=== PATIENT | female | born 1940 | race Caucasian/White ===

== ENCOUNTER 2019-09-23 13:17 | Emergency (ER) | payer OTHER ==
--- OUTSIDE RECORDS SUMMARY | 2019-09-23 13:19 | XMS REPORT | Continuity of Care Document ---
:1940 Author Organization [facility] t Address [address] [place] [address] Care Team Providers Name Role Phone Unavailable Unavailable Unavailable Problems This patient has no known problems. Allergies, Adverse Reactions, Alerts This patient has no known allergies or adverse reactions. Medications This patient has no known medications. Procedures This patient has no known procedures. Results This patient has no known results.
[2019-09-23 14:03] LABS: Absolute Lymphocytes (CBC) 2.1 K/uL (0.7-4.9); Basophils % 0.6 % (0-1.3); Hematocrit 42.3 % (36.0-45.0); Lymphocytes % 20.1 % (15.3-44.8); MPV 7.6 fL (7.6-11.3); RBC Red Blood Cell Count 4.85 M/uL (3.86-4.86)
[2019-09-23] MEDS ORDERED: NA CHLORIDE 0.9% 500 ML ONE (14:06)
[2019-09-23] MEDS ORDERED: NA CHLORIDE 0.9% 1,000 ML ONE (14:06)
[2019-09-23 14:20] LABS: ALT/SGPT 25 U/L (12-78); AST/SGOT 34 U/L (15-37); Albumin 2.5 g/dL (3.4-5.0); Alkaline Phosphatase 64 U/L (45-117); BUN Blood Urea Nitrogen 21 mg/dL (7-18); Bicarbonate 32 mmol/L (21-32); Bilirubin Direct 0.1 mg/dL (0-0.2); Bilirubin Total 0.2 mg/dL (0.2-1.0); Glucose Level 85 mg/dL (74-106); Lipase 69 U/L (73-393); Magnesium 2.3 mg/dL (1.8-2.4); NT PRO-BNP 163 pg/mL (<450); Potassium 4.2 mmol/L (3.5-5.1); Protein, Total 7.5 g/dL (6.4-8.2); Sodium Level 137 mmol/L (136-145); Troponin (Emerg Dept Use Only) < 0.02 ng/mL (0.0-0.045)
[2019-09-23 14:38] LABS: Blood Morphology Comment NOT SEEN (NOT SEEN); Platelet Estimate ADEQ
--- NOTE | 2019-09-23 15:29 | EDPHYS ---
Physician Documentation [facility] Name: Suzette Neville Age: 79 yrs Sex: Female : 1940 Arrival Date: 09/23/2019 Time: 13:21 Bed 20 Private MD: ED Physician Mason Aragon HPI: 09/22 13:53 This 79 yrs old Female presents to ER via EMS with complaints of Decreased bobo Appetite. 13:53 weak, decreased appetite, failure to thrive. Onset: The symptoms/episode began/occurred bobo 3 day(s) ago. Severity of symptoms: At their worst the symptoms were mild in the emergency department the symptoms are unchanged. It is unknown whether or not the patient has had similar symptoms in the past. Historical: - Allergies: 13:28 Atenolol; ah - PMHx: 13:28 Hypertension; Hypothyroidism; Anxiety; Bipolar disorder; GERD; Epilepsy; ah - PSHx: 13:28 Mastectomy, Left; - Immunization history:: Adult Immunizations up to date. - Social history:: Smoking status: Patient denies any tobacco usage or history of. ROS: 13:56 Constitutional: Negative for fever, chills, and weight loss, Eyes: Negative for injury, bobo pain, redness, and discharge, ENT: Negative for injury, pain, and discharge, Neck: Negative for injury, pain, and swelling, Cardiovascular: Negative for chest pain, palpitations, and edema, Respiratory: Negative for shortness of breath, cough, wheezing, and pleuritic chest pain, Back: Negative for injury and pain, : Negative for injury, bleeding, discharge, and swelling, MS/Extremity: Negative for injury and deformity, Skin: Negative for injury, rash, and discoloration, Psych: Negative for depression, anxiety, suicide ideation, homicidal ideation, and hallucinations, Allergy/Immunology: Negative for hives, rash, and allergies, Endocrine: Negative for neck swelling, polydipsia, polyuria, polyphagia, and marked weight changes. 13:56 Abdomen/GI: Positive for anorexia. 13:56 MS/extremity: Positive for decreased range of motion, of the right leg and left leg. Exam: 13:56 Constitutional: This is a well developed, well nourished patient who is awake, alert, bobo and in no acute distress. Head/Face: Normocephalic, atraumatic. Eyes: Pupils equal round and reactive to light, extra-ocular motions intact. Lids and lashes normal. Conjunctiva and sclera are non-icteric and not injected. Cornea within normal limits. Periorbital areas with no swelling, redness, or edema. ENT: Nares patent. No nasal discharge, no septal abnormalities noted. Tympanic membranes are normal and external auditory canals are clear. Oropharynx with no redness, swelling, or masses, exudates, or evidence of obstruction, uvula midline. Mucous membranes moist. Neck: Trachea midline, no thyromegaly or masses palpated, and no cervical lymphadenopathy. Supple, full range of motion without nuchal rigidity, or vertebral point tenderness. No Meningismus. Chest/axilla: Normal chest wall appearance and motion. Nontender with no deformity. No lesions are appreciated. Cardiovascular: Regular rate and rhythm with a normal S1 and S2. No gallops, murmurs, or rubs. Normal PMI, no JVD. No pulse deficits. Respiratory: Lungs have equal breath sounds bilaterally, clear to auscultation and percussion. No rales, rhonchi or wheezes noted. No increased work of breathing, no retractions or nasal flaring. Abdomen/GI: Soft, non-tender, with normal bowel sounds. No distension or tympany. No guarding or rebound. No evidence of tenderness throughout. Back: No spinal tenderness. No costovertebral tenderness. Full range of motion. Skin: Warm, dry with normal turgor. Normal color with no rashes, no lesions, and no evidence of cellulitis. MS/ Extremity: Pulses equal, no cyanosis. Neurovascular intact. Full, normal range of motion. Neuro: Awake and alert, GCS 15, oriented to person, place, time, and situation. Cranial nerves II-XII grossly intact. Motor strength 5/5 in all extremities. Sensory grossly intact. Cerebellar exam normal. Normal gait. Psych: Awake, alert, with orientation to person, place and time. Behavior, mood, and affect are within normal limits. 13:56 Musculoskeletal/extremity: DVT Exam: No signs of deep vein thrombosis. no pain, no swelling, no tenderness, negative Homans' sign noted on exam, no appreciated bluish discoloration, no erythema, no increased warmth. 15:30 ECG was reviewed by the Attending Physician. bobo Vital Signs: 13:32 BP 120 / 57; Pulse 89; Resp 15; Temp 98.1; Pulse Ox 95% ; Weight 76.88 kg; Pain 0/10; ah 14:30 BP 118 / 82; Pulse 79; Resp 18; Pulse Ox 100% ; ah 15:15 BP 135 / 65; Pulse 88; Resp 12; Pulse Ox 98% ; ah 17:45 BP 158 / 98; Pulse 84; Resp 16; Temp 97.9(O); Pulse Ox 99% on R/A; Pain 0/10; ls4 MDM: 13:39 Patient medically screened. [facility] 13:59 Differential Diagnosis altered mental status, sepsis. Data reviewed: vital signs, [facility] nurses notes, lab test result(s), EKG, radiologic studies. Data interpreted: panel monitor: rate is 89 beats/min, rhythm is regular, Pulse oximetry: on room air is 95 %. Test interpretation: by ED physician or midlevel provider: ECG, plain radiologic studies. Counseling: I had a detailed discussion with the patient and/or guardian regarding: the historical points, exam findings, and any diagnostic results supporting the discharge/admit diagnosis, the presence of at least one elevated blood pressure reading (>120/80) during this emergency department visit, lab results, radiology results. 15:23 ED course: alert and oriented, positive po intake, all labs discussed, will dc to ri to [facility] continue care. 09/22 13:50 Order name: Basic Metabolic Panel; Complete Time: 14:55 [facility] 09/22 13:50 Order name: CBC with Diff; Complete Time: 14:55 [facility] 09/22 13:50 Order name: LFT's; Complete Time: 14:55 [facility] 09/22 13:50 Order name: Magnesium; Complete Time: 14:55 [facility] 09/22 13:50 Order name: NT PRO-BNP; Complete Time: 14:55 [facility] 09/22 13:50 Order name: Troponin (emerg Dept Use Only); Complete Time: 14:55 [facility] 09/22 13:50 Order name: XRAY Chest (1 view) [facility] 09/22 13:50 Order name: Lipase; Complete Time: 14:55 [facility] 09/22 13:50 Order name: Depakote; Complete Time: 14:55 [facility] 09/22 13:50 Order name: Urine Culture [facility] 09/22 14:05 Order name: Manual Differential; Complete Time: 14:55 EDMS 09/22 15:10 Order name: Urine Dipstick--Ancillary (enter results) 09/22 13:50 Order name: EKG; Complete Time: 13:52 [facility] 09/22 13:50 Order name: Cardiac monitoring; Complete Time: 13:55 [facility] 09/22 13:50 Order name: EKG - Nurse/Tech; Complete Time: 15:21 [facility] 09/22 13:50 Order name: IV Saline Lock; Complete Time: 14:05 [facility] 09/22 13:50 Order name: Labs collected and sent; Complete Time: 14:05 [facility] 09/22 13:50 Order name: O2 Per Protocol; Complete Time: 14:05 [facility] 09/22 13:50 Order name: O2 Sat Monitoring; Complete Time: 14:05 [facility] 09/22 13:50 Order name: Urine Dipstick-Ancillary (obtain specimen); Complete Time: 15:09 [facility] 09/22 15:22 Order name: PO challenge; Complete Time: 15:33 [facility] EC:30 Rate is 87 beats/min. Rhythm is regular. QRS [place] is Normal. MA interval is normal. QRS bobo interval is normal. QT interval is normal. No Q waves. T waves are Normal. No ST changes noted. Clinical impression: NSR w/ Non-specific ST/T Changes and No evidence of ischemia. Interpreted by me. Administered Medications: 14:05 Drug: NS 0.9% 500 ml Route: IV; Rate: bolus; Site: right forearm; 15:54 Follow up: Response: No adverse reaction; IV Status: Completed infusion 14:30 Drug: NS 0.9% 1000 ml Route: IV; Rate: 125 ml/hr; Site: right forearm; 15:53 Follow up: Response: No adverse reaction; IV Status: Completed infusion 15:15 Drug: NS 0.9% 500 ml Route: IV; Rate: bolus; Site: right forearm; 15:53 Follow up: Response: No adverse reaction; IV Status: Completed infusion Disposition: 09/23/19 15:28 Discharged to Home. Impression: Weakness. - Condition is Stable. - Discharge Instructions: Weakness, Fatigue, Weakness, [id number]. - Medication Reconciliation Form, Thank You Letter, Antibiotic Education, Prescription Opioid Use form. - Follow up: Private Physician; When: 2 - 3 days; Reason: Recheck today's complaints, Continuance of care, Re-evaluation by your physician. - Problem is new. - Symptoms have improved. Signatures: Dispatcher [employer] EDMason Marie MD MD cha Attema, Lee, PERFORATOR OPERATOR-C PERFORATOR OPERATOR-Cla1 Chantal Mcmahon, RN RN ls4 June Talley RN RN Corrections: (The following items were deleted from the chart) 17:46 15:28 09/23/2019 15:28 Discharged to Home. Impression: Weakness. Condition is Stable. ls4 Forms are Medication Reconciliation Form, Thank You Letter, Antibiotic Education, Prescription Opioid Use. Follow up: Private Physician; When: 2 - 3 days; Reason: Recheck today's complaints, Continuance of care, Re-evaluation by your physician. Problem is new. Symptoms have improved. bobo
--- NOTE | 2019-09-23 15:29 | ER ---
Nurse's Notes [facility] Name: Suzette Neville Age: 79 yrs Sex: Female : 1940 Arrival Date: 09/23/2019 Time: 13:21 Bed 20 Private MD: Diagnosis: Weakness Presentation: 09/22 13:15 Chief complaint: EMS states: per residential Pt has been "failure to thrive" for the last few weeks. She has not been eating or drinking much. correction attempted IV and unsuccessful. 134/59, 88, 93%, 12, 97.9. Coronavirus screen: Patient denies a cough. Patient denies shortness of breath or difficulty breathing. Patient denies measured and/or subjective temperature greater than 100.4F prior to today's visit. Patient denies travel on a cruise ship or to a country the [facility] currently lists as an affected area. Patient denies contact with known and/or suspected case of COVID-19. Proceed with normal triage. Ebola Screen: No symptoms or risks identified at this time. Initial Sepsis Screen: Does the patient meet any 2 criteria?. Risk Assessment: Do you want to hurt yourself or someone else? Patient reports no desire to harm self or others. Onset of symptoms is unknown. 13:15 Method Of Arrival: EMS: [facility] 13:15 Acuity: [place] 3 15:21 Initial Sepsis Screen: Does the patient have a suspected source of infection? No. Patient's initial sepsis screen is negative. 16:34 Note LEXIS BELTRAN ls4 Historical: - Allergies: 13:28 Atenolol; - PMHx: 13:28 Hypertension; Hypothyroidism; Anxiety; Bipolar disorder; GERD; Epilepsy; - PSHx: 13:28 Mastectomy, Left; - Immunization history:: Adult Immunizations up to date. - Social history:: Smoking status: Patient denies any tobacco usage or history of. Screenin:30 Abuse screen: Denies threats or abuse. Nutritional screening:. Tuberculosis screening: No symptoms or risk factors identified. Fall Risk None identified. Assessment: 13:28 General: Appears in no apparent distress. unkempt, Behavior is calm, cooperative. Pain: Denies pain. Neuro: Level of Consciousness is awake, obeys commands, Oriented to person, place. Cardiovascular: Capillary refill < 3 seconds Patient's skin is warm and dry. Respiratory: Airway is patent is compromised. Derm: Skin is intact, is healthy with good turgor, Skin is dry. 15:29 Reassessment: Patient and/or family updated on plan of care and expected duration. Pain ah level reassessed. Patient is alert, oriented x 3, equal unlabored respirations, skin warm/dry/pink. Pt given a few drinks of diet sprite. Tolerated well. States that is all she wants at this time. 16:37 Reassessment: SPOKE TO LEXIS AT [facility]. LEXIS STATES THAT PT WAS SENT ls4 HERE TO ASSESS SO THAT SHE CAN HAVE A "FAMILY MEETING TO DISCUSS HOSPICE" REPORT GIVEN TO LEXIS, I THEN ASKED LEXIS TO ARRANGE TRANSPORT BACK TO [facility], LEXIS STATES THAT SHE HAS NEVER HAD TO DO THAT BEFORE AND WILL TRY. 16:57 Reassessment: LEXIS RN AT [facility] STATES THAT SHE HAS NEVER ARRANGED ls4 TRANSPORT FOR HER RESIDENTS BACK TO THE CENTER AND THAT SHE CALLED HER DON WHO SAID ALSO THAT SHE DOES NOT ARRANGE TRANSPORT FOR THE RESIDENTS RETURNING FROM ED. DON NAME DA [id number]. Vital Signs: 13:32 BP 120 / 57; Pulse 89; Resp 15; Temp 98.1; Pulse Ox 95% ; Weight 76.88 kg; Pain 0/10; ah 14:30 BP 118 / 82; Pulse 79; Resp 18; Pulse Ox 100% ; ah 15:15 BP 135 / 65; Pulse 88; Resp 12; Pulse Ox 98% ; ah 17:45 BP 158 / 98; Pulse 84; Resp 16; Temp 97.9(O); Pulse Ox 99% on R/A; Pain 0/10; ls4 ED Course: 13:21 Patient arrived in ED. ah 13:24 Triage completed. 13:39 Mason Aragon MD is Attending Physician. [facility] 13:47 June Talley, RN is Primary Nurse. ah 13:50 Initial lab(s) drawn, by ED staff, sent to lab. Inserted saline lock: 22 gauge in right ah forearm, using aseptic technique. 14:15 XRAY Chest (1 view) In Process Unspecified. EDMS 14:45 Straight cath inserted, using sterile technique, 15 Returned clear yellow urine. ah Patient tolerated well. 15:22 Patient has correct armband on for positive identification. Placed in gown. Bed in low ah position. Side rails up X2. religion instructor on. Pulse ox on. NIBP on. 15:33 Patient notified of wait time. 16:37 No provider procedures requiring assistance completed. ls4 17:46 IV discontinued. ls4 Administered Medications: 14:05 Drug: NS 0.9% 500 ml Route: IV; Rate: bolus; Site: right forearm; 15:54 Follow up: Response: No adverse reaction; IV Status: Completed infusion 14:30 Drug: NS 0.9% 1000 ml Route: IV; Rate: 125 ml/hr; Site: right forearm; 15:53 Follow up: Response: No adverse reaction; IV Status: Completed infusion 15:15 Drug: NS 0.9% 500 ml Route: IV; Rate: bolus; Site: right forearm; 15:53 Follow up: Response: No adverse reaction; IV Status: Completed infusion Outcome: 15:28 Discharge ordered by MD. broussard 17:46 Discharged to residential. Report called to [facility] Transfer ls4 form completed. 17:46 Condition: stable 17:46 Instructed on discharge instructions. 17:46 Patient left the ED. ls4 Signatures: Dispatcher [employer] EDMS Mason Aragon MD MD cha Stewart, Lisa, RN RN ls4 June Talley, RN RN
--- NOTE | 2019-09-23 15:51 | RAD REPORT ---
EXAM DESCRIPTION: RAD - Chest Single View - 09/23/2019 2:15 pm CLINICAL HISTORY: COUGH, shortness of breath COMPARISON: None TECHNIQUE: AP portable chest image was obtained 09/23/2019 2:15 pm . FINDINGS: Lung volumes are low. No focal mass or consolidation. Left hemithorax volume is reduced du e to rotation and splinting. No significant failure or volume overload. Interstitial pattern is mildl y prominent believed be baseline interstitial disease. Trachea is midline. Heart and vasculature are normal. No measurable pleural effusion and no pneumotho rax. No acute bony abnormality seen. No acute aortic findings suspected. IMPRESSION: No acute cardiopulmonary process.
[2019-09-23 17:56] VITALS: BP 158/98; TEMP 97.9; O2SAT 99
[2019-09-23 21:49] LABS: Urine Blood TRACE (NEG); Urine Glucose NEGATIVE (NEG); Urine Protein NEGATIVE (NEG); Urine Specific Gravity 1.025 (1.005-1.030); Urine pH 6.5 (5.0-7.0)
--- NOTE | 2019-09-24 07:26 | EKG ---
Test Date: 2019-09-23 Test Time: 15:09:20 [employer]masters Manager: JEANETTE MEASUREMENT RESULTS: Intervals: Rate: 87 NC: 134 QRSD: 82 QT: 364 QTc: 438 [place]: P: 40 NC: 134 QRS: -41 T: 34 INTERPRETIVE STATEMENTS: Normal sinus rhythm Left axis deviation Possible Anterior infarct, age undetermined Abnormal ECG No previous ECG available for comparison Electronically Signed On 09-24-19 07:24:56 CDT by Victor Manuel Rojo
== END 2019-09-23 17:46 | disposition home or self-care (01) ==
LOC: ER 13:17
DX: R53.1 Weakness (principal); I10 Essential (primary) hypertension; Z88.8 Allergy status to other drugs, medicaments and biological substances; Z90.12 Acquired absence of left breast and nipple
CPT/HCPCS: 96361; 93005; 87088; 85025; 87086; 80048; 36415; 83735; 80076; 80164; 81003; 84484; 83690; 83880; 71045; 51702; 96360; 99284; J7040; J7030; 87077; 87186

== ENCOUNTER 2020-11-26 16:05 | Emergency (ER) | payer OTHER ==
[2020-11-26 16:20] LABS: Absolute Lymphocytes (CBC) 1.9 K/uL (0.7-4.9); Basophils % 0.4 % (0-1.3); Hematocrit 36.6 % (36.0-45.0); Lymphocytes % 11.7 % (15.3-44.8); MPV 7.8 fL (7.6-11.3); RBC Red Blood Cell Count 4.21 M/uL (3.86-4.86)
[2020-11-26 16:29] LABS: Protime INR 1.19
[2020-11-26] MEDS ORDERED: MORPHINE 4 MG/ML SYR ONE (16:44)
[2020-11-26] MEDS ORDERED: NA CHLORIDE 0.9% 1,000 ML ONE (16:44)
[2020-11-26] MEDS ORDERED: ONDANSETRON 4 MG/2 ML VIAL ONE ×2 (16:44→20:30)
[2020-11-26 16:53] LABS: ALT/SGPT 17 U/L (12-78); AST/SGOT 14 U/L (15-37); Albumin 3.1 g/dL (3.4-5.0); Alkaline Phosphatase 58 U/L (45-117); BUN Blood Urea Nitrogen 12 mg/dL (7-18); Bicarbonate 26 mmol/L (21-32); Bilirubin Direct 0.1 mg/dL (0-0.2); Bilirubin Total 0.5 mg/dL (0.2-1.0); Glucose Level 151 mg/dL (74-106); NT PRO-BNP 1517 pg/mL (<450); Potassium 3.7 mmol/L (3.5-5.1); Protein, Total 7.3 g/dL (6.4-8.2); Sodium Level 139 mmol/L (136-145); Troponin (Emerg Dept Use Only) < 0.02 ng/mL (0.0-0.045)
--- NOTE | 2020-11-26 17:16 | EDPHYS ---
Physician Documentation [facility] Name: Suzette Neville Age: 80 yrs Sex: Female : 1940 Arrival Date: 11/26/2020 Time: 16:05 Bed 28 Private MD: ED Physician Mason Aragon HPI: 11/26 16:09 This 80 yrs old Female presents to ER via Unassigned with complaints of Knee bobo Injury. Historical: - Immunization history:: Adult Immunizations up to date. - Social history:: Smoking status: Patient denies any tobacco usage or history of. Patient/guardian denies using alcohol, street drugs, tobacco products. ROS: 16:56 Constitutional: Negative for fever, chills, and weight loss, Eyes: Negative for injury, bobo pain, redness, and discharge, ENT: Negative for injury, pain, and discharge, Neck: Negative for injury, pain, and swelling, Cardiovascular: Negative for chest pain, palpitations, and edema, Respiratory: Negative for shortness of breath, cough, wheezing, and pleuritic chest pain, Abdomen/GI: Negative for abdominal pain, nausea, vomiting, diarrhea, and constipation, Back: Negative for injury and pain, : Negative for injury, bleeding, discharge, and swelling, Skin: Negative for injury, rash, and discoloration, Neuro: Negative for headache, weakness, numbness, tingling, and seizure, Psych: Negative for depression, anxiety, suicide ideation, homicidal ideation, and hallucinations, Allergy/Immunology: Negative for hives, rash, and allergies, Endocrine: Negative for neck swelling, polydipsia, polyuria, polyphagia, and marked weight changes, Hematologic/Lymphatic: Negative for swollen nodes, abnormal bleeding, and unusual bruising. 16:56 MS/extremity: Positive for decreased range of motion, pain, swelling, tenderness, of the lateral aspect of right calf, medial aspect of right calf and right brink. Exam: 16:56 Constitutional: This is a well developed, well nourished patient who is awake, alert, bobo and in no acute distress. Head/Face: Normocephalic, atraumatic. Eyes: Pupils equal round and reactive to light, extra-ocular motions intact. Lids and lashes normal. Conjunctiva and sclera are non-icteric and not injected. Cornea within normal limits. Periorbital areas with no swelling, redness, or edema. ENT: Nares patent. No nasal discharge, no septal abnormalities noted. Tympanic membranes are normal and external auditory canals are clear. Oropharynx with no redness, swelling, or masses, exudates, or evidence of obstruction, uvula midline. Mucous membranes moist. Neck: Trachea midline, no thyromegaly or masses palpated, and no cervical lymphadenopathy. Supple, full range of motion without nuchal rigidity, or vertebral point tenderness. No Meningismus. Chest/axilla: Normal chest wall appearance and motion. Nontender with no deformity. No lesions are appreciated. Cardiovascular: Regular rate and rhythm with a normal S1 and S2. No gallops, murmurs, or rubs. Normal PMI, no JVD. No pulse deficits. Respiratory: Lungs have equal breath sounds bilaterally, clear to auscultation and percussion. No rales, rhonchi or wheezes noted. No increased work of breathing, no retractions or nasal flaring. Abdomen/GI: Soft, non-tender, with normal bowel sounds. No distension or tympany. No guarding or rebound. No evidence of tenderness throughout. Back: No spinal tenderness. No costovertebral tenderness. Full range of motion. Psych: Awake, alert, with orientation to person, place and time. Behavior, mood, and affect are within normal limits. 16:56 Skin: cellulitis, that is mild, induration, that is mild is noted, lesion(s), hemorrhagic bullous lesions, anterior. Vital Signs: 16:41 BP 167 / 87 (auto/); Pulse 106; Resp 20; Temp 98.5(O); Pulse Ox 95% on R/A; kh1 16:47 BP 167 / 84; Pulse 106; Resp 20; Temp 98.5; Pulse Ox 95% ; kh1 20:15 BP 154 / 81; Pulse 88; Resp 17; Temp 98(O); Pulse Ox 100% on R/A; Pain 4/10; bc5 MDM: 16:06 Patient medically screened. jr8 18:52 Differential diagnosis: dislocation, open fracture, closed fracture, contusion, bobo tendonitis. Data reviewed: vital signs, nurses notes, EMS record, lab test result(s), EKG, radiologic studies, plain films. Data interpreted: manager monitoring: rate is 106 beats/min, rhythm is regular, Pulse oximetry: on room air is 95 %. Test interpretation: by ED physician or midlevel provider: ECG, plain radiologic studies. Counseling: I had a detailed discussion with the patient and/or guardian regarding: the historical points, exam findings, and any diagnostic results supporting the discharge/admit diagnosis, lab results, radiology results, the need to transfer to another facility, for higher level of care, [facility] does not immediately have the required specialist. 11/26 16:08 Order name: Basic Metabolic Panel; Complete Time: 16:54 [facility] 11/26 16:08 Order name: CBC with Diff [facility] 11/26 16:08 Order name: LFT's; Complete Time: 16:54 [facility] 11/26 16:08 Order name: Magnesium; Complete Time: 16:54 [facility] 11/26 16:08 Order name: NT PRO-BNP; Complete Time: 16:54 [facility] 11/26 16:08 Order name: PT-INR; Complete Time: 16:54 [facility] 11/26 16:08 Order name: Troponin (emerg Dept Use Only); Complete Time: 16:54 [facility] 11/26 16:08 Order name: XRAY Chest (1 view) [facility] 11/26 16:08 Order name: Tib Fib Right XRAY [facility] 11/26 18:07 Order name: CBC Smear Scan [facility] 11/26 18:50 Order name: SARS-COV-[address] [facility] 11/26 16:08 Order name: EKG; Complete Time: 16:08 [facility] 11/26 16:08 Order name: Cardiac monitoring [facility] 11/26 16:08 Order name: EKG - Nurse/Tech [facility] 11/26 16:08 Order name: IV Saline Lock; Complete Time: 16:16 [facility] 11/26 16:08 Order name: Labs collected and sent; Complete Time: 16:16 [facility] 11/26 16:08 Order name: O2 Per Protocol; Complete Time: 16:16 [facility] 11/26 16:08 Order name: O2 Sat Monitoring; Complete Time: 16:16 [facility] 11/26 16:08 Order name: Ice pack; Complete Time: 16:37 [facility] 11/26 16:56 Order name: Splint - Posterior Leg; Complete Time: 20:14 [facility] Administered Medications: 16:37 Drug: Zofran (Ondansetron) 4 mg Route: IVP; Site: right hand; kh1 20:14 Follow up: Response: No adverse reaction bc5 16:38 Drug: NS 0.9% 1000 ml Route: IV; Rate: 75 ml/hr; Site: right hand; kh1 20:15 Follow up: IV Status: Infusion continued upon transfer bc5 16:38 Drug: morphine 2 mg Route: IVP; Site: right hand; kh1 20:14 Follow up: Response: No adverse reaction bc5 17:16 Drug: Zosyn (piperacillin-tazobactam) 3.375 grams Route: IVPB; Infused Over: 60 mins; kh1 Site: right antecubital; 20:14 Follow up: IV Status: Completed infusion bc5 20:13 Drug: morphine 2 mg Route: IVP; Site: right hand; bc5 20:14 Follow up: Response: Medication administered at discharge. bc5 20:13 Drug: Zofran (Ondansetron) 4 mg Route: IVP; Site: right hand; bc5 20:14 Follow up: Response: Medication administered at discharge. 5 Disposition Summary: 11/26/20 17:16 Transfer Ordered Transfer Location: [facility] bobo Reason: Higher level of care bobo Condition: Fair bobo Problem: new bobo Symptoms: have improved bobo Accepting Physician: magalie arboleda(11/26/20 20:29) 5 Diagnosis - Fall (on) (from) other stairs and steps - chair/fall bobo - Displaced fracture of lateral condyle of right tibia - right proximal displaced bobo fibula fracture - Cellulitis and acute lymphangitis of other sites - right proximal tibial area, bobo bullous lesiona - Coronavirus infection, unspecified bobo Forms: - Medication Reconciliation Form bobo - SBAR form bobo Signatures: Dispatcher [employer] EDMason Marie MD MD cha Roszak, Josh, PA PA jr8 Harris, Kecia [facility] Sommer Couch RN RN 5 Corrections: (The following items were deleted from the chart) 16:45 16:45 PMHx: Hypertension; [place] [id number] 16:45 16:45 PMHx: Hypothyroidism; [place] [address] 16:45 16:45 PMHx: Anxiety; [place] [address] 16:45 16:45 PMHx: Bipolar disorder; kh1 kh1 16:45 16:45 PMHx: GERD; kh1 kh1 16:45 16:45 PMHx: epilepsy; 1 kh1 17:37 17:01 CORONAVIRUS+BRZ ordered. EDMS EDMS 18:53 17:[address] [facility] 20:29 18:53 [facility]
--- NOTE | 2020-11-26 17:16 | ER ---
Nurse's Notes [facility] Name: Suzette Neville Age: 80 yrs Sex: Female : 1940 Arrival Date: 11/26/2020 Time: 16:05 Bed 28 Private MD: Diagnosis: Fall (on) (from) other stairs and steps-chair/fall;Displaced fracture of lateral condyle of right tibia-right proximal displaced fibula fracture;Cellulitis and acute lymphangitis of other sites-right proximal tibial area, bullous lesiona;Coronavirus infection, unspecified Presentation: 11/26 16:41 Chief complaint: EMS states: was sent from [facility] with c/o right knee [facility] pain. EMS states pt had fall unknown time. right leg is swollen with large purple bruise. large pustule pockets noted. facility staes they do not know when ot fell. Coronavirus screen: Vaccine status: Patient reports receiving the 2nd dose of the covid vaccine. Ebola Screen: No symptoms or risks identified at this time. Initial Sepsis Screen: Does the patient meet any 2 criteria? No. Patient's initial sepsis screen is negative. Does the patient have a suspected source of infection? No. Patient's initial sepsis screen is negative. Risk Assessment: Do you want to hurt yourself or someone else? Patient reports no desire to harm self or others. Onset of symptoms is unknown. 16:41 Method Of Arrival: EMS: [place] [id number] 16:41 Acuity: [place] 3 [facility] Triage Assessment: 16:46 General: Appears in no apparent distress. uncomfortable, Behavior is calm, cooperative. 1 Musculoskeletal: Swelling present in right leg Tenderness present in right leg Parent/caregiver report the patient having pain in right leg. Injury Description: Bruise sustained to right leg is purple. Historical: - Immunization history:: Adult Immunizations up to date. - Social history:: Smoking status: Patient denies any tobacco usage or history of. Patient/guardian denies using alcohol, street drugs, tobacco products. Screenin:49 Abuse screen: Denies threats or abuse. Nutritional screening: No deficits noted. 1 Tuberculosis screening: No symptoms or risk factors identified. Fall Risk Fall in past 12 months (25 points). Secondary diagnosis (15 points) dementia, impaired mobility, IV access (20 points). Mental Status- Overestimates/Forgets Limitations (15 pts.). Assessment: 16:48 General: Appears in no apparent distress. uncomfortable, Behavior is calm, cooperative. kh1 Pain: Complains of pain in right leg Pain does not radiate. Pain currently is 10 out of 10 on a pain scale. Aggravated by weight bearing, Noted to be confused, grimacing. Neuro: Level of Consciousness is awake, alert, obeys commands, Oriented to person, Operational Trainer are weak bilaterally Gait is Speech Facial symmetry appears normal. 17:30 Reassessment: Patient appears in no apparent distress at this time. No changes from [facility] previously documented assessment. Patient and/or family updated on plan of care and expected duration. Pain level reassessed. Patient is alert, oriented x 3, equal unlabored respirations, skin warm/dry/pink. 19:17 Reassessment: Patient appears in no apparent distress at this time. No changes from [facility] previously documented assessment. Patient and/or family updated on plan of care and expected duration. Pain level reassessed. Patient is alert, oriented x 3, equal unlabored respirations, skin warm/dry/pink. Patient is alert/active/playful, equal unlabored respirations, skin warm/dry/pink. report called spoke with Christine. no acute distress at this time awaiting ambulance. Vital Signs: 16:41 BP 167 / 87 (auto/); Pulse 106; Resp 20; Temp 98.5(O); Pulse Ox 95% on R/A; kh1 16:47 BP 167 / 84; Pulse 106; Resp 20; Temp 98.5; Pulse Ox 95% ; kh1 20:15 BP 154 / 81; Pulse 88; Resp 17; Temp 98(O); Pulse Ox 100% on R/A; Pain 4/10; bc5 ED Course: 16:05 Patient arrived in ED. ds1 16:06 Ty Fuchs PA is PHCP. jr8 16:06 Mason Aragon MD is Attending Physician. jr8 16:16 Merle Talley is Primary Nurse. kh1 16:16 Basic Metabolic Panel Sent. kh1 16:16 CBC with Diff Sent. kh1 16:16 LFT's Sent. kh1 16:16 Magnesium Sent. kh1 16:16 NT PRO-BNP Sent. kh1 16:16 PT-INR Sent. kh1 16:16 Troponin (emerg Dept Use Only) Sent. 1 16:45 Triage completed. 1 16:49 Arm band placed on left wrist. EKG completed in triage. Results shown to MD. 1 16:49 Patient has correct armband on for positive identification. Fall risk band placed. kh1 Placed in gown. Bed in low position. Call light in reach. Side rails up X2. school lunch monitor on. Pulse ox on. Sitter at bedside. 17:23 XRAY Chest (1 view) In Process Unspecified. EDMS 17:23 Tib Fib Right XRAY In Process Unspecified. EDMS 20:28 No provider procedures requiring assistance completed. Patient transferred, IV remains bc5 in place. Administered Medications: 16:37 Drug: Zofran (Ondansetron) 4 mg Route: IVP; Site: right hand; kh1 20:14 Follow up: Response: No adverse reaction bc5 16:38 Drug: NS 0.9% 1000 ml Route: IV; Rate: 75 ml/hr; Site: right hand; kh1 20:15 Follow up: IV Status: Infusion continued upon transfer bc5 16:38 Drug: morphine 2 mg Route: IVP; Site: right hand; kh1 20:14 Follow up: Response: No adverse reaction bc5 17:16 Drug: Zosyn (piperacillin-tazobactam) 3.375 grams Route: IVPB; Infused Over: 60 mins; 1 Site: right antecubital; 20:14 Follow up: IV Status: Completed infusion bc5 20:13 Drug: morphine 2 mg Route: IVP; Site: right hand; bc5 20:14 Follow up: Response: Medication administered at discharge. bc5 20:13 Drug: Zofran (Ondansetron) 4 mg Route: IVP; Site: right hand; bc5 20:14 Follow up: Response: Medication administered at discharge. bc5 Outcome: 17:16 ER care complete, transfer ordered by . bobo 20:16 Transferred by ground EMS to [facility], Transfer form completed. X-rays sent bb w/ patient. 20:28 Condition: improved bc5 20:29 Patient left the ED. bc5 Signatures: Dispatcher [employer] EDMason Marie MD MD cha Sanford, Demi ds1 Radha Zarate RN RN bb Ty Fuchs PA PA jr8 Merle Talley [facility] Sommer Couch RN RN bc5 Corrections: (The following items were deleted from the chart) 16:45 16:45 PMHx: Hypertension; [place] [id number] 16:45 16:45 PMHx: Hypothyroidism; [place] [id number] 16:45 16:45 PMHx: Anxiety; [place] [id number] 16:45 16:45 PMHx: Bipolar disorder; [place] [id number] 16:45 16:45 PMHx: GERD; [place] [id number] 16:45 16:45 PMHx: epilepsy; [place] [id number] 17:37 17:16 CORONAVIRUS+MR.LAB.BRZ drawn and sent. [facility] EDMS
--- NOTE | 2020-11-26 17:29 | RAD REPORT ---
EXAM DESCRIPTION: Kelly Single View11/26/2020 5:23 pm CLINICAL HISTORY: cough COMPARISON: 2019 FINDINGS: The lungs appear clear of acute infiltrate. The heart is normal size IMPRESSION: No acute abnormalities displayed
[2020-11-26] MEDS ORDERED: PIPERACIL/TAZO 3.375 GM VIAL IV ONE (17:30)
[2020-11-26] MEDS ORDERED: NA CHLORIDE 0.9% 100 ML ONE (17:31)
--- NOTE | 2020-11-26 17:31 | RAD REPORT ---
EXAM DESCRIPTION: RAD - Tib Fib Right - 11/26/2020 5:23 pm CLINICAL HISTORY: Right leg pain FINDINGS: Limited evaluation of the proximal knee. Comminuted markedly displaced fracture proximal tibia. Comminuted fracture fibular head/neck. Mildly displaced fracture anterior distal aspect tibia. Osteoporosis
[2020-11-26 18:07] LABS: Blood Morphology Comment NOT SEEN (NOT SEEN); Platelet Estimate ADEQ; White Blood Cell Scan OK (OK)
[2020-11-26] MEDS ORDERED: MORPHINE 2 MG/ML SYR ONE (20:30)
[2020-11-26 20:46] VITALS: BP 154/81; TEMP 98; O2SAT 100
--- NOTE | 2020-11-27 16:59 | EKG ---
Test Date: 2020-11-26 Test Time: 16:30:59 [employer] Manager: SUMEET MEASUREMENT RESULTS: Intervals: Rate: 102 PA: 146 QRSD: 76 QT: 352 QTc: 458 [place]: P: 44 PA: 146 QRS: -30 T: 20 INTERPRETIVE STATEMENTS: Sinus tachycardia Left axis deviation Moderate voltage criteria for LVH, may be normal variant Abnormal ECG Compared to ECG 09/23/2019 15:09:20 Left ventricular hypertrophy now present Sinus rhythm no longer present Myocardial infarct finding no longer present Electronically Signed On 11-27-20 16:57:59 CDT by Victor Manuel Rojo
== END 2020-11-26 20:29 | disposition short-term general hospital (02) ==
LOC: ER 16:05
PROC: 2W3QX1Z Immobilization of Right Lower Leg using Splint (ICD-10-PCS; principal; 2020-11-26)
DX: S82.121A Displaced fracture of lateral condyle of right tibia, initial encounter for closed fracture (principal); S82.831A Other fracture of upper and lower end of right fibula, initial encounter for closed fracture; L03.115 Cellulitis of right lower limb; L03.125 Acute lymphangitis of right lower limb; U07.1 COVID-19; W10.9XXA Fall (on) (from) unspecified stairs and steps, initial encounter
CPT/HCPCS: 96365; 96361; 93005; 85025; 80048; 36415; 83735; 85610; 80076; 84484; 83880; 71045; 73590; 96375; 99285; 96366; 29515; U0003; J2543; J2270; J7030; J2405 ×2

== ENCOUNTER 2022-09-24 21:05 | Inpatient (IN) | payer OTHER ==
--- OUTSIDE RECORDS SUMMARY | 2022-09-24 21:14 | XMS REPORT | Continuity of Care Document ---
:1940 Author Organization [facility] t Address [address] [place] [address] [address] [place] [address] Care Team Providers Name Role Phone CHRISTELLE SANTACRUZ Attending Clinician Unavailable PATRICK KO Attending Clinician Unavailable Kieran Neely Attending Clinician Unavailable UNKNOWN Attending Clinician Unavailable GC_BAHC_Adan_Gm Attending Clinician Unavailable KNOW, DOES_NOT Attending Clinician Unavailable Zaira Arellano Attending Clinician [phone] Sawyer Vazquez Attending Clinician [phone] GC_BAHC_Prakashglbj_Lake Attending Clinician Unavailable Raju_Judith Attending Clinician Unavailable Kieran Neely Admitting Clinician Unavailable Sawyer Vazquez Admitting Clinician Unavailable GC_BAHC_Todd_Gm Admitting Clinician Unavailable GC_BAHC_Prakashglbj_Lake Admitting Clinician Unavailable Raju_P Admitting Clinician Unavailable KNOW, DOES_NOT Admitting Clinician Unavailable Payers Payer Name Policy Type Policy Number Effective Date Expiration Date Raheem ventura MEDICARE PART A [id number] 2007 2024 AND B 00:00:00 00:00:00 [facility] [id number] 2021 [facility] 00:00:00 [place] (MEDICARE REPLACEMENT/ADVANT AGE - HMO) [facility] [id number] 2018 [facility] (MEDICAID 00:00:00 HMO) Problems Condition Condition Condition Status Onset Resolution Last Treating Co mments Source Name Details Category Date Date Treatment Clinician Date Need for Need for Problem Active [facility] personal Personal 2-28 Medica l care Care 00:00: assistance Assistance 00 Long-term Long-term Problem Active [facility] via current Current -28 Medical use of Use of 00:00: anticonvul Anticonvul 00 joshua joshua Valproate Valproate Problem Active [facility] via level low Level Low 2-24 Medi keith 00:00: 00 Lives in a Lives in a Problem Active 2021-03 [facility] nursing Nursing 1-09 Medical home Home 00:00: 00 Bed-ridden Bed-ridden Problem Active 2021-03 [facility] 1-09 Medical 00:00: 00 Unintentio Unintentio Problem Active 2021-03 [facility] nal weight nal Weight 0-10 Me dical gain Gain 00:00: 00 Senile Senile Problem Active [facility] purpura Purpura 6-19 Medical 00:00: 00 Candidal Candidal Problem Active [facility] intertrigo Intertrigo 5-11 Me dical 00:00: 00 Hyperlipid Hyperlipid Problem Active [facility] emia emia 5- Medical 00:00: 00 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 00 Hypercoagu Hypercoagu Problem Active [facility] lability lability 5-11 Medica l state State 00:00: 00 Osteoarthr Osteoarthr Problem Active [facility] itis of itis of 5- Medical multiple Multiple 00:00: joints Joints 00 Unable to Unable to Problem Active [facility] walk Walk 5- Medical 00:00: 00 Osteoporos Osteoporos Problem Active [facility] is is 5- Medical 00:00: 00 Opioid Opioid Problem Active [facility] dependence Dependence 5-11 Me dical with with 00:00: current Current 00 use Use Morbid Morbid Problem Active [facility] obesity Obesity -21 Medical 00:00: 00 Hypothyroi Hypothyroi Problem Active [facility] dism dism 4-11 Medical 00:00: 00 Bipolar Bipolar Problem Active [facility] disorder Disorder 4-11 Medica l 00:00: 00 Seizure Seizure Problem Active [facility] disorder Disorder 4-11 Medica l 00:00: 00 Coronary Coronary Problem Active [facility] arterioscl Arterioscl 06-09 Me dical erosis erosis 00:00: 00 History of 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 00 Dementia Dementia Problem Active [facility] 06-09 Medical 00:00: 00 AIR AIR Diagnosis Active 2015-04-10 [facility] AMBULANCE AMBULANCE 04-07 09:57:00 l Active 11:50: Rene 04/07/2015 00 [facility] [place] Diagnosis Active 2015-04-07 Mem [facility]ria Active 04-07 16:35:00 l 04/07/2015 00:00: Jerald tavarez [address] FACIAL FACIAL Diagnosis Active 2015-07-24 Me [facility]ia CTX,HYPONA CTX,HYPONA 04-07 13:25:00 l TREMIA,RHA TREMIA,RHA 00:00: He rmann BDOMYOLYSI BDOMYOLYSI 00 S,D S,D Active 04/07/2015 [facility] Generalize Generalize Problem Active [facility] d anxiety d Anxiety [facility] keith disorder Disorder Chronic Chronic Problem Active [facility] pain Pain Medical syndrome Syndrome Hypertensi Hypertensi Problem Active [facility] ve heart ve Heart Medica l disease Disease Peripheral Peripheral Problem Active [facility] vascular Vascular Medica l disease Disease Not for Not for Problem Active [facility] resuscitat Resuscitat Me dical ion ion Allergies, Adverse Reactions, Alerts Allergy Allergy Status Severity Reaction(s) Onset Inactive Treating Comm ents Source Name Type Date Date Clinician atenolol DA Active U UNKNOWN [facility] 4-22 [place] 00:00: d 00 Medical [place] No Known DA Active U [facility] Allergie 06-19 Clear s 00:00: Colon 00 [facility] Atenolol Allergy Active [facility] to Medical substanc e Social History Smoking Status Start Date Stop Date Source Never Smoker [facility] Medical Medications Ordered Filled Start Stop Current Ordering Indication Dosage Frequency Signature Comments Components Source Medication Medication Date Date Medication? Clinician (SIG) Name Name acetaminoph acetaminoph No acetaminop [facility] en 300 en 300 hen 300 Medical mg-codeine mg-codeine mg-codeine 30 mg 30 mg 30 mg tablet Take tablet Take tablet 1 tablet 1 tablet Take 1 every 8 every 8 tablet hours by hours by every 8 oral route oral route hours by for 30 for 30 oral route days. days. for 30 days. anastrozole anastrozole No anastrozol [facility] 1 mg tablet 1 mg tablet e 1 mg Medical Take 1 Take 1 tablet tablet tablet Take 1 every day every day tablet by oral by oral every day route for route for by oral 90 days. 90 days. route for 90 days. aspirin 81 aspirin 81 No 1 Q1D aspirin 81 [facility] mg mg mg Medical tablet,corey tablet,corey tablet,del yed release yed release ayed Take 1 Take 1 release tablet tablet Take 1 every day every day tablet by oral by oral every day route. route. by oral route. atorvastati atorvastati No atorvastat [facility] n 40 mg n 40 mg in 40 mg Medic al tablet Take tablet Take tablet 1 tablet 1 tablet Take 1 every day every day tablet by oral by oral every day route at route at by oral bedtime. bedtime. route at bedtime. buspirone buspirone No 1 TID buspirone [facility] 15 mg 15 mg 15 mg Medical tablet Take tablet Take tablet 1 tablet 3 1 tablet 3 Take 1 times a day times a day tablet 3 by oral by oral times a route for route for day by 30 days. 30 days. oral route for 30 days. diltiazem diltiazem No diltiazem [facility] ER (XR/XT) ER (XR/XT) ER (XR/XT) Medical 240 mg 240 mg 240 mg capsule,ext capsule,ext capsule,ex ended ended tended release 24 release 24 release 24 hr, hr, hr, controlled controlled controlled divalproex divalproex No divalproex [facility] 125 mg 125 mg 125 mg Medical capsule,del capsule,del capsule,de ayed ayed layed release release release sprinkle sprinkle sprinkle Take 2 Take 2 Take 2 capsules capsules capsules twice a day twice a day twice a by oral by oral day by route for route for oral route 30 days. 30 days. for 30 days. duloxetine duloxetine No duloxetine [facility] 60 mg 60 mg 60 mg Medical capsule,del capsule,del capsule,de ayed ayed layed release release release Take 1 Take 1 Take 1 capsule capsule capsule twice a day twice a day twice a by oral by oral day by route for route for oral route 30 days. 30 days. for 30 days. hydrochloro hydrochloro No 1 Q1D hydrochlor [facility] thiazide thiazide othiazide Me dical 12.5 mg 12.5 mg 12.5 mg tablet Take tablet Take tablet 1 tablet 1 tablet Take 1 every day every day tablet by oral by oral every day route for route for by oral 30 days. 30 days. route for 30 days. ipratropium ipratropium No ipratropiu [facility] 0.5 0.5 m 0.5 Medical mg-albutero mg-albutero mg-albuter l 3 mg (2.5 l 3 mg (2.5 ol 3 mg mg base)/3 mg base)/3 (2.5 mg mL mL base)/3 mL nebulizatio nebulizatio nebulizati n soln n soln on soln levetiracet levetiracet No levetirace [facility] am 1,000 mg am 1,000 mg oconnell 1,000 Medical tablet Take tablet Take mg tablet 1 tablet 1 tablet Take 1 twice a day twice a day tablet by oral by oral twice a route for route for day by 30 days. 30 days. oral route for 30 days. levetiracet levetiracet No 1 BID levetirace [facility] am 250 mg am 250 mg oconnell 250 mg Medical tablet Take tablet Take tablet 1 tablet 1 tablet Take 1 twice a day twice a day tablet by oral by oral twice a route for 1 route for 1 day by day. day. oral route for 1 day. levothyroxi levothyroxi No 1 Q1D levothyrox [facility] ne 25 mcg ne 25 mcg ine 25 mcg Medical tablet Take tablet Take tablet 1 tablet 1 tablet Take 1 every day every day tablet by oral by oral every day route. route. by oral route. Nystop Nystop No Nystop [facility] 100,000 100,000 100,000 Medica l unit/gram unit/gram unit/gram topical topical topical powder powder powder potassium potassium No potassium [facility] chloride ER chloride ER chloride Medical 20 mEq 20 mEq ER 20 mEq tablet,exte tablet,exte tablet,ext nded nded ended release(par release(par release(pa t/cryst) t/cryst) rt/cryst) Take 1 Take 1 Take 1 tablet tablet tablet every day every day every day by oral by oral by oral route for route for route for 30 days. 30 days. 30 days. Retaine Retaine No 2drop(s BID Retaine [facility] (PF) [facility] (PF) ) [facility] (PF) Medical 0.3 % eye 0.3 % eye 0.3 % eye drops Apply drops Apply drops 2 drops 2 drops Apply 2 twice a day twice a day drops by by twice a ophthalmic ophthalmic day by route. route. ophthalmic route. Senna with Senna with No 2 BID Senna with [facility] Docusate Docusate Docusate Med ical Sodium 8.6 Sodium 8.6 Sodium 8.6 mg-50 mg mg-50 mg mg-50 mg tablet Take tablet Take tablet 2 tablets 2 tablets Take 2 twice a day twice a day tablets by oral by oral twice a route. route. day by oral route. Vitamin D3 Vitamin D3 No Vitamin D3 [facility] 1,000 daily 1,000 daily 1,000 Medical daily anastrozole anastrozole No 1 Q1D anastrozol [facility] 1 mg tablet 1 mg tablet e 1 mg Medical Take 1 Take 1 tablet tablet tablet Take 1 every day every day tablet by oral by oral every day route. route. by oral route. aspirin 81 aspirin 81 No 1 Q1D aspirin 81 [facility] mg mg mg Medical tablet,corey tablet,corey tablet,del yed release yed release ayed Take 1 Take 1 release tablet tablet Take 1 every day every day tablet by oral by oral every day route. route. by oral route. buspirone buspirone No 2 TID buspirone [facility] 10 mg 10 mg 10 mg Medical tablet Take tablet Take tablet 2 tablets 3 2 tablets 3 Take 2 times a day times a day tablets 3 by oral by oral times a route for route for day by 30 days. 30 days. oral route for 30 days. diltiazem diltiazem No 1capsul Q1D diltiazem [facility] ER (XR/XT) ER (XR/XT) e(s) ER (XR/XT) Medical 240 mg 240 mg 240 mg capsule,ext capsule,ext capsule,ex ended ended tended release 24 release 24 release 24 hr, hr, hr, controlled controlled controlled Take 1 Take 1 Take 1 capsule capsule capsule every day every day every day by oral by oral by oral route for route for route for 30 days. 30 days. 30 days. divalproex divalproex No 2capsul BID divalproex [facility] 125 mg 125 mg e(s) 125 mg Medical capsule,del capsule,del capsule,de ayed ayed layed release release release sprinkle sprinkle sprinkle Take 2 Take 2 Take 2 capsules capsules capsules twice a day twice a day twice a by oral by oral day by route for route for oral route 30 days. 30 days. for 30 days. duloxetine duloxetine No 1capsul BID duloxetine [facility] 60 mg 60 mg e(s) 60 mg Medical capsule,del capsule,del capsule,de ayed ayed layed release release release Take 1 Take 1 Take 1 capsule capsule capsule twice a day twice a day twice a by oral by oral day by route for route for oral route 30 days. 30 days. for 30 days. hydrocodone hydrocodone No hydrocodon [facility] 5 5 e 5 Medical mg-acetamin mg-acetamin mg-acetami ophen 325 ophen 325 nophen 325 mg tablet mg tablet mg tablet Take 0.5 Take 0.5 Take 0.5 tablets tablets tablets every 8 every 8 every 8 hours by hours by hours by oral route. oral route. oral route. levetiracet levetiracet No 1 BID levetirace [facility] am 1,000 mg am 1,000 mg oconnell 1,000 Medical tablet Take tablet Take mg tablet 1 tablet 1 tablet Take 1 twice a day twice a day tablet by oral by oral twice a route for route for day by 30 days. 30 days. oral route for 30 days. levothyroxi levothyroxi No .5 Q1D levothyrox [facility] ne 25 mcg ne 25 mcg ine 25 mcg Medical tablet Take tablet Take tablet 0.5 tablets 0.5 tablets Take 0.5 every day every day tablets by oral by oral every day route for route for by oral 14 days. 14 days. route for 14 days. nystatin nystatin No nystatin [facility] via 100,000 100,000 100,000 Medica l unit/gram unit/gram unit/gram topical topical topical cream under cream under cream both breast both breast under both every 12 every 12 breast hours prn hours prn every 12 hours prn potassium potassium No 1 Q1D potassium [facility] chloride ER chloride ER chloride Medical 20 mEq 20 mEq ER 20 mEq tablet,exte tablet,exte tablet,ext nded nded ended release(par release(par release(pa t/cryst) t/cryst) rt/cryst) Take 1 Take 1 Take 1 tablet tablet tablet every day every day every day by oral by oral by oral route for route for route for 30 days. 30 days. 30 days. Retaine Retaine No 2drop(s BID Retaine [facility] (PF) [facility] (PF) ) [facility] (PF) Medical 0.3 % eye 0.3 % eye 0.3 % eye drops Apply drops Apply drops 2 drops 2 drops Apply 2 twice a day twice a day drops by by twice a ophthalmic ophthalmic day by route. route. ophthalmic route. Senna with Senna with No 2 BID Senna with [facility] Docusate Docusate Docusate Med ical Sodium 8.6 Sodium 8.6 Sodium 8.6 mg-50 mg mg-50 mg mg-50 mg tablet Take tablet Take tablet 2 tablets 2 tablets Take 2 twice a day twice a day tablets by oral by oral twice a route. route. day by oral route. Vitamin D3 Vitamin D3 No Vitamin D3 [facility] 1,000 daily 1,000 daily 1,000 Medical daily anastrozole anastrozole No 1 Q1D anastrozol [facility] 1 mg tablet 1 mg tablet e 1 mg Medical Take 1 Take 1 tablet tablet tablet Take 1 every day every day tablet by oral by oral every day route. route. by oral route. aspirin 81 aspirin 81 No 1 Q1D aspirin 81 [facility] mg mg mg Medical tablet,corey tablet,corey tablet,del yed release yed release ayed Take 1 Take 1 release tablet tablet Take 1 every day every day tablet by oral by oral every day route. route. by oral route. buspirone buspirone No buspirone [facility] 10 mg 10 mg 10 mg Medical tablet Take tablet Take tablet 2 tablets 3 2 tablets 3 Take 2 times a day times a day tablets 3 by oral by oral times a route for route for day by 30 days. 30 days. oral route for 30 days. diltiazem diltiazem No 1capsul Q1D diltiazem [facility] ER (XR/XT) ER (XR/XT) e(s) ER (XR/XT) Medical 240 mg 240 mg 240 mg capsule,ext capsule,ext capsule,ex ended ended tended release 24 release 24 release 24 hr, hr, hr, controlled controlled controlled Take 1 Take 1 Take 1 capsule capsule capsule every day every day every day by oral by oral by oral route for route for route for 30 days. 30 days. 30 days. divalproex divalproex No divalproex [facility] 125 mg 125 mg 125 mg Medical capsule,del capsule,del capsule,de ayed ayed layed release release release sprinkle sprinkle sprinkle Take 2 Take 2 Take 2 capsules capsules capsules twice a day twice a day twice a by oral by oral day by route for route for oral route 30 days. 30 days. for 30 days. duloxetine duloxetine No duloxetine [facility] 60 mg 60 mg 60 mg Medical capsule,del capsule,del capsule,de ayed ayed layed release release release Take 1 Take 1 Take 1 capsule capsule capsule twice a day twice a day twice a by oral by oral day by route for route for oral route 30 days. 30 days. for 30 days. hydrocodone hydrocodone No hydrocodon [facility] 5 5 e 5 Medical mg-acetamin mg-acetamin mg-acetami ophen 325 ophen 325 nophen 325 mg tablet mg tablet mg tablet Take 0.5 Take 0.5 Take 0.5 tablets tablets tablets every 8 every 8 every 8 hours by hours by hours by oral route. oral route. oral route. levetiracet levetiracet No levetirace [facility] am 1,000 mg am 1,000 mg oconnell 1,000 Medical tablet Take tablet Take mg tablet 1 tablet 1 tablet Take 1 twice a day twice a day tablet by oral by oral twice a route for route for day by 30 days. 30 days. oral route for 30 days. levothyroxi levothyroxi No levothyrox [facility] ne 25 mcg ne 25 mcg ine 25 mcg Medical tablet Take tablet Take tablet 0.5 tablets 0.5 tablets Take 0.5 every day every day tablets by oral by oral every day route for route for by oral 14 days. 14 days. route for 14 days. nystatin nystatin No nystatin [facility] via 100,000 100,000 100,000 Medica l unit/gram unit/gram unit/gram topical topical topical cream under cream under cream both breast both breast under both every 12 every 12 breast hours prn hours prn every 12 hours prn potassium potassium No 1 Q1D potassium [facility] chloride ER chloride ER chloride Medical 20 mEq 20 mEq ER 20 mEq tablet,exte tablet,exte tablet,ext nded nded ended release(par release(par release(pa t/cryst) t/cryst) rt/cryst) Take 1 Take 1 Take 1 tablet tablet tablet every day every day every day by oral by oral by oral route for route for route for 30 days. 30 days. 30 days. Retaine Retaine No 2drop(s BID Retaine [facility] (PF) [facility] (PF) ) [facility] (PF) Medical 0.3 % eye 0.3 % eye 0.3 % eye drops Apply drops Apply drops 2 drops 2 drops Apply 2 twice a day twice a day drops by by twice a ophthalmic ophthalmic day by route. route. ophthalmic route. Senna with Senna with No 2 BID Senna with [facility] Docusate Docusate Docusate Med ical Sodium 8.6 Sodium 8.6 Sodium 8.6 mg-50 mg mg-50 mg mg-50 mg tablet Take tablet Take tablet 2 tablets 2 tablets Take 2 twice a day twice a day tablets by oral by oral twice a route. route. day by oral route. Vitamin D3 Vitamin D3 No Vitamin D3 [facility] 1,000 daily 1,000 daily 1,000 Medical daily acetaminoph acetaminoph No 1 Q8H acetaminop [facility] en 300 en 300 hen 300 Medical mg-codeine mg-codeine mg-codeine 60 mg 60 mg 60 mg tablet Take tablet Take tablet 1 tablet 1 tablet Take 1 every 8 every 8 tablet hours by hours by every 8 oral route oral route hours by for 30 for 30 oral route days. days. for 30 days. anastrozole anastrozole No 1 Q1D anastrozol [facility] 1 mg tablet 1 mg tablet e 1 mg Medical Take 1 Take 1 tablet tablet tablet Take 1 every day every day tablet by oral by oral every day route for route for by oral 90 days. 90 days. route for 90 days. aspirin 81 aspirin 81 No 1 Q1D aspirin 81 [facility] mg mg mg Medical tablet,corey tablet,corey tablet,del yed release yed release ayed Take 1 Take 1 release tablet tablet Take 1 every day every day tablet by oral by oral every day route. route. by oral route. atorvastati atorvastati No 1 Q1D atorvastat [facility] n 20 mg n 20 mg in 20 mg Medic al tablet Take tablet Take tablet 1 tablet 1 tablet Take 1 every day every day tablet by oral by oral every day route. route. by oral route. buspirone buspirone No buspirone [facility] 10 mg 10 mg 10 mg Medical tablet Take tablet Take tablet 2 tablets 3 2 tablets 3 Take 2 times a day times a day tablets 3 by oral by oral times a route for route for day by 30 days. 30 days. oral route for 30 days. diltiazem diltiazem No 1capsul Q1D diltiazem [facility] ER (XR/XT) ER (XR/XT) e(s) ER (XR/XT) Medical 240 mg 240 mg 240 mg capsule,ext capsule,ext capsule,ex ended ended tended release 24 release 24 release 24 hr, hr, hr, controlled controlled controlled Take 1 Take 1 Take 1 capsule capsule capsule every day every day every day by oral by oral by oral route for route for route for 30 days. 30 days. 30 days. divalproex divalproex No divalproex [facility] 125 mg 125 mg 125 mg Medical capsule,del capsule,del capsule,de ayed ayed layed release release release sprinkle sprinkle sprinkle Take 2 Take 2 Take 2 capsules capsules capsules twice a day twice a day twice a by oral by oral day by route for route for oral route 30 days. 30 days. for 30 days. duloxetine duloxetine No duloxetine [facility] 60 mg 60 mg 60 mg Medical capsule,del capsule,del capsule,de ayed ayed layed release release release Take 1 Take 1 Take 1 capsule capsule capsule twice a day twice a day twice a by oral by oral day by route for route for oral route 30 days. 30 days. for 30 days. levetiracet levetiracet No levetirace [facility] am 1,000 mg am 1,000 mg oconnell 1,000 Medical tablet Take tablet Take mg tablet 1 tablet 1 tablet Take 1 twice a day twice a day tablet by oral by oral twice a route for route for day by 30 days. 30 days. oral route for 30 days. levothyroxi levothyroxi No levothyrox [facility] ne 25 mcg ne 25 mcg ine 25 mcg Medical tablet Take tablet Take tablet 0.5 tablets 0.5 tablets Take 0.5 every day every day tablets by oral by oral every day route for route for by oral 14 days. 14 days. route for 14 days. nystatin nystatin No nystatin [facility] via 100,000 100,000 100,000 Medica l unit/gram unit/gram unit/gram topical topical topical cream under cream under cream both breast both breast under both every 12 every 12 breast hours prn hours prn every 12 hours prn potassium potassium No 1 Q1D potassium [facility] chloride ER chloride ER chloride Medical 20 mEq 20 mEq ER 20 mEq tablet,exte tablet,exte tablet,ext nded nded ended release(par release(par release(pa t/cryst) t/cryst) rt/cryst) Take 1 Take 1 Take 1 tablet tablet tablet every day every day every day by oral by oral by oral route for route for route for 30 days. 30 days. 30 days. Retaine Retaine No 2drop(s BID Retaine [facility] (PF) [facility] (PF) ) [facility] (PF) Medical 0.3 % eye 0.3 % eye 0.3 % eye drops Apply drops Apply drops 2 drops 2 drops Apply 2 twice a day twice a day drops by by twice a ophthalmic ophthalmic day by route. route. ophthalmic route. Senna with Senna with No 2 BID Senna with [facility] Docusate Docusate Docusate Med ical Sodium 8.6 Sodium 8.6 Sodium 8.6 mg-50 mg mg-50 mg mg-50 mg tablet Take tablet Take tablet 2 tablets 2 tablets Take 2 twice a day twice a day tablets by oral by oral twice a route. route. day by oral route. Vitamin D3 Vitamin D3 No Vitamin D3 [facility] 1,000 daily 1,000 daily 1,000 Medical daily acetaminoph acetaminoph No acetaminop [facility] en 300 en 300 hen 300 Medical mg-codeine mg-codeine mg-codeine 60 mg 60 mg 60 mg tablet Take tablet Take tablet 1 tablet 1 tablet Take 1 every 8 every 8 tablet hours by hours by every 8 oral route oral route hours by for 30 for 30 oral route days. days. for 30 days. anastrozole anastrozole No anastrozol [facility] 1 mg tablet 1 mg tablet e 1 mg Medical Take 1 Take 1 tablet tablet tablet Take 1 every day every day tablet by oral by oral every day route for route for by oral 90 days. 90 days. route for 90 days. aspirin 81 aspirin 81 No 1 Q1D aspirin 81 [facility] mg mg mg Medical tablet,corey tablet,corey tablet,del yed release yed release ayed Take 1 Take 1 release tablet tablet Take 1 every day every day tablet by oral by oral every day route. route. by oral route. atorvastati atorvastati No 1 Q1D atorvastat [facility] n 40 mg n 40 mg in 40 mg Medic al tablet Take tablet Take tablet 1 tablet 1 tablet Take 1 every day every day tablet by oral by oral every day route at route at by oral bedtime. bedtime. route at bedtime. buspirone buspirone No buspirone [facility] 10 mg 10 mg 10 mg Medical tablet Take tablet Take tablet 2 tablets 3 2 tablets 3 Take 2 times a day times a day tablets 3 by oral by oral times a route for route for day by 30 days. 30 days. oral route for 30 days. divalproex divalproex No divalproex [facility] 125 mg 125 mg 125 mg Medical capsule,del capsule,del capsule,de ayed ayed layed release release release sprinkle sprinkle sprinkle Take 2 Take 2 Take 2 capsules capsules capsules twice a day twice a day twice a by oral by oral day by route for route for oral route 30 days. 30 days. for 30 days. duloxetine duloxetine No duloxetine [facility] 60 mg 60 mg 60 mg Medical capsule,del capsule,del capsule,de ayed ayed layed release release release Take 1 Take 1 Take 1 capsule capsule capsule twice a day twice a day twice a by oral by oral day by route for route for oral route 30 days. 30 days. for 30 days. levetiracet levetiracet No levetirace [facility] am 1,000 mg am 1,000 mg oconnell 1,000 Medical tablet Take tablet Take mg tablet 1 tablet 1 tablet Take 1 twice a day twice a day tablet by oral by oral twice a route for route for day by 30 days. 30 days. oral route for 30 days. levothyroxi levothyroxi No levothyrox [facility] ne 25 mcg ne 25 mcg ine 25 mcg [facility] tablet Take tablet Take tablet 0.5 tablets 0.5 tablets Take 0.5 every day every day tablets by oral by oral every day route for route for by oral 14 days. 14 days. route for 14 days. nystatin nystatin No nystatin [facility] 100,000 100,000 100,000 Medica l unit/gram unit/gram unit/gram topical topical topical cream under cream under cream both breast both breast under both every 12 every 12 breast hours prn hours prn every 12 hours prn potassium potassium No potassium [facility] chloride ER chloride ER chloride Medical 20 mEq 20 mEq ER 20 mEq tablet,exte tablet,exte tablet,ext nded nded ended release(par release(par release(pa t/cryst) t/cryst) rt/cryst) Take 1 Take 1 Take 1 tablet tablet tablet every day every day every day by oral by oral by oral route for route for route for 30 days. 30 days. 30 days. Retaine Retaine No 2drop(s BID Retaine [facility] ) [facility] Medical 0.3 % eye 0.3 % eye 0.3 % eye drops Apply drops Apply drops 2 drops 2 drops Apply 2 twice a day twice a day drops by by twice a ophthalmic ophthalmic day by route. route. ophthalmic route. Senna with Senna with No 2 BID Senna with [facility] Docusate Docusate Docusate Med ical Sodium 8.6 Sodium 8.6 Sodium 8.6 mg-50 mg mg-50 mg mg-50 mg tablet Take tablet Take tablet 2 tablets 2 tablets Take 2 twice a day twice a day tablets by oral by oral twice a route. route. day by oral route. Vitamin D3 Vitamin D3 No Vitamin D3 [facility] 1,000 daily 1,000 daily 1,000 [facility] daily acetaminoph acetaminoph No acetaminop [facility] en 300 en 300 hen 300 Medical mg-codeine mg-codeine mg-codeine 60 mg 60 mg 60 mg tablet Take tablet Take tablet 1 tablet 1 tablet Take 1 every 8 every 8 tablet hours by hours by every 8 oral route oral route hours by for 30 for 30 oral route days. days. for 30 days. anastrozole anastrozole No anastrozol [facility] 1 mg tablet 1 mg tablet e 1 mg [facility] Take 1 Take 1 tablet tablet tablet Take 1 every day every day tablet by oral by oral every day route for route for by oral 90 days. 90 days. route for 90 days. aspirin 81 aspirin 81 No 1 Q1D aspirin 81 [facility] mg mg mg [facility] tablet,corey tablet,corey tablet,del yed release yed release ayed Take 1 Take 1 release tablet tablet Take 1 every day every day tablet by oral by oral every day route. route. by oral route. atorvastati atorvastati No 1 Q1D atorvastat [facility] n 40 mg n 40 mg in 40 mg [facility] al tablet Take tablet Take tablet 1 tablet 1 tablet Take 1 every day every day tablet by oral by oral every day route at route at by oral bedtime. bedtime. route at bedtime. buspirone buspirone No buspirone [facility] 10 mg 10 mg 10 mg [facility] tablet Take tablet Take tablet 2 tablets 3 2 tablets 3 Take 2 times a day times a day tablets 3 by oral by oral times a route for route for day by 30 days. 30 days. oral route for 30 days. divalproex divalproex No divalproex [facility] 125 mg 125 mg 125 mg [facility] capsule,del capsule,del capsule,de ayed ayed layed release release release sprinkle sprinkle sprinkle Take 2 Take 2 Take 2 capsules capsules capsules twice a day twice a day twice a by oral by oral day by route for route for oral route 30 days. 30 days. for 30 days. duloxetine duloxetine No duloxetine [facility] 60 mg 60 mg 60 mg [facility] capsule,del capsule,del capsule,de ayed ayed layed release release release Take 1 Take 1 Take 1 capsule capsule capsule twice a day twice a day twice a by oral by oral day by route for route for oral route 30 days. 30 days. for 30 days. levetiracet levetiracet No levetirace [facility] am 1,000 mg am 1,000 mg [place] 1,000 Medical tablet Take tablet Take mg tablet 1 tablet 1 tablet Take 1 twice a day twice a day tablet by oral by oral twice a route for route for day by 30 days. 30 days. oral route for 30 days. levothyroxi levothyroxi No levothyrox [facility] ne 25 mcg ne 25 mcg ine 25 mcg [facility] tablet Take tablet Take tablet 0.5 tablets 0.5 tablets Take 0.5 every day every day tablets by oral by oral every day route for route for by oral 14 days. 14 days. route for 14 days. nystatin nystatin No nystatin [facility] via 100,000 100,000 100,000 Medica l unit/gram unit/gram unit/gram topical topical topical cream under cream under cream both breast both breast under both every 12 every 12 breast hours prn hours prn every 12 hours prn potassium potassium No potassium [facility] chloride ER chloride ER chloride Medical 20 mEq 20 mEq ER 20 mEq tablet,exte tablet,exte tablet,ext nded nded ended release(par release(par release(pa t/cryst) t/cryst) rt/cryst) Take 1 Take 1 Take 1 tablet tablet tablet every day every day every day by oral by oral by oral route for route for route for 30 days. 30 days. 30 days. Retaine Retaine No 2drop(s BID Retaine [facility] 0.3 % eye 0.3 % eye 0.3 % eye drops Apply drops Apply drops 2 drops 2 drops Apply 2 twice a day twice a day drops by by twice a ophthalmic ophthalmic day by route. route. ophthalmic route. Senna with Senna with No 2 BID Senna with [facility] Docusate Docusate Docusate Med ical Sodium 8.6 Sodium 8.6 Sodium 8.6 mg-50 mg mg-50 mg mg-50 mg tablet Take tablet Take tablet 2 tablets 2 tablets Take 2 twice a day twice a day tablets by oral by oral twice a route. route. day by oral route. Vitamin D3 Vitamin D3 No Vitamin D3 [facility] 1,000 daily 1,000 daily 1,000 [facility] daily acetaminoph acetaminoph No 1 Q8H acetaminop [facility] en 300 en 300 hen 300 Medical mg-codeine mg-codeine mg-codeine 60 mg 60 mg 60 mg tablet Take tablet Take tablet 1 tablet 1 tablet Take 1 every 8 every 8 tablet hours by hours by every 8 oral route oral route hours by for 30 for 30 oral route days. days. for 30 days. anastrozole anastrozole No anastrozol [facility] 1 mg tablet 1 mg tablet e 1 mg [facility] Take 1 Take 1 tablet tablet tablet Take 1 every day every day tablet by oral by oral every day route for route for by oral 90 days. 90 days. route for 90 days. aspirin 81 aspirin 81 No 1 Q1D aspirin 81 [facility] mg mg mg [facility] tablet,corey tablet,corey tablet,del yed release yed release ayed Take 1 Take 1 release tablet tablet Take 1 every day every day tablet by oral by oral every day route. route. by oral route. atorvastati atorvastati No 1 Q1D atorvastat [facility] n 40 mg n 40 mg in 40 mg [facility] al tablet Take tablet Take tablet 1 tablet 1 tablet Take 1 every day every day tablet by oral by oral every day route at route at by oral bedtime. bedtime. route at bedtime. buspirone buspirone No buspirone [facility] 10 mg 10 mg 10 mg [facility] tablet Take tablet Take tablet 2 tablets 3 2 tablets 3 Take 2 times a day times a day tablets 3 by oral by oral times a route for route for day by 30 days. 30 days. oral route for 30 days. clotrimazol clotrimazol No clotrimazo [facility] e-betametha e-betametha le-betamet Medical sone 1 sone 1 hasone 1 %-0.05 % %-0.05 % %-0.05 % topical topical topical cream APPLY cream APPLY cream TO THE TO THE APPLY TO AFFECTED AFFECTED THE AND AND AFFECTED SURROUNDING SURROUNDING AND AREAS OF AREAS OF SURROUNDIN SKIN BY SKIN BY G AREAS OF TOPICAL TOPICAL SKIN BY ROUTE 2 ROUTE 2 TOPICAL TIMES PER TIMES PER ROUTE 2 DAY IN THE DAY IN THE TIMES PER MORNING AND MORNING AND DAY IN THE EVENING FOR EVENING FOR MORNING 2 WEEKS 2 WEEKS AND EVENING FOR 2 WEEKS divalproex divalproex No divalproex [facility] 125 mg 125 mg 125 mg [facility] capsule,del capsule,del capsule,de ayed ayed layed release release release sprinkle sprinkle sprinkle Take 2 Take 2 Take 2 capsules capsules capsules twice a day twice a day twice a by oral by oral day by route for route for oral route 30 days. 30 days. for 30 days. duloxetine duloxetine No duloxetine [facility] 60 mg 60 mg 60 mg [facility] capsule,del capsule,del capsule,de ayed ayed layed release release release Take 1 Take 1 Take 1 capsule capsule capsule twice a day twice a day twice a by oral by oral day by route for route for oral route 30 days. 30 days. for 30 days. levetiracet levetiracet No levetirace [facility] am 1,000 mg am 1,000 mg [place] 1,000 Medical tablet Take tablet Take mg tablet 1 tablet 1 tablet Take 1 twice a day twice a day tablet by oral by oral twice a route for route for day by 30 days. 30 days. oral route for 30 days. levothyroxi levothyroxi No levothyrox [facility] ne 25 mcg ne 25 mcg ine 25 mcg [facility] tablet Take tablet Take tablet 0.5 tablets 0.5 tablets Take 0.5 every day every day tablets by oral by oral every day route for route for by oral 14 days. 14 days. route for 14 days. potassium potassium No potassium [facility] chloride ER chloride ER chloride [facility] 20 mEq 20 mEq ER 20 mEq tablet,exte tablet,exte tablet,ext nded nded ended release(par release(par release(pa t/cryst) t/cryst) rt/cryst) Take 1 Take 1 Take 1 tablet tablet tablet every day every day every day by oral by oral by oral route for route for route for 30 days. 30 days. 30 days. Retaine Retaine No 2drop(s BID Retaine [facility] ) [facility] 0.3 % eye 0.3 % eye 0.3 % eye drops Apply drops Apply drops 2 drops 2 drops Apply 2 twice a day twice a day drops by by twice a ophthalmic ophthalmic day by route. route. ophthalmic route. Senna with Senna with No 2 BID Senna with [facility] Docusate Docusate Docusate Med ical Sodium 8.6 Sodium 8.6 Sodium 8.6 mg-50 mg mg-50 mg mg-50 mg tablet Take tablet Take tablet 2 tablets 2 tablets Take 2 twice a day twice a day tablets by oral by oral twice a route. route. day by oral route. Vitamin D3 Vitamin D3 No Vitamin D3 [facility] 1,000 daily 1,000 daily 1,000 [facility] daily acetaminoph acetaminoph No 1 Q8H acetaminop [facility] en 300 en 300 hen 300 Medical mg-codeine mg-codeine mg-codeine 60 mg 60 mg 60 mg tablet Take tablet Take tablet 1 tablet 1 tablet Take 1 every 8 every 8 tablet hours by hours by every 8 oral route oral route hours by for 30 for 30 oral route days. days. for 30 days. anastrozole anastrozole No anastrozol [facility] 1 mg tablet 1 mg tablet e 1 mg [facility] Take 1 Take 1 tablet tablet tablet Take 1 every day every day tablet by oral by oral every day route for route for by oral 90 days. 90 days. route for 90 days. aspirin 81 aspirin 81 No 1 Q1D aspirin 81 [facility] mg mg mg [facility] tablet,corey tablet,corey tablet,del yed release yed release ayed Take 1 Take 1 release tablet tablet Take 1 every day every day tablet by oral by oral every day route. route. by oral route. atorvastati atorvastati No 1 Q1D atorvastat [facility] n 40 mg n 40 mg in 40 mg [facility] al tablet Take tablet Take tablet 1 tablet 1 tablet Take 1 every day every day tablet by oral by oral every day route at route at by oral bedtime. bedtime. route at bedtime. buspirone buspirone No buspirone [facility] 10 mg 10 mg 10 mg [facility] tablet Take tablet Take tablet 2 tablets 3 2 tablets 3 Take 2 times a day times a day tablets 3 by oral by oral times a route for route for day by 30 days. 30 days. oral route for 30 days. clotrimazol clotrimazol No clotrimazo [facility] e-betametha e-betametha le-betamet Medical sone 1 sone 1 hasone 1 %-0.05 % %-0.05 % %-0.05 % topical topical topical cream APPLY cream APPLY cream TO THE TO THE APPLY TO AFFECTED AFFECTED THE AND AND AFFECTED SURROUNDING SURROUNDING AND AREAS OF AREAS OF SURROUNDIN SKIN BY SKIN BY G AREAS OF TOPICAL TOPICAL SKIN BY ROUTE 2 ROUTE 2 TOPICAL TIMES PER TIMES PER ROUTE 2 DAY IN THE DAY IN THE TIMES PER MORNING AND MORNING AND DAY IN THE EVENING FOR EVENING FOR MORNING 2 WEEKS 2 WEEKS AND EVENING FOR 2 WEEKS divalproex divalproex No divalproex [facility] 125 mg 125 mg 125 mg [facility] capsule,del capsule,del capsule,de ayed ayed layed release release release sprinkle sprinkle sprinkle Take 2 Take 2 Take 2 capsules capsules capsules twice a day twice a day twice a by oral by oral day by route for route for oral route 30 days. 30 days. for 30 days. duloxetine duloxetine No duloxetine [facility] 60 mg 60 mg 60 mg [facility] capsule,del capsule,del capsule,de ayed ayed layed release release release Take 1 Take 1 Take 1 capsule capsule capsule twice a day twice a day twice a by oral by oral day by route for route for oral route 30 days. 30 days. for 30 days. levetiracet levetiracet No levetirace [facility] am 1,000 mg am 1,000 mg [place] 1,000 Medical tablet Take tablet Take mg tablet 1 tablet 1 tablet Take 1 twice a day twice a day tablet by oral by oral twice a route for route for day by 30 days. 30 days. oral route for 30 days. levothyroxi levothyroxi No levothyrox [facility] ne 25 mcg ne 25 mcg ine 25 mcg [facility] tablet Take tablet Take tablet 0.5 tablets 0.5 tablets Take 0.5 every day every day tablets by oral by oral every day route for route for by oral 14 days. 14 days. route for 14 days. potassium potassium No potassium [facility] chloride ER chloride ER chloride [facility] 20 mEq 20 mEq ER 20 mEq tablet,exte tablet,exte tablet,ext nded nded ended release(par release(par release(pa t/cryst) t/cryst) rt/cryst) Take 1 Take 1 Take 1 tablet tablet tablet every day every day every day by oral by oral by oral route for route for route for 30 days. 30 days. 30 days. Retaine Retaine No 2drop(s BID Retaine [facility] ) [facility] 0.3 % eye 0.3 % eye 0.3 % eye drops Apply drops Apply drops 2 drops 2 drops Apply 2 twice a day twice a day drops by by twice a ophthalmic ophthalmic day by route. route. ophthalmic route. Senna with Senna with No 2 BID Senna with [facility] Docusate Docusate Docusate Med ical Sodium 8.6 Sodium 8.6 Sodium 8.6 mg-50 mg mg-50 mg mg-50 mg tablet Take tablet Take tablet 2 tablets 2 tablets Take 2 twice a day twice a day tablets by oral by oral twice a route. route. day by oral route. Vitamin D3 Vitamin D3 No Vitamin D3 [facility] 1,000 daily 1,000 daily 1,000 Medical daily acetaminoph acetaminoph No 1 Q8H acetaminop [facility] en 300 en 300 hen 300 Medical mg-codeine mg-codeine mg-codeine 60 mg 60 mg 60 mg tablet Take tablet Take tablet 1 tablet 1 tablet Take 1 every 8 every 8 tablet hours by hours by every 8 oral route oral route hours by for 30 for 30 oral route days. days. for 30 days. anastrozole anastrozole No anastrozol [facility] 1 mg tablet 1 mg tablet e 1 mg [facility] Take 1 Take 1 tablet tablet tablet Take 1 every day every day tablet by oral by oral every day route for route for by oral 90 days. 90 days. route for 90 days. aspirin 81 aspirin 81 No 1 Q1D aspirin 81 [facility] mg mg mg [facility] tablet,corey tablet,corey tablet,del yed release yed release ayed Take 1 Take 1 release tablet tablet Take 1 every day every day tablet by oral by oral every day route. route. by oral route. atorvastati atorvastati No 1 Q1D atorvastat [facility] n 40 mg n 40 mg in 40 mg [facility] al tablet Take tablet Take tablet 1 tablet 1 tablet Take 1 every day every day tablet by oral by oral every day route at route at by oral bedtime. bedtime. route at bedtime. buspirone buspirone No buspirone [facility] 10 mg 10 mg 10 mg [facility] tablet Take tablet Take tablet 2 tablets 3 2 tablets 3 Take 2 times a day times a day tablets 3 by oral by oral times a route for route for day by 30 days. 30 days. oral route for 30 days. clotrimazol clotrimazol No clotrimazo [facility] e-betametha e-betametha le-betamet Medical sone 1 sone 1 hasone 1 %-0.05 % %-0.05 % %-0.05 % topical topical topical cream APPLY cream APPLY cream TO THE TO THE APPLY TO AFFECTED AFFECTED THE AND AND AFFECTED SURROUNDING SURROUNDING AND AREAS OF AREAS OF SURROUNDIN SKIN BY SKIN BY G AREAS OF TOPICAL TOPICAL SKIN BY ROUTE 2 ROUTE 2 TOPICAL TIMES PER TIMES PER ROUTE 2 DAY IN THE DAY IN THE TIMES PER MORNING AND MORNING AND DAY IN THE EVENING FOR EVENING FOR MORNING 2 WEEKS 2 WEEKS AND EVENING FOR 2 WEEKS divalproex divalproex No divalproex [facility] 125 mg 125 mg 125 mg Medical capsule,del capsule,del capsule,de ayed ayed layed release release release sprinkle sprinkle sprinkle Take 2 Take 2 Take 2 capsules capsules capsules twice a day twice a day twice a by oral by oral day by route for route for oral route 30 days. 30 days. for 30 days. duloxetine duloxetine No duloxetine [facility] 60 mg 60 mg 60 mg [facility] capsule,del capsule,del capsule,de ayed ayed layed release release release Take 1 Take 1 Take 1 capsule capsule capsule twice a day twice a day twice a by oral by oral day by route for route for oral route 30 days. 30 days. for 30 days. levetiracet levetiracet No levetirace [facility] am 1,000 mg am 1,000 mg [place] 1,000 Medical tablet Take tablet Take mg tablet 1 tablet 1 tablet Take 1 twice a day twice a day tablet by oral by oral twice a route for route for day by 30 days. 30 days. oral route for 30 days. levothyroxi levothyroxi No levothyrox [facility] ne 25 mcg ne 25 mcg ine 25 mcg [facility] tablet Take tablet Take tablet 0.5 tablets 0.5 tablets Take 0.5 every day every day tablets by oral by oral every day route for route for by oral 14 days. 14 days. route for 14 days. potassium potassium No potassium [facility] chloride ER chloride ER chloride [facility] 20 mEq 20 mEq ER 20 mEq tablet,exte tablet,exte tablet,ext nded nded ended release(par release(par release(pa t/cryst) t/cryst) rt/cryst) Take 1 Take 1 Take 1 tablet tablet tablet every day every day every day by oral by oral by oral route for route for route for 30 days. 30 days. 30 days. Retaine Retaine No 2drop(s BID Retaine [facility] ) [facility] 0.3 % eye 0.3 % eye 0.3 % eye drops Apply drops Apply drops 2 drops 2 drops Apply 2 twice a day twice a day drops by by twice a ophthalmic ophthalmic day by route. route. ophthalmic route. Senna with Senna with No 2 BID Senna with [facility] Docusate Docusate Docusate Med ical Sodium 8.6 Sodium 8.6 Sodium 8.6 mg-50 mg mg-50 mg mg-50 mg tablet Take tablet Take tablet 2 tablets 2 tablets Take 2 twice a day twice a day tablets by oral by oral twice a route. route. day by oral route. Vitamin D3 Vitamin D3 No Vitamin D3 [facility] 1,000 daily 1,000 daily 1,000 Medical daily acetaminoph acetaminoph No 1 Q8H acetaminop [facility] en 300 en 300 hen 300 Medical mg-codeine mg-codeine mg-codeine 60 mg 60 mg 60 mg tablet Take tablet Take tablet 1 tablet 1 tablet Take 1 every 8 every 8 tablet hours by hours by every 8 oral route oral route hours by for 30 for 30 oral route days. days. for 30 days. anastrozole anastrozole No anastrozol [facility] 1 mg tablet 1 mg tablet e 1 mg Medical Take 1 Take 1 tablet tablet tablet Take 1 every day every day tablet by oral by oral every day route for route for by oral 90 days. 90 days. route for 90 days. aspirin 81 aspirin 81 No 1 Q1D aspirin 81 [facility] mg mg mg [facility] tablet,corey tablet,corey tablet,del yed release yed release ayed Take 1 Take 1 release tablet tablet Take 1 every day every day tablet by oral by oral every day route. route. by oral route. atorvastati atorvastati No 1 Q1D atorvastat [facility] n 40 mg n 40 mg in 40 mg [facility] al tablet Take tablet Take tablet 1 tablet 1 tablet Take 1 every day every day tablet by oral by oral every day route at route at by oral bedtime. bedtime. route at bedtime. buspirone buspirone No buspirone [facility] 10 mg 10 mg 10 mg [facility] tablet Take tablet Take tablet 2 tablets 3 2 tablets 3 Take 2 times a day times a day tablets 3 by oral by oral times a route for route for day by 30 days. 30 days. oral route for 30 days. clotrimazol clotrimazol No clotrimazo [facility] e-betametha e-betametha le-betamet Medical sone 1 sone 1 hasone 1 %-0.05 % %-0.05 % %-0.05 % topical topical topical cream APPLY cream APPLY cream TO THE TO THE APPLY TO AFFECTED AFFECTED THE AND AND AFFECTED SURROUNDING SURROUNDING AND AREAS OF AREAS OF SURROUNDIN SKIN BY SKIN BY G AREAS OF TOPICAL TOPICAL SKIN BY ROUTE 2 ROUTE 2 TOPICAL TIMES PER TIMES PER ROUTE 2 DAY IN THE DAY IN THE TIMES PER MORNING AND MORNING AND DAY IN THE EVENING FOR EVENING FOR MORNING 2 WEEKS 2 WEEKS AND EVENING FOR 2 WEEKS divalproex divalproex No divalproex [facility] 125 mg 125 mg 125 mg Medical capsule,del capsule,del capsule,de ayed ayed layed release release release sprinkle sprinkle sprinkle Take 2 Take 2 Take 2 capsules capsules capsules twice a day twice a day twice a by oral by oral day by route for route for oral route 30 days. 30 days. for 30 days. duloxetine duloxetine No duloxetine [facility] 60 mg 60 mg 60 mg Medical capsule,del capsule,del capsule,de ayed ayed layed release release release Take 1 Take 1 Take 1 capsule capsule capsule twice a day twice a day twice a by oral by oral day by route for route for oral route 30 days. 30 days. for 30 days. levetiracet levetiracet No levetirace [facility] am 1,000 mg am 1,000 mg [place] 1,000 Medical tablet Take tablet Take mg tablet 1 tablet 1 tablet Take 1 twice a day twice a day tablet by oral by oral twice a route for route for day by 30 days. 30 days. oral route for 30 days. levothyroxi levothyroxi No levothyrox [facility] ne 25 mcg ne 25 mcg ine 25 mcg Medical tablet Take tablet Take tablet 0.5 tablets 0.5 tablets Take 0.5 every day every day tablets by oral by oral every day route for route for by oral 14 days. 14 days. route for 14 days. potassium potassium No potassium [facility] chloride ER chloride ER chloride [facility] 20 mEq 20 mEq ER 20 mEq tablet,exte tablet,exte tablet,ext nded nded ended release(par release(par release(pa t/cryst) t/cryst) rt/cryst) Take 1 Take 1 Take 1 tablet tablet tablet every day every day every day by oral by oral by oral route for route for route for 30 days. 30 days. 30 days. Retaine Retaine No 2drop(s BID Retaine [facility] ) [facility] ([facility]) [facility] 0.3 % eye 0.3 % eye 0.3 % eye drops Apply drops Apply drops 2 drops 2 drops Apply 2 twice a day twice a day drops by by twice a ophthalmic ophthalmic day by route. route. ophthalmic route. Senna with Senna with No 2 BID Sen[facility] with [facility] Docusate Docusate Docusate Med ical Sodium 8.6 Sodium 8.6 Sodium 8.6 mg-50 mg mg-50 mg mg-50 mg tablet Take tablet Take tablet 2 tablets 2 tablets Take 2 twice a day twice a day tablets by oral by oral twice a route. route. day by oral route. Vitamin D3 Vitamin D3 No Vitamin D3 [facility] 1,000 daily 1,000 daily 1,000 Medical daily acetaminoph acetaminoph No 1 Q8H acetaminop [facility] en 300 en 300 hen 300 Medical mg-codeine mg-codeine mg-codeine 60 mg 60 mg 60 mg tablet Take tablet Take tablet 1 tablet 1 tablet Take 1 every 8 every 8 tablet hours by hours by every 8 oral route oral route hours by for 30 for 30 oral route days. days. for 30 days. anastrozole anastrozole No anastrozol [facility] 1 mg tablet 1 mg tablet e 1 mg Medical Take 1 Take 1 tablet tablet tablet Take 1 every day every day tablet by oral by oral every day route for route for by oral 90 days. 90 days. route for 90 days. aspirin 81 aspirin 81 No 1 Q1D aspirin 81 [facility] mg mg mg Medical tablet,corey tablet,corey tablet,del yed release yed release ayed Take 1 Take 1 release tablet tablet Take 1 every day every day tablet by oral by oral every day route. route. by oral route. atorvastati atorvastati No 1 Q1D atorvastat [facility] n 40 mg n 40 mg in 40 mg [facility] al tablet Take tablet Take tablet 1 tablet 1 tablet Take 1 every day every day tablet by oral by oral every day route at route at by oral bedtime. bedtime. route at bedtime. buspirone buspirone No buspirone [facility] 10 mg 10 mg 10 mg [facility] tablet Take tablet Take tablet 2 tablets 3 2 tablets 3 Take 2 times a day times a day tablets 3 by oral by oral times a route for route for day by 30 days. 30 days. oral route for 30 days. clotrimazol clotrimazol No clotrimazo [facility] e-betametha e-betametha le-betamet Medical sone 1 sone 1 hasone 1 %-0.05 % %-0.05 % %-0.05 % topical topical topical cream APPLY cream APPLY cream TO THE TO THE APPLY TO AFFECTED AFFECTED THE AND AND AFFECTED SURROUNDING SURROUNDING AND AREAS OF AREAS OF SURROUNDIN SKIN BY SKIN BY G AREAS OF TOPICAL TOPICAL SKIN BY ROUTE 2 ROUTE 2 TOPICAL TIMES PER TIMES PER ROUTE 2 DAY IN THE DAY IN THE TIMES PER MORNING AND MORNING AND DAY IN THE EVENING FOR EVENING FOR MORNING 2 WEEKS 2 WEEKS AND EVENING FOR 2 WEEKS divalproex divalproex No divalproex [facility] 125 mg 125 mg 125 mg Medical capsule,del capsule,del capsule,de ayed ayed layed release release release sprinkle sprinkle sprinkle Take 2 Take 2 Take 2 capsules capsules capsules twice a day twice a day twice a by oral by oral day by route for route for oral route 30 days. 30 days. for 30 days. duloxetine duloxetine No duloxetine [facility] 60 mg 60 mg 60 mg [facility] capsule,del capsule,del capsule,de ayed ayed layed release release release Take 1 Take 1 Take 1 capsule capsule capsule twice a day twice a day twice a by oral by oral day by route for route for oral route 30 days. 30 days. for 30 days. levetiracet levetiracet No levetirace [facility] am 1,000 mg am 1,000 mg o[place]nell 1,000 Medical tablet Take tablet Take mg tablet 1 tablet 1 tablet Take 1 twice a day twice a day tablet by oral by oral twice a route for route for day by 30 days. 30 days. oral route for 30 days. levothyroxi levothyroxi No levothyrox [facility] ne 25 mcg ne 25 mcg ine 25 mcg [facility] tablet Take tablet Take tablet 0.5 tablets 0.5 tablets Take 0.5 every day every day tablets by oral by oral every day route for route for by oral 14 days. 14 days. route for 14 days. potassium potassium No potassium [facility] chloride ER chloride ER chloride Medical 20 mEq 20 mEq ER 20 mEq tablet,exte tablet,exte tablet,ext nded nded ended release(par release(par release(pa t/cryst) t/cryst) rt/cryst) Take 1 Take 1 Take 1 tablet tablet tablet every day every day every day by oral by oral by oral route for route for route for 30 days. 30 days. 30 days. Retaine Retaine No 2drop(s BID Retaine [facility] ) [facility] ([facility]) [facility] 0.3 % eye 0.3 % eye 0.3 % eye drops Apply drops Apply drops 2 drops 2 drops Apply 2 twice a day twice a day drops by by twice a ophthalmic ophthalmic day by route. route. ophthalmic route. Senna with Senna with No 2 BID Senna with [facility] Docusate Docusate Docusate Med ical Sodium 8.6 Sodium 8.6 Sodium 8.6 mg-50 mg mg-50 mg mg-50 mg tablet Take tablet Take tablet 2 tablets 2 tablets Take 2 twice a day twice a day tablets by oral by oral twice a route. route. day by oral route. Vitamin D3 Vitamin D3 No Vitamin D3 [facility] 1,000 daily 1,000 daily 1,000 [facility] daily acetaminoph acetaminoph No acetaminop [facility] en 300 en 300 hen 300 Medical mg-codeine mg-codeine mg-codeine 60 mg 60 mg 60 mg tablet Take tablet Take tablet 1 tablet 1 tablet Take 1 every 8 every 8 tablet hours by hours by every 8 oral route oral route hours by for 30 for 30 oral route days. days. for 30 days. anastrozole anastrozole No anastrozol [facility] 1 mg tablet 1 mg tablet e 1 mg [facility] Take 1 Take 1 tablet tablet tablet Take 1 every day every day tablet by oral by oral every day route for route for by oral 90 days. 90 days. route for 90 days. aspirin 81 aspirin 81 No 1 Q1D aspirin 81 [facility] mg mg mg [facility] tablet,corey tablet,corey tablet,del yed release yed release ayed Take 1 Take 1 release tablet tablet Take 1 every day every day tablet by oral by oral every day route. route. by oral route. atorvastati atorvastati No atorvastat [facility] n 40 mg n 40 mg in 40 mg [facility] al tablet Take tablet Take tablet 1 tablet 1 tablet Take 1 every day every day tablet by oral by oral every day route at route at by oral bedtime. bedtime. route at bedtime. buspirone buspirone No buspirone [facility] 10 mg 10 mg 10 mg [facility] tablet Take tablet Take tablet 2 tablets 3 2 tablets 3 Take 2 times a day times a day tablets 3 by oral by oral times a route for route for day by 30 days. 30 days. oral route for 30 days. clotrimazol clotrimazol No clotrimazo [facility] e-betametha e-betametha le-betamet Medical sone 1 sone 1 hasone 1 %-0.05 % %-0.05 % %-0.05 % topical topical topical cream APPLY cream APPLY cream TO THE TO THE APPLY TO AFFECTED AFFECTED THE AND AND AFFECTED SURROUNDING SURROUNDING AND AREAS OF AREAS OF SURROUNDIN SKIN BY SKIN BY G AREAS OF TOPICAL TOPICAL SKIN BY ROUTE 2 ROUTE 2 TOPICAL TIMES PER TIMES PER ROUTE 2 DAY IN THE DAY IN THE TIMES PER MORNING AND MORNING AND DAY IN THE EVENING FOR EVENING FOR MORNING 2 WEEKS 2 WEEKS AND EVENING FOR 2 WEEKS diltiazem diltiazem No diltiazem [facility] ER (XR/XT) ER (XR/XT) ER (XR/XT) Medical 240 mg 240 mg 240 mg capsule,ext capsule,ext capsule,ex ended ended tended release 24 release 24 release 24 hr, hr, hr, controlled controlled controlled divalproex divalproex No divalproex [facility] 125 mg 125 mg 125 mg Medical capsule,del capsule,del capsule,de ayed ayed layed release release release sprinkle sprinkle sprinkle Take 2 Take 2 Take 2 capsules capsules capsules twice a day twice a day twice a by oral by oral day by route for route for oral route 30 days. 30 days. for 30 days. duloxetine duloxetine No duloxetine [facility] 60 mg 60 mg 60 mg [facility] capsule,del capsule,del capsule,de ayed ayed layed release release release Take 1 Take 1 Take 1 capsule capsule capsule twice a day twice a day twice a by oral by oral day by route for route for oral route 30 days. 30 days. for 30 days. ipratropium ipratropium No ipratropiu [facility] 0.5 0.5 m 0.5 [facility] mg-albutero mg-albutero mg-albuter l 3 mg (2.5 l 3 mg (2.5 ol 3 mg mg base)/3 mg base)/3 (2.5 mg mL mL base)/3 mL nebulizatio nebulizatio nebulizati n soln n soln on soln levetiracet levetiracet No levetirace [facility] am 1,000 mg am 1,000 mg [place] 1,000 [facility] tablet Take tablet Take mg tablet 1 tablet 1 tablet Take 1 twice a day twice a day tablet by oral by oral twice a route for route for day by 30 days. 30 days. oral route for 30 days. levetiracet levetiracet No levetirace [facility] am 250 mg am 250 mg o[place] 250 mg Medical tablet tablet tablet levothyroxi levothyroxi No levothyrox [facility] ne 25 mcg ne 25 mcg ine 25 mcg [facility] tablet Take tablet Take tablet 0.5 tablets 0.5 tablets Take 0.5 every day every day tablets by oral by oral every day route for route for by oral 14 days. 14 days. route for 14 days. potassium potassium No potassium [facility] chloride ER chloride ER chloride Medical 20 mEq 20 mEq ER 20 mEq tablet,exte tablet,exte tablet,ext nded nded ended release(par release(par release(pa t/cryst) t/cryst) rt/cryst) Take 1 Take 1 Take 1 tablet tablet tablet every day every day every day by oral by oral by oral route for route for route for 30 days. 30 days. 30 days. Retaine Retaine No 2drop(s BID Retaine [facility] ) [facility] ([facility] 0.3 % eye 0.3 % eye 0.3 % eye drops Apply drops Apply drops 2 drops 2 drops Apply 2 twice a day twice a day drops by by twice a ophthalmic ophthalmic day by route. route. ophthalmic route. Senna with Senna with No 2 BID Senna with [facility] Docusate Docusate Docusate Med ical Sodium 8.6 Sodium 8.6 Sodium 8.6 mg-50 mg mg-50 mg mg-50 mg tablet Take tablet Take tablet 2 tablets 2 tablets Take 2 twice a day twice a day tablets by oral by oral twice a route. route. day by oral route. Vitamin D3 Vitamin D3 No Vitamin D3 [facility] 1,000 daily 1,000 daily 1,000 [facility] daily acetaminoph acetaminoph No acetaminop [facility] en 300 en 300 hen 300 [facility] mg-codeine mg-codeine mg-codeine 60 mg 60 mg 60 mg tablet Take tablet Take tablet 1 tablet 1 tablet Take 1 every 8 every 8 tablet hours by hours by every 8 oral route oral route hours by for 30 for 30 oral route days. days. for 30 days. anastrozole anastrozole No anastrozol [facility] 1 mg tablet 1 mg tablet e 1 mg Medical Take 1 Take 1 tablet tablet tablet Take 1 every day every day tablet by oral by oral every day route for route for by oral 90 days. 90 days. route for 90 days. aspirin 81 aspirin 81 No 1 Q1D aspirin 81 [facility] mg mg mg Medical tablet,corey tablet,corey tablet,del yed release yed release ayed Take 1 Take 1 release tablet tablet Take 1 every day every day tablet by oral by oral every day route. route. by oral route. atorvastati atorvastati No atorvastat [facility] n 40 mg n 40 mg in 40 mg [facility] al tablet Take tablet Take tablet 1 tablet 1 tablet Take 1 every day every day tablet by oral by oral every day route at route at by oral bedtime. bedtime. route at bedtime. buspirone buspirone No buspirone [facility] 10 mg 10 mg 10 mg [facility] tablet Take tablet Take tablet 2 tablets 3 2 tablets 3 Take 2 times a day times a day tablets 3 by oral by oral times a route for route for day by 30 days. 30 days. oral route for 30 days. diltiazem diltiazem No diltiazem [facility] ER (XR/XT) ER (XR/XT) ER (XR/XT) Medical 240 mg 240 mg 240 mg capsule,ext capsule,ext capsule,ex ended ended tended release 24 release 24 release 24 hr, hr, hr, controlled controlled controlled divalproex divalproex No divalproex [facility] 125 mg 125 mg 125 mg Medical capsule,del capsule,del capsule,de ayed ayed layed release release release sprinkle sprinkle sprinkle Take 2 Take 2 Take 2 capsules capsules capsules twice a day twice a day twice a by oral by oral day by route for route for oral route 30 days. 30 days. for 30 days. duloxetine duloxetine No duloxetine [facility] 60 mg 60 mg 60 mg [facility] capsule,del capsule,del capsule,de ayed ayed layed release release release Take 1 Take 1 Take 1 capsule capsule capsule twice a day twice a day twice a by oral by oral day by route for route for oral route 30 days. 30 days. for 30 days. ipratropium ipratropium No ipratropiu [facility] 0.5 0.5 m 0.5 [facility] mg-albutero mg-albutero mg-albuter l 3 mg (2.5 l 3 mg (2.5 ol 3 mg mg base)/3 mg base)/3 (2.5 mg mL mL base)/3 mL nebulizatio nebulizatio nebulizati n soln n soln on soln levetiracet levetiracet No levetirace [facility] am 1,000 mg am 1,000 mg [place] 1,000 Medical tablet Take tablet Take mg tablet 1 tablet 1 tablet Take 1 twice a day twice a day tablet by oral by oral twice a route for route for day by 30 days. 30 days. oral route for 30 days. levetiracet levetiracet No 1 BID levetirace [facility] am 250 mg am 250 mg o[place]nell 250 mg Medical tablet Take tablet Take tablet 1 tablet 1 tablet Take 1 twice a day twice a day tablet by oral by oral twice a route for 1 route for 1 day by day. day. oral route for 1 day. levothyroxi levothyroxi No levothyrox [facility] ne 25 mcg ne 25 mcg ine 25 mcg [facility] tablet Take tablet Take tablet 0.5 tablets 0.5 tablets Take 0.5 every day every day tablets by oral by oral every day route for route for by oral 14 days. 14 days. route for 14 days. Nystop Nystop No Nystop [facility] 100,000 100,000 100,000 Medica l unit/gram unit/gram unit/gram topical topical topical powder powder powder potassium potassium No potassium [facility] chloride ER chloride ER chloride Medical 20 mEq 20 mEq ER 20 mEq tablet,exte tablet,exte tablet,ext nded nded ended release(par release(par release(pa t/cryst) t/cryst) rt/cryst) Take 1 Take 1 Take 1 tablet tablet tablet every day every day every day by oral by oral by oral route for route for route for 30 days. 30 days. 30 days. Retaine Retaine No 2drop(s BID Retaine [facility] ([facility] ) [facility] ([facility]) [facility] 0.3 % eye 0.3 % eye 0.3 % eye drops Apply drops Apply drops 2 drops 2 drops Apply 2 twice a day twice a day drops by by twice a ophthalmic ophthalmic day by route. route. ophthalmic route. Senna with Senna with No 2 BID Senna with [facility] Docusate Docusate Docusate Med ical Sodium 8.6 Sodium 8.6 Sodium 8.6 mg-50 mg mg-50 mg mg-50 mg tablet Take tablet Take tablet 2 tablets 2 tablets Take 2 twice a day twice a day tablets by oral by oral twice a route. route. day by oral route. Vitamin D3 Vitamin D3 No Vitamin D3 [facility] 1,000 daily 1,000 daily 1,000 [facility] daily acetaminoph acetaminoph No acetaminop [facility] en 300 en 300 hen 300 Medical mg-codeine mg-codeine mg-codeine 30 mg 30 mg 30 mg tablet Take tablet Take tablet 1 tablet 1 tablet Take 1 every 8 every 8 tablet hours by hours by every 8 oral route oral route hours by for 30 for 30 oral route days. days. for 30 days. anastrozole anastrozole No anastrozol [facility] 1 mg tablet 1 mg tablet e 1 mg [facility] Take 1 Take 1 tablet tablet tablet Take 1 every day every day tablet by oral by oral every day route for route for by oral 90 days. 90 days. route for 90 days. aspirin 81 aspirin 81 No 1 Q1D aspirin 81 [facility] mg mg mg [facility] tablet,corey tablet,corey tablet,del yed release yed release ayed Take 1 Take 1 release tablet tablet Take 1 every day every day tablet by oral by oral every day route. route. by oral route. atorvastati atorvastati No atorvastat [facility] n 40 mg n 40 mg in 40 mg [facility] al tablet Take tablet Take tablet 1 tablet 1 tablet Take 1 every day every day tablet by oral by oral every day route at route at by oral bedtime. bedtime. route at bedtime. buspirone buspirone No buspirone [facility] 15 mg 15 mg 15 mg [facility] tablet Take tablet Take tablet 1 tablet 3 1 tablet 3 Take 1 times a day times a day tablet 3 by oral by oral times a route for route for day by 30 days. 30 days. oral route for 30 days. diltiazem diltiazem No diltiazem [facility] ER (XR/XT) ER (XR/XT) ER (XR/XT) [facility] 240 mg 240 mg 240 mg capsule,ext capsule,ext capsule,ex ended ended tended release 24 release 24 release 24 hr, hr, hr, controlled controlled controlled divalproex divalproex No divalproex [facility] 125 mg 125 mg 125 mg Medical capsule,del capsule,del capsule,de ayed ayed layed release release release sprinkle sprinkle sprinkle Take 2 Take 2 Take 2 capsules capsules capsules twice a day twice a day twice a by oral by oral day by route for route for oral route 30 days. 30 days. for 30 days. duloxetine duloxetine No duloxetine [facility] 60 mg 60 mg 60 mg [facility] capsule,del capsule,del capsule,de ayed ayed layed release release release Take 1 Take 1 Take 1 capsule capsule capsule twice a day twice a day twice a by oral by oral day by route for route for oral route 30 days. 30 days. for 30 days. hydrochloro hydrochloro No hydrochlor [facility] thiazide thiazide othiazide Me dical 12.5 mg 12.5 mg 12.5 mg capsule capsule capsule hydrochloro hydrochloro No 1 Q1D hydrochlor [facility] thiazide thiazide othiazide Me dical 12.5 mg 12.5 mg 12.5 mg tablet Take tablet Take tablet 1 tablet 1 tablet Take 1 every day every day tablet by oral by oral every day route for route for by oral 30 days. 30 days. route for 30 days. ipratropium ipratropium No ipratropiu [facility] 0.5 0.5 m 0.5 [facility] mg-albutero mg-albutero mg-albuter l 3 mg (2.5 l 3 mg (2.5 ol 3 mg mg base)/3 mg base)/3 (2.5 mg mL mL base)/3 mL nebulizatio nebulizatio nebulizati n soln n soln on soln levetiracet levetiracet No levetirace [facility] am 1,000 mg am 1,000 mg [place] 1,000 Medical tablet Take tablet Take mg tablet 1 tablet 1 tablet Take 1 twice a day twice a day tablet by oral by oral twice a route for route for day by 30 days. 30 days. oral route for 30 days. levetiracet levetiracet No 1 BID levetirace [facility] am 250 mg am 250 mg o[place] 250 mg [facility] tablet Take tablet Take tablet 1 tablet 1 tablet Take 1 twice a day twice a day tablet by oral by oral twice a route for 1 route for 1 day by day. day. oral route for 1 day. levothyroxi levothyroxi No levothyrox [facility] ne 25 mcg ne 25 mcg ine 25 mcg [facility] tablet Take tablet Take tablet 1 tablet 1 tablet Take 1 every day every day tablet by oral by oral every day route. route. by oral route. lisinopril lisinopril No lisinopril [facility] 10 10 10 Medical mg-hydrochl mg-hydrochl mg-hydroch orothiazide orothiazide lorothiazi 12.5 mg 12.5 mg de 12.5 mg tablet tablet tablet Nystop Nystop No Nystop [facility] 100,000 100,000 100,000 Medica l unit/gram unit/gram unit/gram topical topical topical powder powder powder potassium potassium No potassium [facility] chloride ER chloride ER chloride Medical 20 mEq 20 mEq ER 20 mEq tablet,exte tablet,exte tablet,ext nded nded ended release(par release(par release(pa t/cryst) t/cryst) rt/cryst) Take 1 Take 1 Take 1 tablet tablet tablet every day every day every day by oral by oral by oral route for route for route for 30 days. 30 days. 30 days. Retaine Retaine No 2drop(s BID Retaine [facility] ) [facility] ([facility]) [facility] 0.3 % eye 0.3 % eye 0.3 % eye drops Apply drops Apply drops 2 drops 2 drops Apply 2 twice a day twice a day drops by by twice a ophthalmic ophthalmic day by route. route. ophthalmic route. Senna with Senna with No 2 BID Senna with [facility] Docusate Docusate Docusate Med ical Sodium 8.6 Sodium 8.6 Sodium 8.6 mg-50 mg mg-50 mg mg-50 mg tablet Take tablet Take tablet 2 tablets 2 tablets Take 2 twice a day twice a day tablets by oral by oral twice a route. route. day by oral route. Vitamin D3 Vitamin D3 No Vitamin D3 [facility] 1,000 daily 1,000 daily 1,000 [facility] daily acetaminoph acetaminoph No 1 Q8H acetaminop [facility] en 300 en 300 hen 300 [facility] mg-codeine mg-codeine mg-codeine 30 mg 30 mg 30 mg tablet Take tablet Take tablet 1 tablet 1 tablet Take 1 every 8 every 8 tablet hours by hours by every 8 oral route oral route hours by for 30 for 30 oral route days. days. for 30 days. amoxicillin amoxicillin No amoxicilli [facility] 500 500 n 500 Medical mg-potassiu mg-potassiu mg-potassi m m um clavulanate clavulanate clavulanat 125 mg 125 mg e 125 mg tablet tablet tablet anastrozole anastrozole No anastrozol [facility] 1 mg tablet 1 mg tablet e 1 mg Medical Take 1 Take 1 tablet tablet tablet Take 1 every day every day tablet by oral by oral every day route for route for by oral 90 days. 90 days. route for 90 days. aspirin 81 aspirin 81 No 1 Q1D aspirin 81 [facility] mg mg mg [facility] tablet,corey tablet,corey tablet,del yed release yed release ayed Take 1 Take 1 release tablet tablet Take 1 every day every day tablet by oral by oral every day route. route. by oral route. atorvastati atorvastati No atorvastat [facility] n 40 mg n 40 mg in 40 mg [facility] al tablet Take tablet Take tablet 1 tablet 1 tablet Take 1 every day every day tablet by oral by oral every day route at route at by oral bedtime. bedtime. route at bedtime. buspirone buspirone No buspirone [facility] 15 mg 15 mg 15 mg [facility] tablet Take tablet Take tablet 1 tablet 3 1 tablet 3 Take 1 times a day times a day tablet 3 by oral by oral times a route for route for day by 30 days. 30 days. oral route for 30 days. diltiazem diltiazem No diltiazem [facility] ER (XR/XT) ER (XR/XT) ER (XR/XT) [facility] 240 mg 240 mg 240 mg capsule,ext capsule,ext capsule,ex ended ended tended release 24 release 24 release 24 hr, hr, hr, controlled controlled controlled divalproex divalproex No divalproex [facility] 125 mg 125 mg 125 mg Medical capsule,del capsule,del capsule,de ayed ayed layed release release release sprinkle sprinkle sprinkle Take 2 Take 2 Take 2 capsules capsules capsules twice a day twice a day twice a by oral by oral day by route for route for oral route 30 days. 30 days. for 30 days. duloxetine duloxetine No duloxetine [facility] 60 mg 60 mg 60 mg [facility] capsule,del capsule,del capsule,de ayed ayed layed release release release Take 1 Take 1 Take 1 capsule capsule capsule twice a day twice a day twice a by oral by oral day by route for route for oral route 30 days. 30 days. for 30 days. levetiracet levetiracet No levetirace [facility] am 1,000 mg am 1,000 mg [place] 1,000 Medical tablet Take tablet Take mg tablet 1 tablet 1 tablet Take 1 twice a day twice a day tablet by oral by oral twice a route for route for day by 30 days. 30 days. oral route for 30 days. levothyroxi levothyroxi No levothyrox [facility] ne 25 mcg ne 25 mcg ine 25 mcg Medical tablet Take tablet Take tablet 1 tablet 1 tablet Take 1 every day every day tablet by oral by oral every day route. route. by oral route. lisinopril lisinopril No 1 BID lisinopril [facility] 10 10 10 Medical mg-hydrochl mg-hydrochl mg-hydroch orothiazide orothiazide lorothiazi 12.5 mg 12.5 mg de 12.5 mg tablet Take tablet Take tablet 1 tablet 1 tablet Take 1 twice a day twice a day tablet by oral by oral twice a route for route for day by 30 days. 30 days. oral route for 30 days. nystatin nystatin No nystatin [facility] 100,000 100,000 100,000 Medica l unit/gram unit/gram unit/gram topical topical topical cream cream cream potassium potassium No potassium [facility] chloride ER chloride ER chloride Medical 20 mEq 20 mEq ER 20 mEq tablet,exte tablet,exte tablet,ext nded nded ended release(par release(par release(pa t/cryst) t/cryst) rt/cryst) Take 1 Take 1 Take 1 tablet tablet tablet every day every day every day by oral by oral by oral route for route for route for 30 days. 30 days. 30 days. Retaine Retaine No 2drop(s BID Retaine [facility] ) [facility] ([facility]) [facility] 0.3 % eye 0.3 % eye 0.3 % eye drops Apply drops Apply drops 2 drops 2 drops Apply 2 twice a day twice a day drops by by twice a ophthalmic ophthalmic day by route. route. ophthalmic route. Senna with Senna with No 2 BID Senna with [facility] Docusate Docusate Docusate Med ical Sodium 8.6 Sodium 8.6 Sodium 8.6 mg-50 mg mg-50 mg mg-50 mg tablet Take tablet Take tablet 2 tablets 2 tablets Take 2 twice a day twice a day tablets by oral by oral twice a route. route. day by oral route. Vitamin D3 Vitamin D3 No Vitamin D3 [facility] 1,000 daily 1,000 daily 1,000 Medical daily acetaminoph acetaminoph No acetaminop [facility] en 300 en 300 hen 300 Medical mg-codeine mg-codeine mg-codeine 30 mg 30 mg 30 mg tablet Take tablet Take tablet 1 tablet 1 tablet Take 1 every 8 every 8 tablet hours by hours by every 8 oral route oral route hours by for 30 for 30 oral route days. days. for 30 days. anastrozole anastrozole No anastrozol [facility] 1 mg tablet 1 mg tablet e 1 mg Medical Take 1 Take 1 tablet tablet tablet Take 1 every day every day tablet by oral by oral every day route for route for by oral 90 days. 90 days. route for 90 days. aspirin 81 aspirin 81 No 1 Q1D aspirin 81 [facility] mg mg mg Medical tablet,corey tablet,corey tablet,del yed release yed release ayed Take 1 Take 1 release tablet tablet Take 1 every day every day tablet by oral by oral every day route. route. by oral route. atorvastati atorvastati No atorvastat [facility] n 40 mg n 40 mg in 40 mg Medic al tablet Take tablet Take tablet 1 tablet 1 tablet Take 1 every day every day tablet by oral by oral every day route at route at by oral bedtime. bedtime. route at bedtime. buspirone buspirone No buspirone [facility] 15 mg 15 mg 15 mg [facility] tablet Take tablet Take tablet 1 tablet 3 1 tablet 3 Take 1 times a day times a day tablet 3 by oral by oral times a route for route for day by 30 days. 30 days. oral route for 30 days. DILT-XR 240 DILT-XR 240 No DILT-XR [facility] mg capsule, mg capsule, 240 mg Medical extended extended capsule, release release extended release divalproex divalproex No divalproex [facility] 125 mg 125 mg 125 mg Medical capsule,del capsule,del capsule,de ayed ayed layed release release release sprinkle sprinkle sprinkle Take 2 Take 2 Take 2 capsules capsules capsules twice a day twice a day twice a by oral by oral day by route for route for oral route 30 days. 30 days. for 30 days. duloxetine duloxetine No duloxetine [facility] 60 mg 60 mg 60 mg Medical capsule,del capsule,del capsule,de ayed ayed layed release release release Take 1 Take 1 Take 1 capsule capsule capsule twice a day twice a day twice a by oral by oral day by route for route for oral route 30 days. 30 days. for 30 days. levetiracet levetiracet No levetirace [facility] am 1,000 mg am 1,000 mg [place] 1,000 Medical tablet Take tablet Take mg tablet 1 tablet 1 tablet Take 1 twice a day twice a day tablet by oral by oral twice a route for route for day by 30 days. 30 days. oral route for 30 days. levothyroxi levothyroxi No levothyrox [facility] ne 25 mcg ne 25 mcg ine 25 mcg Medical tablet Take tablet Take tablet 1 tablet 1 tablet Take 1 every day every day tablet by oral by oral every day route. route. by oral route. lisinopril lisinopril No lisinopril [facility] 10 10 10 Medical mg-hydrochl mg-hydrochl mg-hydroch orothiazide orothiazide lorothiazi 12.5 mg 12.5 mg de 12.5 mg tablet Take tablet Take tablet 1 tablet 1 tablet Take 1 twice a day twice a day tablet by oral by oral twice a route for route for day by 30 days. 30 days. oral route for 30 days. meropenem meropenem No meropenem [facility] 500 mg/50 500 mg/50 500 mg/50 Medical mL in 0.9% mL in 0.9% mL in 0.9% sodium sodium sodium chloride chloride chloride intravenous intravenous intravenou piggyback piggyback s piggyback nystatin nystatin No nystatin [facility] 100,000 100,000 100,000 Medica l unit/gram unit/gram unit/gram topical topical topical cream cream cream potassium potassium No potassium [facility] chloride ER chloride ER chloride Medical 20 mEq 20 mEq ER 20 mEq tablet,exte tablet,exte tablet,ext nded nded ended release(par release(par release(pa t/cryst) t/cryst) rt/cryst) Take 1 Take 1 Take 1 tablet tablet tablet every day every day every day by oral by oral by oral route for route for route for 30 days. 30 days. 30 days. Retaine Retaine No 2drop(s BID Retaine [facility] ([facility]) [facility] ([facility]) ) [facility] ([facility]) [facility] 0.3 % eye 0.3 % eye 0.3 % eye drops Apply drops Apply drops 2 drops 2 drops Apply 2 twice a day twice a day drops by by twice a ophthalmic ophthalmic day by route. route. ophthalmic route. Senna with Senna with No 2 BID Senna with [facility] Docusate Docusate Docusate Med ical Sodium 8.6 Sodium 8.6 Sodium 8.6 mg-50 mg mg-50 mg mg-50 mg tablet Take tablet Take tablet 2 tablets 2 tablets Take 2 twice a day twice a day tablets by oral by oral twice a route. route. day by oral route. Vitamin D3 Vitamin D3 No Vitamin D3 [facility] 1,000 daily 1,000 daily 1,000 [facility] daily acetaminoph acetaminoph No acetaminop [facility] en 300 en 300 hen 300 Medical mg-codeine mg-codeine mg-codeine 30 mg 30 mg 30 mg tablet Take tablet Take tablet 1 tablet 1 tablet Take 1 every 8 every 8 tablet hours by hours by every 8 oral route oral route hours by for 30 for 30 oral route days. days. for 30 days. anastrozole anastrozole No anastrozol [facility] 1 mg tablet 1 mg tablet e 1 mg Medical Take 1 Take 1 tablet tablet tablet Take 1 every day every day tablet by oral by oral every day route for route for by oral 90 days. 90 days. route for 90 days. aspirin 81 aspirin 81 No 1 Q1D aspirin 81 [facility] mg mg mg Medical tablet,corey tablet,corey tablet,del yed release yed release ayed Take 1 Take 1 release tablet tablet Take 1 every day every day tablet by oral by oral every day route. route. by oral route. atorvastati atorvastati No atorvastat [facility] n 40 mg n 40 mg in 40 mg Medic al tablet Take tablet Take tablet 1 tablet 1 tablet Take 1 every day every day tablet by oral by oral every day route at route at by oral bedtime. bedtime. route at bedtime. buspirone buspirone No buspirone [facility] 15 mg 15 mg 15 mg [facility] tablet Take tablet Take tablet 1 tablet 3 1 tablet 3 Take 1 times a day times a day tablet 3 by oral by oral times a route for route for day by 30 days. 30 days. oral route for 30 days. DILT-XR 240 DILT-XR 240 No DILT-XR [facility] mg capsule, mg capsule, 240 mg Medical extended extended capsule, release release extended release divalproex divalproex No divalproex [facility] 125 mg 125 mg 125 mg [facility] capsule,del capsule,del capsule,de ayed ayed layed release release release sprinkle sprinkle sprinkle Take 2 Take 2 Take 2 capsules capsules capsules twice a day twice a day twice a by oral by oral day by route for route for oral route 30 days. 30 days. for 30 days. duloxetine duloxetine No duloxetine [facility] 60 mg 60 mg 60 mg [facility] capsule,del capsule,del capsule,de ayed ayed layed release release release Take 1 Take 1 Take 1 capsule capsule capsule twice a day twice a day twice a by oral by oral day by route for route for oral route 30 days. 30 days. for 30 days. levetiracet levetiracet No levetirace [facility] am 1,000 mg am 1,000 mg oconnell 1,000 Medical tablet Take tablet Take mg tablet 1 tablet 1 tablet Take 1 twice a day twice a day tablet by oral by oral twice a route for route for day by 30 days. 30 days. oral route for 30 days. levothyroxi levothyroxi No levothyrox [facility] ne 25 mcg ne 25 mcg ine 25 mcg Medical tablet Take tablet Take tablet 1 tablet 1 tablet Take 1 every day every day tablet by oral by oral every day route. route. by oral route. lisinopril lisinopril No lisinopril [facility] 10 10 10 Medical mg-hydrochl mg-hydrochl mg-hydroch orothiazide orothiazide lorothiazi 12.5 mg 12.5 mg de 12.5 mg tablet Take tablet Take tablet 1 tablet 1 tablet Take 1 twice a day twice a day tablet by oral by oral twice a route for route for day by 30 days. 30 days. oral route for 30 days. meropenem meropenem No meropenem [facility] 500 mg/50 500 mg/50 500 mg/50 Medical mL in 0.9% mL in 0.9% mL in 0.9% sodium sodium sodium chloride chloride chloride intravenous intravenous intravenou piggyback piggyback s piggyback nystatin nystatin No nystatin [facility] 100,000 100,000 100,000 Medica l unit/gram unit/gram unit/gram topical topical topical cream cream cream potassium potassium No potassium [facility] chloride ER chloride ER chloride Medical 20 mEq 20 mEq ER 20 mEq tablet,exte tablet,exte tablet,ext nded nded ended release(par release(par release(pa t/cryst) t/cryst) rt/cryst) Take 1 Take 1 Take 1 tablet tablet tablet every day every day every day by oral by oral by oral route for route for route for 30 days. 30 days. 30 days. Retaine Retaine No 2drop(s BID Retaine [facility] ([facility] ([facility]) ) [facility] ([facility]) [facility] 0.3 % eye 0.3 % eye 0.3 % eye drops Apply drops Apply drops 2 drops 2 drops Apply 2 twice a day twice a day drops by by twice a ophthalmic ophthalmic day by route. route. ophthalmic route. Senna with Senna with No 2 BID Senna with [facility] Docusate Docusate Docusate Med ical Sodium 8.6 Sodium 8.6 Sodium 8.6 mg-50 mg mg-50 mg mg-50 mg tablet Take tablet Take tablet 2 tablets 2 tablets Take 2 twice a day twice a day tablets by oral by oral twice a route. route. day by oral route. Vitamin D3 Vitamin D3 No Vitamin D3 [facility] 1,000 daily 1,000 daily 1,000 [facility] daily acetaminoph acetaminoph No 1 Q8H acetaminop [facility] en 300 en 300 hen 300 Medical mg-codeine mg-codeine mg-codeine 30 mg 30 mg 30 mg tablet Take tablet Take tablet 1 tablet 1 tablet Take 1 every 8 every 8 tablet hours by hours by every 8 oral route oral route hours by for 30 for 30 oral route days. days. for 30 days. anastrozole anastrozole No anastrozol [facility] 1 mg tablet 1 mg tablet e 1 mg Medical Take 1 Take 1 tablet tablet tablet Take 1 every day every day tablet by oral by oral every day route for route for by oral 90 days. 90 days. route for 90 days. aspirin 81 aspirin 81 No 1 Q1D aspirin 81 [facility] mg mg mg Medical tablet,corey tablet,corey tablet,del yed release yed release ayed Take 1 Take 1 release tablet tablet Take 1 every day every day tablet by oral by oral every day route. route. by oral route. atorvastati atorvastati No atorvastat [facility] n 40 mg n 40 mg in 40 mg Medic al tablet Take tablet Take tablet 1 tablet 1 tablet Take 1 every day every day tablet by oral by oral every day route at route at by oral bedtime. bedtime. route at bedtime. buspirone buspirone No buspirone [facility] 15 mg 15 mg 15 mg [facility] tablet Take tablet Take tablet 1 tablet 3 1 tablet 3 Take 1 times a day times a day tablet 3 by oral by oral times a route for route for day by 30 days. 30 days. oral route for 30 days. DILT-XR 240 DILT-XR 240 No DILT-XR [facility] mg capsule, mg capsule, 240 mg Medical extended extended capsule, release release extended release divalproex divalproex No divalproex [facility] 125 mg 125 mg 125 mg [facility] capsule,del capsule,del capsule,de ayed ayed layed release release release sprinkle sprinkle sprinkle Take 2 Take 2 Take 2 capsules capsules capsules twice a day twice a day twice a by oral by oral day by route for route for oral route 30 days. 30 days. for 30 days. duloxetine duloxetine No duloxetine [facility] 60 mg 60 mg 60 mg [facility] capsule,del capsule,del capsule,de ayed ayed layed release release release Take 1 Take 1 Take 1 capsule capsule capsule twice a day twice a day twice a by oral by oral day by route for route for oral route 30 days. 30 days. for 30 days. levetiracet levetiracet No levetirace [facility] am 1,000 mg am 1,000 mg [place]nell 1,000 Medical tablet Take tablet Take mg tablet 1 tablet 1 tablet Take 1 twice a day twice a day tablet by oral by oral twice a route for route for day by 30 days. 30 days. oral route for 30 days. levothyroxi levothyroxi No levothyrox [facility] ne 25 mcg ne 25 mcg ine 25 mcg Medical tablet Take tablet Take tablet 1 tablet 1 tablet Take 1 every day every day tablet by oral by oral every day route. route. by oral route. lisinopril lisinopril No lisinopril [facility] 10 10 10 Medical mg-hydrochl mg-hydrochl mg-hydroch orothiazide orothiazide lorothiazi 12.5 mg 12.5 mg de 12.5 mg tablet Take tablet Take tablet 1 tablet 1 tablet Take 1 twice a day twice a day tablet by oral by oral twice a route for route for day by 30 days. 30 days. oral route for 30 days. meropenem meropenem No meropenem [facility] 500 mg/50 500 mg/50 500 mg/50 Medical mL in 0.9% mL in 0.9% mL in 0.9% sodium sodium sodium chloride chloride chloride intravenous intravenous intravenou piggyback piggyback s piggyback nystatin nystatin No nystatin [facility] 100,000 100,000 100,000 Medica l unit/gram unit/gram unit/gram topical topical topical cream cream cream potassium potassium No potassium [facility] chloride ER chloride ER chloride Medical 20 mEq 20 mEq ER 20 mEq tablet,exte tablet,exte tablet,ext nded nded ended release(par release(par release(pa t/cryst) t/cryst) rt/cryst) Take 1 Take 1 Take 1 tablet tablet tablet every day every day every day by oral by oral by oral route for route for route for 30 days. 30 days. 30 days. Retaine Retaine No 2drop(s BID Retaine [facility] ([facility]) ) [facility] ([facility]) [facility] 0.3 % eye 0.3 % eye 0.3 % eye drops Apply drops Apply drops 2 drops 2 drops Apply 2 twice a day twice a day drops by by twice a ophthalmic ophthalmic day by route. route. ophthalmic route. Senna with Senna with No 2 BID Senna with [facility] Docusate Docusate Docusate Med ical Sodium 8.6 Sodium 8.6 Sodium 8.6 mg-50 mg mg-50 mg mg-50 mg tablet Take tablet Take tablet 2 tablets 2 tablets Take 2 twice a day twice a day tablets by oral by oral twice a route. route. day by oral route. Vitamin D3 Vitamin D3 No Vitamin D3 [facility] 1,000 daily 1,000 daily 1,000 Medical daily acetaminoph acetaminoph No 1 Q8H acetaminop [facility] en 300 en 300 hen 300 Medical mg-codeine mg-codeine mg-codeine 30 mg 30 mg 30 mg tablet Take tablet Take tablet 1 tablet 1 tablet Take 1 every 8 every 8 tablet hours by hours by every 8 oral route oral route hours by for 30 for 30 oral route days. days. for 30 days. anastrozole anastrozole No anastrozol [facility] 1 mg tablet 1 mg tablet e 1 mg Medical Take 1 Take 1 tablet tablet tablet Take 1 every day every day tablet by oral by oral every day route for route for by oral 90 days. 90 days. route for 90 days. aspirin 81 aspirin 81 No 1 Q1D aspirin 81 [facility] mg mg mg Medical tablet,corey tablet,corey tablet,del yed release yed release ayed Take 1 Take 1 release tablet tablet Take 1 every day every day tablet by oral by oral every day route. route. by oral route. atorvastati atorvastati No atorvastat [facility] n 40 mg n 40 mg in 40 mg Medic al tablet Take tablet Take tablet 1 tablet 1 tablet Take 1 every day every day tablet by oral by oral every day route at route at by oral bedtime. bedtime. route at bedtime. buspirone buspirone No buspirone [facility] 15 mg 15 mg 15 mg [facility] tablet Take tablet Take tablet 1 tablet 3 1 tablet 3 Take 1 times a day times a day tablet 3 by oral by oral times a route for route for day by 30 days. 30 days. oral route for 30 days. DILT-XR 240 DILT-XR 240 No DILT-XR [facility] mg capsule, mg capsule, 240 mg Medical extended extended capsule, release release extended release divalproex divalproex No divalproex [facility] 125 mg 125 mg 125 mg Medical capsule,del capsule,del capsule,de ayed ayed layed release release release sprinkle sprinkle sprinkle Take 2 Take 2 Take 2 capsules capsules capsules twice a day twice a day twice a by oral by oral day by route for route for oral route 30 days. 30 days. for 30 days. duloxetine duloxetine No duloxetine [facility] 60 mg 60 mg 60 mg [facility] capsule,del capsule,del capsule,de ayed ayed layed release release release Take 1 Take 1 Take 1 capsule capsule capsule twice a day twice a day twice a by oral by oral day by route for route for oral route 30 days. 30 days. for 30 days. levetiracet levetiracet No levetirace [facility] am 1,000 mg am 1,000 mg [place] 1,000 Medical tablet Take tablet Take mg tablet 1 tablet 1 tablet Take 1 twice a day twice a day tablet by oral by oral twice a route for route for day by 30 days. 30 days. oral route for 30 days. levothyroxi levothyroxi No levothyrox [facility] ne 25 mcg ne 25 mcg ine 25 mcg Medical tablet Take tablet Take tablet 1 tablet 1 tablet Take 1 every day every day tablet by oral by oral every day route. route. by oral route. lisinopril lisinopril No lisinopril [facility] 10 10 10 Medical mg-hydrochl mg-hydrochl mg-hydroch orothiazide orothiazide lorothiazi 12.5 mg 12.5 mg de 12.5 mg tablet Take tablet Take tablet 1 tablet 1 tablet Take 1 twice a day twice a day tablet by oral by oral twice a route for route for day by 30 days. 30 days. oral route for 30 days. meropenem meropenem No meropenem [facility] 500 mg/50 500 mg/50 500 mg/50 Medical mL in 0.9% mL in 0.9% mL in 0.9% sodium sodium sodium chloride chloride chloride intravenous intravenous intravenou piggyback piggyback s piggyback nystatin nystatin No nystatin [facility] 100,000 100,000 100,000 Medica l unit/gram unit/gram unit/gram topical topical topical cream cream cream potassium potassium No potassium [facility] chloride ER chloride ER chloride Medical 20 mEq 20 mEq ER 20 mEq tablet,exte tablet,exte tablet,ext nded nded ended release(par release(par release(pa t/cryst) t/cryst) rt/cryst) Take 1 Take 1 Take 1 tablet tablet tablet every day every day every day by oral by oral by oral route for route for route for 30 days. 30 days. 30 days. Retaine Retaine No 2drop(s BID Retaine [facility] ) [facility] ([facility]) [facility] 0.3 % eye 0.3 % eye 0.3 % eye drops Apply drops Apply drops 2 drops 2 drops Apply 2 twice a day twice a day drops by by twice a ophthalmic ophthalmic day by route. route. ophthalmic route. Senna with Senna with No 2 BID Senna with [facility] Docusate Docusate Docusate Med ical Sodium 8.6 Sodium 8.6 Sodium 8.6 mg-50 mg mg-50 mg mg-50 mg tablet Take tablet Take tablet 2 tablets 2 tablets Take 2 twice a day twice a day tablets by oral by oral twice a route. route. day by oral route. Vitamin D3 Vitamin D3 No Vitamin D3 [facility] 1,000 daily 1,000 daily 1,000 Medical daily Immunizations Ordered Immunization Filled Immunization Date Status Commen ts Source Name Name COVID-19 (SARS-COV-2) COVID-19 (SARS-COV-2) 2021-02-18 Completed [facility] vaccine, unspecified vaccine, unspecified 00:00:00 Medical COVID-19 (SARS-COV-2) COVID-19 (SARS-COV-2) 2021-02-18 Completed [facility] vaccine, unspecified vaccine, unspecified 00:00:00 Medical COVID-19 (SARS-COV-2) COVID-19 (SARS-COV-2) 2021-02-18 Completed [facility] vaccine, unspecified vaccine, unspecified 00:00:00 Medical COVID-19 (SARS-COV-2) COVID-19 (SARS-COV-2) 2021-02-18 Completed [facility] vaccine, unspecified vaccine, unspecified 00:00:00 Medical COVID-19 (SARS-COV-2) COVID-19 (SARS-COV-2) 2021-02-18 Completed [facility] vaccine, unspecified vaccine, unspecified 00:00:00 Medical COVID-19 (SARS-COV-2) COVID-19 (SARS-COV-2) 2021-02-18 Completed [facility] vaccine, unspecified vaccine, unspecified 00:00:00 Medical COVID-19 (SARS-COV-2) COVID-19 (SARS-COV-2) 2021-02-18 Completed [facility] vaccine, unspecified vaccine, unspecified 00:00:00 Medical COVID-19 (SARS-COV-2) COVID-19 (SARS-COV-2) 2021-02-18 Completed [facility] vaccine, unspecified vaccine, unspecified 00:00:00 Medical COVID-19 (SARS-COV-2) COVID-19 (SARS-COV-2) 2021-02-18 Completed [facility] vaccine, unspecified vaccine, unspecified 00:00:00 Medical COVID-19 (SARS-COV-2) COVID-19 (SARS-COV-2) 2021-02-18 Completed [facility] vaccine, unspecified vaccine, unspecified 00:00:00 Medical COVID-19 (SARS-COV-2) COVID-19 (SARS-COV-2) 2021-02-18 Completed [facility] vaccine, unspecified vaccine, unspecified 00:00:00 Medical COVID-19 (SARS-COV-2) COVID-19 (SARS-COV-2) 2021-02-18 Completed [facility] vaccine, unspecified vaccine, unspecified 00:00:00 Medical COVID-19 (SARS-COV-2) COVID-19 (SARS-COV-2) 2021-02-18 Completed [facility] vaccine, unspecified vaccine, unspecified 00:00:00 Medical COVID-19 (SARS-COV-2) COVID-19 (SARS-COV-2) 2021-02-18 Completed [facility] vaccine, unspecified vaccine, unspecified 00:00:00 Medical COVID-19 (SARS-COV-2) COVID-19 (SARS-COV-2) 2021-02-18 Completed [facility] vaccine, unspecified vaccine, unspecified 00:00:00 Medical COVID-19 (SARS-COV-2) COVID-19 (SARS-COV-2) 2021-02-18 Completed [facility] vaccine, unspecified vaccine, unspecified 00:00:00 Medical COVID-19 (SARS-COV-2) COVID-19 (SARS-COV-2) 2021-02-18 Completed [facility] vaccine, unspecified vaccine, unspecified 00:00:00 Medical influenza, influenza, 2020-12-24 Completed [facility] injectable, injectable, 00:00:00 Medical quadrivalent quadrivalent influenza, influenza, 2020-12-24 Completed [facility] injectable, injectable, 00:00:00 Medical quadrivalent quadrivalent influenza, influenza, 2020-12-24 Completed [facility] injectable, injectable, 00:00:00 Medical quadrivalent quadrivalent influenza, influenza, 2020-12-24 Completed [facility] injectable, injectable, 00:00:00 Medical quadrivalent quadrivalent influenza, influenza, 2020-12-24 Completed [facility] injectable, injectable, 00:00:00 Medical quadrivalent quadrivalent influenza, influenza, 2020-12-24 Completed [facility] injectable, injectable, 00:00:00 Medical quadrivalent quadrivalent influenza, influenza, 2020-12-24 Completed [facility] injectable, injectable, 00:00:00 Medical quadrivalent quadrivalent influenza, influenza, 2020-12-24 Completed [facility] injectable, injectable, 00:00:00 Medical quadrivalent quadrivalent influenza, influenza, 2020-12-24 Completed [facility] injectable, injectable, 00:00:00 Medical quadrivalent quadrivalent influenza, influenza, 2020-12-24 Completed [facility] injectable, injectable, 00:00:00 Medical quadrivalent quadrivalent influenza, influenza, 2020-12-24 Completed [facility] injectable, injectable, 00:00:00 Medical quadrivalent quadrivalent influenza, influenza, 2020-12-24 Completed [facility] injectable, injectable, 00:00:00 Medical quadrivalent quadrivalent influenza, influenza, 2020-12-24 Completed [facility] injectable, injectable, 00:00:00 Medical quadrivalent quadrivalent influenza, influenza, 2020-12-24 Completed [facility] injectable, injectable, 00:00:00 Medical quadrivalent quadrivalent influenza, influenza, 2020-12-24 Completed [facility] injectable, injectable, 00:00:00 Medical quadrivalent quadrivalent influenza, influenza, 2020-12-24 Completed [facility] injectable, injectable, 00:00:00 Medical quadrivalent quadrivalent influenza, influenza, 2020-12-24 Completed [facility] injectable, injectable, 00:00:00 Medical quadrivalent quadrivalent COVID-19 (SARS-COV-2) COVID-19 (SARS-COV-2) 2020-04-24 Completed [facility] vaccine, unspecified vaccine, unspecified 00:00:00 Medical COVID-19 (SARS-COV-2) COVID-19 (SARS-COV-2) 2020-04-24 Completed [facility] vaccine, unspecified vaccine, unspecified 00:00:00 Medical COVID-19 (SARS-COV-2) COVID-19 (SARS-COV-2) 2020-04-24 Completed [facility] vaccine, unspecified vaccine, unspecified 00:00:00 Medical COVID-19 (SARS-COV-2) COVID-19 (SARS-COV-2) 2020-04-24 Completed [facility] vaccine, unspecified vaccine, unspecified 00:00:00 Medical COVID-19 (SARS-COV-2) COVID-19 (SARS-COV-2) 2020-04-24 Completed [facility] vaccine, unspecified vaccine, unspecified 00:00:00 Medical COVID-19 (SARS-COV-2) COVID-19 (SARS-COV-2) 2020-04-24 Completed [facility] vaccine, unspecified vaccine, unspecified 00:00:00 Medical COVID-19 (SARS-COV-2) COVID-19 (SARS-COV-2) 2020-04-24 Completed [facility] vaccine, unspecified vaccine, unspecified 00:00:00 Medical COVID-19 (SARS-COV-2) COVID-19 (SARS-COV-2) 2020-04-24 Completed [facility] vaccine, unspecified vaccine, unspecified 00:00:00 Medical COVID-19 (SARS-COV-2) COVID-19 (SARS-COV-2) 2020-04-24 Completed [facility] vaccine, unspecified vaccine, unspecified 00:00:00 Medical COVID-19 (SARS-COV-2) COVID-19 (SARS-COV-2) 2020-04-24 Completed [facility] vaccine, unspecified vaccine, unspecified 00:00:00 Medical COVID-19 (SARS-COV-2) COVID-19 (SARS-COV-2) 2020-04-24 Completed [facility] vaccine, unspecified vaccine, unspecified 00:00:00 Medical COVID-19 (SARS-COV-2) COVID-19 (SARS-COV-2) 2020-04-24 Completed [facility] vaccine, unspecified vaccine, unspecified 00:00:00 Medical COVID-19 (SARS-COV-2) COVID-19 (SARS-COV-2) 2020-04-24 Completed [facility] vaccine, unspecified vaccine, unspecified 00:00:00 Medical COVID-19 (SARS-COV-2) COVID-19 (SARS-COV-2) 2020-04-24 Completed [facility] vaccine, unspecified vaccine, unspecified 00:00:00 Medical COVID-19 (SARS-COV-2) COVID-19 (SARS-COV-2) 2020-04-24 Completed [facility] vaccine, unspecified vaccine, unspecified 00:00:00 Medical COVID-19 (SARS-COV-2) COVID-19 (SARS-COV-2) 2020-04-24 Completed [facility] vaccine, unspecified vaccine, unspecified 00:00:00 Medical COVID-19 (SARS-COV-2) COVID-19 (SARS-COV-2) 2020-04-24 Completed [facility] vaccine, unspecified vaccine, unspecified 00:00:00 Medical COVID-19 (SARS-COV-2) COVID-19 (SARS-COV-2) 2020-04-03 Completed [facility] vaccine, unspecified vaccine, unspecified 00:00:00 Medical COVID-19 (SARS-COV-2) COVID-19 (SARS-COV-2) 2020-04-03 Completed [facility] vaccine, unspecified vaccine, unspecified 00:00:00 Medical COVID-19 (SARS-COV-2) COVID-19 (SARS-COV-2) 2020-04-03 Completed [facility] vaccine, unspecified vaccine, unspecified 00:00:00 Medical COVID-19 (SARS-COV-2) COVID-19 (SARS-COV-2) 2020-04-03 Completed [facility] vaccine, unspecified vaccine, unspecified 00:00:00 Medical COVID-19 (SARS-COV-2) COVID-19 (SARS-COV-2) 2020-04-03 Completed [facility] vaccine, unspecified vaccine, unspecified 00:00:00 Medical COVID-19 (SARS-COV-2) COVID-19 (SARS-COV-2) 2020-04-03 Completed [facility] vaccine, unspecified vaccine, unspecified 00:00:00 Medical COVID-19 (SARS-COV-2) COVID-19 (SARS-COV-2) 2020-04-03 Completed [facility] vaccine, unspecified vaccine, unspecified 00:00:00 Medical COVID-19 (SARS-COV-2) COVID-19 (SARS-COV-2) 2020-04-03 Completed [facility] vaccine, unspecified vaccine, unspecified 00:00:00 Medical COVID-19 (SARS-COV-2) COVID-19 (SARS-COV-2) 2020-04-03 Completed [facility] vaccine, unspecified vaccine, unspecified 00:00:00 Medical COVID-19 (SARS-COV-2) COVID-19 (SARS-COV-2) 2020-04-03 Completed [facility] vaccine, unspecified vaccine, unspecified 00:00:00 Medical COVID-19 (SARS-COV-2) COVID-19 (SARS-COV-2) 2020-04-03 Completed [facility] vaccine, unspecified vaccine, unspecified 00:00:00 Medical COVID-19 (SARS-COV-2) COVID-19 (SARS-COV-2) 2020-04-03 Completed [facility] vaccine, unspecified vaccine, unspecified 00:00:00 Medical COVID-19 (SARS-COV-2) COVID-19 (SARS-COV-2) 2020-04-03 Completed [facility] vaccine, unspecified vaccine, unspecified 00:00:00 Medical COVID-19 (SARS-COV-2) COVID-19 (SARS-COV-2) 2020-04-03 Completed [facility] vaccine, unspecified vaccine, unspecified 00:00:00 Medical COVID-19 (SARS-COV-2) COVID-19 (SARS-COV-2) 2020-04-03 Completed [facility] vaccine, unspecified vaccine, unspecified 00:00:00 Medical COVID-19 (SARS-COV-2) COVID-19 (SARS-COV-2) 2020-04-03 Completed [facility] vaccine, unspecified vaccine, unspecified 00:00:00 Medical COVID-19 (SARS-COV-2) COVID-19 (SARS-COV-2) 2020-04-03 Completed [facility] vaccine, unspecified vaccine, unspecified 00:00:00 Medical pneumococcal pneumococcal 2015-12-16 Completed [facility] polysaccharide PPV23 polysaccharide PPV23 00:00:00 Medical pneumococcal pneumococcal 2015-12-16 Completed [facility] polysaccharide PPV23 polysaccharide PPV23 00:00:00 Medical pneumococcal pneumococcal 2015-12-16 Completed [facility] polysaccharide PPV23 polysaccharide PPV23 00:00:00 Medical pneumococcal pneumococcal 2015-12-16 Completed [facility] polysaccharide PPV23 polysaccharide PPV23 00:00:00 Medical pneumococcal pneumococcal 2015-12-16 Completed [facility] polysaccharide PPV23 polysaccharide PPV23 00:00:00 Medical pneumococcal pneumococcal 2015-12-16 Completed [facility] polysaccharide PPV23 polysaccharide PPV23 00:00:00 Medical pneumococcal pneumococcal 2015-12-16 Completed [facility] polysaccharide PPV23 polysaccharide PPV23 00:00:00 Medical pneumococcal pneumococcal 2015-12-16 Completed [facility] polysaccharide PPV23 polysaccharide PPV23 00:00:00 Medical pneumococcal pneumococcal 2015-12-16 Completed [facility] polysaccharide PPV23 polysaccharide PPV23 00:00:00 Medical pneumococcal pneumococcal 2015-12-16 Completed [facility] polysaccharide PPV23 polysaccharide PPV23 00:00:00 Medical pneumococcal pneumococcal 2015-12-16 Completed [facility] polysaccharide PPV23 polysaccharide PPV23 00:00:00 Medical pneumococcal pneumococcal 2015-12-16 Completed [facility] polysaccharide PPV23 polysaccharide PPV23 00:00:00 Medical pneumococcal pneumococcal 2015-12-16 Completed [facility] polysaccharide PPV23 polysaccharide PPV23 00:00:00 Medical pneumococcal pneumococcal 2015-12-16 Completed [facility] PPV23 polysaccharide PPV23 00:00:00 Medical pneumococcal pneumococcal 2015-12-16 Completed [facility] polysaccharide PPV23 polysaccharide PPV23 00:00:00 Medical pneumococcal pneumococcal 2015-12-16 Completed [facility] polysaccharide PPV23 polysaccharide PPV23 00:00:00 Medical pneumococcal pneumococcal 2015-12-16 Completed [facility] polysaccharide PPV23 polysaccharide PPV23 00:00:00 Medical Vital Signs Vital Name Observation Time Observation Value Comments Source BP Diastolic 2022-05-12 00:00:00 63 mm[Hg] [facility] Height 2022-05-12 00:00:00 60 [in_i] [facility] BMI (Body Mass Index) 2022-05-12 00:00:00 38.1 kg/m2 [facility] BP Systolic 2022-05-12 00:00:00 117 mm[Hg] [facility] Body Weight 2022-05-12 00:00:00 3124 [oz_av] [facility] BP Diastolic 2022-04-28 00:00:00 96 mm[Hg] [facility] Height 2022-04-28 00:00:00 60 [in_i] [facility] BMI (Body Mass Index) 2022-04-28 00:00:00 36.5 kg/m2 [facility] BP Systolic 2022-04-28 00:00:00 165 mm[Hg] [facility] Body Weight 2022-04-28 00:00:00 2994 [oz_av] [facility] BP Diastolic 2022-04-24 00:00:00 70 mm[Hg] [facility] Height 2022-04-24 00:00:00 60 [in_i] [facility] BMI (Body Mass Index) 2022-04-24 00:00:00 36.5 kg/m2 [facility] BP Systolic 2022-04-24 00:00:00 121 mm[Hg] [facility] Body Weight 2022-04-24 00:00:00 2992 [oz_av] [facility] BP Diastolic 2022-03-31 00:00:00 70 mm[Hg] [facility] Height 2022-03-31 00:00:00 60 [in_i] [facility] BMI (Body Mass Index) 2022-03-31 00:00:00 36.5 kg/m2 [facility] BP Systolic 2022-03-31 00:00:00 121 mm[Hg] [facility] Body Weight 2022-03-31 00:00:00 2994 [oz_av] [facility] BP Diastolic 2022-03-17 00:00:00 76 mm[Hg] [facility] Height 2022-03-17 00:00:00 60 [in_i] [facility] BMI (Body Mass Index) 2022-03-17 00:00:00 36.5 kg/m2 [facility] BP Systolic 2022-03-17 00:00:00 129 mm[Hg] [facility] Body Weight 2022-03-17 00:00:00 2994 [oz_av] [facility] BP Diastolic 2021-12-30 00:00:00 66 mm[Hg] [facility] Height 2021-12-30 00:00:00 60 [in_i] [facility] BMI (Body Mass Index) 2021-12-30 00:00:00 37.1 kg/m2 [facility] BP Systolic 2021-12-30 00:00:00 117 mm[Hg] [facility] Body Weight 2021-12-30 00:00:00 3040 [oz_av] [facility] BP Diastolic 2021-11-28 00:00:00 82 mm[Hg] [facility] Height 2021-11-28 00:00:00 60 [in_i] [facility] BMI (Body Mass Index) 2021-11-28 00:00:00 37.1 kg/m2 [facility] BP Systolic 2021-11-28 00:00:00 140 mm[Hg] [facility] Body Weight 2021-11-28 00:00:00 3040 [oz_av] [facility] BP Diastolic 2021-10-14 00:00:00 69 mm[Hg] [facility] Height 2021-10-14 00:00:00 60 [in_i] [facility] BMI (Body Mass Index) 2021-10-14 00:00:00 35.6 kg/m2 [facility] BP Systolic 2021-10-14 00:00:00 127 mm[Hg] [facility] Body Weight 2021-10-14 00:00:00 2913 [oz_av] [facility] BP Diastolic 2021-10-09 00:00:00 66 mm[Hg] [facility] Height 2021-10-09 00:00:00 60 [in_i] [facility] BMI (Body Mass Index) 2021-10-09 00:00:00 35.6 kg/m2 [facility] BP Systolic 2021-10-09 00:00:00 124 mm[Hg] [facility] Body Weight 2021-10-09 00:00:00 2917 [oz_av] [facility] BP Diastolic 2021-09-19 00:00:00 66 mm[Hg] [facility] Height 2021-09-19 00:00:00 60 [in_i] [facility] BMI (Body Mass Index) 2021-09-19 00:00:00 35.6 kg/m2 [facility] BP Systolic 2021-09-19 00:00:00 129 mm[Hg] [facility] Body Weight 2021-09-19 00:00:00 2917 [oz_av] [facility] BP Diastolic 2021-09-16 00:00:00 69 mm[Hg] [facility] Height 2021-09-16 00:00:00 60 [in_i] [facility] BMI (Body Mass Index) 2021-09-16 00:00:00 35.6 kg/m2 [facility] BP Systolic 2021-09-16 00:00:00 132 mm[Hg] [facility] Body Weight 2021-09-16 00:00:00 2917 [oz_av] [facility] BP Diastolic 2021-09-02 00:00:00 70 mm[Hg] [facility] Height 2021-09-02 00:00:00 60 [in_i] [facility] BMI (Body Mass Index) 2021-09-02 00:00:00 35.7 kg/m2 [facility] BP Systolic 2021-09-02 00:00:00 125 mm[Hg] [facility] Body Weight 2021-09-02 00:00:00 2928 [oz_av] [facility] BP Diastolic 2021-08-14 00:00:00 89 mm[Hg] [facility] Height 2021-08-14 00:00:00 60 [in_i] [facility] BMI (Body Mass Index) 2021-08-14 00:00:00 35.7 kg/m2 [facility] BP Systolic 2021-08-14 00:00:00 159 mm[Hg] [facility] Body Weight 2021-08-14 00:00:00 2928 [oz_av] [facility] BP Diastolic 2021-08-08 00:00:00 66 mm[Hg] [facility] Height 2021-08-08 00:00:00 60 [in_i] [facility] BMI (Body Mass Index) 2021-08-08 00:00:00 35.7 kg/m2 [facility] BP Systolic 2021-08-08 00:00:00 138 mm[Hg] [facility] Body Weight 2021-08-08 00:00:00 2928 [oz_av] [facility] BP Diastolic 2021-07-01 00:00:00 84 mm[Hg] [facility] Height 2021-07-01 00:00:00 60 [in_i] [facility] BMI (Body Mass Index) 2021-07-01 00:00:00 36.3 kg/m2 [facility] BP Systolic 2021-07-01 00:00:00 129 mm[Hg] [facility] Body Weight 2021-07-01 00:00:00 2978 [oz_av] [facility] BP Diastolic 2021-06-19 00:00:00 85 mm[Hg] [facility] Height 2021-06-19 00:00:00 60 [in_i] [facility] BMI (Body Mass Index) 2021-06-19 00:00:00 36.3 kg/m2 [facility] BP Systolic 2021-06-19 00:00:00 144 mm[Hg] [facility] Body Weight 2021-06-19 00:00:00 2978 [oz_av] [facility] BP Diastolic 2021-06-12 00:00:00 85 mm[Hg] [facility] Height 2021-06-12 00:00:00 60 [in_i] [facility] BMI (Body Mass Index) 2021-06-12 00:00:00 36.3 kg/m2 [facility] BP Systolic 2021-06-12 00:00:00 144 mm[Hg] [facility] Body Weight 2021-06-12 00:00:00 2978 [oz_av] [facility] Procedures This patient has no known procedures. Plan of Care Planned Activity Planned Date Details Comments Source Future Appointment 2024-05-30 00:00:00 Zaira Arellano, [address] [place] [address] , [place] [address] Instructions [facility] Medical Encounters Start End Encounter Admission Attending Care Care Encounter Source Date/Time Date/Time Type Type Clinicians Facility Department ID 2022-09-24 Outpatient [id number] [facility] 21:08:00 [id number] C2-4850-BFC 6X2-4405- B l -BFCD-23D D-47B2F49B0 FCD-23D7D7 Rene [id number] 4F2 1E84F2 2022-09-24 Outpatient [id number] 5B31-C [facility] 11:14:29 [id number] 87-477D-8B6 W49-385R- 8 l -2T52-XO6 0-AM4112JH2 S23-BN9769 Rene [id number] 2022-09-24 Outpatient [id number] [facility] 11:14:23 [id number] 44-4921-102 043-1767- 9 l -9815-A48 5-A155907OW 815-Q70727 Rene 7117MR2X4 3F8 6FD3F8 2022-09-24 Outpatient [id number] 54CD-B [facility] 11:14:13 L122-0314 06-4664-9CE 306-4664- 9 l -0GW3-I9Y 2-G6LP8J878 CE2-A4FF3F Rene [id number] 014 [id number] 1443-07-27 Outpatient [id number] DEB7 5F85-8 [facility] 11:14:02 9W81-2P64 97-3K66-572 O18-9P31- 9 l -911A-4BD A-3US39L5K7 11A-4BD09A Rene 07Y9J2QYE ADD 0A3ADD 2022-09-24 Outpatient [id number] D00C-5 [facility] 11:14:02 99T0-599R F3-425B-A48 4I0-725T- A l -J743-4P4 3-5G389YA91 483-3X140F Rene 21BA0001F 70D T2249B 2022-09-24 Outpatient [id number] [id number] [id number] [facility] 11:14:01 7E31-86UE 27-47FF-BB5 W27-89JA- B l -TY1I-8Y5 F-4C64F421A Q1B-3J15W8 Rene 6I373OTS6 EA0 15DEA0 2022-09-24 Outpatient [id number] EDEA-5 [facility] 11:14:00 50AE-44CC AE-44CC-998 0AE-44CC- 9 l -9982-8C0 2-0F8P2J0ZB 982-8C0F5B Tony W5F5XAQ52 D92 8AFD92 2022-09-24 Outpatient [id number] [id number] [facility] 11:14:00 194C-48CE 4C-48CE-ADF 94C-48CE- A l -ADF7-2A9 7-9P4M8994N DF7-2A9B97 Rene [id number] 378 37T832 2022-09-23 Outpatient [id number] 56FE-D [facility] 16:19:27 G7U2-886Q A7-464C-B01 1X3-000Y- B l -J57U-U05 B-P746K55S6 01B-A924A9 Rene [id number] 902 1I4945 2022-07-20 Outpatient [id number] D2T1Z6IM-9P A2E1 E7FE-7 [facility] 13:09:40 7O23-9933 11-4513-9BD H60-7010- 9 l -9BDF-1D5 F-6V75SDM0H BDF-1D58DE Rene 9OPZ7HNI5 AC7 A0AAC7 2022-06-26 Outpatient [id number] 71EB-A [facility] 20:29:25 Z8F6-2BO4 C5-8HY0-B14 8X8-2ZB5- A l -H18G-PDD C-MOTE77564 00C-CEDA73 Rene [id number] 1D9 3911D9 2022-06-22 Outpatient [id number]- [id number] FDCF 86AB-4 [facility] 14:43:55 48DB-4D69 DB-5M17-GZ1 8DB-4D69- A l -FO1L-205 E-940T513TE D4U-805Z15 Rene D972HTYY6 AC0 9EAAC0 2022-06-19 Outpatient [id number] E73F-E [facility] 19:07:53 WU85-1T23 90-3J53-QU8 R72-7Q40- B l -BG35-9I5 2-4S898SZHZ J75-7J709M Rene 04ZTOY5VQ 4CC BAF4CC 2021-04-24 Outpatient [facility] [id number] [facility] 12:58:55 CHRISTELLE Van 2021-04-18 Outpatient [facility] [id number] [place] 12:08:34 [facility] 2021-04-04 Outpatient [facility] [id number] [place] 12:14:36 [facility] 2021-04-04 Outpatient KO, [facility] [id number] [place] 09:37:07 [facility] 2021-03-28 Outpatient [facility] [id number] [place] 13:05:45 [facility] 2021-02-20 Outpatient KO, [facility] [id number] [place] 10:36:34 [facility] 2021-02-20 Outpatient [facility] [id number] [place] 09:55:12 [facility] 2021-02-20 Outpatient KO, [facility] [id number] [place] 09:54:51 [facility] 2021-02-10 Outpatient [facility] [id number] [place] 14:01:09 [facility] 2021-01-30 Outpatient KO, [facility] [id number] [place] 14:18:15 [facility] 2020-12-20 Outpatient [facility] [id number] [place] 08:40:08 [facility] 2020-12-05 Outpatient KO, [facility] [id number] [place] 15:36:30 [facility] 2022-06-19 2022-06-23 Inpatient ISABELL ChristiePM INTE.02 [id number] [facility] 19:15:00 21:00:00 Kieran 62 [facility] 2022-06-19 2022-06-19 Outpatient MARIELOS Neely ISABELLCL LABO [id number] [facility] 22:55:00 22:55:00 Kieran 66 [facility] 2022-06-11 2022-06-11 Outpatient [facility] PRIV PRIV [id number] [facility] 00:00:00 00:00:00 [facility] [id number] [facility] 2022-[facility]-11 2022-06-11 Outpatient [facility] PRIV PRIV [id number] [facility] 00:00:00 00:00:00 d_J [id number] [facility] 2022-06-11 2022-06-11 Outpatient [facility] PRIV PRIV [id number] [facility] 00:00:00 00:00:00 d_J [id number] [facility] l 2022-06-11 2022-06-11 Outpatient [facility] PRIV PRIV 239 [id number] [facility] 00:00:00 00:00:00 d_J [id number] Medica l 2022-06-11 2022-06-11 Outpatient [facility] PRIV PRIV [id number] [facility] 00:00:00 00:00:00 d_J [id number] Medica l 2022-06-11 2022-06-11 Outpatient [facility] PRIV PRIV [id number] [facility] 00:00:00 00:00:00 d_J [id number] Medica l 2022-06-11 2022-06-11 Outpatient [facility] PRIV PRIV [id number] [facility] 00:00:00 00:00:00 d_J [id number] Medica l 2022-06-11 2022-06-11 Outpatient [facility] PRIV PRIV [id number] [facility] 00:00:00 00:00:00 d_J [id number] Medica l 2022-06-11 2022-06-11 Outpatient [facility] PRIV PRIV [id number] [facility] 00:00:00 00:00:00 d_J [id number] Medica l 2022-06-11 2022-06-11 Outpatient [facility] PRIV PRIV [id number] [facility] 00:00:00 00:00:00 d_J [id number] Medica l 2022-05-14 2022-05-14 Outpatient [facility] PRIV PRIV 239 [id number] [facility] 00:00:00 00:00:00 d_J [id number] Medica l 2022-05-12 2022-05-12 [facility] [id number] [facility] 00:00:00 00:00:00 WILLIAM Arellano: Health - Med ical [address] [address] , Ph. 2022-04-28 2022-04-28 Sawyer Cardona [facility] 202 [id number] [facility] 00:00:00 00:00:00 George [facility] - Med ica : [address] [address] , Ph. 2022-04-24 2022-04-24 Zaira [facility] 224 [facility] 00:00:00 00:00:00 WILLIAM Arellano: Health - Med ical [address] [address] , Ph. 2022-04-13 2022-04-13 Outpatient [facility] PRIV PRIV [id number] [facility] 00:00:00 00:00:00 d_J [id number] Medica l 2022-04-13 2022-04-13 Outpatient [facility] PRIV PRIV [id number] [facility] 00:00:00 00:00:00 d_J [id number] Medica l 2022-04-13 2022-04-13 Outpatient [facility] PRIV PRIV [id number] [facility] 00:00:00 00:00:00 d_J [id number] Medica l 2022-04-13 2022-04-13 Outpatient [facility] PRIV PRIV [id number] [facility] 00:00:00 00:00:00 d_J [id number] Medica l 2022-04-13 2022-04-13 Outpatient [facility] PRIV PRIV 239 [id number] [facility] 00:00:00 00:00:00 d_J [id number] Medica l 2022-04-13 2022-04-13 Outpatient [facility] PRIV PRIV [id number] [facility] 00:00:00 00:00:00 d_J [id number] Medica l 2022-03-31 2022-03-31 Zaira [facility] 131 [facility] 00:00:00 00:00:00 WILLIAM Arellano: Health - Med ical [address] [address] , Ph. 2022-03-17 2022-03-17 Zaira [facility] [id number] [facility] 00:00:00 00:00:00 WILLIAM Arellano: Health - Med ical [address] [address] , Ph. 2021-12-30 2021-12-30 Sawyer Cardona [facility] - [facility] 202 [facility] 00:00:00 00:00:00 [facility] - Med lewl MD: [address] [address] , Ph. 2021-11-28 2021-11-28 Zaira [facility] - [facility] [id number] [facility] 00:00:00 00:00:00 WILLIAM Arellano: Health - Med ical [address] [address] , Ph. 2021-10-23 2021-10-23 Sawyer Cardona [facility] - [facility] 202 [facility] 00:00:00 00:00:00 [facility] - Med lewl MD: [address] [address] , Ph. 2021-10-17 2021-10-17 Outpatient [facility]Tod PRIV PRIV [id number] [facility] 00:00:00 00:00:00 d_J [id number] Medica l 2021-10-17 2021-10-17 Outpatient [facility] PRIV PRIV [id number] [facility] 00:00:00 00:00:00 d_J [id number] Medica l 2021-10-17 2021-10-17 Outpatient [facility] PRIV PRIV [id number] [facility] 00:00:00 00:00:00 d_J [id number] Medica l 2021-10-17 2021-10-17 Outpatient [facility] PRIV PRIV 239 [id number] [facility] 00:00:00 00:00:00 d_J [id number] Medica l 2021-10-17 2021-10-17 Outpatient [facility] PRIV PRIV [id number] [facility] 00:00:00 00:00:00 d_J [id number] Medica l 2021-10-14 2021-10-14 Zaira [facility] [id number] [facility] 00:00:00 00:00:00 WILLIAM Arellano: Health - Med ical [address] [address] , Ph. 2021-10-14 2021-10-14 Outpatient Adan, PRIV PRIV [id number] c-2 00:00:00 00:00:00 Zaira [id number]-[id number] 2021-10-09 2021-10-09 Outpatient [facility] PRIV PRIV [id number] [facility] 00:00:00 00:00:00 d_J [id number] Medica l 2021-10-09 2021-10-09 Sawyer Cardona [facility] 202 [id number] [facility] 00:00:00 00:00:00 George [facility] Med ical MD: [address] [address] , Ph. 2021-10-09 2021-10-09 Outpatient George PRIV PRIV [id number] 00:00:00 00:00:00 Sawyer Cardona [id number]-[id number] 2021-09-29 2021-09-29 Outpatient [facility] PRIV PRIV [id number] [facility] 00:00:00 00:00:00 d_J [id number] Medica l 2021-09-28 2021-09-28 Outpatient [facility]Tod PRIV PRIV [id number] [facility] 00:00:00 00:00:00 d_J [id number] Medica l 2021-09-19 2021-09-19 Outpatient [facility]Tod PRIV PRIV [id number] [facility] 12:40:00 12:40:00 d_J [id number] Medica l 2021-09-19 2021-09-19 Zaira [facility] [id number] [facility] 00:00:00 00:00:00 WILLIAM Arellano: Health - Med ical [address] [address] , Ph. 2021-09-19 2021-09-19 Outpatient Adan, PRIV PRIV [id number] 00:00:00 00:00:00 Zaira [id number]-11ed-8 [id number] 2021-09-16 2021-09-16 Outpatient [facility]Tod PRIV PRIV [id number] [facility] 10:05:00 10:05:00 elisa_Gm [id number] Medica l 2021-09-16 2021-09-16 Zaira [facility] [id number] [facility] 00:00:00 00:00:00 WILLIAM Arellano: Health - Med ical [address] [address] , Ph. 2021-09-16 2021-09-16 Outpatient Adan PRIV PRIV [id number] 00:00:00 00:00:00 Zaira [id number] 2021-09-05 2021-09-05 Outpatient [facility] PRIV PRIV [id number] [facility] 10:43:00 10:43:00 d_Gm [id number] Medica l 2021-09-03 2021-09-03 Outpatient [facility]Tod PRIV PRIV [id number] [facility] 01:46:00 01:46:00 d_Gm [id number] Medica l 2021-09-02 2021-09-02 Outpatient [facility]Tod PRIV PRIV [id number] [facility] 05:06:00 05:06:00 d_J [id number] Medica l 2021-09-02 2021-09-02 Zaira [facility] [id number] [facility] 00:00:00 00:00:00 WILLIAM Arellano: Health - Med ical [address] [address] , Ph. 2021-09-02 2021-09-02 Outpatient Adan, PRIV PRIV [id number] c-f 00:00:00 00:00:00 Zaira [id number] 2021-08-22 2021-08-22 Outpatient [facility]Tod PRIV PRIV [id number] [facility] 04:41:00 04:41:00 d_J [id number] Medica l 2021-08-18 2021-08-18 Outpatient [facility]Tod PRIV PRIV [id number] [facility] 11:11:00 11:11:00 d_J [id number] Medica l 2021-08-14 2021-08-14 Outpatient [facility]Tod PRIV PRIV [id number] [facility] 10:25:00 10:25:00 d_J [id number] Medica l 2021-08-14 2021-08-14 Sawyersamm Cardona [facility] 202 [id number] [facility] 00:00:00 00:00:00 George [facility] - Med icaporter MD: [address] [address] , Ph. 2021-08-14 2021-08-14 Outpatient George, PRIV PRIV [id number] 00:00:00 00:00:00 Sawyer Cardona [id number]-[id number] 2021-08-08 2021-08-08 Outpatient [facility]Tod PRIV PRIV [id number] [facility] 08:06:00 08:06:00 d_J [id number] Medica l 2021-08-08 2021-08-08 Zaira [facility] [id number] [facility] 00:00:00 00:00:00 WILLIAM Arellano: Health - Med ical [address] [address] , Ph. 2021-08-08 2021-08-08 Outpatient Adan, PRIV PRIV [id number] 00:00:00 00:00:00 Zaira [id number] 2021-07-09 2021-07-09 Outpatient [facility]Tod PRIV PRIV [id number] [facility] 10:53:00 10:53:00 d_J [id number] Medica l 2021-07-01 2021-07-01 Outpatient [facility]Tod PRIV PRIV [id number] [facility] 03:37:00 03:37:00 d_J [id number] Medica l 2021-07-01 2021-07-01 Outpatient Adan PRIV PRIV [id number] c-d 00:00:00 00:00:00 Zaira [id number] 2021-07-01 2021-07-01 Zaira [facility] [id number] [facility] 00:00:00 00:00:00 WILLIAM Arellano: Health - Med ical [address] [address] , Ph. 2021-06-27 2021-06-27 Outpatient [facility]Tod PRIV PRIV 239 [id number] [facility] 08:21:00 08:21:00 d_J [id number] Medica l 2021-06-27 2021-06-27 Zaira [facility] [id number] [facility] 00:00:00 00:00:00 WILLIAM Arellano: Health - Med ical [address] [address] , Ph. 2021-06-20 2021-06-20 Outpatient [facility]Tod PRIV PRIV [id number] [facility] 08:31:00 08:31:00 d_J [id number] Medica l 2021-06-19 2021-06-19 Outpatient [facility]Tod PRIV PRIV [id number] [facility] 08:44:00 08:44:00 d_J [id number] Medica l 2021-06-19 2021-06-19 Sawyer Cardona [facility] 202 [id number] [facility] 00:00:00 00:00:00 George [facility] - Med ical MD: [address] [place] [address] , Ph. 2021-06-19 2021-06-19 Outpatient George, PRIV PRIV [id number] 00:00:00 00:00:00 Sawyersamm Mahoneyne [id number] 2021-06-19 2021-06-19 Outpatient George, PRIV PRIV [id number] 00:00:00 00:00:00 Sawyersamm Mahoneyne [id number] 2021-06-12 2021-06-12 Outpatient [facility]_Tod PRIV PRIV [id number] [facility] 12:54:00 12:54:00 d_J [id number] Medica l 2021-06-12 2021-06-12 Outpatient Adan PRIV PRIV [id number] 00:00:00 00:00:00 Zaira [id number] 2021-06-12 2021-06-[facility] [id number] [facility] 00:00:00 00:00:00 WILLIAM Arellano: Health - Med ical 6602 GC_[facility] , [place] [address] , Ph. 2021-06-12 2021-06-12 Outpatient Adan, PRIV PRIV [id number] 00:00:00 00:00:00 Zaira [id number] 2021-06-09 2021-06-09 Outpatient GC_[facility]_Tod PRIV PRIV [id number] [facility] 03:45:00 03:45:00 Sarah Beth [id number] Medica l 2021-06-06 2021-06-06 Outpatient GC_[facility]_Spa PRIV PRIV [id number] [facility] 04:10:00 04:10:00 Girish [id number] Medica l 2019-10-27 2019-10-27 Outpatient Raju_P MMG [id number] [place] 10:51:00 10:51:00 [id number] [facility] 2019-09-01 2019-09-01 Outpatient KNOW, HCABM OPLA [id number] 20:51:00 20:51:00 DOES_NOT 72 [facility] Results Test Description Test Time Test Comments Results Result Comments Source - XR CHEST 1 V 2022-06-23 13:34:00 [facility] 1940 Sex: F Name: TERE CABRAL [facility] : 1940 Age/S: 82 / F [id number] Unit #: [id number] Loc: [place] [address] Phys: Kieran Neely MD Acct: [id number] Dis Date: Status: ADM IN PHONE #: [phone] Exam Date: 06/23/2022 1114 FAX #: Reason: follow up EXAMS: CPT: [id number] XR CHEST 1 V 02229 Fluoro Time: DAP (Gy m2): Air Kerma (mGy): Location Code: S17 EXAMINATION: - XR CHEST 1 V CLINICAL INDICATION: Female, 82 years year old with follow up COMPARISON: CT chest June 20, 2022. FINDINGS: Single view(s) of the chest submitted. Support Devices: None. Heart: Cardiac silhouette is enlarged. Mediastinum: Mediastinal contours are normal. Lungs: Pulmonary vessels are normal in size. Mild patchy left lung base opacities. Pleura: No pleural effusion is identified. No pneumothorax is present. Bones: Visualized skeleton is intact. IMPRESSION: Mild patchy left lung base opacities could represent atelectasis, scarring, or pneumonia. at 1334 Reported and signed by: Danyel Ortiz M.D. CC: Kieran Neely MD; Sawyer Vazquez MD PAGE 1 Signed Report [facility] 1940 Age/S: 82 / F [id number] Unit #: [id number] Loc: [place] [address] Phys: Kieran Neely MD Acct: [id number] Dis Date: Status: ADM IN PHONE #: [phone] Exam Date: 06/23/2022 1114 FAX #: Reason: follow up EXAMS: CPT: [id number] XR CHEST 1 V 87675 Fluoro Time: DAP (Gy m2): Air Kerma (mGy): (Continued) Technologist: Kyle Faith, RT(R) Trnscb Date/Time: 06/23/2022 (1727) [email or web address] Orig Print D/T: S: 06/23/2022 (3872) PAGE 2 Signed Report BASIC METABOLIC PANEL 2022-06-22 12:02:00 Test Item Value Reference Range Interpretation Comme nts SODIUM (test code = NA) 136 mmol/L 134-147 N POTASSIUM (test code = 3.5 mmol/L 3.4-5.0 N K) CHLORIDE (test code = 102 mmol/L 100-108 N CL) CARBON DIOXIDE (test 32 mmol/L 21-32 N code = CO2) ANION GAP (test code = 2.0 GAP calc 4.0-15.0 L GAP) GLUCOSE (test code = 158 MG/DL 70-110 H GLU) BLOOD UREA NITROGEN 12 MG/DL 7-18 N (test code = BUN) GLOMERULAR FILTRATION >=60 max estimate >60 T he Glomerular Filtration RATE (test code = GFR) estGFR Rate is a calculated parameterbased on serum Creatinine, pat ient age and sex. GFR values less than 60 mL/min/1.73 squ are meters are indicative ofChronic Kidney Disease. Values less than 15 mL/min/ 1.73square meters indicate Kidney failure. The ca lculation forGFR is based on the CKD-EPI (2020) calculation. This formulais race indifferent and is the recommended for john for GFRby the [facility] for Adults.The GFR will not ca lculate if the sex is unkn own or if thepatient's ag e is <18 years. CREATININE (test code = 0.6 MG/DL 0.6-1.0 N CREAT) CALCIUM (test code = CA) 9.0 MG/DL 8.5-10.1 N CBC W/AUTO [id number] 11:59:00 Test Item Value Reference Range Interpretation Comments WHITE BLOOD CELL (test code = 10.1 K/mm3 3.5-11.0 N WBC) RED BLOOD CELL (test code = 4.57 M/mm3 4.70-6.10 L RBC) HEMOGLOBIN (test code = HGB) 12.2 G/DL 10.4-14.9 N HEMATOCRIT (test code = HCT) 38.5 % 31.5-44.1 N MEAN CELL VOLUME (test code = 84.2 Fl 84.5-98.6 L MCV) MEAN CELL HGB (test code = MCH) 26.7 pg 27.0-34.2 L MEAN CELL HGB CONCETRATION 31.7 G/DL 31.5-34.0 N (test code = MCHC) RED CELL DISTRIBUTION WIDTH 15.3 SD 11.5-14.5 H (test code = RDW) PLATELET COUNT (test code = 303 K/mm3 150-450 N PLT) MEAN PLATELET VOLUME (test code 10.00 fL 7.0-10.5 N = MPV) NEUTROPHIL % (test code = NT%) 75.1 % 40-76 N IMMATURE GRANULOCYTE % (test 0.8 % 0.0-5.0 N code = IG%) LYMPHOCYTE % (test code = LY%) 11.3 % 20.5-51.1 L MONOCYTE % (test code = MO%) 11.7 % 1.7-9.3 H EOSINOPHIL % (test code = EO%) 0.8 % 0.0-6.0 N BASOPHIL % (test code = BA%) 0.3 % 0.0-2.0 N NUCLEATED RBC % (test code = 0.0 /100WBC% 0.0-1.0 N NRBC%) NEUTROPHIL # (test code = NT#) 7.6 K/mm3 1.8-7.6 N IMMATURE GRANULOCYTE # (test 0.08 x10 3/uL 0.00-0.03 H code = IG#) LYMPHOCYTE # (test code = LY#) 1.1 K/mm3 0.6-3.2 N MONOCYTE # (test code = MO#) 1.2 K/mm3 0.3-1.1 H EOSINOPHIL # (test code = EO#) 0.1 K/mm3 0.0-0.4 N BASOPHIL # (test code = BA#) 0.0 K/mm3 0.0-0.1 N NUCLEATED RBC # (test code = 0.0 K/mm3 0.0-0.1 N NRBC#) MANUAL DIFF REQUIRED (test code NO DIFF/SCN CRITERIA = MDIFF) CBC W/AUTO [id number] 03:52:00 Test Item Value Reference Range Interpretation Comments WHITE BLOOD CELL 15.3 K/mm3 3.5-11.0 H (test code = WBC) RED BLOOD CELL (test 4.61 M/mm3 4.70-6.10 L code = RBC) HEMOGLOBIN (test code 12.3 G/DL 10.4-14.9 N = HGB) HEMATOCRIT (test code 38.4 % 31.5-44.1 N = HCT) MEAN CELL VOLUME 83.3 Fl 84.5-98.6 L (test code = MCV) MEAN CELL HGB (test 26.7 pg 27.0-34.2 L code = MCH) MEAN CELL HGB 32.0 G/DL 31.5-34.0 N CONCETRATION (test code = MCHC) RED CELL DISTRIBUTION 15.4 SD 11.5-14.5 H WIDTH (test code = RDW) PLATELET COUNT (test 274 K/mm3 150-450 N code = PLT) MEAN PLATELET VOLUME 10.00 fL 7.0-10.5 N (test code = MPV) NEUTROPHIL % (test 74.6 % 40-76 code = NT%) IMMATURE GRANULOCYTE 1.0 % 0.0-5.0 N % (test code = IG%) LYMPHOCYTE % (test 9.6 % 20.5-51.1 L code = LY%) MONOCYTE % (test code 14.4 % 1.7-9.3 H = MO%) EOSINOPHIL % (test 0.1 % 0.0-6.0 N code = EO%) BASOPHIL % (test code 0.3 % 0.0-2.0 N = BA%) NUCLEATED RBC % (test 0.0 /100WBC% 0.0-1.0 N code = NRBC%) NEUTROPHIL # (test 11.4 K/mm3 1.8-7.6 H code = NT#) IMMATURE GRANULOCYTE 0.15 x10 3/uL 0.00-0.03 H # (test code = IG#) LYMPHOCYTE # (test 1.5 K/mm3 0.6-3.2 N code = LY#) MONOCYTE # (test code 2.2 K/mm3 0.3-1.1 H = MO#) EOSINOPHIL # (test 0.0 K/mm3 0.0-0.4 N code = EO#) BASOPHIL # (test code 0.1 K/mm3 0.0-0.1 N = BA#) NUCLEATED RBC # (test 0.0 K/mm3 0.0-0.1 N code = NRBC#) MANUAL DIFF REQUIRED NO DIFF/SCN CRITERIA SLIDE R KYLAH (test code = MDIFF) CONSISTA NT WITH AUTO DIFFERENTI AL. BASIC METABOLIC [id number] 02:27:00 Test Item Value Reference Range Interpretation Comments SODIUM (test code 136 mmol/L 134-147 N = NA) POTASSIUM (test 3.7 mmol/L 3.4-5.0 N code = K) CHLORIDE (test 102 mmol/L 100-108 N code = CL) CARBON DIOXIDE 28 mmol/L 21-32 N (test code = CO2) ANION GAP (test 6.0 GAP calc 4.0-15.0 N code = GAP) GLUCOSE (test code 143 MG/DL 70-110 H = GLU) BLOOD UREA 12 MG/DL 7-18 N NITROGEN (test code = BUN) GLOMERULAR >=60 max >60 The Glomerular FILTRATION RATE estimate estGFR Filtratio n Rate is a (test code = GFR) calculated parameterbased on serum Creatinin e, patient age and sex. GFR valuesless than 60 mL/min/1.73 square meters are murtaza cative ofChronic Kidne y Disease. Values less than 15 mL/min/1.73squa re meters indicate Kidney failure. The calculation for GFR is based on the CK D-EPI (2020) calculat ion. This formulais race indifferent and is the recommended formula for GFR by the National Kidney Foundation for Adults.The GFR will not calculate i f the sex is unknown or if thepatient's ag e is <18 years. CREATININE (test 0.6 MG/DL 0.6-1.0 N code = CREAT) CALCIUM (test code 8.6 MG/DL 8.5-10.1 N = CA) UA RFLX MICR CULT IF [id number] 18:56:00 Test Item Value Reference Range Interpretation Comments UA COLOR (test code = COLU) YELLOW discript YEL/STRAW UA APPEARANCE (test code = CLEAR discript CLEAR APPU) UA GLUCOSE DIPSTICK (test NEGATIVE mg/dL NEG code = DGLUU) UA BILIRUBIN DIPSTICK (test NEGATIVE mg/dL NEG code = BILU) UA KETONE DIPSTICK (test NEGATIVE mg/dL NEG code = KETU) UA SPECIFIC GRAVITY (test 1.015 SG 1.005-1.030 code = SGU) UA BLOOD DIPSTICK (test 1+ mg/DL NEG A code = CAL) UA PH DIPSTICK (test code = 5.5 pH UNITS 5.0-7.0 MARCEL) UA PROTEIN DIPSTICK (test NEGATIVE mg/dL NEG code = PROU) UA UROBILINIOGEN DIPSTICK 0.2 mg/dL <2.0 (test code = URO) UA NITRITE DIPSTICK (test NEGATIVE SCREEN NEG code = NENA) UA LEUKOCYTE ESTERASE NEGATIVE Leuk/mcL NEGATIVE DIPSTICK (test code = LEUU) Indication for culture: RiskForSepsis-no oth srcSOURCE OF URINE: STRAIGHT CATHETERTROP-I HIGH [id number] 17:40:00 Test Item Value Reference Range Interpretation Comments TROP-I HIGH 8.6 ng/L 0-54 N CAUTION: Units of the SENSITIVITY (test current te st methodology code = TROPIHS) (ng/L) diffe rfrom the prior test meth odology (ng/mL) by a fa ctor of 1000. 99t h Percentile Uppe r Reference Limit (URL):Fem ales: 54 ng/LMales: 79 n g/L In order to distin [facility] acute elevations of h igh sensitivitytrop onin from other clinical conditions, the FourthUnive rsal Definition of M yocardial Infarction stressesclinica l assessment and the demonstration o f a rise and/orfall in s erial troponin result s above the URL. Results fr om different metho dologies should not be c omparedto one another as quantitative re sults and URLs may varyby method. Completed by Nursing: MIGUELITO JHA IL [id number] 11:43:00 Test Item Value Reference Range Interpretation Comments CREATINE KINASE 27 Unit/L 26-192 N (CK) (test code = CK) TROP-I HIGH 9.7 ng/L 0-54 N CAUTION: Units of the SENSITIVITY (test current te st methodology code = TROPIHS) (ng/L) diffe rfrom the prior test meth odology (ng/mL) by a fa ctor of 1000. 99t h Percentile Uppe r Reference Limit (URL):Fem ales: 54 ng/LMales: 79 n g/L In order to distin [facility] acute elevations of h igh sensitivitytrop onin from other clinical conditions, the FourthUnive rsal Definition of M yocardial Infarction stressesclinica l assessment and the demonstration o f a rise and/orfall in s erial troponin result s above the URL. Results fr om different metho dologies should not be c omparedto one another as quantitative re sults and URLs may varyby method. - CTA CHEST FOR [id number] 11:32:00 [facility] 1940 Sex: F Name: TERE CABRAL [facility] : 1940 Age/S: 82 / F [address] Unit #: [id number] Loc: [place] [address] Phys: Laurel Liriano NP Acct: [id number] Dis Date: Status: ADM IN PHONE #: [phone] Exam Date: 06/20/2022 1050 FAX #: Reason: CHEST PAIN R/O PE EXAMS: CPT: [id number] [address] LOCATION: B2 CTA CHEST WITH CONTRAST HISTORY: CHEST PAIN R/O PE TECHNIQUE: Axial CT images were obtained through the chest after intravenous contrast utilizing pulmonary embolus protocol. Maximum intensity projection images were also created from the data set. One or more of the following dose reduction techniques were used: Automated exposure control, adjustment of themA and/or kV according to patient size, and/or iterative reconstruction. Unless otherwise specified,incidental findings do not require dedicated imaging follow-up. COMPARISON: Chest one view 06/19/2022FINDINGS: The pulmonary arteries are well opacified with no evidence of pulmonary embolus. There is no evidence of thoracic aortic aneurysm or dissection. Bibasilar dependent atelectasis. Focal airspace consolidation in the left lower lobe. The lungs are otherwise clear. No pleural effusion or pneumothorax. Prominent right paratracheal lymph nodes measuring up to 1.5 cm in diameter. No acute osseous abnormalities. Maximum intensity projection images confirm these findings. IMPRESSION: Left lower lobe atelectasis and/or pneumonia. No evidence of pulmonary embolus. at 1132 Reported and signed by: Wenceslao Alonzo M.D. PAGE 1 Signed Report ( CONTINUED) Name: TERE CABRAL [facility] : 1940 Age/S: 82 / F [address] Unit #: [id number] Loc: [place] [address] Phys: Laurel Liriano NP Acct: [id number] Dis Date: Status: ADM IN PHONE #: [phone] Exam Date: 06/20/2022 1050 FAX #: Reason: CHEST PAIN R/O PE EXAMS: CPT: [id number] [place] [id number] (Continued) CC: Laurel Liriano NP; Kieran Neely MD; Sawyer Vazquez MD Technologist:Alicia Covarrubias, RT(R) CTDI: DLP: Trnscb Date/Time: 06/20/2022 (1132) [email or web address] Orig Print D/T: S: 06/20/2022 (1135) PAGE 2 Signed ReportBASIC METABOLIC [id number] 05:35:00 Test Item Value Reference Range Interpretation Comments SODIUM (test code 135 mmol/L 134-147 N = NA) POTASSIUM (test 3.7 mmol/L 3.4-5.0 N code = K) CHLORIDE (test 105 mmol/L 100-108 N code = CL) CARBON DIOXIDE 26 mmol/L 21-32 N (test code = CO2) ANION GAP (test 4.0 GAP calc 4.0-15.0 N code = GAP) GLUCOSE (test code 144 MG/DL 70-110 H = GLU) BLOOD UREA 18 MG/DL 7-18 N NITROGEN (test code = BUN) GLOMERULAR >=60 max >60 The Glomerular FILTRATION RATE estimate estGFR Filtratio n Rate is a (test code = GFR) calculated parameterbased on serum Creatinin e, patient age and sex. GFR valuesless than 60 mL/min/1.73 square meters are murtaza cative ofChronic Kidne y Disease. Values less than 15 mL/min/1.73squa re meters indicate Kidney failure. The calculation for GFR is based on the CK D-EPI (2020) calculat ion. This formulais race indifferent and is the recommended formula for GFR by the National Kidney Foundation for Adults.The GFR will not calculate i f the sex is unknown or if thepatient's ag e is <18 years. CREATININE (test 0.8 MG/DL 0.6-1.0 N code = CREAT) CALCIUM (test code 8.3 MG/DL 8.5-10.1 L = CA) LIPID PROFILE (CORONARY RISK)2022-06-20 05:35:00 Test Item Value Reference Range Interpretation Comments TRIGLYCERIDES (test 136 MG/DL 0-150 N code = TRIG) CHOLESTEROL (test 116 MG/DL 133-200 L code = CHOL) CHOLESTEROL/HDL 2.47 RATIO See_Comment RISK ASSOCIA DEREK WITH RATIO (test code = CHOL/HDL RATIOS: RISK CHOLHDL) MALE FEMALE1/2 AVERAGE 3.43 3.27AVERAG E 4.97 4.442X AVERAGE 9.55 7.053X AVERAGE 23.39 11.04 NOTE THAT THE REFERENCE VALUE IS RELATED TO RISK LEVELS ASRECOMMENDED B Y THE [facility] . [Automated mess age] The system which Wimba nerated this result tra nsmitted reference range : 0-. The reference range was not used to interpr et this result as normal/abnormal . HDL CHOLESTEROL 47 MG/DL 40-59 N (test code = HDL) NON-HDL CHOLESTEROL 69 mg/dL <130 (test code = NHDL) LIPOPROTEIN LDL 52 MG/DL 0-129 N <100 OPTIMA L100 - 129 (test code = LDL) NEAR OPTIM AL/ABOVE [id number] - 15 9 [id number] - 189 HIGH>OR= 190 VE RY HIGHNOTE THAT G UIDELINES ARE PROVIDED BY NATIONAL CHOLESTEROLEDUC ATION PROGRAM ADULT T REATMENT PANEL III LDL/HDL (test code 1.10 Ratio See_Comment L [Automat ed message] The = LDL/HDL) system which Wimba nerated this result tra nsmitted reference range : 1.48-3.22 Avg. The reference range was not used to interpr et this result as normal/abnormal . CBC W/AUTO [id number] 05:34:00 Test Item Value Reference Range Interpretation Comments WHITE BLOOD CELL 17.9 K/mm3 3.5-11.0 H (test code = WBC) RED BLOOD CELL (test 4.76 M/mm3 4.70-6.10 N code = RBC) HEMOGLOBIN (test code 12.9 G/DL 10.4-14.9 N = HGB) HEMATOCRIT (test code 41.0 % 31.5-44.1 N = HCT) MEAN CELL VOLUME 86.1 Fl 84.5-98.6 N (test code = MCV) MEAN CELL HGB (test 27.1 pg 27.0-34.2 N code = MCH) MEAN CELL HGB 31.5 G/DL 31.5-34.0 N CONCETRATION (test code = MCHC) RED CELL DISTRIBUTION 15.5 SD 11.5-14.5 H WIDTH (test code = RDW) PLATELET COUNT (test 281 K/mm3 150-450 N code = PLT) MEAN PLATELET VOLUME 9.90 fL 7.0-10.5 N (test code = MPV) NEUTROPHIL % (test 56.6 % 40-76 code = NT%) IMMATURE GRANULOCYTE 0.8 % 0.0-5.0 N % (test code = IG%) LYMPHOCYTE % (test 10.6 % 20.5-51.1 L code = LY%) MONOCYTE % (test code 17.8 % 1.7-9.3 H = MO%) EOSINOPHIL % (test 13.9 % 0.0-6.0 H code = EO%) BASOPHIL % (test code 0.3 % 0.0-2.0 N = BA%) NUCLEATED RBC % (test 0.0 /100WBC% 0.0-1.0 N code = NRBC%) NEUTROPHIL # (test 10.1 K/mm3 1.8-7.6 H code = NT#) IMMATURE GRANULOCYTE 0.14 x10 3/uL 0.00-0.03 H # (test code = IG#) LYMPHOCYTE # (test 1.9 K/mm3 0.6-3.2 N code = LY#) MONOCYTE # (test code 3.2 K/mm3 0.3-1.1 H = MO#) EOSINOPHIL # (test 2.5 K/mm3 0.0-0.4 H code = EO#) BASOPHIL # (test code 0.1 K/mm3 0.0-0.1 N = BA#) NUCLEATED RBC # (test 0.0 K/mm3 0.0-0.1 N code = NRBC#) MANUAL DIFF REQUIRED NO DIFF/SCN CRITERIA SLIDE R KYLAH (test code = MDIFF) CONSISTA NT WITH AUTO DIFFERENTI AL. LACTIC [id number] 01:30:00 Test Item Value Reference Range Interpretation Comments LACTIC ACID (test code = LACT) 1.9 mmol/L 0.4-2.0 N LACTIC [id number] 23:11:00 Test Item Value Reference Range Interpretation Comments LACTIC ACID (test code = LACT) 2.2 mmol/L 0.4-2.0 H LACTIC [id number] 20:53:00 Test Item Value Reference Range Interpretation Comments LACTIC ACID (test code = LACT) 2.8 mmol/L 0.4-2.0 H CBC W/AUTO [id number] 19:27:00 Test Item Value Reference Range Interpretation Comments WHITE BLOOD CELL 22.3 K/mm3 3.5-11.0 H (test code = WBC) RED BLOOD CELL (test 5.40 M/mm3 4.70-6.10 N code = RBC) HEMOGLOBIN (test code 14.3 G/DL 10.4-14.9 N = HGB) HEMATOCRIT (test code 45.1 % 31.5-44.1 H = HCT) MEAN CELL VOLUME 83.5 Fl 84.5-98.6 L (test code = MCV) MEAN CELL HGB (test 26.5 pg 27.0-34.2 L code = MCH) MEAN CELL HGB 31.7 G/DL 31.5-34.0 N CONCETRATION (test code = MCHC) RED CELL DISTRIBUTION 15.6 SD 11.5-14.5 H WIDTH (test code = RDW) PLATELET COUNT (test 333 K/mm3 150-450 N code = PLT) MEAN PLATELET VOLUME 10.00 fL 7.0-10.5 N (test code = MPV) NEUTROPHIL % (test 69.2 % 40-76 N code = NT%) IMMATURE GRANULOCYTE 1.0 % 0.0-5.0 N % (test code = IG%) LYMPHOCYTE % (test 7.3 % 20.5-51.1 L code = LY%) MONOCYTE % (test code 14.5 % 1.7-9.3 H = MO%) EOSINOPHIL % (test 7.6 % 0.0-6.0 H code = EO%) BASOPHIL % (test code 0.4 % 0.0-2.0 N = BA%) NUCLEATED RBC % (test 0.0 /100WBC% 0.0-1.0 N code = NRBC%) NEUTROPHIL # (test 15.5 K/mm3 1.8-7.6 H code = NT#) IMMATURE GRANULOCYTE 0.22 x10 3/uL 0.00-0.03 H # (test code = IG#) LYMPHOCYTE # (test 1.6 K/mm3 0.6-3.2 N code = LY#) MONOCYTE # (test code 3.3 K/mm3 0.3-1.1 H = MO#) EOSINOPHIL # (test 1.7 K/mm3 0.0-0.4 H code = EO#) BASOPHIL # (test code 0.1 K/mm3 0.0-0.1 N = BA#) NUCLEATED RBC # (test 0.0 K/mm3 0.0-0.1 N code = NRBC#) MANUAL DIFF REQUIRED NO DIFF/SCN CRITERIA SLIDE Viki MONTERO (test code = MDIFF) CONSISTA NT WITH AUTO DIFFERENTI AL. LACTIC [id number] 19:00:00 Test Item Value Reference Range Interpretation Comments LACTIC ACID (test code = LACT) 3.4 mmol/L 0.4-2.0 H BASIC METABOLIC [id number] 19:00:00 Test Item Value Reference Range Interpretation Comments SODIUM (test code 136 mmol/L 134-147 N = NA) POTASSIUM (test 3.8 mmol/L 3.4-5.0 N code = K) CHLORIDE (test 103 mmol/L 100-108 N code = CL) CARBON DIOXIDE 26 mmol/L 21-32 N (test code = CO2) ANION GAP (test 7.0 GAP calc 4.0-15.0 N code = GAP) GLUCOSE (test code 185 MG/DL 70-110 H = GLU) BLOOD UREA 12 MG/DL 7-18 N NITROGEN (test code = BUN) GLOMERULAR >=60 max >60 The Glomerular FILTRATION RATE estimate estGFR Filtratio n Rate is a (test code = GFR) calculated parameterbased on serum Creatinin e, patient age and sex. GFR valuesless than 60 mL/min/1.73 square meters are murtaza cative ofChronic Kidne y Disease. Values less than 15 mL/min/1.73squa re meters indicate Kidney failure. The calculation for GFR is based on the CK D-EPI (2020) calculat ion. This formulais race indifferent and is the recommended formula for GFR by the National Kidney Foundation for Adults.The GFR will not calculate i f the sex is unknown or if thepatient's ag e is <18 years. CREATININE (test 0.8 MG/DL 0.6-1.0 N code = CREAT) CALCIUM (test code 8.8 MG/DL 8.5-10.1 N = CA) Completed by Nursing: NOHEPATIC FUNCTION [id number] 19:00:00 Test Item Value Reference Range Interpretation Comments TOTAL PROTEIN (test code = PROT) 7.7 G/DL 6.4-8.2 N ALBUMIN (test code = ALB) 3.1 G/DL 3.4-5.0 L BILIRUBIN TOTAL (test code = BILT) 0.40 MG/DL 0.2-1.2 N BILIRUBIN DIRECT (test code = 0.10 MG/DL 0.00-0.30 N BILD) BILIRUBIN INDIRECT (test code = 0.30 MG/DL 0.2-1.2 N BILIND) SGOT/AST (test code = AST) 34 Unit/L 15-37 N SGPT/ALT (test code = ALT) 37 Unit/L 12-78 N ALKALINE PHOSPHATASE TOTAL (test 85 Unit/L 45-117 N code = ALKP) Completed by Nursing: [id number] 19:00:00 Test Item Value Reference Range Interpretation Comments LIPASE (test code = LIP) 61 Unit/L 114-286 L Completed by Nursing: NOTROP-I HIGH [id number] 19:00:00 Test Item Value Reference Range Interpretation Comments TROP-I HIGH 17.0 ng/L 0-54 N CAUTION: Units of the SENSITIVITY (test current te st methodology code = TROPIHS) (ng/L) diffe rfrom the prior test meth odology (ng/mL) by a fa ctor of 1000. 99t h Percentile Uppe r Reference Limit (URL):Fem ales: 54 ng/LMales: 79 n g/L In order to distin guish acute elevations of h igh sensitivitytrop onin from other clinical conditions, the FourthUnive rsal Definition of M yocardial Infarction stressesclinica l assessment and the demonstration o f a rise and/orfall in s erial troponin result s above the URL. Results fr om different metho dologies should not be c omparedto one another as quantitative re sults and URLs may varyby method. Completed by Nursing: NO- XR CHEST 1 [id number] 18:49:00 [facility]as : 1940 Sex: F Name: TERE CABRAL Jose Elias [facility] : 1940 Age/S: 82 / F [address] Unit #: [id number] Loc: [place] [address] Phys: Pablo Vasques DO Acct: [id number] Dis Date: Status: PRE ER PHONE#: [phone] Exam Date: 06/19/2022 1834 FAX #: Reason: Code Sepsis EXAMS: CPT: [id number] XR CHEST 1 V 13419 Fluoro Time: DAP (Gy m2): Air Kerma (mGy): EXAMINATION: - XR CHEST 1 V CLINICAL INDICATION: Female, 82 years year old with Code Sepsis COMPARISON: None. FINDINGS: Single view(s) of the chest submitted. Support Devices: None. Heart: Cardiac silhouette is enlarged. Mediastinum: Calcifications are present in the thoracic aorta. Lungs: Pulmonary vessels are normal in size. Coarsened interstit ial change, mild basilar atelectasis. Pleura: No pleural effusion is identified. No pneumothorax is present. Bones: Visualized skeleton is normal. IMPRESSION: Coarsened interstitial change with mild basilar atelectasis. at 1849 Reported and signed by: Eric Alfaro M.D. CC: Pablo Vasques DO PAGE 1 Signed Report Name: TERE CABRAL : 1940 Age/S: 82 / F [address] [address] Unit #: [id number] Loc: [place] [address] Phys: Pablo Vasques DO Acct: [id number] Dis Date: Status: PRE ER PHONE #: [phone] ExamDate: 06/19/2022 1834 FAX #: Reason: Code Sepsis EXAMS: CPT: [id number] XR CHEST 1 V 21271 Fluoro Time: DAP (Gy m2): Air Kerma (mGy): (Continued) Technologist: Odilia Miranda RT(R) Trnarb Date/Time: 06/19/2022 (184) [id number] Orig Print D/T: S: 06/19/2022 (185) PAGE 2 Signed ReportCOMPREHENSIVE METABOLIC [id number] 15:08:00 Test Item Value Reference Range Interpretation Comments SODIUM (test code 137 mmol/L 135-145 N = NA) POTASSIUM (test 3.7 mmol/L 3.6-5.0 N code = K) CHLORIDE (test 98 mmol/L 101-111 L code = CL) CARBON DIOXIDE 22 mmol/L 21-31 N (test code = CO2) GLUCOSE (test code 158 mg/dl 70-100 H = GLU) BLOOD UREA 8 mg/dl 6-20 N NITROGEN (test code = BUN) GLOMERULAR >=60 max >60 The Glomerular FILTRATION RATE estimate Filtration R ate is a (test code = GFR) calculated parameterbased on serum Creatinin e, patient age and sex. GFR valuesless than 60 mL/min/1.73 square meters are murtaza cative ofChronic Kidne y Disease. Values less than 15 mL/min/1.73squa re meters indicate Kidney failure. The calculation for GFR is based on the CK D-EPI (2020) calculat ion. This formulais race indifferent and is the recommended formula for GFR by the National Kidney Foundation for Adults.The GFR will not calculate i f the sex is unknown or if thepatient's ag e is <18 years. CREATININE (test 0.61 mg/dL 0.44-1.03 N code = CREAT) TOTAL PROTEIN 7.1 g/dL 6.7-8.2 N (test code = PROT) ALBUMIN (test code 3.6 g/dL 3.2-5.5 N = ALB) CALCIUM (test code 9.2 mg/dL 8.5-10.5 N = CA) BILIRUBIN TOTAL 0.30 mg/dL 0.2-1.3 N (test code = BILT) SGOT/AST (test 42 U/L 10-42 N code = AST) SGPT/ALT (test 31 U/L 10-60 N code = ALT) ALKALINE 81 U/L 42-121 N PHOSPHATASE (test code = ALKP) INDEX HEMOLYSIS 0 Index/DL See_Comment [Automated message] (test code = The system [employer] HEMINDEX) generated this result transmitted ref erence range: 1 NORMAL . The reference range was not used to int erpret this result as normal/abnormal . INDEX ICTERIC 1 Index/DL See_Comment [Automated me ssage] (test code = The system [employer] ICTINDEX) generated this result transmitted ref erence range: 1 NORMAL . The reference range was not used to int erpret this result as normal/abnormal . INDEX LIPEMIA 0 Index/DL See_Comment [Automated me ssage] (test code = The system [employer] LIPINDEX) generated this result transmitted ref erence range: 1 NORMAL . The reference range was not used to int erpret this result as normal/abnormal . CBC W/AUTO [id number] 14:42:00 Test Item Value Reference Range Interpretation Comments WHITE BLOOD CELL (test code = 20.0 x10 3/uL 3.2-11.5 H WBC) RED BLOOD CELL (test code = 5.57 x10(6)/m 3.70-5.10 H RBC) HEMOGLOBIN (test code = HGB) 14.8 g/dL 12.0-15.0 N HEMATOCRIT (test code = HCT) 48.2 % 35.7-44.8 H MEAN CELL VOLUME (test code = 87 fL 80-100 N MCV) MEAN CELL HGB (test code = MCH) 26.6 pg 26.2-33.8 N MEAN CELL HGB CONCENTRATION 30.7 g/dL 30.0-34.0 N (test code = MCHC) RED CELL DISTRIBUTION WIDTH 15.5 % 11.3-14.5 H (test code = RDW) PLATELET COUNT (test code = 321 x10 3/uL 130-408 N PLT) MEAN PLATELET VOLUME (test code 10.6 fL 8.6-12.6 N = MPV) NEUTROPHIL % (test code = NT%) 80.6 % 40.0-70.0 H IMMATURE GRANULOCYTE % (test 0.9 % 0.0-2.0 N code = IG%) LYMPHOCYTE % (test code = LY%) 6.5 % 20-40 L MONOCYTE % (test code = MO%) 11.5 % 1-10 H EOSINOPHIL % (test code = EO%) 0.2 % 0.0-5.0 N BASOPHIL % (test code = BA%) 0.3 % 0.0-1.0 N NUCLEATED RBC % (test code = 0.0 % 0.0-0.9 N NRBC%) NEUTROPHIL # (test code = NT#) 16.1 x10 3/uL 1.6-7.2 H LYMPHOCYTE # (test code = LY#) 1.31 x10 3/uL 1.1-2.7 N MONOCYTE # (test code = MO#) 2.3 x10 3/uL 0.3-0.8 H EOSINOPHIL # (test code = EO#) 0.1 x10 3/uL 0.0-0.5 N BASOPHIL # (test code = BA#) 0.1 x10 3/uL 0.0-0.1 N URINALYSIS [id number] 05:59:00 Test Item Value Reference Range Interpretation Comments UA COLOR (test code = YELLOW YELLOW COLU) UA APPEARANCE (test Cloudy CLEAR code = APPU) UA GLUCOSE DIPSTICK NEGATIVE NEGATIVE (test code = DGLUU) UA BILIRUBIN DIPSTICK NEGATIVE NEGATIVE (test code = BILU) UA KETONE DIPSTICK NEGATIVE NEGATIVE (test code = KETU) UA SPECIFIC GRAVITY 1.015 1.001-1.030 (test code = SGU) UA BLOOD DIPSTICK 1+ NEGATIVE (test code = CAL) UA PH DIPSTICK (test 6.0 5.0-9.0 code = MARCEL) UA PROTEIN DIPSTICK NEGATIVE NEGATIVE (test code = PROU) UA UROBILINOGEN NEGATIVE See_Comment [Automated message] DIPSTICK (test code = The sy stem which URO) generated this result transmit derek reference range : <=1.0. The refe rence range was not u sed to interpret th is result as normal/abnormal . UA NITRITE DIPSTICK POSITIVE NEGATIVE A (test code = NENA) UA ASCORBIC ACID NEGATIVE DIPSTICK (test code = AAU) UA LEUKOCYTE ESTERASE 2+ NEGATIVE A DIPSTICK (test code = LEUU) UA WBC (test code = 51-100 /HPF 0-5 WBCU) UA RBC (test code = 11-20 /HPF 0-5 RBCU) UA EPITHELIAL CELLS MANY /LPF NONE-FEW (test code = EPIU) UA BACTERIA (test code 1+ /HPF NONE SEEN A = BACU) UA MUCUS (test code = 1+ /LPF NONE SEEN MUCU) BASIC METABOLIC [id number] 21:39:00 Test Item Value Reference Range Interpretation Comments SODIUM (test code = 142 mmol/L 136-145 N NA) POTASSIUM (test code 4.1 mmol/L 3.5-5.1 N = K) CHLORIDE (test code = 105.0 mmol/L 98-107 N CL) CARBON DIOXIDE (test 30.0 mmol/L 21-32 N code = CO2) ANION GAP (test code 11.1 10-20 N = GAP) GLUCOSE (test code = 83 mg/dL 74-106 N GLU) BLOOD UREA NITROGEN 23 mg/dL 7-18 H (test code = BUN) GLOMERULAR FILTRATION > 60 mL/min >=60 Estima derek GFR by RATE (test code = using Rodolfo fied MDRD GFR) formula.Chronic kidney disease is defined as eith er kidney damageor GFR <60 mL/min/1.73 m2 for >3 months. CREATININE (test code 0.80 mg/dL 0.55-1.02 N Note change in = CREAT) reference range due to change in reagent. BUN/CREATININE RATIO 28.4 10-20 H (test code = BUN/CREA) CALCIUM (test code = 8.7 mg/dL 8.5-10.1 N CA) BASIC METABOLIC [id number] 21:26:00 Test Item Value Reference Range Interpretation Comments SODIUM (test code = NA) 142 mmol/L 136-145 N POTASSIUM (test code = K) 4.1 mmol/L 3.5-5.1 N CHLORIDE (test code = CL) 105.0 mmol/L 98-107 N CARBON DIOXIDE (test code = CO2) mmol/L 21-32 ANION GAP (test code = GAP) 10-20 GLUCOSE (test code = GLU) mg/dL 74-106 BLOOD UREA NITROGEN (test code = mg/dL 7-18 BUN) GLOMERULAR FILTRATION RATE (test mL/min >=60 code = GFR) CREATININE (test code = CREAT) mg/dL 0.55-1.02 BUN/CREATININE RATIO (test code 10-20 = BUN/CREA) CALCIUM (test code = CA) mg/dL 8.5-10.1 CBC W/AUTO [id number] 20:57:00 Test Item Value Reference Range Interpretation Comments WHITE BLOOD CELL (test code = 6.9 K/mm3 4.5-12.5 N WBC) RED BLOOD CELL (test code = 4.64 mill/mm3 3.7-5.2 N RBC) HEMOGLOBIN (test code = HGB) 13.5 gram/dL 11.5-15.5 N HEMATOCRIT (test code = HCT) 42.8 % 36.0-46.0 N MEAN CELL VOLUME (test code = 92.2 fL 80-98 N MCV) MEAN CELL HGB (test code = MCH) 29.1 picogram 27.0-33.0 N MEAN CELL HGB CONCETRATION 31.5 gram/dL 33.0-36.0 L (test code = MCHC) RED CELL DISTRIBUTION WIDTH 15.3 % 11.6-16.2 N (test code = RDW) RED CELL DISTRIBUTION WIDTH SD 52.1 fL 37.0-51.0 H (test code = RDW-SD) PLATELET COUNT (test code = 177 K/mm3 150-450 N PLT) MEAN PLATELET VOLUME (test code 10.0 fL 6.7-11.0 N = MPV) NEUTROPHIL % (test code = NT%) 49.7 % 39.0-69.0 N IMMATURE GRANULOCYTE % (test 1.9 % 0.0-5.0 N code = IG%) LYMPHOCYTE % (test code = LY%) 31.2 % 25.0-55.0 N MONOCYTE % (test code = MO%) 13.7 % 0.0-10.0 H EOSINOPHIL % (test code = EO%) 2.8 % 0.0-5.0 N BASOPHIL % (test code = BA%) 0.7 % 0.0-1.0 N NUCLEATED RBC % (test code = 0.0 % 0-0 N NRBC%) NEUTROPHIL # (test code = NT#) 3.40 K/mm3 1.8-7.7 N IMMATURE GRANULOCYTE # (test 0.13 x10 3/uL 0-0.03 H code = IG#) LYMPHOCYTE # (test code = LY#) 2.14 K/mm3 1.0-5.0 N MONOCYTE # (test code = MO#) 0.94 K/mm3 0-0.8 H EOSINOPHIL # (test code = EO#) 0.19 K/mm3 0.0-0.5 N BASOPHIL # (test code = BA#) 0.05 K/mm3 0.0-0.2 N NUCLEATED RBC # (test code = 0.00 K/mm3 0.0-0.1 N NRBC#) Notes Date/Time Note Provider Source 2022-06-23 [facility] 17:07:00-00:00 [facility] ([facility]) Hospitalist Discharge Summary REPORT#:[id number] REPORT STATUS: Signed DATE:06/23/22 TIME:1706 PATIENT: TERE CABRAL UNIT #: [id number] ROOM/BED: [place] [address] : 42 AGE: 82 SEX: F ATTEND: Norma Neely MD ADM AUTHOR: Kieran Neely MD * ALL edits or amendments must be made on the [employer]/computer document * General Information Date of admission: Observation Start Date: Date of admission: 06/19/22 Discharge date: 06/23/22 Admission diagnosis: Atypical chest pain Severe sepsis present on admission secondary to community-acquired pneumonia Severe aortic stenosis Probable sleep apnea Hypothyroidism Seizure Depression Discharge diagnosis: Atypical chest pain Severe sepsis present on admission secondary to community-acquired pneumonia Severe aortic stenosis Probable sleep apnea Hypothyroidism Seizure Depression Hospital course: Ms. Cabral is a 82-year-old female with a his tory of hypertension, hypothyroidism, seizure diso rder who presented to the hospital with chest pain. Initially code STEMI was keith led however this was canceled after reviewing of the EKG and details. Patient was admitted an d treated for severe sepsis present on admission secondary to community-acquired pneumo rashida, atypical chest pain. Patient did have evidence of severe aortic stenosis and will benefit from TAVR. Nursing Officer was consulted and recommended for o utpatient follow-up since no family was available for further discussion abou t transfer.. Patient has improved and remained stable for dis charge. Pt. condition on discharge: stable Med Rec Med Rec Discharge meds: Start taking the following new medications: ASPIRIN (ASPIRIN) 81 MG TAB.CHEW 81 MILLIGRAM ORAL DAILY. Qty = 30 No Refills DIVALPROEX SPRINKLE (DEPAKOTE SPRINKLE) 125 MG C AP.SPRINK 125 MILLIGRAM ORAL EVERY 12 HOURS. Qty = 30 No Refills LEVOTHYROXINE (SYNTHROID) 25 MCG TAB 25 MICROGRAM ORAL DAILY. Qty = 30 No Refills CEFDINIR (OMNICEF) 300 MG CAP 300 MILLIGRAM ORAL EVERY 12 HOURS. Qty = 14 No Refills Objective VS/I O Last Documented: Result Date Time Temp 98.2 06/23 1648 Pulse Ox 96 06/23 1600 B/P 157/70 06/23 1600 B/P Mean 101 06/23 1600 Pulse 78 06/23 1600 Resp 21 06/23 1600 O2 Delivery Nasal cannula 06/23 1200 O2 Flow Rate 2 06/23 1200 FiO2 28 06/23 0740 24 hour I O ending at 0700: 06/23 0700 06/22 1900 Intake Total 340 Output Total 401 350 Balance -61 -350 Intake, Oral 340 Number 1 Bowel Movements Number 1 Incontinent Voids Output, Urine 400 350 Output, 1 Urine/Stool Mix General appearance: alert Head/Eyes: atraumatic, clear cornea, EOMI, sanjuana l conjunctiva/sclera, normal eyelids/periorb., normocephalic, PERRL ENT: normal dentition, normal ear left, normal e ar right, normal nose, normal pharynx, normal sinus Neck: full range of motion, non-tender, normal thyroid, supple/no meningismus, no bruit/NL carotids, no JVD, no masses or swell ing Cardiovascular: murmur, normal capillary refill Murmur: systolic 5/6 Respiratory: crackles, aerating well, no distres s Abdomen: non-tender, normal bowel sounds , soft, no distention, no guarding, no hernia, no mass/organomegaly, no rebound Extremities: moves all, normal capillary refill, normal range of motion, no edema Musculoskeletal: normal inspection Neuro/LOAD TEST MECHANIC: alert, normal speech Skin: dry, intact Psychiatry: normal affect Results Radiology data: Recent Impressions: RADIOLOGY - XR CHEST 1 V 06/23 1114 Report Impression - Status: SIGNED Entered: 06/23/2022 1337 IMPRESSION: Mild patchy left lung base opacities could repre sent atelectasis, scarring, or pneumonia. Impression By: [email or web address] - Danyel Ortiz M.D. Discharge Instructions PCP Discharge to: [facility] ([facility]) Additional Discharge Routines: PCP Follow-Up, Co nsultant Follow-Up Diet: Cardiac Activity: As Tolerated Follow-up Appointments PCP follow-up: PCP: Sawyer Vazquez MD PCP follow up timeframe: In 1-2 weeks Consulting provider 1: Provider 1: Judith Howard MD Specialty: CardiologyInterventional Consult follow up timeframe: In 1-2 weeks Quality: Discharge Advanced Care Plan 65 or Older Discussed with: patient Current Medications Current medication review: I attest that the foregoing medication list in t medical record is true, accurate, and complete to the best of my knowled ge. Electronically Signed by Kieran Neely MD on at 2208 RPT #: [id number] END OF REPORT 2022-06-22 [facility] 23:26:00-00:00 [facility] ([facility]) Wound Care Progress Note REPORT#:[id number] REPORT STATUS: Signed DATE:06/22/22 TIME:2325 PATIENT: TERE CABRAL UNIT #: [id number] ROOM/BED: [place] [address] : 42 AGE: 82 SEX: F ATTEND: Norma Neely MD ADM AUTHOR: Patrick Cummins MD * ALL edits or amendments must be made on the [employer] document * Subjective Chief complaint: Wound Care HPI: Said that nurse is turning her every 2 hours Unable to obtain: medical condition Objective General VS: Last Documented: Result Date Time Pulse Ox 96 06/22 2200 B/P 133/62 06/22 2200 B/P Mean 89 06/22 2200 Pulse 91 06/22 2200 Resp 25 06/22 2200 Temp 98.2 06/22 2000 O2 Delivery Nasal cannula 06/22 1600 O2 Flow Rate 2 06/22 1600 FiO2 21 06/22 0915 PATIENT WEIGHT: Weight (lb): Weight (oz): Weight (kg): 90.700 Medications: Active Meds + DC'd Last 24 Hrs Cephalexin (KEFLEX) 500 MG Q6HR PO Duloxetine HCl (CYMBALTA) 60 MG DAILY PO Hydrochlorothiazide (HYDRODIURIL) 12.5 MG DAILY PO Lisinopril (ZESTRIL) 10 MG DAILY PO Levothyroxine Sodium (SYNTHROID) 25 MCG DAILY@06 00 PO Atorvastatin Calcium (LIPITOR) 40 MG BEDTIME PO Divalproex Sodium (DEPAKOTE SPRINKLE 125MG CAP) 125 MG Q12HR PO Levetiracetam (KEPPRA) 1,000 MG Q12H PO Iopamidol (ISOVUE-370) 100 ML ONCE PRN IV Albumin Human (OPTISON) 3 ML ONCE PRN IV Metoprolol Tartrate (LOPRESSOR) 25 MG Q12HR PO Aspirin (ECOTRIN) 81 MG DAILY PO Famotidine (PEPCID) 20 MG BID AC PO Acetaminophen (TYLENOL) 650 MG Q4H PRN PRN PO Ceftriaxone Sodium (ROCEPHIN) 1,000 MG Q24H IV ( DC) Sterile Water (WATER FOR INJECTION) 10 ML Enoxaparin Sodium (lovENOX) 40 MG Q24H SUBQ Hydralazine HCl (APRESOLINE) 10 MG Q6H PRN PRN I V Ondansetron HCl (ZOFRAN) 4 MG Q4H PRN PRN IV Dietitian Nutrition assessment The data set between the solid lines has been im ported from the dietitian's assessment. BMI Calculated: 31.3 Nutrition related diagnosis: Nutrition diagnosis details: Nutrition problem: Nutrition etiology: Nutrition signs and symptoms: Nutrition prescription: Dietitian name: Assessment completed: Physical Exam General appearance: chronically ill appearing Respiratory: no distress Extremities: no edema Skin: rash (diffuse on the buttocks,sacrum), pet echia of the right lower back Psychiatry: anxious Wound Assessment Wound Assessment 1: Type/cause: pressure Wound location: heel (right) Tissue layers: limited to skin breakdown Site condition: no drainage, no ecchymosis, no erythema Stage of pressure ulcer: stage I Diagnosis, Assessment Plan Problem List/A P: 1. Pressure injury of right heel, stage 1 stable; cont to keep in heel pad or float heels 2. Dermatitis associated with moisture cleanse with soap and water and pad down dry apply antifungal cream (remedy red bottle) once per RN shift. 3. Obesity 4. Severe sepsis 5. Petechiae stable on the right lower back, monitor Electronically Signed by Patrick Cummins MD on at 2328 RPT #: [id number] END OF REPORT 2022-06-22 [id number] [facility] 21:27:00-00:00 [facility] [address] [place] [address] PATIENT NAME: TERE CABRAL ADMIT DATE: ACCOUNT NO: [id number] ROOM NO: L302 AGE: 82 REPORT TYPE: PROGRESS NOTE SEX: F ADMITTING PHYSICIAN: Kieran Neely MD ATTENDING PHYSICIAN: Kieran Neely MD DATE: The patient is seen. The patient is lying down. The patient is morbidly obese at present. The patient is a known patient with hypertension, hyperlipidemia, seizure disorder, hypothyroidism and severe depr ession. At this time, blood pressure is normal. The patient has possible sep sis and being treated accordingly. Cardiac ortega, the patient is quite stable. There are no acute cardiac issues present and t he patient's laboratory evaluation shows hemoglobin 12.2 grams percent and GFR is more than 60 mL pe r minute and the patient does not need for any further car diac workup at this time. At this time, the patient did not have any myocardial infarction. The alexsander ent's echocardiogram, left ventricular ejection fractio n is about 60-64%. The patient has got aortic valve stenosis, but we will treat medically at this time. I could not find any family members. Probably, we will talk to the family me mbers also for heart murmur. The patient is aware of the heart murmur too at this time. The patient does not have any dizziness or any chest pain. DIAGNOSES: Morbid obesity, aortic valve stenosis and depression. No evidence of myocardial infarction at this time and the patient is not in acute congestive heart failure. No shortness of breath. No ischem ia. Dictated By: Judith Howard MD Date Dictated: 06/22/2022 21:27:11 Date Transcribed: 06/22/2022 22:13:08 NAA/AMBER Receipt ID: [id number] Authenticated by Todd Howard MD On 06/29 08:18:17 PM at 0818 PATIENT NAME: TERE CABRAL ACCOUNT #: [id number] 2022-06-22 [facility] 10:49:00-00:00 [facility] ([facility]) Hospitalist Progress Note REPORT#:[id number] REPORT STATUS: Signed DATE:06/22/22 TIME:1049 PATIENT: TERE CABRAL UNIT #: [id number] ROOM/BED: [place] [address] : 42 AGE: 82 SEX: F ATTEND: Norma Neely MD ADM AUTHOR: Kieran Neely MD * ALL edits or amendments must be made on the [employer] document * Subjective Chief complaint: More awake today. SOB is improving. Was on RA and stable Met patient sleeping with notable sats in 89%, q uickly recovered to 90's upon fully awake. Objective General VS/I O: Vital Signs: Date Time Temp Pulse Resp B/P B/P Pulse O2 O2 F low FiO2 Mean Ox Delivery Rate 06/22 1008 98.8 06/22 0915 96 Room air 21 06/22 0601 93 20 121/60 86 97 06/22 0500 85 22 137/61 88 97 06/22 0401 88 21 117/53 77 100 06/22 0352 97.9 06/22 0301 87 20 136/59 85 100 06/22 0201 89 19 156/65 94 100 06/22 0100 91 21 116/59 80 100 06/22 0001 89 23 117/54 78 100 06/21 2356 Nasal 2 cannula 06/21 2328 97.9 06/21 2300 88 22 122/58 83 99 06/21 2200 91 21 104/53 76 100 06/21 2101 91 27 106/53 76 97 06/21 2035 99 Nasal 2 28 cannula 06/21 2000 84 21 138/63 91 100 06/21 1919 98.8 06/21 1901 84 23 124/60 86 100 06/21 1858 85 06/21 1800 79 21 137/63 90 97 06/21 1700 88 21 129/57 82 99 06/21 1614 96.3 18 06/21 1600 79 18 124/59 85 100 06/21 1501 80 21 119/58 83 100 06/21 1401 80 21 137/63 91 100 06/21 1300 78 21 103/56 77 100 06/21 1200 79 20 107/52 75 100 06/21 1110 97.2 18 06/21 1100 74 24 117/75 92 100 24 hour I O ending at 0700: 06/22 0700 06/21 1900 Intake Total 100 450 Output Total 450 250 Balance -350 200 Intake, Oral 100 450 Number 0 Bowel Movements Number 2 1 Incontinent Voids Output, Urine 450 250 PATIENT WEIGHT: Weight (lb): Weight (oz): Weight (kg): 90.700 Medications: Active Meds + DC'd Last 24 Hrs Duloxetine HCl (CYMBALTA) 60 MG DAILY PO Hydrochlorothiazide (HYDRODIURIL) 12.5 MG DAILY PO Lisinopril (ZESTRIL) 10 MG DAILY PO Levothyroxine Sodium (SYNTHROID) 25 MCG DAILY@06 00 PO Atorvastatin Calcium (LIPITOR) 40 MG BEDTIME PO Divalproex Sodium (DEPAKOTE SPRINKLE 125MG CAP) 125 MG Q12HR PO Levetiracetam (KEPPRA) 1,000 MG Q12H PO Iopamidol (ISOVUE-370) 100 ML ONCE PRN IV Albumin Human (OPTISON) 3 ML ONCE PRN IV Metoprolol Tartrate (LOPRESSOR) 25 MG Q12HR PO Aspirin (ECOTRIN) 81 MG DAILY PO Famotidine (PEPCID) 20 MG BID AC PO Acetaminophen (TYLENOL) 650 MG Q4H PRN PRN PO Ceftriaxone Sodium (ROCEPHIN) 1,000 MG Q24H IV Sterile Water (WATER FOR INJECTION) 10 ML Enoxaparin Sodium (lovENOX) 40 MG Q24H SUBQ Hydralazine HCl (APRESOLINE) 10 MG Q6H PRN PRN I V Ondansetron HCl (ZOFRAN) 4 MG Q4H PRN PRN IV Physical Exam General appearance: alert, awake Head/Eyes: atraumatic, clear cornea, EOMI, sanjuana l conjunctiva/sclera, normal eyelids/periorb., normocephalic, PERRL ENT: normal dentition, normal ear left, normal e ar right, normal nose, normal pharynx, normal sinus Neck: full range of motion, non-tender, normal thyroid, supple/no meningismus, no bruit/NL carotids, no JVD, no masses or swell ing Cardiovascular: murmur, normal capillary refill Murmur: systolic 5/6 Respiratory: crackles, aerating well, no distres s Abdomen: non-tender, normal bowel sounds , soft, no distention, no guarding, no hernia, no mass/organomegaly, no rebound Extremities: moves all, normal capillary refill, normal range of motion, no edema Musculoskeletal: normal inspection Neuro/LOAD TEST MECHANIC: altered mental status, alert, normal speech Skin: dry, intact Psychiatry: normal affect Diagnosis, Assessment Plan Orders: Procedure Date/time Status CBC W/AUTO DIFF 06/22 812 Active BASIC METABOLIC PANEL 06/22 812 Active OXYGEN PER HOUR 06/22 2035 Active Free Text DxA P Notes Free text DxA P notes: Patient is an 82-year-old female presented to [facility] with complaints of chest pain Atypical chest pain Continue to trend troponins x3 Cardiology evaluation Echocardiogram with no regional wall motion abno rmality. Aspirin, statin and beta-alfredo Severe sepsis POA 2/2 CAP CAP -cultures are pending -continue IV abx Severe -plant operator helper on consult. Defer further work up to the team -probably benefit from TAVR -patient is euvolemic. Probable sleep apnea- supplemental oxygen. -outpt sleep study -BiPAP at bedtime Hypothyroidism Resume home medication Synthroid Seizure Continue Keppra Depression Anxiety disorder Continue Cymbalta and Depakote PT/OT DVT PPx//Lovenox Dispo: pending clinical improvement Quality: [facility] Crit Care VTE Prophylaxis VTE prophylaxis initiated: yes (Lovenox) Current Medications Current medication review: I attest that the foregoing medication list in t he medical record is true, accurate, and complete to the best of my knowled ge. Advanced Care Plan 65 or Older Discussed with: patient Discussion included: power of pourer off, nelly garcia (full code) Electronically Signed by Kieran Neely MD on at 1053 RPT #: [id number] END OF REPORT 2022-06-21 [id number] [facility] 18:48:00-00:00 [facility] [id number] [place] [address] PATIENT NAME: TERE CABRAL ADMIT DATE: ACCOUNT NO: [id number] ROOM NO: 302 AGE: 82 REPORT TYPE: PROGRESS NOTE SEX: F ADMITTING PHYSICIAN: Kieran Neely MD ATTENDING PHYSICIAN: Kieran Neely MD DATE: 06/21/2022 CARDIOLOGY PROGRESS NOTE The patient is seen in the room. The patient is morbidly obese woman. The patient does not complain of chest pain. The pat ient has got sepsis and the patient has a history of hypertension, hyperlipi demia, seizure disorder, hypothyroidism, depression. At this time, the p lucrecia is not in clinical congestive heart failure. Blood pressure 110/80. The patient has no evidence of any myoca rdial infarction at this time. We will continue to follow the patie nt. The patient probably in sepsis, it is improving at this time. The patient's CT of the chest is a lso found to be normal. Probably, she may be having left lower lobe infi ltration or atelectasis. Laboratory evaluation shows hemoglobin 12.3 gram percent, WBC count decreased to 15.3000 per cubic millimeter. Glucose 143 mg per cent. GFR is found to be within normal limits. Troponin is negative. IMPRESSION: 1. Obesity. 2. Possible sepsis. The patient being treated wi th the following medications by hospitalist and also the patient has got hype rtension, hyperlipidemia. The patient also getting metoprolol, Lovenox. At this time, there is no acute cardiac issues noted, but from my point of view, the patient is quite stable. Once echocardiogram is done, I will reevaluate t he patient one more time. Dictated By: Judith Howard MD Date Dictated: 06/21/2022 18:48:18 Date Transcribed: 06/21/2022 22:52:49 NAA/DANIEL Receipt ID: [id number] Authenticated by Todd Howard MD On 06/29 08:18:16 PM PATIENT NAME: TERE CABRAL ACCOUNT #: [id number] at 0818 PATIENT NAME: TERE CABRAL ACCOUNT #: [id number] 2022-06-21 [facility] 09:57:00-00:00 [facility] ([facility]) Wound Care Progress Note REPORT#:[id number] REPORT STATUS: Signed DATE:06/21/22 TIME:09 PATIENT: TERE CABRAL UNIT #: [id number] ROOM/BED: [place] [address] : 42 AGE: 82 SEX: F ATTEND: Norma Neely MD ADM AUTHOR: Patrick Cummins MD * ALL edits or amendments must be made on the [employer] document * Subjective Chief complaint: Wound Care HPI: no acute events Patient reports: Yes: able to communicate, feeling better, pain c ontrolled. No: drainage from wound. Objective General VS: Last Documented: Result Date Time Pulse Ox 100 06/21 0801 B/P 181/79 06/21 0801 B/P Mean 113 06/21 0801 Pulse 91 06/21 0801 Resp 19 06/21 0801 Temp 98.2 06/21 0745 O2 Delivery Nasal cannula 06/21 0704 O2 Flow Rate 2 06/21 0704 FiO2 28 06/20 1923 PATIENT WEIGHT: Weight (lb): Weight (oz): Weight (kg): 90.700 Medications: Active Meds + DC'd Last 24 Hrs Duloxetine HCl (CYMBALTA) 60 MG DAILY PO Hydrochlorothiazide (HYDRODIURIL) 12.5 MG DAILY PO Lisinopril (ZESTRIL) 10 MG DAILY PO Levothyroxine Sodium (SYNTHROID) 25 MCG DAILY@06 00 PO Atorvastatin Calcium (LIPITOR) 40 MG BEDTIME PO Divalproex Sodium (DEPAKOTE SPRINKLE 125MG CAP) 125 MG Q12HR PO Levetiracetam (KEPPRA) 1,000 MG Q12H PO Enoxaparin Sodium (lovENOX) 40 MG Q24H SUBQ (CAN ) Iopamidol (ISOVUE-370) 100 ML ONCE PRN IV Sodium Chloride (SODIUM CHLORIDE 0.9%) 100 ML ON CE PRN IV (DC) Albumin Human (OPTISON) 3 ML ONCE PRN IV Levetiracetam (KEPPRA) 1,000 MG Q12HR PO (DC) Metoprolol Tartrate (LOPRESSOR) 25 MG Q12HR PO Aspirin (ECOTRIN) 81 MG DAILY PO Famotidine (PEPCID) 20 MG BID AC PO Acetaminophen (TYLENOL) 650 MG Q4H PRN PRN PO Ceftriaxone Sodium (ROCEPHIN) 1,000 MG Q24H IV Sterile Water (WATER FOR INJECTION) 10 ML Enoxaparin Sodium (lovENOX) 40 MG Q24H SUBQ Hydralazine HCl (APRESOLINE) 10 MG Q6H PRN PRN I V Ondansetron HCl (ZOFRAN) 4 MG Q4H PRN PRN IV Dietitian Nutrition assessment The data set between the solid lines has been im ported from the dietitian's assessment. BMI Calculated: 31.3 Nutrition related diagnosis: Nutrition diagnosis details: Nutrition problem: Nutrition etiology: Nutrition signs and symptoms: Nutrition prescription: Dietitian name: Assessment completed: Physical Exam General appearance: obese Respiratory: no distress Extremities: no edema Skin: rash (diffuse on the buttocks,sacrum), pet echia of the right lower back Psychiatry: anxious Wound Assessment Wound Assessment 1: Type/cause: pressure Wound location: heel (right) Tissue layers: limited to skin breakdown Site condition: no drainage, no ecchymosis, no erythema Stage of pressure ulcer: stage I Diagnosis, Assessment Plan Problem List/A P: 1. Pressure injury of right heel, stage 1 place in heel pad 2. Dermatitis associated with moisture cleanse with soap and water and pad down dry apply antifungal cream (remedy red bottle) once per RN shift. 3. Obesity 4. Severe sepsis 5. Petechiae stable on the right lower back, monitor Electronically Signed by Patrick Cummins MD on at 1000 RPT #: [id number] END OF REPORT 2022-06-21 [facility] 08:39:00-00:00 [facility] ([facility]) Hospitalist Progress Note REPORT#:[id number] REPORT STATUS: Signed DATE:06/21/22 TIME:08 PATIENT: TERE CABRAL UNIT #: [id number] ROOM/BED: [place] [address] : 42 AGE: 82 SEX: F ATTEND: Norma Neely MD ADM AUTHOR: Kieran Neely MD * ALL edits or amendments must be made on the [employer] document * Subjective Chief complaint: Unreliable ROS. patient answered no to few quest ions. Feeling better. Objective General VS/I O: Vital Signs: Date Time Temp Pulse Resp B/P B/P Pulse O2 O2 F low FiO2 Mean Ox Delivery Rate 06/21 0801 91 19 181/79 113 100 06/21 0745 98.2 20 06/21 0704 99 Nasal 2 cannula 06/21 0701 86 24 150/63 91 100 06/21 0601 88 25 146/64 92 100 06/21 0500 92 25 145/63 90 100 06/21 0401 92 25 133/63 90 100 06/21 0300 94 27 132/59 85 100 06/21 0200 92 25 129/63 90 100 06/21 0101 88 28 134/62 89 100 06/21 0052 90 27 100 06/21 0000 97.0 06/21 0000 95 32 150/72 104 06/20 2320 89 28 133/62 88 98 06/20 2301 91 27 156/104 123 80 06/20 2245 91 30 97 06/20 2200 109 30 148/68 98 89 06/20 2145 112 21 134/72 95 95 06/20 2100 109 25 144/76 104 06/20 2029 98.4 Nasal 3 cannula 06/20 2029 Nasal 2 cannula 06/20 1922 97 Nasal 2 28 cannula 06/20 190 101 25 150/70 101 98 06/20 1700 98 27 143/93 114 92 06/20 1600 95 32 138/77 102 95 06/20 1443 91 25 119/57 82 98 06/20 1300 83 27 118/81 95 06/20 1200 80 22 122/70 91 99 06/20 1100 94 25 115/68 87 97 06/20 1000 102 26 130/63 89 97 06/20 0900 104 27 133/71 96 97 24 hour I O ending at 0700: 06/21 0700 06/20 1900 Intake Total 620 Output Total 100 Balance -100 620 Intake, Oral 620 Number 3 Incontinent Voids Output, Urine 100 PATIENT WEIGHT: Weight (lb): Weight (oz): Weight (kg): 90.700 Medications: Active Meds + DC'd Last 24 Hrs Duloxetine HCl (CYMBALTA) 60 MG DAILY PO Hydrochlorothiazide (HYDRODIURIL) 12.5 MG DAILY PO Lisinopril (ZESTRIL) 10 MG DAILY PO Levothyroxine Sodium (SYNTHROID) 25 MCG DAILY@06 00 PO Atorvastatin Calcium (LIPITOR) 40 MG BEDTIME PO Divalproex Sodium (DEPAKOTE SPRINKLE 125MG CAP) 125 MG Q12HR PO Levetiracetam (KEPPRA) 1,000 MG Q12H PO Enoxaparin Sodium (lovENOX) 40 MG Q24H SUBQ (CAN ) Iopamidol (ISOVUE-370) 100 ML ONCE PRN IV Sodium Chloride (SODIUM CHLORIDE 0.9%) 100 ML ON CE PRN IV (DC) Albumin Human (OPTISON) 3 ML ONCE PRN IV Levetiracetam (KEPPRA) 1,000 MG Q12HR PO (DC) Metoprolol Tartrate (LOPRESSOR) 25 MG Q12HR PO Aspirin (ECOTRIN) 81 MG DAILY PO Famotidine (PEPCID) 20 MG BID AC PO Acetaminophen (TYLENOL) 650 MG Q4H PRN PRN PO Ceftriaxone Sodium (ROCEPHIN) 1,000 MG Q24H IV Sterile Water (WATER FOR INJECTION) 10 ML Enoxaparin Sodium (lovENOX) 40 MG Q24H SUBQ Hydralazine HCl (APRESOLINE) 10 MG Q6H PRN PRN I V Ondansetron HCl (ZOFRAN) 4 MG Q4H PRN PRN IV Physical Exam General appearance: chronically ill appearing, c onfused, alert Head/Eyes: atraumatic, clear cornea, EOMI, sanjuana l conjunctiva/sclera, normal eyelids/periorb., normocephalic, PERRL ENT: normal dentition, normal ear left, normal e ar right, normal nose, normal pharynx, normal sinus Neck: full range of motion, non-tender, normal thyroid, supple/no meningismus, no bruit/NL carotids, no JVD, no masses or swell ing Cardiovascular: murmur, normal capillary refill Murmur: systolic 5/6 Respiratory: crackles, hypoxia, on oxygen, no di stress Abdomen: non-tender, normal bowel sounds , soft, no distention, no guarding, no hernia, no mass/organomegaly, no rebound Extremities: moves all, normal capillary refill, normal range of motion, no edema Musculoskeletal: normal inspection Neuro/LOAD TEST MECHANIC: altered mental status Skin: dry, intact Psychiatry: normal affect Results Findings/Data: Laboratory Tests 06/21 1616 1100 Chemistry Sodium (134 - 147 mmol/L) 136 Potassium (3.4 - 5.0 mmol/L) 3.7 Chloride (100 - 108 mmol/L) 102 Carbon Dioxide (21 - 32 mmol/L) 28 Anion Gap (4.0 - 15.0 GAP calc) 6.0 BUN (7 - 18 MG/DL) 12 Creatinine (0.6 - 1.0 MG/DL) 0.6 Glomerular Filtr Rate (>60 estGFR) >=60 max est imate Glucose (70 - 110 MG/DL) 143 H Calcium (8.5 - 10.1 MG/DL) 8.6 Total Creatine Kinase (26 - 192 Unit/L) 27 Troponin I High Sens (0 - 54 ng/L) 8.6 9.7 Laboratory Tests 06/21 208 Hematology WBC (3.5 - 11.0 K/mm3) 15.3 H RBC (4.70 - 6.10 M/mm3) 4.61 L Hgb (10.4 - 14.9 G/DL) 12.3 Hct (31.5 - 44.1 %) 38.4 MCV (84.5 - 98.6 Fl) 83.3 L MCH (27.0 - 34.2 pg) 26.7 L MCHC (31.5 - 34.0 G/DL) 32.0 RDW (11.5 - 14.5 SD) 15.4 H Plt Count (150 - 450 K/mm3) 274 MPV (7.0 - 10.5 fL) 10.00 Neut % (Auto) (40 - 76 %) 74.6 Lymph % (Auto) (20.5 - 51.1 %) 9.6 L Highlands % (Auto) (1.7 - 9.3 %) 14.4 H Eos % (Auto) (0.0 - 6.0 %) 0.1 Baso % (Auto) (0.0 - 2.0 %) 0.3 Neut # (Auto) (1.8 - 7.6 K/mm3) 11.4 H Lymph # (Auto) (0.6 - 3.2 K/mm3) 1.5 Highlands # (Auto) (0.3 - 1.1 K/mm3) 2.2 H Eos # (Auto) (0.0 - 0.4 K/mm3) 0.0 Baso # (Auto) (0.0 - 0.1 K/mm3) 0.1 Abs Immat Gran (auto) (0.00 - 0.03 x10 3/uL) 0. 15 H Add Manual Diff (CRITERIA DIFF/SCN) NO Immature Gran % (0.0 - 5.0 %) 1.0 Nucleated RBC % (0.0 - 1.0 /100WBC%) 0.0 Radiology data: Recent Impressions: CAT SCAN - CTA CHEST FOR PE 06/20 1040 Report Impression - Status: SIGNED Entered: 06/20/2022 1135 IMPRESSION: Left lower lobe atelectasis and/or pneumonia. No evidence of pulmonary embolus. Impression By: Shahnaz Alonzo M.D. Diagnosis, Assessment Plan Orders: Procedure Date/time Status PHYSICAL THERAPIST CONSULT 06/21 838 Active OCCUPATIONAL THERAPIST CONSULT 06/21 838 Activ e OXYGEN PER HOUR 06/21 0815 Active Free Text DxA P Notes Free text DxA P notes: Patient is an 82-year-old female presented to [facility] with complaints of chest pain Atypical chest pain Continue to trend troponins x3 Cardiology evaluation Echocardiogram with no regional wall motion abno rmality. Aspirin, statin and beta-alfredo Severe sepsis POA 2/2 CAP CAP -cultures are pending -continue IV abx Hypothyroidism Resume home medication Synthroid Seizure Continue Keppra Depression Anxiety disorder Continue Cymbalta and Depakote PT/OT DVT PPx//Lovenox Dispo: pending clinical improvement Quality: [facility] [place] VTE Prophylaxis VTE prophylaxis initiated: yes (Lovenox) Current Medications Current medication review: I attest that the foregoing medication list in t he medical record is true, accurate, and complete to the best of my knowled ge. Advanced Care Plan 65 or Older Discussed with: patient Discussion included: power of pourer off, nelly garcia (full code) Electronically Signed by Kieran Neely MD on at 1307 RPT #: [id number] END OF REPORT 2022-06-20 [id number] [facility] 16:11:00-00:00 [facility] [address] [place] [address] PATIENT NAME: TERE CABRAL ADMIT DATE: ACCOUNT NO: [id number] ROOM NO: [facility] AGE: 82 REPORT TYPE: eECHOCARDIOGRAM REPORT SEX: F ADMITTING PHYSICIAN: Kieran Neely MD ATTENDING PHYSICIAN: Kieran Neely MD *[facility]* [id number] [place] [address] Transthoracic Echocardiogram Patient: Tere Cabral Study Date: 06/20/2022 BP: Location: [facility] URN: [id number] [id number] : 1940 Age: 82 Height: / Gender: F Weight: / BMI/BSA: / *Ordering Physician: * Laurel Liriano *Interpreting Physician: * Todd HowardFloriculture Professor: * Roshni Marshall Indications: Chest Pain, unspecified. Study data: Transthoracic echocardiogram. Proced ure: Transthoracic echocardiography was performed. Image quality wa s suboptimal. The study was technically limited due to body habitus. Com plete 2D, complete spectral Doppler, and color Doppler. Findings Left ventricle: The cavity size is normal. Wall thickness is mildly increased. Systolic function is normal. The debbie mated ejection fraction is 60-64%. Right ventricle: Not well visualized. Left atrium: The atrium is normal in size. Right atrium: Not well visualized. Aorta: Aortic root: The aortic root is normal in size. Aortic valve: The findings are consistent with s evere stenosis. There is physiologic regurgitation. PATIENT NAME: TERE CABRAL ACCOUNT #: [id number] Mitral valve: The annulus is calcified. There is trivial regurgitation. Tricuspid valve: The valve is structurally sanjuana l. There is mild regurgitation. Pulmonic valve: The valve is structurally normal . There is no regurgitation. Pericardium: TRIVIAL PERICARDIAL EFFUSION NOTED. Pulmonary arteries: Not visualized. Systemic veins: Inferior vena cava: Not visualized. Measurements Left ventricle Value Ref BLAIRE, LAX 3.9 cm 3.8 - 5.2 ESD, LAX 2.6 cm 2.2 - 3.5 FS, LAX 33 % 27 - 45 PW, ED 1.2 cm 0.6 - 0.9 IVS/PW, ED 1.04 --------- EF 63 % 54 - 74 IVRT 106 ms --------- LVOT Value Ref Diam, S 2.13 cm --------- Area 3.6 cm 2 --------- Peak sheba, S 0.94 m/sec --------- Mean sheba, S 0.7 m/sec --------- VTI, S 19.4 cm --------- Peak grad, S 4 mm Hg --------- Mean grad, S 2 mm Hg --------- SV 69 ml --------- Ventricular septum Value Ref IVS, ED 1.2 cm 0.6 - 0.9 Right ventricle Value Ref Pressure, S 39 mm Hg --------- Left atrium Value Ref AP dim, ES MM 3.4 cm 2.7 - 3.8 LA/Ao root ratio, MM 1.21 --------- Aortic valve Value Ref Leaflet sep, MM 1.20 cm --------- Peak v, S 4.19 m/sec --------- Mean v, S 3.03 m/sec --------- VTI, S 77.0 cm --------- Mean grad, S 40.0 mm Hg --------- Peak grad, S 70.2 mm Hg --------- LVOT/AV, VTI ratio 0.25 --------- RASHMI, VTI 0.90 cm 2 --------- LVOT/AV, Vpeak ratio 0.22 --------- RASHMI, Vmax 0.80 cm 2 --------- PATIENT NAME: AZEEM CABRALCAL [place] ACCOUNT #: [id number] Mitral valve Value Ref Peak E 0.87 m/sec --------- Peak A 1.21 m/sec --------- Decel time 219 ms --------- PHT 48 ms --------- Peak grad, D 3.0 mm Hg --------- Peak E/A ratio 0.71 --------- MVA, PHT 4.6 cm 2 --------- Tricuspid valve Value Ref TR peak v 2.92 m/sec <=2.8 Peak RV-RA grad, S 34 mm Hg --------- Aortic root Value Ref Root diam, ED MM 2.81 cm --------- Pulmonary artery Value Ref Pressure, S 35.6 mm Hg --------- Systemic veins Value Ref Estimated CVP 5 mm Hg --------- Pulmonary veins Value Ref A rev duration 128 ms --------- Conclusions Summary: 1. Left ventricle: The cavity size is normal. Wa ll thickness is mildly increased. Systolic function is normal. The est imated ejection fraction is 60-64%. 2. Right ventricle: The RV pressure during systo le by Doppler is 39 mm Hg. 3. Aortic valve: The findings are consistent wit h severe stenosis. The mean systolic gradient is 40.0 mm Hg. The valve area by the velocity-time integral method is 0.90 cm 2. 4. Mitral valve: The annulus is calcified. Prepared and electronically signed by Todd Howard MD 06/20/2022 16:11 at 1611 PATIENT NAME: MARIANNATERE URIAS ACCOUNT #: [id number] 2022-06-20 [id number] [facility] 14:54:00-00:[address] [address] PATIENT NAME: MARIANNATERE ADMIT DATE: ACCOUNT NO: [id number] ROOM NO: [facility] AGE: 82 REPORT TYPE: CONSULTATION SEX: F ADMITTING PHYSICIAN: Kieran Neely MD ATTENDING PHYSICIAN: Kieran Neely MD CONSULTATION DATE: CARDIOLOGY CONSULTATION The patient is seen in room 302. The patient is an 82-year-old patient. At this time, the patient does not h ave any significant atypical ischemic cardiac pain, initially came with chest pain; however, at this time, EKG found to be normal, even code STEMI was activated. However, after fi nding that the patient may be having sepsis, caused sinus tachycardia, EKG was found to be normal. At this time, the patient admitted in the regula r telemetry bed. The patient has history of hypertension, hyperli pidemia, seizure disorder, depression, and hypothyroidi sm. At this time, from a cardiac point of view, the patient is doing well. The patient is stable cardia c ortega and the patient possibly may be having sepsis and at this time, treatment for sepsis was activ ated with IV antibiotics by primary care and clinically, no evidence of any congestive heart failure. Vital signs show blood pressure 120/70, heart rate ini tially was 102 and this afternoon has come down to 90 per minute. Laboratory evaluation shows at this time, this m orning, WBC count 17.9. The patient's hemoglobin is 12.9 grams p ercent, platelets are adequate. GFR is found to be more than 60 mL per minute. Glucose 144 mg percent. Troponin is found to be within normal limits. Lactic acid at this time in lab is not available and cholesterol was 116 mg percent. Radiologic examination, chest x-ray show s interstitial changes are noted, mild bibasilar atelectasis noted. CTA of the chest pe rformed and there is no evidence of any aneurysm in thoracic aorta. Ther e is no evidence of pulmonary emboli. There is no evidence of any pleural effusion. There is possibly left lower lobe pneumonia or atelectasis. IMPRESSION: 1. Cardiac ortega stable. 2. No evidence of myocardial infarction. 3. Possible sepsis, being treated as such. 4. The patient is 82 years old and the patient h as a history of depression, PATIENT NAME: TERE CABRAL ACCOUNT #: [id number] seizure disorder. I agree with the present medications ordered by the primary care and I will continue to follow the patient cardiac ortega. Ech ocardiogram is not done yet. Once this is done, I will review them. Dictated By: Judith Howard MD Date Dictated: 06/20/2022 14:54:58 Date Transcribed: 06/20/2022 20:00:42 NAA/JAJA/AMBER Receipt ID: [id number] Authenticated by Todd Howard MD On 06/29 08:18:12 PM at 0818 PATIENT NAME: TERE CABRAL ACCOUNT #: [id number] 2022-06-20 [facility] 14:47:00-00:00 [facility] ([facility]) Wound Care Consultation Note REPORT#:[id number] REPORT STATUS: Signed DATE:06/20/22 TIME:1447 PATIENT: TERE CARBAL UNIT #: [id number] ROOM/BED: [place] [address] : 42 AGE: 82 SEX: F ATTEND: Norma Neely MD ADM AUTHOR: Patrick Cummins MD * ALL edits or amendments must be made on the [employer]/computer document * History of Present Illness Requesting Clinician: Kieran Neely MD Reason for consult: Wound Care HPI: Ms. Tere Cabral is an 82 year old lady wit h hx of hypertension, hypothyroidism, hyperlipidemia depressio n seizure disorder presented to the ER with complaints of chest pain. History Past History Past medical history: depression Past social history: disabled Medications: Current Hospital Medications: Anti-Infective Agents Sig/Daniel Start time Last Medication Dose Route Stop Time Status Admin Ceftriaxone Sodium 1,000 MG Q24H 06/19 2199 AC 06/19 (ROCEPHIN) IV 06/24 Sterile Water 10 ML (WATER FOR INJECTION) Piperacillin Sod/ 4.5 GM X1ED STA 06/19 1812 DC 06/19 Tazobactam Sod IV 06/19 190 1843 (ZOSYN) Sodium Chloride 100 ML (SODIUM CHLORIDE 0.9%) Vancomycin HCl 1,000 MG X1ED STA 06/19 1813 DC 06/19 (VANCOMYCIN HCL) IV 06/19 194 1844 Sodium Chloride 250 ML (0.9% Sodium Chloride) Blood Formation,Coagulation Sig/Daniel Start time Last Medication Dose Route Stop Time Status Admin Enoxaparin Sodium 40 MG Q24H 06/20 1015 CAN (lovENOX) SUBQ 07/04 1014 Enoxaparin Sodium 40 MG Q24H 06/19 2200 AC 05/31 1 (lovENOX) SUBQ 07/03 215 2228 Cardiovascular Drugs Sig/Daniel Start time Last Medication Dose Route Stop Time Status Admin Lisinopril 10 MG DAILY 06/21 0900 AC (ZESTRIL) PO 07/21 0859 Atorvastatin Calcium 40 MG BEDTIME 06/20 2100 A C (LIPITOR) PO 07/20 2058 Metoprolol Tartrate 25 MG Q12HR 06/20 1000 AC 0 06/20 (LOPRESSOR) PO 07/20 0959 1029 Hydralazine HCl 10 MG Q6H PRN PRN 06/19 220 AC (APRESOLINE) IV 07/19 215 Central Nervous System Agents Sig/Daniel Start time Last Medication Dose Route Stop Time Status Admin Duloxetine HCl 60 MG DAILY 06/21 0900 AC (CYMBALTA) PO 07/21 0859 Divalproex Sodium 125 MG Q12HR 06/20 2100 AC (DEPAKOTE SPRINKLE PO 07/20 2058 125MG CAP) Levetiracetam 1,000 MG Q12H 06/20 1030 AC 06/20 (KEPPRA) PO 07/20 1029 1209 Levetiracetam 1,000 MG Q12HR 06/20 1000 DC (KEPPRA) PO 07/20 0959 Aspirin 81 MG DAILY 06/20 0900 AC 06/20 (ECOTRIN) PO 07/20 0859 1029 Acetaminophen 650 MG Q4H PRN PRN 06/19 2200 AC (TYLENOL) PO 07/19 215 Diagnostic Agents Sig/Daniel Start time Last Medication Dose Route Stop Time Status Admin Iopamidol 100 ML ONCE PRN 06/20 1015 AC 06/20 (ISOVUE-370) IV 1107 Albumin Human 3 ML ONCE PRN 06/20 1000 AC (OPTISON) IV 06/23 2359 Electrolytic, Caloric, And Jazzmine Sig/Daniel Start time Last Medication Dose Route Stop Time Status Admin Hydrochlorothiazide 12.5 MG DAILY 06/21 0900 AC (HYDRODIURIL) PO 07/21 0859 Sodium Chloride 100 ML ONCE PRN 06/20 1015 DC 0 06/20 (SODIUM CHLORIDE IV 1108 0.9%) Sodium Chloride 500 ML X1ED STA 06/19 1811 DC 0 06/19 (0.9% Sodium IV 06/19 1910 1844 Chloride) Gastrointestinal Drugs Sig/Daniel Start time Last Medication Dose Route Stop Time Status Admin Famotidine 20 MG BID AC 06/20 0730 AC 06/20 (PEPCID) PO 07/20 0729 1029 Ondansetron HCl 4 MG Q4H PRN PRN 06/19 2200 AC (ZOFRAN) IV 07/19 2159 Hormones And Synthetic Substit Sig/Daniel Start time Last Medication Dose Route Stop Time Status Admin Levothyroxine Sodium 25 MCG DAILY@0600 06/21 06 00 AC (SYNTHROID) PO 07/21 0559 Allergies: Coded Allergies: No Known Allergies (06/19/22) Review of Systems Constitutional: Reports: generalized weakness. Cardiovascular: Reports: chest pain. Objective VS/I O: Last Documented: Result Date Time Pulse Ox 99 06/20 1200 B/P 122/70 06/20 1200 B/P Mean 91 06/20 1200 Pulse 80 06/20 1200 Resp 22 06/20 1200 Temp 97.9 06/20 0729 FiO2 36 06/20 0700 O2 Delivery Nasal cannula 06/20 0700 O2 Flow Rate 4 06/20 0700 24 hour I O ending at 0700: 06/20 0700 06/19 1900 Intake Total 300 Output Total Balance 300 Intake, Oral 300 Number 2 Incontinent Voids Patient 90.7 kg Weight Weight Bed scale Measurement Method General appearance: obese Head/Eyes: atraumatic Neck: no JVD Cardiovascular: no rub Respiratory: no distress Abdomen: protuberant Musculoskeletal: fair muscle tone Neuro/LOAD TEST MECHANIC: alert Skin: rash (petechia of right lower back) Psychiatry: anxious Wound Assessment Wound Assessment 1: Type/cause: pressure Wound location: heel (right) Tissue layers: limited to skin breakdown Site condition: no drainage, no ecchymosis, no erythema Stage of pressure ulcer: stage I Diagnosis, Assessment Plan Problem List/A P: 1. Pressure injury of right heel, stage [address] in heel pad 2. Dermatitis associated with moisture A P cleanse with soap and water and pad down dry apply antifungal cream (remedy red bottle) once per RN shift. 3. Obesity 4. Severe sepsis Electronically Signed by Patrick Cummins MD on at 1514 RPT #: [id number] END OF REPORT 2022-06-20 [facility] 09:58:00-00:00 [facility] ([facility]) Hospitalist History Physical REPORT#:[id number] REPORT STATUS: Signed DATE:06/20/22 TIME:957 PATIENT: TERE CABRAL UNIT #: [id number] ROOM/BED: [place] [address] : 42 AGE: 82 SEX: F ATTEND: Norma Neely MD ADM AUTHOR: Laurel Liriano CONCRETE HOPPER OPERATOR * ALL edits or amendments must be made on the [employer]/computer document * Laurel Liriano 06/20/22 0958: History of Present Illness HPI Chief complaint: CHEST PAIN PCP: PCP: Sawyer Vazquez MD HPI: Patient is an 82-year-old female past medical hi story of hypertension, hypothyroidism, hyperlipidemia depressio n seizure disorder presented to the ER with complaints of chest pain. Patient reports s he was at home started having chest pain which radiated to the left shoulder a nd called EMS for evaluation. Upon arrival to the hospital initially code STEM I was called but then later canceled after EKG reviewed. Currently patient i s stable was found to have leukocytosis and lactic acid greater than 3 cons istent with severe sepsis patient admitted for further evaluation of chest pain and also severe sepsis infection unknown. Currently patient is stable d enies any acute complaints concerns does report mild substernal chest pain. Patient admitted for evaluation of chest pain and severe sepsis History Past medical history: Reports: Hypertension, Dyslipidemia. Additional medical history: Hyperlipidemia, depression, seizure disorder Family history: Reports: Heart disease, Hypertension. Alcohol use: Denies EtOH use Drug use: Denies recreational drugs Smoking status for patients 13 years old or olde r: Never Smoker Medication/Allergy-Vaccine Hx Medications: Current Hospital Medications: Anti-Infective Agents Sig/Daniel Start time Last Medication Dose Route Stop Time Status Admin Ceftriaxone Sodium 1,000 MG Q24H 06/19 2200 AC 06/19 (ROCEPHIN) IV 06/24 Sterile Water 10 ML (WATER FOR INJECTION) Piperacillin Sod/ 4.5 GM X1ED STA 06/19 1812 DC 06/19 Tazobactam Sod IV 06/19 1899 1843 (ZOSYN) Sodium Chloride 100 ML (SODIUM CHLORIDE 0.9%) Vancomycin HCl 1,000 MG X1ED STA 06/19 1812 DC 06/19 (VANCOMYCIN HCL) IV 06/19 1941 184 Sodium Chloride 250 ML (0.9% Sodium Chloride) Blood Formation,Coagulation Sig/Daniel Start time Last Medication Dose Route Stop Time Status Admin Enoxaparin Sodium 40 MG Q24H 06/19 2199 AC 05/31 1 (lovENOX) SUBQ 07/03 2158 222 Cardiovascular Drugs Sig/Daniel Start time Last Medication Dose Route Stop Time Status Admin Lisinopril 10 MG DAILY 06/21 0900 UNV (ZESTRIL) PO 07/21 0859 Atorvastatin Calcium 40 MG BEDTIME 06/20 2100 U NV (LIPITOR) PO 07/20 2058 Metoprolol Tartrate 25 MG Q12HR 06/20 1000 UNVr (LOPRESSOR) PO 07/20 0959 Hydralazine HCl 10 MG Q6H PRN PRN 06/19 2199 AC (APRESOLINE) IV 07/19 215 Central Nervous System Agents Sig/Daniel Start time Last Medication Dose Route Stop Time Status Admin Duloxetine HCl 60 MG DAILY 06/21 0900 UNV (CYMBALTA) PO 07/21 0859 Divalproex Sodium 125 MG Q12HR 06/20 2100 UNV (DEPAKOTE SPRINKLE PO 07/20 2058 125MG CAP) Levetiracetam 1,000 MG Q12HR 06/20 1000 UNVr (KEPPRA) PO 07/20 0959 Aspirin 81 MG DAILY 06/20 0900 AC (ECOTRIN) PO 07/20 0859 Acetaminophen 650 MG Q4H PRN PRN 06/19 2199 AC (TYLENOL) PO 07/19 2158 Diagnostic Agents Sig/Daniel Start time Last Medication Dose Route Stop Time Status Admin Albumin Human 3 ML ONCE PRN 06/20 1000 UNV (OPTISON) IV 06/23 2358 Electrolytic, Caloric, And Jazzmine Sig/Daniel Start time Last Medication Dose Route Stop Time Status Admin Hydrochlorothiazide 12.5 MG DAILY 06/21 0900 UN V (HYDRODIURIL) PO 07/21 0859 Sodium Chloride 500 ML X1ED STA 06/19 181 DC 0 06/19 (0.9% Sodium IV 06/19 1909 1844 Chloride) Gastrointestinal Drugs Sig/Daniel Start time Last Medication Dose Route Stop Time Status Admin Famotidine 20 MG BID AC 06/20 0730 AC (PEPCID) PO 07/20 0729 Ondansetron HCl 4 MG Q4H PRN PRN 06/19 2199 AC (ZOFRAN) IV 07/19 215 Hormones And Synthetic Substit Sig/Daniel Start time Last Medication Dose Route Stop Time Status Admin Levothyroxine Sodium 25 MCG DAILY@0600 06/21 06 00 UNV (SYNTHROID) PO 07/21 0559 Allergies: Coded Allergies: No Known Allergies (06/19/22) Review of Systems Constitutional: Denies: chills, fatigue, fev er, generalized weakness, lethargy, malaise, recent wt loss, other. Skin: Denies: abrasion, bruising, contusion, diaphores is, ecchymosis, itching, laceration, rash, swelling, other. Allergy/Immun: Denies: allergic reaction, anaphylaxis, hives, i tching, rhinorrhea, sneezing, other. Eyes: Denies: redness, discharge, visual loss/blurred, itching, diplopia, eye pain, photophobia, swelling, other. ENT: Denies: ear drainage, ear ringing, earache, hear ing loss, mouth pain, nasal congestion, nose bleeding, sinus problem, sore t hroat, throat pain, throat swelling, tongue pain, tongue swelling, toothach e, voice change, other. Respiratory: Denies: ALVAREZ (dyspnea on exertion), hemoptysis, n on productive cough, parox nocturnal dyspnea, pleurisy, pleuritic pain, pneumonia, productive cough (sputum ), SOB, wheezing, other. Cardiovascular: chest pain. GI: Denies: abdominal pain, anorexia, constipation, diarrhea, dysphagia, GERD, hematemesis, hematochezia, h iatal hernia, melena, nausea, rectal pain, vomiting, other. : Denies: dysuria, flank pain, frequency, hematuri a, nocturia, pelvic pain, , previous pregnancies, urgency, urinary retention, vaginal bleeding, vaginal discharge, other. Musculoskeletal: Denies: arthritis, extremity pain, extremity swe lling, joint pain, joint swelling, lumbar pain, myalgias, neck pain, thor acic pain, other. Heme: Denies: adenopathy, bleeding, bruising, petechia e, other. Endocrine: Denies: cold intolerance, heat intolerance, poly dipsia, polyphagia, polyuria, weight gain, weight loss, other. Neuro: Denies: bladder dysfunction, bowel dysfunction, change in LOC, confusion, dizziness, focal weakness, gait problem, headach e, lightheaded, numbness, seizure, slurred speech, spinning sensation, syn cope, unable to speak, vision change, weakness, other. Psych: Denies: agitation, anxiety, auditory hallucinati on, change in mental status, confusion, delusional, depre ssion, homicidal ideation, hostile, insomnia, stress , suicidal ideation, visual hallucination, other . Objective General VS/I O: Vital Signs: Date Time Temp Pulse Resp B/P B/P Pulse O2 O2 F low FiO2 Mean Ox Delivery Rate 06/20 0801 104 28 123/72 93 97 06/20 0729 97.9 32 06/20 0701 108 28 134/94 107 97 06/20 0700 97 Nasal 4 36 cannula 06/20 0600 101 25 133/72 95 94 06/20 0500 104 24 137/95 111 93 06/20 0434 98 Nasal 3 32 cannula 06/20 0401 104 25 128/65 90 93 06/20 0400 98.8 06/20 0301 100 22 145/63 91 93 06/20 0101 99 26 124/54 77 93 06/20 0000 98.6 06/20 0000 97 26 122/62 87 92 06/19 2301 99 30 126/62 88 90 06/19 2200 101 22 108/63 79 91 06/19 2143 Nasal 2 cannula 06/190 98.2 06/195 98 21 111/63 82 91 06/19 2000 93 22 114/63 80 94 Nasal 3 cannula 06/19 1900 93/58 69 06/19 1830 127/67 87 04/21 1811 99.9 117 20 90/48 62 93 Room air 24 hour I O ending at 0700: 06/20 0700 06/19 1900 Intake Total 300 Output Total Balance 300 Intake, Oral 300 Number 2 Incontinent Voids Patient 90.7 kg Weight Weight Bed scale Measurement Method PATIENT WEIGHT: Weight (lb): Weight (oz): Weight (kg): 90.700 Medications: Active Meds + DC'd Last 24 Hrs Duloxetine HCl (CYMBALTA) 60 MG DAILY PO (UNV) Hydrochlorothiazide (HYDRODIURIL) 12.5 MG DAILY PO (UNV) Lisinopril (ZESTRIL) 10 MG DAILY PO (UNV) Levothyroxine Sodium (SYNTHROID) 25 MCG DAILY@06 00 PO (UNV) Atorvastatin Calcium (LIPITOR) 40 MG BEDTIME PO (UNV) Divalproex Sodium (DEPAKOTE SPRINKLE 125MG CAP) 125 MG Q12HR PO (UNV) Albumin Human (OPTISON) 3 ML ONCE PRN IV (UNV) Levetiracetam (KEPPRA) 1,000 MG Q12HR PO (UNVr) Metoprolol Tartrate (LOPRESSOR) 25 MG Q12HR PO ( UNVr) Aspirin (ECOTRIN) 81 MG DAILY PO Famotidine (PEPCID) 20 MG BID AC PO Acetaminophen (TYLENOL) 650 MG Q4H PRN PRN PO Ceftriaxone Sodium (ROCEPHIN) 1,000 MG Q24H IV Sterile Water (WATER FOR INJECTION) 10 ML Enoxaparin Sodium (lovENOX) 40 MG Q24H SUBQ Hydralazine HCl (APRESOLINE) 10 MG Q6H PRN PRN I V Ondansetron HCl (ZOFRAN) 4 MG Q4H PRN PRN IV Piperacillin Sod/Tazobactam Sod (ZOSYN) 4.5 GM X 1ED STA IV (DC) Sodium Chloride (SODIUM CHLORIDE 0.9%) 100 ML Vancomycin HCl (VANCOMYCIN HCL) 1,[address] A IV (DC) Sodium Chloride (0.9% Sodium Chloride) 250 ML Sodium Chloride (0.9% Sodium Chloride) 500 ML X1 ED STA IV (DC) Physical Exam General appearance: alert, awake Head/Eyes: atraumatic, clear cornea, EOMI, sanjuana l conjunctiva/sclera, normal eyelids/periorb., normocephalic, PERRL ENT: normal dentition, normal ear left, normal e ar right, normal nose, normal pharynx, normal sinus Neck: full range of motion, non-tender, normal thyroid, supple/no meningismus, no bruit/NL carotids, no JVD, no masses or swell ing Cardiovascular: tachycardic Respiratory: clear to auscultation, no distress Abdomen: non-tender, normal bowel sounds , soft, no distention, no guarding, no hernia, no mass/organomegaly, no rebound Extremities: moves all, normal capillary refill, normal range of motion, no edema Musculoskeletal: normal inspection Neuro/LOAD TEST MECHANIC: alert, oriented X 3 Results Findings/Data: Laboratory Tests 06/20 06/20 06/19 0500 0100 2240 Chemistry Sodium (134 - 147 mmol/L) 135 Potassium (3.4 - 5.0 mmol/L) 3.7 Chloride (100 - 108 mmol/L) 105 Carbon Dioxide (21 - 32 mmol/L) 26 Anion Gap (4.0 - 15.0 GAP calc) 4.0 BUN (7 - 18 MG/DL) 18 Creatinine (0.6 - 1.0 MG/DL) 0.8 Glomerular Filtr Rate (>60 estGFR) >=60 max est imate Glucose (70 - 110 MG/DL) 144 H Lactic Acid (0.4 - 2.0 mmol/L) 1.9 2.2 H Calcium (8.5 - 10.1 MG/DL) 8.3 L Triglycerides (0 - 150 MG/DL) 136 Cholesterol (133 - 200 MG/DL) 116 L LDL Cholesterol Measurd (0 - 129 MG/DL) 52 Non-HDL Cholesterol (<130 mg/dL) 69 HDL Cholesterol (40 - 59 MG/DL) 47 LDL/HDL Ratio (1.48 - 3.22 Avg Ratio) 1.10 L Cholesterol/HDL Ratio (0 RATIO) 2.47 06/19 1826 1826 Chemistry Sodium (134 - 147 mmol/L) 136 Potassium (3.4 - 5.0 mmol/L) 3.8 Chloride (100 - 108 mmol/L) 103 Carbon Dioxide (21 - 32 mmol/L) 26 Anion Gap (4.0 - 15.0 GAP calc) 7.0 BUN (7 - 18 MG/DL) 12 Creatinine (0.6 - 1.0 MG/DL) 0.8 Glomerular Filtr Rate (>60 estGFR) >=60 max est imate Glucose (70 - 110 MG/DL) 185 H Lactic Acid (0.4 - 2.0 mmol/L) 2.8 H 3.4 H Calcium (8.5 - 10.1 MG/DL) 8.8 Total Bilirubin (0.2 - 1.2 MG/DL) 0.40 Direct Bilirubin (0.00 - 0.30 MG/DL) 0.10 Indirect Bilirubin (0.2 - 1.2 MG/DL) 0.30 AST (15 - 37 Unit/L) 34 ALT (12 - 78 Unit/L) 37 Total Alk Phosphatase (45 - 117 Unit/L) 85 Troponin I High Sens (0 - 54 ng/L) 17.0 Total Protein (6.4 - 8.2 G/DL) 7.7 Albumin (3.4 - 5.0 G/DL) 3.1 L Lipase (114 - 286 Unit/L) 61 L Laboratory Tests 06/20 06/19 0500 1826 Hematology WBC (3.5 - 11.0 K/mm3) 17.9 H 22.3 H RBC (4.70 - 6.10 M/mm3) 4.76 5.40 Hgb (10.4 - 14.9 G/DL) 12.9 14.3 Hct (31.5 - 44.1 %) 41.0 45.1 H MCV (84.5 - 98.6 Fl) 86.1 83.5 L MCH (27.0 - 34.2 pg) 27.1 26.5 L MCHC (31.5 - 34.0 G/DL) 31.5 31.7 RDW (11.5 - 14.5 SD) 15.5 H 15.6 H Plt Count (150 - 450 K/mm3) 281 333 MPV (7.0 - 10.5 fL) 9.90 10.00 Neut % (Auto) (40 - 76 %) 56.6 69.2 Lymph % (Auto) (20.5 - 51.1 %) 10.6 L 7.3 L [place] % (Auto) (1.7 - 9.3 %) 17.8 H 14.5 H Eos % (Auto) (0.0 - 6.0 %) 13.9 H 7.6 H Baso % (Auto) (0.0 - 2.0 %) 0.3 0.4 Neut # (Auto) (1.8 - 7.6 K/mm3) 10.1 H 15.5 H Lymph # (Auto) (0.6 - 3.2 K/mm3) 1.9 1.6 [place] # (Auto) (0.3 - 1.1 K/mm3) 3.2 H 3.3 H Eos # (Auto) (0.0 - 0.4 K/mm3) 2.5 H 1.7 H Baso # (Auto) (0.0 - 0.1 K/mm3) 0.1 0.1 Abs Immat Gran (auto) (0.00 - 0.03 x10 3/uL) 0. 14 H 0.22 H Add Manual Diff (CRITERIA DIFF/SCN) NO NO Immature Gran % (0.0 - 5.0 %) 0.8 1.0 Nucleated RBC % (0.0 - 1.0 /100WBC%) 0.0 0.0 Radiology data: Recent Impressions: RADIOLOGY - XR CHEST 1 V 06/19 183 Report Impression - Status: SIGNED Entered: 06/19/2022 185 IMPRESSION: Coarsened interstitial change with mild basilar atelectasis. Impression By: [email or web address] - Eric Alfaro M.D. Diagnosis, Assessment Plan Free Text DxA P Notes Free Text DxA P Notes: Patient is an 82-year-old female presented to [facility] with complaints of chest pain Atypical chest pain Continue to trend troponins x3 Cardiology evaluation Echocardiogram ordered We will get CT chest to rule out PE Aspirin, statin and beta-blo cker ordered patient is tachycardic likely reason of chest pain secondary to palpitations Severe sepsis Lactic acid greater than 3 sepsis protocol initi ated in the ED Source of infection unknown at this time blood c ultures ordered x2 pending UA still pending receipt discussed with RN to bonita hays UA sample Continue with IV Rocephin at this time suspect p atient likely has a UTI Hypothyroidism Resume home medication Synthroid Seizure Continue Keppra Depression Anxiety disorder Continue Cymbalta and Depakote DVT PPx//Lovenox Dispo: Pending clinical course cardiology evalua tion continue with IV antibiotics repeat labs in a.m. echocardiogram o rdered Quality: Gen Med Crit Care VTE Prophylaxis VTE prophylaxis initiated: yes (Lovenox) Current Medications Current medication review: I attest that the foregoing medication list in t he medical record is true, accurate, and complete to the best of my knowled ge. Advanced Care Plan 65 or Older Discussed with: patient Discussion included: power of pourer off, nelly lang turaheem (full code) Kieran Neely 06/20/22 1734: Attestations Physician Attestation Agree w/findings plan: Agree with the findings and plan as documented raymond quijano Ms. Heri Electronically Signed by Laurel Liriano NP 06/20/22 at 1004 Electronically Signed by Kieran Neely MD on at 1734 RPT #: [id number] END OF REPORT 2022-06-19 [facility] 18:18:00-00:00 [facility] ([facility]) EMERGENCY PROVIDER REPORT REPORT#:[id number] REPORT STATUS: Signed DATE:06/19/22 TIME:1817 PATIENT: TERE CABRAL UNIT #: [id number] ROOM/BED: [place] [address] : 42 AGE: 82 SEX: F PCP PHYS: Sawyer Vazquez MD SERVICE AUTHOR: Pablo Vasques DO * ALL edits or amendments must be made on the [employer]/computer document * HPI-Chest Pain 40 and Over General Confirmed Patient Yes Initial Greet Date/Time 06/19/221810 Presentation Chief Complaint Chest pain Hx Obtained From Patient, EMS Sudden in Onset? No Onset Occurred Hours ago Symptom Duration Since onset Progression since Onset Unchanged Context of Onset At rest Location Substernal, Chest R, Chest L Quality Painful Radiation Does not radiate. )( Migration/Movement None Severity: Onset Moderate Severity: Current Mild Associated with Reports: Shortness of Breath . Denies: Cough, non-productive, Cough, productive, Cough, with hemoptysis, Diaphoresis, Dizziness, Fatigue, Fever, Lightheaded, Nausea, Near-syncope, Numbness/Tingling, Palpita tions, Recent viral symptoms, Syncope, Vomiting, Weakness, Wheezing. Exacerbated by Nothing Relieved by Nothing Free Text HPI Notes Free Text HPI Notes Patient given 324 mg of aspirin, 2 oral nitrogly cerin and Nitropaste prior to arrival via EMS. Nitropaste was removed and alexsander millan was given 4 mg Zofran due to hypotension and nausea after these interventi ons. EMS called a code STEMI prior to arrival. Code STEMI was initiated at the time of this call. Dr. Marshall and [employer] team present at bedside upon tamera galloway's arrival. Repeat EKG performed at time. No STEMI. Code STEMI canceled . Patient tachycardic. Code sepsis initiated. Risk-Chest Pain 40 and Over Risk Stratification )( Coronary Artery Disease Risk factors reviewed )( Thoracic Aortic Dissection Risk factors revie wed )( Pulmonary Embolism Risk factors reviewed )( AMI-Aspirin Aspirin Last 24 Hrs 324 mg, By EMS )( HEART for MACE )( HEART for MACE Response Value History Mod index of suspicion 1 ECG Interpretation Normal ECG 0 Age Age 65 or over 2 Risk Factors for CAD 3+ CAD risk factors 2 Troponin < or = to NL troponin 0 Total 5 HEART Score for MACE 4-7 (mod risk 12%-16.6%) Review of Systems ROS Statements Complete sys rev neg except as marked. Focused Review of Systems Constitutional Denies: Chills, Fever, Lethargy. Respiratory Denies: Cough, non-productive, Cough, productive , Shortness of breath. Cardiovascular Reports: Chest pain. GI Denies: Abdominal pain, Diarrhea, Nausea, Vomiti ng. Musculoskeletal Denies: Back pain, Extremity pain. Skin Denies: Diaphoresis, Rash. Neurologic Denies: Change LOC, Dizziness, Focal weakness, H eadache, Numbness, Slurred speech. Psychiatric Denies: Anxiety, Depression. Past Medical History - Adult Stated Complaint CHEST PAIN Allergies Coded Allergies: No Known Allergies (06/19/22) Past Medical History: Reports: Hypertension, Dyslipidemia. Physical Exam Vital Signs Vital Signs First Documented: Result Date Time Pulse Ox 93 06/19 1810 B/P 90/48 06/19 1810 B/P Mean 62 06/19 1810 O2 Delivery Room air 06/19 1810 Temp 99.9 06/19 1810 Pulse 117 06/19 1810 Resp 20 06/19 1810 Last Documented: Result Date Time B/P 93/58 06/19 1899 B/P Mean 69 06/19 1899 Pulse Ox 93 06/19 1810 O2 Delivery Room air 06/19 1810 Temp 99.9 06/19 1810 Pulse 117 06/19 1810 Resp 20 06/19 1810 Review of Vital Signs Reviewed Focused PE General/Const General/Const Awake, Alert Eyes Eyes PERRL MS Neck Neck Supple, Full range of motion, No s welling, Non-tender, No masses, No JVD Resp/Chest Respiratory/Chest Breath sounds NL, Breath soun ds = bilat, No respiratory distress, No rales, No rhonchi, No wheezing, No chest tenderness Cardiovascular Cardiovascular Regular rhythm, Heart sounds NL, No murmurs, Peripheral circulation NL, Pulses = bilaterally, No gross B P differential Heart Rate/Rhythm Tachycardia. Abdomen/GI Abdomen/GI Soft, Non-tender, No guarding, No re bound MS Back Back Inspection NL, Non-tender, No CVA tenderne ss MS Lower Extrem Lower Ext/Pelvis/MS No swelling, Non-tender, No erythema, Neurologic intact, Vascular intact, No edema Text/Dict Notes Right lower extremity contracture. Both lower ex tremities in compression devices. Skin Skin Color NL, Warm, Dry, Turgor NL Neurologic Neurologic Oriented X3, Speech NL Text/Dict Notes Nonambulatory. Lower extremity weakness chronic. No acute focal neurodeficits. Additional PE MS Head Head Atraumatic, Normocephalic MS Upper Extrem Upper Extremity/MS Atraumatic, Inspection NL Interpretation Diagnostics Lab Results Interpretation Results Laboratory Tests 06/19/221825: [Embedded Image Not Available] Laboratory Tests: 06/19 Chemistry Sodium (134 - 147 mmol/L) 136 Potassium (3.4 - 5.0 mmol/L) 3.8 Chloride (100 - 108 mmol/L) 103 Carbon Dioxide (21 - 32 mmol/L) 26 Anion Gap (4.0 - 15.0 GAP calc) 7.0 BUN (7 - 18 MG/DL) 12 Creatinine (0.6 - 1.0 MG/DL) 0.8 Glomerular Filtr Rate (>60 estGFR) >=60 max est imate Glucose (70 - 110 MG/DL) 185 H Lactic Acid (0.4 - 2.0 mmol/L) 3.4 H Calcium (8.5 - 10.1 MG/DL) 8.8 Total Bilirubin (0.2 - 1.2 MG/DL) 0.40 Direct Bilirubin (0.00 - 0.30 MG/DL) 0.10 Indirect Bilirubin (0.2 - 1.2 MG/DL) 0.30 AST (15 - 37 Unit/L) 34 ALT (12 - 78 Unit/L) 37 Total Alk Phosphatase (45 - 117 Unit/L) 85 Troponin I High Sens (0 - 54 ng/L) 17.0 Total Protein (6.4 - 8.2 G/DL) 7.7 Albumin (3.4 - 5.0 G/DL) 3.1 L Lipase (114 - 286 Unit/L) 61 L Hematology WBC (3.5 - 11.0 K/mm3) 22.3 H RBC (4.70 - 6.10 M/mm3) 5.40 Hgb (10.4 - 14.9 G/DL) 14.3 Hct (31.5 - 44.1 %) 45.1 H MCV (84.5 - 98.6 Fl) 83.5 L MCH (27.0 - 34.2 pg) 26.5 L MCHC (31.5 - 34.0 G/DL) 31.7 RDW (11.5 - 14.5 SD) 15.6 H Plt Count (150 - 450 K/mm3) 333 MPV (7.0 - 10.5 fL) 10.00 Neut % (Auto) (40 - 76 %) 69.2 Lymph % (Auto) (20.5 - 51.1 %) 7.3 L [place] % (Auto) (1.7 - 9.3 %) 14.5 H Eos % (Auto) (0.0 - 6.0 %) 7.6 H Baso % (Auto) (0.0 - 2.0 %) 0.4 Neut # (Auto) (1.8 - 7.6 K/mm3) 15.5 H Lymph # (Auto) (0.6 - 3.2 K/mm3) 1.6 [place] # (Auto) (0.3 - 1.1 K/mm3) 3.3 H Eos # (Auto) (0.0 - 0.4 K/mm3) 1.7 H Baso # (Auto) (0.0 - 0.1 K/mm3) 0.1 Abs Immat Gran (auto) (0.00 - 0.03 x10 3/uL) 0. 22 H Add Manual Diff (CRITERIA DIFF/SCN) NO Immature Gran % (0.0 - 5.0 %) 1.0 Nucleated RBC % (0.0 - 1.0 /100WBC%) 0.0 Microbiology: Date/Time Procedure - Status Source Growth 06/19 1825 Blood Culture - RECD BLOOD 06/20 1815 Blood Culture - RECD BLOOD 06/19 0845 MRSA Screen - RECD NASAL Recent Impressions: RADIOLOGY - XR CHEST 1 V 06/19 1829 Report Impression - Status: SIGNED Entered: 06/19/20221851 IMPRESSION: Coarsened interstitial change with mild basilar atelectasis. Impression By: [email or web address] - Eric Alfaro M.D. ECG #1 Interpretation Text/Dict Note Sinus tachycardia Rate 118 Left axis No acute ST segment or T wave changes No heart blocks Date 06/19/22 Time 1809 Interpreted by and reviewed by me, Independently interpreted, ED physician (Dr. Vasques) Re-Evaluation MDM Free Text MDM Notes Additional Text Patient meets criteria for severe sepsis defined as: Known or suspected infection, 2 or more signs of SIRS, and organ dysfunction. Organ dysfunction criteria -Lactic acid 2.1-3.9 -Creatinine > 2.0 -Total bilirubin > 2.0 -Urine output < 0.5 mL/kg/hr -Platelets <100,000, PTT > 60 seconds or INR > 1 .5 -Initial hypotension; SBP < 90 MAP < 65 -Altered mental status -Need for oxygen, ventilation, CPAP, or BiPAP (a cute need) Assessment: Severe sepsis secondary to bacteremi a Organ dysfunction: Lactic acidosis Time of diagnosis: 1812 Plan: -Code sepsis has been initiated. -Lab and cultures have been ordered with repeat lactic acid q2 hrs until < 2 -Patient being treated with Zosyn and vancomycin First dose was given within first hour - IVF 500 mL normal saline If lactic acid comes back >4 and/or patient progresses to septic shock, will get 30 mL/kg IV fluid required Re-Evaluation/Progress #1 Text/Dict Note Blood pressure stable. No additional complaints. Time of Re-Eval 1829 ED Course Medication(s) Ordered Medication(s) Ordered: Anti-Infective Agents Sig/Daniel Start time Last Medication Dose Route Stop Time Status Admin Piperacillin Sod/ 4.5 GM X1ED STA 06/19 1813 DC 06/19 Tazobactam Sod IV 06/19 1899 184 Sodium Chloride 100 ML Vancomycin HCl 1,000 MG X1ED STA 06/19 1813 DC 06/19 Sodium Chloride 250 ML IV 06/19 1941 1844 Electrolytic, Caloric, And Jazzmine Sig/Daniel Start time Last Medication Dose Route Stop Time Status Admin Sodium Chloride 500 ML X1ED STA 06/19 1811 DC 0 06/19 IV 06/19 1909 1844 MDM-Complexity Differential Diagnosis Pneumonia, UTI, bacteremia, dehydration, dysrhyt hmia, electrolyte abnormality Ruled Out Diagnoses STEMI, NSTEMI, renal failure, electrolyte abnorm ality Severity/Chronicity Evaluation Acute Serious Patient Discharge Departure Vital Signs/Condition Vital Signs First Documented: Result Date Time Pulse Ox 93 06/19 1810 B/P 90/48 06/19 1810 B/P Mean 62 06/19 1810 O2 Delivery Room air 06/19 1810 Temp 99.9 06/19 1810 Pulse 117 06/19 181 Resp 20 06/19 1810 Last Documented: Result Date Time B/P 93/58 06/19 1899 B/P Mean 69 06/19 190 Pulse Ox 93 06/19 1810 O2 Delivery Room air 06/19 1810 Temp 99.9 06/19 1810 Pulse 117 06/19 1810 Resp 06/19 All vital signs available at the time of this en try have been reviewed. Clinical Impression Clinical Impression Primary Impression: Severe sepsis Disposition Decision Admit Admit Physician Name Kieran Neely MD Admit Physician Hospitalist Request Time 1913 Request Date 06/19/22 )( Admission Accepts Yes )( Accepted Time 1913 )( Accepted Date 06/19/22 Call Information will see patient, agrees with eval, agrees with plan Discharge/Care Plan Counseled Regarding Diagnosi s, Lab results, Imaging studies, Need for admission Critical Care Time Spent (minutes): 35 Services Performed Patient management by William almaguer spent at bedside, Reviewing test results, Reviewing imaging, Discussing alexsander ent care, Documentation in record, Time with fam/surrogate Separately billable procedures excluded from william younger. Electronically Signed by Pablo Vasques DO on at 1120 RPT #: [id number] END OF REPORT 2015-04-08 EXAM: CT BRAIN WITHOUT CONTRAST [facility] 11:57:10-00:00 DATE: 04/08/2015 at 1151 hours C enter INDICATION: Acute cognitive change COMPARISON: CT of the brain dated 04/07/2015 TECHNIQUE: Routine axial CT images of the brain were obtained IV contrast: None. DLP: 1073 mGy-cm FINDINGS: Non-contrast images of the h ead demonstrate no edema, hemorrhage, mass lesion or other acute intracranial abnormality. The brain has normal attenua tion and mcneill-white matter distinction. Sulci and gyri are prominent. There is mild ex vacuo dilatation of the lateral ventricles. Periventricular white matter demonstrates d ecreased attenuation indicating microvascular is chemic change. Unchanged right frontal soft tissue hematoma. The paranasal sinuses, orbits and mastoids are u nremarkable. IMPRESSION: 1. No acute interval change. 2. Age-appropriate cortical atrophy and chronic microvascular white matter ischemic changes. 3. Stable right frontal soft tissue hematoma. 2015-04-08 EXAM: CT BRAIN WITHOUT CONTRAST [facility] 11:57:10-00:00 DATE: 04/08/2015 at 1151 hours C enter INDICATION: Acute cognitive change COMPARISON: CT of the brain dated 04/07/2015 TECHNIQUE: Routine axial CT images of the brain were obtained IV contrast: None. DLP: 1073 mGy-cm FINDINGS: Non-contrast images of the h ead demonstrate no edema, hemorrhage, mass lesion or other acute intracranial abnormality. The brain has normal attenua tion and mcneill-white matter distinction. Sulci and gyri are prominent. There is mild ex vacuo dilatation of the lateral ventricles. Periventricular white matter demonstrates d ecreased attenuation indicating microvascular is chemic change. Unchanged right frontal soft tissue hematoma. The paranasal sinuses, orbits and mastoids are u nremarkable. IMPRESSION: 1. No acute interval change. 2. Age-appropriate cortical atrophy and chronic microvascular white matter ischemic changes. 3. Stable right frontal soft tissue hematoma. 2015-04-08 EXAM: CT BRAIN WITHOUT CONTRAST [facility] 11:57:10-00:00 DATE: 04/08/2015 at 1151 hours C enter INDICATION: Acute cognitive change COMPARISON: CT of the brain dated 04/07/2015 TECHNIQUE: Routine axial CT images of the brain were obtained IV contrast: None. DLP: 1073 mGy-cm FINDINGS: Non-contrast images of the h ead demonstrate no edema, hemorrhage, mass lesion or other acute intracranial abnormality. The brain has normal attenua tion and mcneill-white matter distinction. Sulci and gyri are prominent. There is mild ex vacuo dilatation of the lateral ventricles. Periventricular white matter demonstrates d ecreased attenuation indicating microvascular is chemic change. Unchanged right frontal soft tissue hematoma. The paranasal sinuses, orbits and mastoids are u nremarkable. IMPRESSION: 1. No acute interval change. 2. Age-appropriate cortical atrophy and chronic microvascular white matter ischemic changes. 3. Stable right frontal soft tissue hematoma. 2015-04-08 EXAM: CT BRAIN WITHOUT CONTRAST [facility] 11:57:10-00:00 DATE: 04/08/2015 at 1151 hours C enter INDICATION: Acute cognitive change COMPARISON: CT of the brain dated 04/07/2015 TECHNIQUE: Routine axial CT images of the brain were obtained IV contrast: None. DLP: 1073 mGy-cm FINDINGS: Non-contrast images of the h ead demonstrate no edema, hemorrhage, mass lesion or other acute intracranial abnormality. The brain has normal attenua tion and mcneill-white matter distinction. Sulci and gyri are prominent. There is mild ex vacuo dilatation of the lateral ventricles. Periventricular white matter demonstrates d ecreased attenuation indicating microvascular is chemic change. Unchanged right frontal soft tissue hematoma. The paranasal sinuses, orbits and mastoids are u nremarkable. IMPRESSION: 1. No acute interval change. 2. Age-appropriate cortical atrophy and chronic microvascular white matter ischemic changes. 3. Stable right frontal soft tissue hematoma. 2015-04-08 EXAM: CT BRAIN WITHOUT CONTRAST [facility] 11:57:10-00:00 DATE: 04/08/2015 at 1151 hours C enter INDICATION: Acute cognitive change COMPARISON: CT of the brain dated 04/07/2015 TECHNIQUE: Routine axial CT images of the brain were obtained IV contrast: None. DLP: 1073 mGy-cm FINDINGS: Non-contrast images of the h ead demonstrate no edema, hemorrhage, mass lesion or other acute intracranial abnormality. The brain has normal attenua tion and mcneill-white matter distinction. Sulci and gyri are prominent. There is mild ex vacuo dilatation of the lateral ventricles. Periventricular white matter demonstrates d ecreased attenuation indicating microvascular is chemic change. Unchanged right frontal soft tissue hematoma. The paranasal sinuses, orbits and mastoids are u nremarkable. IMPRESSION: 1. No acute interval change. 2. Age-appropriate cortical atrophy and chronic microvascular white matter ischemic changes. 3. Stable right frontal soft tissue hematoma. 2015-04-08 EXAM: CT BRAIN WITHOUT CONTRAST [facility] 11:57:10-00:00 DATE: 04/08/2015 at 1151 hours C enter INDICATION: Acute cognitive change COMPARISON: CT of the brain dated 04/07/2015 TECHNIQUE: Routine axial CT images of the brain were obtained IV contrast: None. DLP: 1073 mGy-cm FINDINGS: Non-contrast images of the h ead demonstrate no edema, hemorrhage, mass lesion or other acute intracranial abnormality. The brain has normal attenua tion and mcneill-white matter distinction. Sulci and gyri are prominent. There is mild ex vacuo dilatation of the lateral ventricles. Periventricular white matter demonstrates d ecreased attenuation indicating microvascular is chemic change. Unchanged right frontal soft tissue hematoma. The paranasal sinuses, orbits and mastoids are u nremarkable. IMPRESSION: 1. No acute interval change. 2. Age-appropriate cortical atrophy and chronic microvascular white matter ischemic changes. 3. Stable right frontal soft tissue hematoma. 2015-04-08 EXAM: CT BRAIN WITHOUT CONTRAST [facility] 11:57:10-00:00 DATE: 04/08/2015 at 1151 hours C enter INDICATION: Acute cognitive change COMPARISON: CT of the brain dated 04/07/2015 TECHNIQUE: Routine axial CT images of the brain were obtained IV contrast: None. DLP: 1073 mGy-cm FINDINGS: Non-contrast images of the h ead demonstrate no edema, hemorrhage, mass lesion or other acute intracranial abnormality. The brain has normal attenua tion and mcneill-white matter distinction. Sulci and gyri are prominent. There is mild ex vacuo dilatation of the lateral ventricles. Periventricular white matter demonstrates d ecreased attenuation indicating microvascular is chemic change. Unchanged right frontal soft tissue hematoma. The paranasal sinuses, orbits and mastoids are u nremarkable. IMPRESSION: 1. No acute interval change. 2. Age-appropriate cortical atrophy and chronic microvascular white matter ischemic changes. 3. Stable right frontal soft tissue hematoma. 2015-04-08 EXAM: CT BRAIN WITHOUT CONTRAST [facility] 11:57:10-00:00 DATE: 04/08/2015 at 1151 hours C enter INDICATION: Acute cognitive change COMPARISON: CT of the brain dated 04/07/2015 TECHNIQUE: Routine axial CT images of the brain were obtained IV contrast: None. DLP: 1073 mGy-cm FINDINGS: Non-contrast images of the h ead demonstrate no edema, hemorrhage, mass lesion or other acute intracranial abnormality. The brain has normal attenua tion and mcneill-white matter distinction. Sulci and gyri are prominent. There is mild ex vacuo dilatation of the lateral ventricles. Periventricular white matter demonstrates d ecreased attenuation indicating microvascular is chemic change. Unchanged right frontal soft tissue hematoma. The paranasal sinuses, orbits and mastoids are u nremarkable. IMPRESSION: 1. No acute interval change. 2. Age-appropriate cortical atrophy and chronic microvascular white matter ischemic changes. 3. Stable right frontal soft tissue hematoma. 2015-04-08 EXAM: CT BRAIN WITHOUT CONTRAST [facility] 11:57:10-00:00 DATE: 04/08/2015 at 1151 hours C enter INDICATION: Acute cognitive change COMPARISON: CT of the brain dated 04/07/2015 TECHNIQUE: Routine axial CT images of the brain were obtained IV contrast: None. DLP: 1073 mGy-cm FINDINGS: Non-contrast images of the h ead demonstrate no edema, hemorrhage, mass lesion or other acute intracranial abnormality. The brain has normal attenua tion and mcneill-white matter distinction. Sulci and gyri are prominent. There is mild ex vacuo dilatation of the lateral ventricles. Periventricular white matter demonstrates d ecreased attenuation indicating microvascular is chemic change. Unchanged right frontal soft tissue hematoma. The paranasal sinuses, orbits and mastoids are u nremarkable. IMPRESSION: 1. No acute interval change. 2. Age-appropriate cortical atrophy and chronic microvascular white matter ischemic changes. 3. Stable right frontal soft tissue hematoma. 2015-04-08 EXAM: CT BRAIN WITHOUT CONTRAST [facility] 11:57:10-00:00 DATE: 04/08/2015 at 1151 hours C enter INDICATION: Acute cognitive change COMPARISON: CT of the brain dated 04/07/2015 TECHNIQUE: Routine axial CT images of the brain were obtained IV contrast: None. DLP: 1073 mGy-cm FINDINGS: Non-contrast images of the h ead demonstrate no edema, hemorrhage, mass lesion or other acute intracranial abnormality. The brain has normal attenua tion and mcneill-white matter distinction. Sulci and gyri are prominent. There is mild ex vacuo dilatation of the lateral ventricles. Periventricular white matter demonstrates d ecreased attenuation indicating microvascular is chemic change. Unchanged right frontal soft tissue hematoma. The paranasal sinuses, orbits and mastoids are u nremarkable. IMPRESSION: 1. No acute interval change. 2. Age-appropriate cortical atrophy and chronic microvascular white matter ischemic changes. 3. Stable right frontal soft tissue hematoma. 2015-04-07 EXAM: CT BRAIN WITHOUT CONTRAST [facility] 12:28:00-:00 DATE: 04/07/2015 12:36 PM [facility] INDICATION: Acute cognitive change after trauma COMPARISON: None TECHNIQUE: Routine axial nati ges of the brain were obtained using a conventional ct scanner. No reformats. IV contrast: None. FINDINGS: Non-contrast images of the h ead demonstrate no edema, hemorrhage, mass lesion or other acute intracranial abnormality. There is no radiographic evidence of increased intracranial pressure. A degree of cerebral volume loss is present. Confluent diminished attenuation is present in the periventricular white matter indicative of microvascular ischemic change. A remote ischemic lesion is also present in the anterior aspect of the external capsule on the left. There is scalp soft tissue s welling in the right frontal and anterior frontal region where a subgaleal hematoma is present region, without underlying fracture. There is no fracture of the remainder of the skull, skull base, or visible facial bones. IMPRESSION: Superficial inju ismael. No intracranial hemorrhage. Cerebral atrophy. Chronic microvascular ischemic changes of the white matter.. Resident PRELIMINARY REPORT: Date: Apr 07, 2015 13:30:16 S ubject: Large frontal hematoma 3.7 x 1.0 cm without underlying calvarial fx No Intracranial hemorrhage Extensive age-related cortical atrophy volume loss and microangiopathic ischemic change 2015-04-07 EXAM: CT FACIAL BONES WITHOUT CONTRAST [facility] 12:28:00-00:00 DATE: 04/07/2015 12:13 PM [facility] INDICATION: Pain, Trauma COMPARISON: None TECHNIQUE: Volumetric CT acq uisition of the facial bones without contrast. Axial, coronal and sagittal reconstructions. DISCUSSION: Bones: No fracture or other acute bony abnormality is identified. The mandible is intact, and the temporomandibular joints are well-aligned. The paranasal sinuses and ma stoid air cells are clear. Incidental note is made of communication between the right maxillary and ethmoidal air cells. Soft tissues: No abnormality of the globes is seen. There is no intraconal hematoma. No soft tissue abnormality or radiopaque foreign body is identified. IMPRESSION: 1. No acute abnormality of the facial bones iden tified. 2. Incidental note of commun ication between the right maxillary and ethmoidal air cells, likely related to old surgical change; please correlate with history. 2015-04-07 EXAM: CT CERVICAL SPINE WITHOUT CONTRAST [facility] 12:28:-: DATE: 04/07/2015 12:14 PM [facility] INDICATION: Pain, Trauma COMPARISON: None TECHNIQUE: Volumetric CT acq uisition of the cervical spine without contrast. Axial, sagittal and coronal reconstructions. DISCUSSION: The spine is nati ged from the skull base to the level of T2. There is exaggerated cervical lordosis. No acute fracture or malalig nment is identified. Diffuse osteopenia is present. In addition, there are multilevel degenerative changes, as evidenced by anterior osteophyte formation at C5-C6 and disc sp yolanda narrowing C4-C7. No soft tissue abnormality is identified. IMPRESSION: 1. No acute abnormality of the cervical spine. 2. Diffuse osteopenia. Multi level degenerative changes as above, worse at the level of C5-C7. 2015-04-07 EXAM: CT BRAIN WITHOUT CONTRAST [facility] 12::-: DATE: 04/07/2015 12:36 PM [facility] INDICATION: Acute cognitive change after trauma COMPARISON: None TECHNIQUE: Routine axial nati ges of the brain were obtained using a conventional ct scanner. No reformats. IV contrast: None. FINDINGS: Non-contrast images of the h ead demonstrate no edema, hemorrhage, mass lesion or other acute intracranial abnormality. There is no radiographic evidence of increased intracranial pressure. A degree of cerebral volume loss is present. Confluent diminished attenuation is present in the periventricular white matter indicative of microvascular ischemic change. A remote ischemic lesion is also present in the anterior aspect of the external capsule on the left. There is scalp soft tissue s welling in the right frontal and anterior frontal region where a subgaleal hematoma is present region, without underlying fracture. There is no fracture of the remainder of the skull, skull base, or visible facial bones. IMPRESSION: Superficial inju ismael. No intracranial hemorrhage. Cerebral atrophy. Chronic microvascular ischemic changes of the white matter.. Resident PRELIMINARY REPORT: Date: Apr 07, 2015 13:30:16 S ubject: Large frontal hematoma 3.7 x 1.0 cm without underlying calvarial fx No Intracranial hemorrhage Extensive age-related cortical atrophy volume loss and microangiopathic ischemic change 2015-04-07 EXAM: CT FACIAL BONES WITHOUT CONTRAST [facility] 12:28:00-: DATE: 04/07/2015 12:13 PM [facility] INDICATION: Pain, Trauma COMPARISON: None TECHNIQUE: Volumetric CT acq uisition of the facial bones without contrast. Axial, coronal and sagittal reconstructions. DISCUSSION: Bones: No fracture or other acute bony abnormality is identified. The mandible is intact, and the temporomandibular joints are well-aligned. The paranasal sinuses and ma stoid air cells are clear. Incidental note is made of communication between the right maxillary and ethmoidal air cells. Soft tissues: No abnormality of the globes is seen. There is no intraconal hematoma. No soft tissue abnormality or radiopaque foreign body is identified. IMPRESSION: 1. No acute abnormality of the facial bones iden tified. 2. Incidental note of commun ication between the right maxillary and ethmoidal air cells, likely related to old surgical change; please correlate with history. 2015-04-07 EXAM: CT CERVICAL SPINE WITHOUT CONTRAST [facility] 12:28:-:00 DATE: 04/07/2015 12:14 PM [facility] INDICATION: Pain, Trauma COMPARISON: None TECHNIQUE: Volumetric CT acq uisition of the cervical spine without contrast. Axial, sagittal and coronal reconstructions. DISCUSSION: The spine is nati ged from the skull base to the level of T2. There is exaggerated cervical lordosis. No acute fracture or malalig nment is identified. Diffuse osteopenia is present. In addition, there are multilevel degenerative changes, as evidenced by anterior osteophyte formation at C5-C6 and disc sp yolanda narrowing C4-C7. No soft tissue abnormality is identified. IMPRESSION: 1. No acute abnormality of the cervical spine. 2. Diffuse osteopenia. Multi level degenerative changes as above, worse at the level of C5-C7. 2015-04-07 EXAM: CT BRAIN WITHOUT CONTRAST [facility] 12:28:00-00:00 DATE: 04/07/2015 12:36 PM [facility] INDICATION: Acute cognitive change after trauma COMPARISON: None TECHNIQUE: Routine axial nati ges of the brain were obtained using a conventional ct scanner. No reformats. IV contrast: None. FINDINGS: Non-contrast images of the h ead demonstrate no edema, hemorrhage, mass lesion or other acute intracranial abnormality. There is no radiographic evidence of increased intracranial pressure. A degree of cerebral volume loss is present. Confluent diminished attenuation is present in the periventricular white matter indicative of microvascular ischemic change. A remote ischemic lesion is also present in the anterior aspect of the external capsule on the left. There is scalp soft tissue s welling in the right frontal and anterior frontal region where a subgaleal hematoma is present region, without underlying fracture. There is no fracture of the remainder of the skull, skull base, or visible facial bones. IMPRESSION: Superficial inju ismael. No intracranial hemorrhage. Cerebral atrophy. Chronic microvascular ischemic changes of the white matter.. Resident PRELIMINARY REPORT: Date: Apr 07, 2015 13:30:16 S ubject: Large frontal hematoma 3.7 x 1.0 cm without underlying calvarial fx No Intracranial hemorrhage Extensive age-related cortical atrophy volume loss and microangiopathic ischemic change 2015-04-07 EXAM: CT FACIAL BONES WITHOUT CONTRAST [facility] 12:28:00-00:00 DATE: 04/07/2015 12:13 PM [facility] INDICATION: Pain, Trauma COMPARISON: None TECHNIQUE: Volumetric CT acq uisition of the facial bones without contrast. Axial, coronal and sagittal reconstructions. DISCUSSION: Bones: No fracture or other acute bony abnormality is identified. The mandible is intact, and the temporomandibular joints are well-aligned. The paranasal sinuses and ma stoid air cells are clear. Incidental note is made of communication between the right maxillary and ethmoidal air cells. Soft tissues: No abnormality of the globes is seen. There is no intraconal hematoma. No soft tissue abnormality or radiopaque foreign body is identified. IMPRESSION: 1. No acute abnormality of the facial bones iden tified. 2. Incidental note of commun ication between the right maxillary and ethmoidal air cells, likely related to old surgical change; please correlate with history. 2015-04-07 EXAM: CT CERVICAL SPINE WITHOUT CONTRAST [facility] 12:28:00-:00 DATE: 04/07/2015 12:14 PM [facility] INDICATION: Pain, Trauma COMPARISON: None TECHNIQUE: Volumetric CT acq uisition of the cervical spine without contrast. Axial, sagittal and coronal reconstructions. DISCUSSION: The spine is nati ged from the skull base to the level of T2. There is exaggerated cervical lordosis. No acute fracture or malalig nment is identified. Diffuse osteopenia is present. In addition, there are multilevel degenerative changes, as evidenced by anterior osteophyte formation at C5-C6 and disc sp yolanda narrowing C4-C7. No soft tissue abnormality is identified. IMPRESSION: 1. No acute abnormality of the cervical spine. 2. Diffuse osteopenia. Multi level degenerative changes as above, worse at the level of C5-C7. 2015-04-07 EXAM: CT BRAIN WITHOUT CONTRAST [facility] 12::00-:00 DATE: 04/07/2015 12:36 PM [facility] INDICATION: Acute cognitive change after trauma COMPARISON: None TECHNIQUE: Routine axial nati ges of the brain were obtained using a conventional ct scanner. No reformats. IV contrast: None. FINDINGS: Non-contrast images of the h ead demonstrate no edema, hemorrhage, mass lesion or other acute intracranial abnormality. There is no radiographic evidence of increased intracranial pressure. A degree of cerebral volume loss is present. Confluent diminished attenuation is present in the periventricular white matter indicative of microvascular ischemic change. A remote ischemic lesion is also present in the anterior aspect of the external capsule on the left. There is scalp soft tissue s welling in the right frontal and anterior frontal region where a subgaleal hematoma is present region, without underlying fracture. There is no fracture of the remainder of the skull, skull base, or visible facial bones. IMPRESSION: Superficial inju ismael. No intracranial hemorrhage. Cerebral atrophy. Chronic microvascular ischemic changes of the white matter.. Resident PRELIMINARY REPORT: Date: Apr 07, 2015 13:30:16 S ubject: Large frontal hematoma 3.7 x 1.0 cm without underlying calvarial fx No Intracranial hemorrhage Extensive age-related cortical atrophy volume loss and microangiopathic ischemic change 2015-04-07 EXAM: CT FACIAL BONES WITHOUT CONTRAST [facility] 12::00-00:00 DATE: 04/07/2015 12:13 PM [facility] INDICATION: Pain, Trauma COMPARISON: None TECHNIQUE: Volumetric CT acq uisition of the facial bones without contrast. Axial, coronal and sagittal reconstructions. DISCUSSION: Bones: No fracture or other acute bony abnormality is identified. The mandible is intact, and the temporomandibular joints are well-aligned. The paranasal sinuses and ma stoid air cells are clear. Incidental note is made of communication between the right maxillary and ethmoidal air cells. Soft tissues: No abnormality of the globes is seen. There is no intraconal hematoma. No soft tissue abnormality or radiopaque foreign body is identified. IMPRESSION: 1. No acute abnormality of the facial bones iden tified. 2. Incidental note of commun ication between the right maxillary and ethmoidal air cells, likely related to old surgical change; please correlate with history. 2015-04-07 EXAM: CT CERVICAL SPINE WITHOUT CONTRAST [facility] 12::-: DATE: 04/07/2015 12:14 PM [facility] INDICATION: Pain, Trauma COMPARISON: None TECHNIQUE: Volumetric CT acq uisition of the cervical spine without contrast. Axial, sagittal and coronal reconstructions. DISCUSSION: The spine is nati ged from the skull base to the level of T2. There is exaggerated cervical lordosis. No acute fracture or malalig nment is identified. Diffuse osteopenia is present. In addition, there are multilevel degenerative changes, as evidenced by anterior osteophyte formation at C5-C6 and disc sp yolanda narrowing C4-C7. No soft tissue abnormality is identified. IMPRESSION: 1. No acute abnormality of the cervical spine. 2. Diffuse osteopenia. Multi level degenerative changes as above, worse at the level of C5-C7. 2015-04-07 EXAM: CT BRAIN WITHOUT CONTRAST [facility] 12::-:00 DATE: 04/07/2015 12:36 PM [facility] INDICATION: Acute cognitive change after trauma COMPARISON: None TECHNIQUE: Routine axial nati ges of the brain were obtained using a conventional ct scanner. No reformats. IV contrast: None. FINDINGS: Non-contrast images of the h ead demonstrate no edema, hemorrhage, mass lesion or other acute intracranial abnormality. There is no radiographic evidence of increased intracranial pressure. A degree of cerebral volume loss is present. Confluent diminished attenuation is present in the periventricular white matter indicative of microvascular ischemic change. A remote ischemic lesion is also present in the anterior aspect of the external capsule on the left. There is scalp soft tissue s welling in the right frontal and anterior frontal region where a subgaleal hematoma is present region, without underlying fracture. There is no fracture of the remainder of the skull, skull base, or visible facial bones. IMPRESSION: Superficial inju ismael. No intracranial hemorrhage. Cerebral atrophy. Chronic microvascular ischemic changes of the white matter.. Resident PRELIMINARY REPORT: Date: Apr 07, 2015 13:30:16 S ubject: Large frontal hematoma 3.7 x 1.0 cm without underlying calvarial fx No Intracranial hemorrhage Extensive age-related cortical atrophy volume loss and microangiopathic ischemic change 2015-04-07 EXAM: CT FACIAL BONES WITHOUT CONTRAST [facility] 12::-: DATE: 04/07/2015 12:13 PM [facility] INDICATION: Pain, Trauma COMPARISON: None TECHNIQUE: Volumetric CT acq uisition of the facial bones without contrast. Axial, coronal and sagittal reconstructions. DISCUSSION: Bones: No fracture or other acute bony abnormality is identified. The mandible is intact, and the temporomandibular joints are well-aligned. The paranasal sinuses and ma stoid air cells are clear. Incidental note is made of communication between the right maxillary and ethmoidal air cells. Soft tissues: No abnormality of the globes is seen. There is no intraconal hematoma. No soft tissue abnormality or radiopaque foreign body is identified. IMPRESSION: 1. No acute abnormality of the facial bones iden tified. 2. Incidental note of commun ication between the right maxillary and ethmoidal air cells, likely related to old surgical change; please correlate with history. 2015-04-07 EXAM: CT CERVICAL SPINE WITHOUT CONTRAST [facility] 12::-: DATE: 04/07/2015 12:14 PM [facility] INDICATION: Pain, Trauma COMPARISON: None TECHNIQUE: Volumetric CT acq uisition of the cervical spine without contrast. Axial, sagittal and coronal reconstructions. DISCUSSION: The spine is nati ged from the skull base to the level of T2. There is exaggerated cervical lordosis. No acute fracture or malalig nment is identified. Diffuse osteopenia is present. In addition, there are multilevel degenerative changes, as evidenced by anterior osteophyte formation at C5-C6 and disc sp yolanda narrowing C4-C7. No soft tissue abnormality is identified. IMPRESSION: 1. No acute abnormality of the cervical spine. 2. Diffuse osteopenia. Multi level degenerative changes as above, worse at the level of C5-C7. 2015-04-07 EXAM: CT BRAIN WITHOUT CONTRAST [facility] 12:28:00-00:00 DATE: 04/07/2015 12:36 PM [facility] Cent er INDICATION: Acute cognitive change after trauma COMPARISON: None TECHNIQUE: Routine axial nati ges of the brain were obtained using a conventional ct scanner. No reformats. IV contrast: None. FINDINGS: Non-contrast images of the h ead demonstrate no edema, hemorrhage, mass lesion or other acute intracranial abnormality. There is no radiographic evidence of increased intracranial pressure. A degree of cerebral volume loss is present. Confluent diminished attenuation is present in the periventricular white matter indicative of microvascular ischemic change. A remote ischemic lesion is also present in the anterior aspect of the external capsule on the left. There is scalp soft tissue s welling in the right frontal and anterior frontal region where a subgaleal hematoma is present region, without underlying fracture. There is no fracture of the remainder of the skull, skull base, or visible facial bones. IMPRESSION: Superficial inju ismael. No intracranial hemorrhage. Cerebral atrophy. Chronic microvascular ischemic changes of the white matter.. Resident PRELIMINARY REPORT: Date: Apr 07, 2015 13:30:16 S ubject: Large frontal hematoma 3.7 x 1.0 cm without underlying calvarial fx No Intracranial hemorrhage Extensive age-related cortical atrophy volume loss and microangiopathic ischemic change 2015-04-07 EXAM: CT FACIAL BONES WITHOUT CONTRAST [facility] 12:28:00-00:00 DATE: 04/07/2015 12:13 PM [facility] Cent er INDICATION: Pain, Trauma COMPARISON: None TECHNIQUE: Volumetric CT acq uisition of the facial bones without contrast. Axial, coronal and sagittal reconstructions. DISCUSSION: Bones: No fracture or other acute bony abnormality is identified. The mandible is intact, and the temporomandibular joints are well-aligned. The paranasal sinuses and ma stoid air cells are clear. Incidental note is made of communication between the right maxillary and ethmoidal air cells. Soft tissues: No abnormality of the globes is seen. There is no intraconal hematoma. No soft tissue abnormality or radiopaque foreign body is identified. IMPRESSION: 1. No acute abnormality of the facial bones iden tified. 2. Incidental note of commun ication between the right maxillary and ethmoidal air cells, likely related to old surgical change; please correlate with history. 2015-04-07 EXAM: CT CERVICAL SPINE WITHOUT CONTRAST [facility] 12:: DATE: 04/07/2015 12:14 PM [facility] er INDICATION: Pain, Trauma COMPARISON: None TECHNIQUE: Volumetric CT acq uisition of the cervical spine without contrast. Axial, sagittal and coronal reconstructions. DISCUSSION: The spine is nati ged from the skull base to the level of T2. There is exaggerated cervical lordosis. No acute fracture or malalig nment is identified. Diffuse osteopenia is present. In addition, there are multilevel degenerative changes, as evidenced by anterior osteophyte formation at C5-C6 and disc sp yolanda narrowing C4-C7. No soft tissue abnormality is identified. IMPRESSION: 1. No acute abnormality of the cervical spine. 2. Diffuse osteopenia. Multi level degenerative changes as above, worse at the level of C5-C7. 2015-04-07 EXAM: CT BRAIN WITHOUT CONTRAST [facility] 12: DATE: 04/07/2015 12:36 PM [facility] er INDICATION: Acute cognitive change after trauma COMPARISON: None TECHNIQUE: Routine axial nati ges of the brain were obtained using a conventional ct scanner. No reformats. IV contrast: None. FINDINGS: Non-contrast images of the h ead demonstrate no edema, hemorrhage, mass lesion or other acute intracranial abnormality. There is no radiographic evidence of increased intracranial pressure. A degree of cerebral volume loss is present. Confluent diminished attenuation is present in the periventricular white matter indicative of microvascular ischemic change. A remote ischemic lesion is also present in the anterior aspect of the external capsule on the left. There is scalp soft tissue s welling in the right frontal and anterior frontal region where a subgaleal hematoma is present region, without underlying fracture. There is no fracture of the remainder of the skull, skull base, or visible facial bones. IMPRESSION: Superficial inju ismael. No intracranial hemorrhage. Cerebral atrophy. Chronic microvascular ischemic changes of the white matter.. Resident PRELIMINARY REPORT: Date: Apr 07, 2015 13:30:16 S ubject: Large frontal hematoma 3.7 x 1.0 cm without underlying calvarial fx No Intracranial hemorrhage Extensive age-related cortical atrophy volume loss and microangiopathic ischemic change 2015-04-07 EXAM: CT FACIAL BONES WITHOUT CONTRAST [facility] 12:: DATE: 04/07/2015 12:13 PM [facility] Cent er INDICATION: Pain, Trauma COMPARISON: None TECHNIQUE: Volumetric CT acq uisition of the facial bones without contrast. Axial, coronal and sagittal reconstructions. DISCUSSION: Bones: No fracture or other acute bony abnormality is identified. The mandible is intact, and the temporomandibular joints are well-aligned. The paranasal sinuses and ma stoid air cells are clear. Incidental note is made of communication between the right maxillary and ethmoidal air cells. Soft tissues: No abnormality of the globes is seen. There is no intraconal hematoma. No soft tissue abnormality or radiopaque foreign body is identified. IMPRESSION: 1. No acute abnormality of the facial bones iden tified. 2. Incidental note of commun ication between the right maxillary and ethmoidal air cells, likely related to old surgical change; please correlate with history. 2015-04-07 EXAM: CT CERVICAL SPINE WITHOUT CONTRAST [facility] 12::: DATE: 04/07/2015 12:14 PM [facility]ATOLOGY SUPERVISOR Cent er INDICATION: Pain, Trauma COMPARISON: None TECHNIQUE: Volumetric CT acq uisition of the cervical spine without contrast. Axial, sagittal and coronal reconstructions. DISCUSSION: The spine is nati ged from the skull base to the level of T2. There is exaggerated cervical lordosis. No acute fracture or malalig nment is identified. Diffuse osteopenia is present. In addition, there are multilevel degenerative changes, as evidenced by anterior osteophyte formation at C5-C6 and disc sp yolanda narrowing C4-C7. No soft tissue abnormality is identified. IMPRESSION: 1. No acute abnormality of the cervical spine. 2. Diffuse osteopenia. Multi level degenerative changes as above, worse at the level of C5-C7. 2015-04-07 EXAM: CT BRAIN WITHOUT CONTRAST [facility] 12::-: DATE: 04/07/2015 12:36 PM HEMATOLOGY SUPERVISOR Cent er INDICATION: Acute cognitive change after trauma COMPARISON: None TECHNIQUE: Routine axial nati ges of the brain were obtained using a conventional ct scanner. No reformats. IV contrast: None. FINDINGS: Non-contrast images of the h ead demonstrate no edema, hemorrhage, mass lesion or other acute intracranial abnormality. There is no radiographic evidence of increased intracranial pressure. A degree of cerebral volume loss is present. Confluent diminished attenuation is present in the periventricular white matter indicative of microvascular ischemic change. A remote ischemic lesion is also present in the anterior aspect of the external capsule on the left. There is scalp soft tissue s welling in the right frontal and anterior frontal region where a subgaleal hematoma is present region, without underlying fracture. There is no fracture of the remainder of the skull, skull base, or visible facial bones. IMPRESSION: Superficial inju ismael. No intracranial hemorrhage. Cerebral atrophy. Chronic microvascular ischemic changes of the white matter.. Resident PRELIMINARY REPORT: Date: Apr 07, 2015 13:30:16 S ubject: Large frontal hematoma 3.7 x 1.0 cm without underlying calvarial fx No Intracranial hemorrhage Extensive age-related cortical atrophy volume loss and microangiopathic ischemic change 2015-04-07 EXAM: CT FACIAL BONES WITHOUT CONTRAST [facility] 12:28:00-:00 DATE: 04/07/2015 12:13 PM HEMATOLOGY SUPERVISOR Cent er INDICATION: Pain, Trauma COMPARISON: None TECHNIQUE: Volumetric CT acq uisition of the facial bones without contrast. Axial, coronal and sagittal reconstructions. DISCUSSION: Bones: No fracture or other acute bony abnormality is identified. The mandible is intact, and the temporomandibular joints are well-aligned. The paranasal sinuses and ma stoid air cells are clear. Incidental note is made of communication between the right maxillary and ethmoidal air cells. Soft tissues: No abnormality of the globes is seen. There is no intraconal hematoma. No soft tissue abnormality or radiopaque foreign body is identified. IMPRESSION: 1. No acute abnormality of the facial bones iden tified. 2. Incidental note of commun ication between the right maxillary and ethmoidal air cells, likely related to old surgical change; please correlate with history. 2015-04-07 EXAM: CT CERVICAL SPINE WITHOUT CONTRAST [facility] 12:28:00-00:00 DATE: 04/07/2015 12:14 PM HEMATOLOGY SUPERVISOR Cent er INDICATION: Pain, Trauma COMPARISON: None TECHNIQUE: Volumetric CT acq uisition of the cervical spine without contrast. Axial, sagittal and coronal reconstructions. DISCUSSION: The spine is nati ged from the skull base to the level of T2. There is exaggerated cervical lordosis. No acute fracture or malalig nment is identified. Diffuse osteopenia is present. In addition, there are multilevel degenerative changes, as evidenced by anterior osteophyte formation at C5-C6 and disc sp yolanda narrowing C4-C7. No soft tissue abnormality is identified. IMPRESSION: 1. No acute abnormality of the cervical spine. 2. Diffuse osteopenia. Multi level degenerative changes as above, worse at the level of C5-C7. 2015-04-07 EXAM: CT BRAIN WITHOUT CONTRAST [facility] 12:28:00-00:00 DATE: 04/07/2015 12:36 PM HEMATOLOGY SUPERVISOR Cent er INDICATION: Acute cognitive change after trauma COMPARISON: None TECHNIQUE: Routine axial nati ges of the brain were obtained using a conventional ct scanner. No reformats. IV contrast: None. FINDINGS: Non-contrast images of the h ead demonstrate no edema, hemorrhage, mass lesion or other acute intracranial abnormality. There is no radiographic evidence of increased intracranial pressure. A degree of cerebral volume loss is present. Confluent diminished attenuation is present in the periventricular white matter indicative of microvascular ischemic change. A remote ischemic lesion is also present in the anterior aspect of the external capsule on the left. There is scalp soft tissue s welling in the right frontal and anterior frontal region where a subgaleal hematoma is present region, without underlying fracture. There is no fracture of the remainder of the skull, skull base, or visible facial bones. IMPRESSION: Superficial inju ismael. No intracranial hemorrhage. Cerebral atrophy. Chronic microvascular ischemic changes of the white matter.. Resident PRELIMINARY REPORT: Date: Apr 07, 2015 13:30:16 S ubject: Large frontal hematoma 3.7 x 1.0 cm without underlying calvarial fx No Intracranial hemorrhage Extensive age-related cortical atrophy volume loss and microangiopathic ischemic change 2015-04-07 EXAM: CT FACIAL BONES WITHOUT CONTRAST [facility] 12:28:00-:00 DATE: 04/07/2015 12:13 PM HEMATOLOGY SUPERVISOR Cent er INDICATION: Pain, Trauma COMPARISON: None TECHNIQUE: Volumetric CT acq uisition of the facial bones without contrast. Axial, coronal and sagittal reconstructions. DISCUSSION: Bones: No fracture or other acute bony abnormality is identified. The mandible is intact, and the temporomandibular joints are well-aligned. The paranasal sinuses and ma stoid air cells are clear. Incidental note is made of communication between the right maxillary and ethmoidal air cells. Soft tissues: No abnormality of the globes is seen. There is no intraconal hematoma. No soft tissue abnormality or radiopaque foreign body is identified. IMPRESSION: 1. No acute abnormality of the facial bones iden tified. 2. Incidental note of commun ication between the right maxillary and ethmoidal air cells, likely related to old surgical change; please correlate with history. 2015-04-07 EXAM: CT CERVICAL SPINE WITHOUT CONTRAST [facility] 12:28:00-00:00 DATE: 04/07/2015 12:14 PM HEMATOLOGY SUPERVISOR Cent er INDICATION: Pain, Trauma COMPARISON: None TECHNIQUE: Volumetric CT acq uisition of the cervical spine without contrast. Axial, sagittal and coronal reconstructions. DISCUSSION: The spine is nati ged from the skull base to the level of T2. There is exaggerated cervical lordosis. No acute fracture or malalig nment is identified. Diffuse osteopenia is present. In addition, there are multilevel degenerative changes, as evidenced by anterior osteophyte formation at C5-C6 and disc sp yolanda narrowing C4-C7. No soft tissue abnormality is identified. IMPRESSION: 1. No acute abnormality of the cervical spine. 2. Diffuse osteopenia. Multi level degenerative changes as above, worse at the level of C5-C7. 2015-04-07 EXAM: CT BRAIN WITHOUT CONTRAST [facility] 12:28:00-:00 DATE: 04/07/2015 12:36 PM HEMATOLOGY SUPERVISOR Cent er INDICATION: Acute cognitive change after trauma COMPARISON: None TECHNIQUE: Routine axial nati ges of the brain were obtained using a conventional ct scanner. No reformats. IV contrast: None. FINDINGS: Non-contrast images of the h ead demonstrate no edema, hemorrhage, mass lesion or other acute intracranial abnormality. There is no radiographic evidence of increased intracranial pressure. A degree of cerebral volume loss is present. Confluent diminished attenuation is present in the periventricular white matter indicative of microvascular ischemic change. A remote ischemic lesion is also present in the anterior aspect of the external capsule on the left. There is scalp soft tissue s welling in the right frontal and anterior frontal region where a subgaleal hematoma is present region, without underlying fracture. There is no fracture of the remainder of the skull, skull base, or visible facial bones. IMPRESSION: Superficial inju ismael. No intracranial hemorrhage. Cerebral atrophy. Chronic microvascular ischemic changes of the white matter.. Resident PRELIMINARY REPORT: Date: Apr 07, 2015 13:30:16 S ubject: Large frontal hematoma 3.7 x 1.0 cm without underlying calvarial fx No Intracranial hemorrhage Extensive age-related cortical atrophy volume loss and microangiopathic ischemic change 2015-04-07 EXAM: CT FACIAL BONES WITHOUT CONTRAST [facility] 12::-:00 DATE: 04/07/2015 12:13 PM HEMATOLOGY SUPERVISOR Cent er INDICATION: Pain, Trauma COMPARISON: None TECHNIQUE: Volumetric CT acq uisition of the facial bones without contrast. Axial, coronal and sagittal reconstructions. DISCUSSION: Bones: No fracture or other acute bony abnormality is identified. The mandible is intact, and the temporomandibular joints are well-aligned. The paranasal sinuses and ma stoid air cells are clear. Incidental note is made of communication between the right maxillary and ethmoidal air cells. Soft tissues: No abnormality of the globes is seen. There is no intraconal hematoma. No soft tissue abnormality or radiopaque foreign body is identified. IMPRESSION: 1. No acute abnormality of the facial bones iden tified. 2. Incidental note of commun ication between the right maxillary and ethmoidal air cells, likely related to old surgical change; please correlate with history. 2015-04-07 EXAM: CT CERVICAL SPINE WITHOUT CONTRAST [facility] 12::-: DATE: 04/07/2015 12:14 PM HEMATOLOGY SUPERVISOR Cent er INDICATION: Pain, Trauma COMPARISON: None TECHNIQUE: Volumetric CT acq uisition of the cervical spine without contrast. Axial, sagittal and coronal reconstructions. DISCUSSION: The spine is nati ged from the skull base to the level of T2. There is exaggerated cervical lordosis. No acute fracture or malalig nment is identified. Diffuse osteopenia is present. In addition, there are multilevel degenerative changes, as evidenced by anterior osteophyte formation at C5-C6 and disc sp yolanda narrowing C4-C7. No soft tissue abnormality is identified. IMPRESSION: 1. No acute abnormality of the cervical spine. 2. Diffuse osteopenia. Multi level degenerative changes as above, worse at the level of C5-C7. 2015-04-07 EXAM: XR CHEST 1 VIEW [facility] 12::-: DATE: 04/07/2015 12:13 PM HEMATOLOGY SUPERVISOR Cent er INDICATION: Altered level of consciousness COMPARISON: None available. TECHNIQUE: AP chest FINDINGS: Low lung volumes a re present, with bibasilar subsegmental atelectasis, Lopez widening of the cardiac mediastinal silhouette, and crowding of the central pulmonary vasculature. Otherwise, no p ulmonary or pleural-based ab normality is identified. The heart size is normal for technique. The thoracic aorta is mildly tortuous. No acute bony abnormality is identified. IMPRESSION: 1. Low lung volumes with minor bibasilar atelect asis. 2. No acute cardiopulmonary abnormality identifi ed. 2015-04-07 EXAM: XR CHEST 1 VIEW [facility] 12:07:00-00:00 DATE: 04/07/2015 12:13 PM HEMATOLOGY SUPERVISOR Cent er INDICATION: Altered level of consciousness COMPARISON: None available. TECHNIQUE: AP chest FINDINGS: Low lung volumes a re present, with bibasilar subsegmental atelectasis, Lopez widening of the cardiac mediastinal silhouette, and crowding of the central pulmonary vasculature. Otherwise, no p ulmonary or pleural-based ab normality is identified. The heart size is normal for technique. The thoracic aorta is mildly tortuous. No acute bony abnormality is identified. IMPRESSION: 1. Low lung volumes with minor bibasilar atelect asis. 2. No acute cardiopulmonary abnormality identifi ed. 2015-04-07 EXAM: XR CHEST 1 VIEW [facility] 12:07:00-00:00 DATE: 04/07/2015 12:13 PM HEMATOLOGY SUPERVISOR Cent er INDICATION: Altered level of consciousness COMPARISON: None available. TECHNIQUE: AP chest FINDINGS: Low lung volumes a re present, with bibasilar subsegmental atelectasis, Lopez widening of the cardiac mediastinal silhouette, and crowding of the central pulmonary vasculature. Otherwise, no p ulmonary or pleural-based ab normality is identified. The heart size is normal for technique. The thoracic aorta is mildly tortuous. No acute bony abnormality is identified. IMPRESSION: 1. Low lung volumes with minor bibasilar atelect asis. 2. No acute cardiopulmonary abnormality identifi ed. 2015-04-07 EXAM: XR CHEST 1 VIEW [facility] 12:07:00-00:00 DATE: 04/07/2015 12:13 PM HEMATOLOGY SUPERVISOR Cent er INDICATION: Altered level of consciousness COMPARISON: None available. TECHNIQUE: AP chest FINDINGS: Low lung volumes a re present, with bibasilar subsegmental atelectasis, Lopez widening of the cardiac mediastinal silhouette, and crowding of the central pulmonary vasculature. Otherwise, no p ulmonary or pleural-based ab normality is identified. The heart size is normal for technique. The thoracic aorta is mildly tortuous. No acute bony abnormality is identified. IMPRESSION: 1. Low lung volumes with minor bibasilar atelect asis. 2. No acute cardiopulmonary abnormality identifi ed. 2015-04-07 EXAM: XR CHEST 1 VIEW [facility] 12:07:00-00:00 DATE: 04/07/2015 12:13 PM HEMATOLOGY SUPERVISOR Cent er INDICATION: Altered level of consciousness COMPARISON: None available. TECHNIQUE: AP chest FINDINGS: Low lung volumes a re present, with bibasilar subsegmental atelectasis, Lopez widening of the cardiac mediastinal silhouette, and crowding of the central pulmonary vasculature. Otherwise, no p ulmonary or pleural-based ab normality is identified. The heart size is normal for technique. The thoracic aorta is mildly tortuous. No acute bony abnormality is identified. IMPRESSION: 1. Low lung volumes with minor bibasilar atelect asis. 2. No acute cardiopulmonary abnormality identifi ed. 2015-04-07 EXAM: XR CHEST 1 VIEW [facility] 12:07:00-00:00 DATE: 04/07/2015 12:13 PM HEMATOLOGY SUPERVISOR Cent er INDICATION: Altered level of consciousness COMPARISON: None available. TECHNIQUE: AP chest FINDINGS: Low lung volumes a re present, with bibasilar subsegmental atelectasis, Lopez widening of the cardiac mediastinal silhouette, and crowding of the central pulmonary vasculature. Otherwise, no p ulmonary or pleural-based ab normality is identified. The heart size is normal for technique. The thoracic aorta is mildly tortuous. No acute bony abnormality is identified. IMPRESSION: 1. Low lung volumes with minor bibasilar atelect asis. 2. No acute cardiopulmonary abnormality identifi ed. 2015-04-07 EXAM: XR CHEST 1 VIEW [facility] 12:07:00-00:00 DATE: 04/07/2015 12:13 PM HEMATOLOGY SUPERVISOR Cent er INDICATION: Altered level of consciousness COMPARISON: None available. TECHNIQUE: AP chest FINDINGS: Low lung volumes a re present, with bibasilar subsegmental atelectasis, Lopez widening of the cardiac mediastinal silhouette, and crowding of the central pulmonary vasculature. Otherwise, no p ulmonary or pleural-based ab normality is identified. The heart size is normal for technique. The thoracic aorta is mildly tortuous. No acute bony abnormality is identified. IMPRESSION: 1. Low lung volumes with minor bibasilar atelect asis. 2. No acute cardiopulmonary abnormality identifi ed. 2015-04-07 EXAM: XR CHEST 1 VIEW [facility] 12:07:00-00:00 DATE: 04/07/2015 12:13 PM HEMATOLOGY SUPERVISOR Cent er INDICATION: Altered level of consciousness COMPARISON: None available. TECHNIQUE: AP chest FINDINGS: Low lung volumes a re present, with bibasilar subsegmental atelectasis, Lopez widening of the cardiac mediastinal silhouette, and crowding of the central pulmonary vasculature. Otherwise, no p ulmonary or pleural-based ab normality is identified. The heart size is normal for technique. The thoracic aorta is mildly tortuous. No acute bony abnormality is identified. IMPRESSION: 1. Low lung volumes with minor bibasilar atelect asis. 2. No acute cardiopulmonary abnormality identifi ed. 2015-04-07 EXAM: XR CHEST 1 VIEW [facility] 12:07:00-00:00 DATE: 04/07/2015 12:13 PM HEMATOLOGY SUPERVISOR Cent er INDICATION: Altered level of consciousness COMPARISON: None available. TECHNIQUE: AP chest FINDINGS: Low lung volumes a re present, with bibasilar subsegmental atelectasis, Lopez widening of the cardiac mediastinal silhouette, and crowding of the central pulmonary vasculature. Otherwise, no p ulmonary or pleural-based ab normality is identified. The heart size is normal for technique. The thoracic aorta is mildly tortuous. No acute bony abnormality is identified. IMPRESSION: 1. Low lung volumes with minor bibasilar atelect asis. 2. No acute cardiopulmonary abnormality identifi ed. 2015-04-07 EXAM: XR CHEST 1 VIEW [facility] 12:07:00-00:00 DATE: 04/07/2015 12:13 PM HEMATOLOGY SUPERVISOR Cent er INDICATION: Altered level of consciousness COMPARISON: None available. TECHNIQUE: AP chest FINDINGS: Low lung volumes a re present, with bibasilar subsegmental atelectasis, Lopez widening of the cardiac mediastinal silhouette, and crowding of the central pulmonary vasculature. Otherwise, no p ulmonary or pleural-based ab normality is identified. The heart size is normal for technique. The thoracic aorta is mildly tortuous. No acute bony abnormality is identified.
[2022-09-24 21:46] LABS: Hematocrit 36.3 % (36.0-45.0); Lymphocytes % 7.5 % (15.3-44.8); MCV 79.6 fL (80-100); MPV 7.2 fL (7.6-11.3); Platelets 418 thou/uL (152-406); RBC Red Blood Cell Count 4.55 M/uL (3.86-4.86)
[2022-09-24 21:59] LABS: Protime INR 1.14
[2022-09-24 22:04] LABS: Albumin 2.1 g/dL (3.4-5.0); Bilirubin Total 0.3 mg/dL (0.2-1.0); Potassium 3.1 mEq/L (3.5-5.1); Protein, Total 7.8 g/dL (6.4-8.2); Troponin High Sensitivity 11.4 pg/mL (<58.9)
[2022-09-24 22:09] LABS: Blood Morphology Comment NOT SEEN (NOT SEEN); Platelet Estimate INCR; White Blood Cell Scan OK (OK)
--- NOTE | 2022-09-24 22:10 | RAD REPORT ---
EXAM DESCRIPTION: RAD - Chest Single View - 09/24/2022 9:58 pm CLINICAL HISTORY: COUGH COMPARISON: Chest Single View dated 11/26/2020; Chest Single View dated 09/23/2019 FINDINGS: Lines: None. Lungs: Increased ill-defined opacities in the right lung noted. Low lung volumes. Pleural: No significant pleural effusions or pneumothorax. Cardiac: Cardiomegaly. Mediastinum: Within normal limits. Bones: No acute fractures. Other: None IMPRESSION: Ill-defined airspace disease in the right lung could reflect pneumonia or, less likely, asymmetric edema.
--- NOTE | 2022-09-24 22:19 | ER ---
Nurse's Notes [facility] Name: Suzette Neville Age: 82 yrs Sex: Female : 1940 Arrival Date: 09/24/2022 Time: 21:05 Bed 13 Private MD: Diagnosis: Pneumonia, unspecified organism;Sepsis, unspecified organism;Hypoxemia Presentation: 09/24 21:26 Chief complaint: EMS states: She's been short of breath since Wednesday with a diagnosis vc1 of aspiration pneumonia. Coronavirus screen: cough unrelated to allergies, difficulty breathing, shortness of breath, Client presents with at least one sign or symptom that may indicate coronavirus-19. Standard/surgical mask placed on the client. Provider contacted for isolation considerations. Ebola Screen: Patient negative for fever greater than or equal to 101.5 degrees Fahrenheit, and additional compatible Ebola Virus Disease symptoms Patient denies exposure to infectious person. Patient denies travel to an Ebola-affected area in the 21 days before illness onset. No symptoms or risks identified at this time. 21:26 Method Of Arrival: EMS: [facility] vc1 21:28 Initial Sepsis Screen: Does the patient meet any 2 criteria? RR > 20 per min. HR > 90 vc1 bpm. Yes Does the patient have a suspected source of infection? Yes: Productive cough/pneumonia. Risk Assessment: Do you want to hurt yourself or someone else? Patient reports desire/thoughts of hurting themselves or someone else. Provider notified. Onset of symptoms was September 21, 2022. 21:28 Acuity: ALTON 2 vc1 21:32 Transition of care: patient was received from another setting of care (long-term care vc1 facility), [facility]. Triage Assessment: 23:20 General: Appears distressed, uncomfortable, obese, unkempt, Behavior is cooperative. vc1 Pain: Denies pain. EENT: No deficits noted. No signs and/or symptoms were reported regarding the EENT system. Neuro: Level of Consciousness is awake, obeys commands, confused, Oriented to person. Cardiovascular: No deficits noted. Respiratory: Airway is patent Respiratory effort is even, labored, Respiratory pattern is tachypnea. Historical: - Allergies: 21:29 Atenolol; vc1 - PMHx: 21:29 Heart murmur; Hypertensive disorder; Pneumonitis; Depressive disorder; Hypothyroidism; vc1 Gastroesophageal reflux disease; - PSHx: 21:29 None; vc1 - Immunization history:: unknown. - Social history:: Smoking status: Patient denies any tobacco usage or history of. - Family history:: not pertinent. Screenin:00 [facility] ED Fall Risk Assessment (Adult) History of falling in the last 3 months, vc1 including since admission No falls in past 3 months (0 pts) Confusion or Disorientation Yes (5 pts) Intoxicated or Sedated No (0 pts) Impaired Gait Yes (1 pt) Mobility Assist Device Used No (0 pt) Altered Elimination Yes (1 pt) Score/Fall Risk Level 3 or more points = High Risk Oriented to surroundings, Maintained a safe environment, Educated pt \T\ family on fall prevention, incl call for assistance when getting out of bed. 22:00 Abuse screen: Denies threats or abuse. Nutritional screening: No deficits noted. vc1 Tuberculosis screening: No symptoms or risk factors identified. Assessment: 21:10 Reassessment: See triage assessment. vc1 22:00 Reassessment: No changes from previously documented assessment. Patient and/or family vc1 updated on plan of care and expected duration. Pain level reassessed. Patient states symptoms have not improved. 23:00 Reassessment: No changes from previously documented assessment. Patient and/or family vc1 updated on plan of care and expected duration. Pain level reassessed. Vital Signs: 21:26 BP 144 / 79; Pulse 94; Resp 24; Temp 99.1; Pulse Ox 76% on R/A; vc1 21:28 Pulse Ox 94% on 5 lpm NC; vc1 22:00 BP 148 / 62; Pulse 93; Resp 28; Pulse Ox 97% on 5 lpm NC; vc1 23:00 BP 167 / 69; Pulse 94; Resp 26; Pulse Ox 92% on 3 lpm NC; vc1 09/25 01:11 BP 153 / 68; Pulse 66; Resp 18; Pulse Ox 94% on 3 lpm NC; ED Course: 09/24 21:07 Patient arrived in ED. rv1 21:08 Antonio Espinoza MD is Attending Physician. rt 21:26 Mohini Mitchell RN is Primary Nurse. vc1 21:29 Triage completed. vc1 21:32 Arm band placed on right wrist. vc1 21:32 Patient has correct armband on for positive identification. Bed in low position. Call vc1 light in reach. Side rails up X2. Client placed on continuous cardiac and pulse oximetry monitoring. NIBP monitoring applied. 21:33 Initial lab(s) drawn, by me, sent to lab. First set of blood cultures drawn by me. cm10 21:36 Inserted saline lock: 20 gauge in right wrist, using aseptic technique. Blood collected.cm10 21:49 Ptt, Activated Sent. bc6 21:49 Protime (+inr) Sent. bc6 21:49 Lactate w/ 2H reflex if indic. Sent. bc6 21:49 CMP Sent. bc6 21:49 CBC with Diff Sent. bc6 21:49 Blood Culture Adult (2) Sent. bc6 22:00 Chest Single View XRAY In Process Unspecified. EDMS 22:18 Hi Blackwood MD is Hospitalizing Provider. rt 22:27 Notified ED physician of a critical lab result(s). Lactic acid 2.5. 09/25 01:12 No provider procedures requiring assistance completed. Patient did not have IV access kl during this emergency room visit. Administered Medications: 09/24 22:39 Drug: Cefepime IVPB 2 grams Route: IVPB; Rate: 200 ml/hr; Infused Over: 30 mins; Site: vc1 right wrist; 23:23 Follow up: IV Status: Completed infusion; IV Intake: 200ml vc1 22:39 Drug: NS 0.9% IV 500 ml Route: IV; Rate: bolus; Site: right wrist; vc1 23:23 Follow up: IV Status: Completed infusion; IV Intake: 500ml vc1 23:16 Drug: vancoMYCIN IVPB 1 grams Route: IVPB; Infused Over: 2 hrs; Site: right wrist; vc1 Medication: 23:21 VIS not applicable for this client. vc1 Intake: 23:23 IV: 500ml; Total: 500ml. vc1 23:23 IV: 200ml; Total: 700ml. vc1 Outcome: 22:19 Decision to Hospitalize by Provider. rt 09/25 01:11 Admitted to Med/surg accompanied by tech, via stretcher. kl Condition: improved 01:32 Patient left the ED. kl Signatures: Dispatcher [employer] Karli Kearney RN RN Mohini Moeller RN RN vc1 Antonio Espinoza MD MD rt Yesenia Woods rv1 Ora Harper bc6 Lela Aguilar, AMALIA RN cm10
--- NOTE | 2022-09-24 22:19 | EDPHYS ---
Physician Documentation [facility] Name: Suzette Neville Age: 82 yrs Sex: Female : 1940 Arrival Date: 09/24/2022 Time: 21:05 Bed 13 Private MD: ED Physician Antonio Espinoza HPI: 09/24 23:13 This 82 yrs old Female presents to ER via EMS with complaints of Shortness of breath. rt 23:13 Patient presents to the ED with shortness of breath since Wednesday. Has been rt progressively worsening. She has been on antibiotics, does not recall what they are. Symptoms have worsened today. Denies chest pain. Denies other acute complaints, symptoms are moderate severity, no other aggravating alleviating factors. Historical: - Allergies: 21:29 Atenolol; vc1 - PMHx: :29 Heart murmur; Hypertensive disorder; Pneumonitis; Depressive disorder; Hypothyroidism; vc1 Gastroesophageal reflux disease; - PSHx: :29 None; vc1 - Immunization history:: unknown. - Social history:: Smoking status: Patient denies any tobacco usage or history of. - Family history:: not pertinent. ROS: 23:13 Constitutional: Negative for fever, chills, and weight loss, Cardiovascular: Negative rt for chest pain, palpitations, and edema, Abdomen/GI: Negative for abdominal pain, nausea, vomiting, diarrhea, and constipation, MS/Extremity: Negative for injury and deformity, Skin: Negative for injury, rash, and discoloration, Neuro: Negative for headache, weakness, numbness, tingling, and seizure, Psych: Negative for depression, anxiety, suicide ideation, homicidal ideation, and hallucinations. 23:13 Respiratory: Positive for cough, shortness of breath. Exam: 23:13 Constitutional: This is a well developed, well nourished patient who is awake, alert, rt and in no acute distress. Head/Face: Normocephalic, atraumatic. Chest/axilla: Normal chest wall appearance and motion. Nontender with no deformity. No lesions are appreciated. Cardiovascular: Regular rate and rhythm with a normal S1 and S2. No gallops, murmurs, or rubs. Normal PMI, no JVD. No pulse deficits. Respiratory: Lungs have equal breath sounds bilaterally, clear to auscultation and percussion. No rales, rhonchi or wheezes noted. No increased work of breathing, no retractions or nasal flaring. Abdomen/GI: Soft, non-tender, with normal bowel sounds. No distension or tympany. No guarding or rebound. No evidence of tenderness throughout. Skin: Warm, dry with normal turgor. Normal color with no rashes, no lesions, and no evidence of cellulitis. MS/ Extremity: Pulses equal, no cyanosis. Neurovascular intact. Full, normal range of motion. Neuro: Awake and alert, GCS 15, oriented to person, place, time, and situation. Cranial nerves II-XII grossly intact. Motor strength 5/5 in all extremities. Sensory grossly intact. Cerebellar exam normal. Normal gait. Psych: Awake, alert, with orientation to person, place and time. Behavior, mood, and affect are within normal limits. 23:13 ECG was reviewed by the Attending Physician. rt Vital Signs: 21:26 BP 144 / 79; Pulse 94; Resp 24; Temp 99.1; Pulse Ox 76% on R/A; vc1 21:28 Pulse Ox 94% on 5 lpm NC; vc1 22:00 BP 148 / 62; Pulse 93; Resp 28; Pulse Ox 97% on 5 lpm NC; vc1 23:00 BP 167 / 69; Pulse 94; Resp 26; Pulse Ox 92% on 3 lpm NC; vc1 09/25 01:11 BP 153 / 68; Pulse 66; Resp 18; Pulse Ox 94% on 3 lpm NC; kl MDM: 09/24 21:10 Patient medically screened. rt 23:13 Differential diagnosis: Pneumonia, CHF. Antibiotic administration: Data reviewed: vital rt signs, nurses notes, lab test result(s), EKG, radiologic studies. Consideration of Admission/Observation Patient was admitted/placed on observation. Management of patient was discussed with the following: Hospitalist: Agrees to admit. I considered the following discharge prescriptions or medication management in the emergency department Medications were administered in the Emergency Department. See MAR. Independent interpretation of the following test(s) in the Emergency Department X-Ray: My interpretation is Consolidation seen on interpretation of the x-ray image. Care significantly affected by the following chronic conditions: Hypertension. Counseling: I had a detailed discussion with the patient and/or guardian regarding: the historical points, exam findings, and any diagnostic results supporting the discharge/admit diagnosis, lab results, radiology results, the need for further work-up and treatment in the hospital. 09/24 21:15 Order name: Blood Culture Adult (2) rt 09/24 21:15 Order name: CBC with Diff; Complete Time: 22:11 rt 09/24 21:15 Order name: CMP; Complete Time: 22:11 rt 09/24 21:15 Order name: Lactate w/ 2H reflex if indic. rt 09/24 21:15 Order name: Protime (+inr); Complete Time: 22:11 rt 09/24 21:15 Order name: Ptt, Activated; Complete Time: 22:11 rt 09/24 21:15 Order name: Troponin HS; Complete Time: 22:11 rt 09/24 22:10 Order name: CBC Smear Scan; Complete Time: 22:11 EDME 09/24 22:46 Order name: Urinalysis w/ reflexes EDME 09/24 22:46 Order name: Lactate w/ 2H reflex if indic. EDMS 09/24 22:46 Order name: Lactate w/ 2H reflex if indic. EDME 09/24 22:47 Order name: Basic Metabolic Panel EDME 09/24 22:47 Order name: Basic Metabolic Panel EDME 09/24 22:47 Order name: Basic Metabolic Panel EDME 09/24 22:47 Order name: Basic Metabolic Panel [facility] 09/24 22:47 Order name: CBC with Automated Diff EDME 09/24 22:47 Order name: CBC with Automated Diff EDMS 09/24 22:47 Order name: CBC with Automated Diff EDMS 09/24 22:47 Order name: CBC with Automated Diff EDMS 09/24 22:47 Order name: Magnesium EDMS 09/24 22:47 Order name: Magnesium EDMS 09/24 22:47 Order name: Magnesium EDMS 09/24 22:47 Order name: Magnesium EDMS 09/24 21:15 Order name: Chest Single View XRAY; Complete Time: 22:11 rt 09/24 21:15 Order name: EKG; Complete Time: 21:16 rt 09/24 22:39 Order name: CONS Physician Consult EDME 09/24 22:46 Order name: NPO EDME 09/24 23:02 Order name: Speech Therapy Consult [facility] 09/24 21:15 Order name: Accucheck; Complete Time: 21:54 rt 09/24 21:15 Order name: Cardiac monitoring; Complete Time: rt 09/24 21:15 Order name: EKG - Nurse/Tech; Complete Time: rt 09/24 21:15 Order name: IV Saline Lock - Large Bore; Complete Time: :37 rt 09/24 21:15 Order name: Labs collected and sent; Complete Time: : rt 09/24 21:15 Order name: O2 Per Protocol; Complete Time: : rt 09/24 21:15 Order name: O2 Sat Monitoring; Complete Time: : rt 09/24 21:15 Order name: Vital Signs; Complete Time: rt 09/24 21:15 Order name: IV Saline Lock; Complete Time: : rt EC:13 Rate is 94 beats/min. Rhythm is regular, Normal Sinus Rhythm with Occasional PVCs. Left rt axis deviation noted. QRS interval is normal. QT interval is normal. No Q waves. T waves are Normal. No ST changes noted. Interpreted by me. Administered Medications: 22:39 Drug: Cefepime IVPB 2 grams Route: IVPB; Rate: 200 ml/hr; Infused Over: 30 mins; Site: vc1 right wrist; 23:23 Follow up: IV Status: Completed infusion; IV Intake: 200ml vc1 22:39 Drug: NS 0.9% IV 500 ml Route: IV; Rate: bolus; Site: right wrist; vc1 23:23 Follow up: IV Status: Completed infusion; IV Intake: 500ml vc1 23:16 Drug: vancoMYCIN IVPB 1 grams Route: IVPB; Infused Over: 2 hrs; Site: right wrist; vc1 Disposition: 23:13 Critical Care:. rt Disposition Summary: 09/24/22 22:19 Hospitalization Ordered Hospitalization Status: Inpatient Admission rt Provider: Hi Blackwood rt Location: Telemetry/[facility] (Inpatient) rt Condition: Fair rt Problem: new rt Symptoms: have improved rt Bed/Room Type: Standard rt Room Assignment: 427(09/25/22 00:57) mw Diagnosis - Pneumonia, unspecified organism rt - Sepsis, unspecified organism rt - Hypoxemia rt Forms: - Medication Reconciliation Form rt - SBAR form rt Critical care time excluding procedures: 23:13 Critical care time: Bedside Care: 30 minutes, Consultation: 10 minutes. Total time: 40 rt minutes Signatures: Dispatcher [employer] EDME Isa Murillo RN RN Mohini Jameson RN RN vc1 Antonio Espinoza MD MD rt Corrections: (The following items were deleted from the chart) 23:05 23:02 Diet - Ice Chips ordered. [facility] 09/25 00:57 09/24 22:19 rt olga
[2022-09-24] MEDS ORDERED: NA CHLORIDE 0.9% 500 ML ONE ×2 (22:35→22:36)
[2022-09-24] MEDS ORDERED: CEFAZOLIN SODIUM 1 GM/VIAL ONE (22:35)
[2022-09-24] MEDS ORDERED: VANCOMYCIN 1 GM/VIAL ONE (22:35)
--- NOTE | 2022-09-24 22:35 | P.HP ---
Certification for Inpatient Patient admitted to: Inpatient With expected LOS: <2 Midnights Patient will require the following post-hospital care: Other (Resides in the half-way) Practitioner: I am a practitioner with admitting privileges, knowledge of patient current condition, hospital course, and medical plan of care. Services: Services provided to patient in accordance with Admission requirements found in Title 42 Section 412.3 of the Code of Federal Regulations Patient History Date of Service: 09/25/22 Reason for admission: hypoxia History of Present Illness: 82-year-old female with a past medical history of cardiac murmur, essential hypertension GERD, hyperlipidemia, hypothyroidism, back pain, seizure disorder, bipolar, chronic pain, anxiety disorder, pneumonitis secondary to aspiration, presents via EMS from the [facility] for pneumonia. HPI limited due to patient mild confusion. Patient is alert and oriented x2 she reports mild shortness of breath and nonproductive cough. She denies fever, chills, chest pain, abdominal pain. She reports dealing upper respiratory infection. Per ER nurse, history of aspiration pneumonia. She reports she is on chronic bedrest as baseline. Bilateral lower extremities mild contractures, bilateral heel booties on. On physical exam discussed significant heart murmur, breath sounds diminished in the bases, hypoxic on arrival to the ER sats in the 80s. On 3 L satting 92%. chest x-ray IMPRESSION: Ill-defined airspace disease in the right lung could reflect pneumonia or, less likely, asymmetric edema. Laboratory evaluation mild hyponatremia at 131 mild hypokalemia at 3.1 elevated BUN 34, creatinine normal at 0.84, lactic elevated at 2.5, CBC WBCs 13.90, early left shift 76.9, microcytic anemia hemoglobin 11.5, hematocrit 36.3, urinalysis leukoesterase negative Allergies Unable to Assess Allergy (Unverified 09/25/22 01:22) Review of Systems 10-point ROS is otherwise unremarkable Physical Examination - Physical Exam General: Alert, Oriented x2, Cooperative, Other (Forgetful) HEENT: Atraumatic, Normocephalic, PERRLA Neck: 2+ carotid pulse no bruit, JVD not distended Respiratory: Diminished, Other (Nonproductive cough) Cardiovascular: No edema, Systolic murmur Capillary refill: <2 Seconds Gastrointestinal: Normal bowel sounds, Soft and benign Musculoskeletal: Contractures Integumentary: No rashes, No tenderness/swelling Neurological: Normal speech, Normal strength at 5/5 x4 extr - Studies Laboratory Data (last 24 hrs) 09/24/22 21:35: PT 13.4 H, INR 1.14, APTT 26.5 09/24/22 21:35: Sodium 131 L, Potassium 3.1 L, BUN 34 H, Creatinine 0.84, Glucose 111 H, Total Bilirubin 0.3, AST 45 H, ALT 23, Alkaline Phosphatase 76 09/24/22 21:35: WBC 13.90 H, Hgb 11.5 L, Hct 36.3, Plt Count 418 H Assessment and Plan - Plan Assessment plan . Acute hypoxic respiratory failure secondary to pneumonia pneumonia, unspecified organism Hyponatremia Hypokalemia Acute kidney injury Sepsis secondary to pneumonia sepsis, unspecified organism History of pneumonitis secondary to aspiration pneumonia Seizure disorder Essential hypertension Hyperlipidemia Hypothyroidism Diabetes mellitus type 2 Constipation Bipolar Generalized anxiety disorder Insomnia Chronic pain Contractures immobility DVT prophylaxis Assessment plan Acute hypoxic respiratory failure secondary to pneumonia IV Unasyn, doxycycline, mild IV fluid chest x-ray IMPRESSION: Ill-defined airspace disease in the right lung could reflect pneumonia or, less likely, asymmetric edema. O2 titrate to keep saturations greater than 90% Sepsis secondary to pneumonia sepsis, unspecified organism lactic elevated at 2.5, CBC WBCs 13.90, early left shift 76.9, Infectious disease consult, IV fluids, IV antibiotics, nebs ordered, cultures ordered, Trend lactic, WBCs, urinalysis leukoesterase negative Hyponatremia Hypokalemia mild hyponatremia at 131 mild hypokalemia at 3.1 Trend electrolytes replace as needed Acute kidney injury unknown baseline elevated BUN 34, creatinine normal at 0.84, Mild IV fluids Microcytic anemia microcytic anemia hemoglobin 11.5, hematocrit 36.3, History of pneumonitis secondary to aspiration pneumonia Speech eval for swallow eval Seizure disorder Essential hypertension Hyperlipidemia Hypothyroidism Resume appropriate home meds Diabetes mellitus type 2 Accu-Cheks ACHS, sliding scale insulin Constipation Bipolar Generalized anxiety disorder Insomnia Chronic pain Contractures immobility Resume appropriate home medications after reviewed DVT prophylaxis Diet ice chips Full code Discharge Plan: Senior Care Plan to discharge in: 48 Hours - Advance Directives Does patient have a Living Will: No Does patient have a Durable POA for Healthcare: No - Code Status/Comfort Care Code Status: Full Code Physician Review: Patient Assessed, Agree with Above Assessment and Plan Critical Care: No Time Spent Managing Pts Care (In Minutes): 50
[2022-09-24] MEDS ORDERED: NA CHLORIDE 0.9% 250 ML ONE (22:44)
[2022-09-24] MEDS ORDERED: ALBUTEROL 2.5 MG/3 ML NEB SOL NEB PRN (22:44)
[2022-09-24] MEDS ORDERED: CEFEPIME 1 GM/VIAL ONE (22:44)
[2022-09-24] MEDS ORDERED: ONDANSETRON 4 MG/2 ML VIAL IV PRN (22:44)
[2022-09-25] MEDS ORDERED: AMPICILLIN/SULBACT 3 GM in NA CHLORIDE 0.9% 100 ML IVPB SCH ×2
[2022-09-25] MEDS: NA CHLORIDE 0.9% 1,000 ML IV SCH ×2 (01:48→14:57)
[2022-09-25 02:16] LABS: Absolute Lymphocytes (CBC) 0.8 K/uL (0.7-4.9); Hematocrit 36.3 % (36.0-45.0); MCV 80.6 fL (80-100); MPV 7.1 fL (7.6-11.3); Platelets 330 thou/uL (152-406); RBC Red Blood Cell Count 4.51 M/uL (3.86-4.86)
[2022-09-25 02:24] VITALS: BMI 41.9
[2022-09-25 02:24] LABS: Magnesium 1.9 mg/dL (1.6-2.4); Potassium 3.2 mEq/L (3.5-5.1)
[2022-09-25] MEDS: AMPICILLIN/SULBACT 3 GM in NA CHLORIDE 0.9% 100 ML IVPB SCH ×3 (05:23→17:28)
[2022-09-25] MEDS: KCL 20 MEQ/100 mL IVPB 20 MEQ/100 ML BAG IV SCH ×2 (05:23→09:29)
[2022-09-25] MEDS ORDERED: CEFEPIME 1 GM in NA CHLORIDE 0.9% 100 ML IV SCH (09:00)
--- NOTE | 2022-09-25 09:30 | P.CNS ---
Date of Consult: 09/25/22 Reason for Consult: Sepsis, Pneumonia Chief Complaint: hypoxia History of Present Illness: Patient is an 82 yo female with a history of hypertension, hypothyroid, seizure disorder, bipolar disorder, GERD, chronic pain, hx aspiration pneumonitis who presented to the ED from [facility] with complaints of cough, shortness of breath and confusion. Patient was found to be hypoxic upon arrival, XR chest obtained and patient was admitted for pneumonia. Allergies atenolol Allergy (Verified 09/25/22 04:36) Hives Home medications list reviewed: Yes Home Medications: Aspirin [Aspirin EC] 81 mg PO DAILY 09/25/22 Atorvastatin Calcium 40 mg PO DAILY 09/25/22 Buspirone HCl 15 mg PO TID 09/25/22 Cholecalciferol (Vitamin D3) [Vitamin D3] 1,000 unit PO DAILY 09/25/22 Codeine/APAP [Tylenol W/Codeine #3 tab] 1 tab PO Q8HR 09/25/22 Diltiazem HCl [Cardizem LA] 240 mg PO DAILY 09/25/22 Divalproex Sodium [Depakote Sprinkle] 2 cap PO BID 09/25/22 Duloxetine HCl 60 mg PO DAILY 09/25/22 Guaifenesin [Cough Syrup] 10 ml PO Q4HR PRN 09/25/22 Levalbuterol [Xopenex*] 3 ml IH Q6HR 09/25/22 Levetiracetam [Keppra] 1,000 mg PO BID 09/25/22 Levothyroxine Sodium [Levoxyl] 50 mcg PO 0600 09/25/22 Lisinopril/Hydrochlorothiazide [Lisinopril-Hctz 10-12.5 mg Tab] 1 tab PO DAILY 09/25/22 Mag Hydroxide 8% [Milk Of Magnesia*] 1 dose PO DAILYPRN PRN 09/25/22 Metformin HCl [Metformin HCl ER] 500 mg PO BID 09/25/22 Metoprolol Tartrate 12.5 mg PO DAILY 09/25/22 Nitroglycerin 0.4 mg SL PRN 09/25/22 Nystatin Cream [Mycostatin 100MU/Gm Cream*] 1 dose TOP Q12HR 09/25/22 Potassium Chloride 20 meq PO DAILY 09/25/22 Sennosides 2 tab PO TID 09/25/22 levoFLOXacin [Levofloxacin] 1 tab PO DAILY 09/25/22 - Past Medical/Surgical History -: Hypertension -: Hypothyroidism -: Seizure disorder -: Chronic pain -: HLD -: NIDDM -: Anxiety disorder -: right breast mastectomy - Social History Smoking Status: Unknown if ever smoked Alcohol use: No CD- Drugs: No Caffeine use: No Place of Residence: Longterm Review of Systems 10-point ROS is otherwise unremarkable General: Weakness Respiratory: Shortness of Breath Musculoskeletal: Leg Pain (BLE) Physical Examination Temp Pulse Resp BP Pulse Ox 97.5 F 93 H 17 108/65 94 09/25/22 04:00 09/25/22 04:00 09/25/22 04:00 09/25/22 04:00 09/25/22 04:00 General: Oriented x1, Mild distress, Obese HEENT: Atraumatic, Normocephalic Neck: Supple Respiratory: Diminished, Other (on 2.5L nasal cannula) Cardiovascular: Edema (BLE) Gastrointestinal: Normal bowel sounds, Soft and benign Musculoskeletal: No clubbing Integumentary: No significant lesion, Other (onychomycosis) Neurological: Normal speech, Other (confusion) Urinary: Other (PureWick draining minesh colored urine) Laboratory Data (last 24 hrs) 09/24/22 21:35: PT 13.4 H, INR 1.14, APTT 26.5 09/24/22 21:35: Sodium 131 L, Potassium 3.1 L, BUN 34 H, Creatinine 0.84, Glucose 111 H, Total Bilirubin 0.3, AST 45 H, ALT 23, Alkaline Phosphatase 76 09/24/22 21:35: WBC 13.90 H, Hgb 11.5 L, Hct 36.3, Plt Count 418 H Microbiology Data - Pending Imagings Data: - XR Chest 09/24: "IMPRESSION: Ill-defined airspace disease in the right lung could reflect pneumonia or, less likely, asymmetric edema." Conclusions/Impression: Problem List Sepsis Pneumonia Diabetes Mellitus II Severe PCM Hypertension Hyperlipidemia Hypothyroidism Seizure Disorder Bipolar Disorder Sepsis Pneumonia - Blood cultures 09/24: Pending - XR Chest 09/24: "IMPRESSION: Ill-defined airspace disease in the right lung could reflect pneumonia or, less likely, asymmetric edema." - Hx aspiration pneumonitis - Currently on Unasyn and Doxycycline (09/25-) Leukocytosis (WBC 13.1) Afebrile Recommendations - Pneumonia: Continue antibiotic therapy x 7 days. Currently on unasyn and doxycycline. Consider switch to PO antibiotics once able to tolerate. Pending swallow evaluation. - Follow up with blood culture results. - Obtain sputum culture if possible. - Monitor WBC and fever trends - Seizure precautions. Aspiration precautions Case discussed with Dr. Henriquez, N
[2022-09-25] MEDS: DOXYCYCLINE 100 MG in NA CHLORIDE 0.9% 100 ML IVPB SCH ×2 (09:53→21:44)
[2022-09-25] MEDS ORDERED: ALBUTEROL 2.5 MG/3 ML NEB SOL NEB PRN (12:00)
--- NOTE | 2022-09-25 13:06 | RAD REPORT ---
EXAM DESCRIPTION: RAD - Barium Swallow Modified - 09/25/2022 12:52 pm CLINICAL HISTORY: Shortness of breath. Aspiration pneumonia FINDINGS: laryngeal penetration not cleared aspiration- no cough with thin liquids pharyngeal residue vallecular reduced laryngeal elevation, reduced tongue base retraction Eleven fluoroscopic spot series obtained. Fluoroscopy time 1.1 minute
--- NOTE | 2022-09-25 13:23 | EKG ---
Test Date: 2022-09-24 Test Time: 21:11:14 Tracing Lathe Set Up Operator: JIMENA MEASUREMENT RESULTS: Intervals: Rate: 94 NE: 262 QRSD: 84 QT: 324 QTc: 405 [place]: P: 69 NE: 262 QRS: -41 T: 30 INTERPRETIVE STATEMENTS: Sinus rhythm with 1st degree AV block with premature supraventricular complexes Left axis deviation Abnormal ECG Compared to ECG 11/26/2020 16:30:59 Atrial premature complex(es) now present First degree AV block now present Sinus tachycardia no longer present Left ventricular hypertrophy no longer present Electronically Signed On 09-25-22 13:22:53 CDT by Luis Rico
[2022-09-25] MEDS ORDERED: KCL 20 MEQ/100 mL IVPB 20 MEQ/100 ML BAG IV SCH (15:00)
[2022-09-25] MEDS ORDERED: guaiFENesin 100 MG/5 ML UCUP PO PRN (18:42)
[2022-09-25] MEDS ORDERED: MAGNESIUM HYDROXIDE 8% 30 ML PO PRN (18:42)
--- NOTE | 2022-09-25 18:42 | P.PN ---
Subjective Date of Service: 09/25/22 Chief Complaint: hypoxia Patient has no new complain. She is awake and interacting meaningfully. Physical Examination - Vital Signs Temperature: 99.5 F Blood Pressure: 130/61 Pulse: 103 Respirations: 18 Pulse Ox (%): 92 - Studies Laboratory Data (last 24 hrs) 09/24/22 09/24/22 09/24/22 21:35 21:35 21:35 WBC 13.90 H Hgb 11.5 L Hct 36.3 Plt Count 418 H PT 13.4 H INR 1.14 APTT 26.5 Sodium 131 L Potassium 3.1 L BUN 34 H Creatinine 0.84 Glucose 111 H Total Bilirubin 0.3 AST 45 H ALT 23 Alkaline Phosphatase 76 Assessment And Plan - Plan Physical Exam General: Alert, Oriented x2, Cooperative, Other (Forgetful) HEENT: Atraumatic, Normocephalic, PERRLA Neck: 2+ carotid pulse no bruit, JVD not distended Respiratory: Diminished, Other (Nonproductive cough) Cardiovascular: No edema, Systolic murmur Capillary refill: <2 Seconds Gastrointestinal: Normal bowel sounds, Soft and benign Musculoskeletal: Contractures Integumentary: No rashes, No tenderness/swelling Neurological: Normal speech, Normal strength at 5/5 x4 extr Diagnosis Acute hypoxic respiratory failure secondary to pneumonia Aspiration pneumonia Hyponatremia Hypokalemia Sepsis secondary to pneumonia sepsis, unspecified organism Seizure disorder Essential hypertension Hyperlipidemia Hypothyroidism Diabetes mellitus type 2 Generalized anxiety disorder Chronic pain Assessment plan Acute hypoxic respiratory failure secondary to aspiration pneumonia Continue IV Unasyn, doxycycline, mild IV fluid O2 titrate to keep saturations greater than 90% Patient seen by speech therapy. Minced diet and nectar thickened liquids recommended. Sepsis secondary to pneumonia sepsis, unspecified organism lactic elevated at 2.5, CBC WBCs 13.90, early left shift 76.9, Infectious disease consulted, IV fluids, IV antibiotics, nebs ordered, Follow cultures. Hyponatremia Hypokalemia mild hyponatremia at 131 mild hypokalemia at 3.1 Trend electrolytes replace as needed Seizure disorder Essential hypertension Hyperlipidemia Hypothyroidism Continue home meds Diabetes mellitus type 2 Accu-Cheks ACHS, sliding scale insulin Bipolar disorder Generalized anxiety disorder Insomnia Chronic pain Continue home medications. PT consult. DVT prophylaxis: Lovenox Full code
[2022-09-25] MEDS: LEVALBUTEROL 0.63 MG/3 ML NEB NEB SCH (19:25)
[2022-09-25] MEDS ORDERED: HOME MED 1 EA UNK (Levetiracetam [Keppra] 1,000 MG Tablet) PO SCH (21:00)
[2022-09-25] MEDS: BUSPIRONE HCL 15 MG TABLET PO SCH (21:52)
[2022-09-25] MEDS: DIVALPROEX NA 125 MG CAP PO SCH (21:52)
[2022-09-25] MEDS: levETIRAcetam 500 MG TAB PO SCH (21:53)
[2022-09-25] MEDS: SENOSIDES 8.6 MG TAB PO SCH (21:53)
[2022-09-25] MEDS: NYSTATIN 100MU/GM CREAM 15GM TOP SCH (21:53)
[2022-09-26] MEDS: LEVALBUTEROL 0.63 MG/3 ML NEB NEB SCH ×4 (01:05→20:20)
[2022-09-26] MEDS: CODEINE 30MG/APAP 300MG TAB PO SCH ×3 (01:20→16:51)
[2022-09-26] MEDS: AMPICILLIN/SULBACT 3 GM in NA CHLORIDE 0.9% 100 ML IVPB SCH ×4 (01:20→17:35)
[2022-09-26] MEDS: NA CHLORIDE 0.9% 1,000 ML IV SCH ×2 (01:40→15:00)
[2022-09-26 03:38] LABS: Absolute Lymphocytes (CBC) 0.9 K/uL (0.7-4.9); Hematocrit 33.9 % (36.0-45.0); Lymphocytes % 6.3 % (15.3-44.8); MCV 79.5 fL (80-100); MPV 7.2 fL (7.6-11.3); Platelets 349 thou/uL (152-406); RBC Red Blood Cell Count 4.27 M/uL (3.86-4.86)
[2022-09-26 03:52] LABS: Magnesium 2.1 mg/dL (1.6-2.4); Phosphorus 1.9 mg/dL (2.5-4.9); Potassium 3.5 mEq/L (3.5-5.1)
[2022-09-26] MEDS: LEVOTHYROXINE SOD 0.05 MG TABLET PO SCH (06:06)
[2022-09-26] MEDS ORDERED: HOME MED 1 EA UNK (Potassium Chloride [Potassium Chloride] 20 MEQ Tablet.Er) PO SCH (09:00)
[2022-09-26] MEDS: BUSPIRONE HCL 15 MG TABLET PO SCH ×3 (09:00→21:00)
[2022-09-26] MEDS: POTASSIUM CL SA 10 MEQ TAB PO SCH (09:00)
[2022-09-26] MEDS ORDERED: HOME MED 1 EA UNK (Cholecalciferol (Vitamin D3) [Vitamin D3] 1,000 UNIT Capsule) PO SCH (09:00)
[2022-09-26] MEDS ORDERED: DILTIAZEM HCL 240 MG PO SCH (09:00)
[2022-09-26] MEDS ORDERED: POTASSIUM CL SA 10 MEQ TAB PO ONE (09:00)
[2022-09-26] MEDS ORDERED: HOME MED 1 EA UNK (Lisinopril/Hydrochlorothiazide [Lisinopril-Hctz 10-12.5 Mg Tab] Tablet) PO SCH (09:00)
[2022-09-26] MEDS ORDERED: HOME MED 1 EA UNK (Duloxetine Hcl [Duloxetine Hcl] 60 MG Capsule.Dr) PO SCH (09:00)
[2022-09-26] MEDS: DOXYCYCLINE 100 MG in NA CHLORIDE 0.9% 100 ML IVPB SCH ×2 (10:03→21:00)
[2022-09-26] MEDS: DIVALPROEX NA 125 MG CAP PO SCH ×2 (10:04→21:00)
[2022-09-26] MEDS: DILTIAZEM HCL 120 MG SR CAP PO SCH (10:04)
[2022-09-26] MEDS: hydroCHLOROthiazide 12.5 MG CAP PO SCH (10:05)
[2022-09-26] MEDS: SENOSIDES 8.6 MG TAB PO SCH ×3 (10:05→21:00)
[2022-09-26] MEDS: levETIRAcetam 500 MG TAB PO SCH ×2 (10:05→21:00)
[2022-09-26] MEDS: DULOXETINE 30 MG CAP PO SCH (10:05)
[2022-09-26] MEDS: ASPIRIN EC 81 MG TAB PO SCH (10:06)
[2022-09-26] MEDS: VITAMIN D 1000 UNIT TAB PO SCH (10:06)
[2022-09-26] MEDS: METOPROLOL TAR 25 MG TAB PO SCH (10:06)
[2022-09-26] MEDS: lisinopriL 10 MG TAB PO SCH (10:07)
[2022-09-26] MEDS: ATORVASTATIN 40 MG TAB PO SCH (10:07)
[2022-09-26] MEDS: POTASS/SODIUM PHOSPHATE 1 PKT POWD.PACK PO SCH ×2 (10:07→12:09)
[2022-09-26] MEDS: NYSTATIN 100MU/GM CREAM 15GM TOP SCH ×2 (10:13→21:00)
--- NOTE | 2022-09-26 14:56 | P.PN ---
Subjective Date of Service: 09/26/22 Chief Complaint: hypoxia Patient has no new complain. She is awake and interacting meaningfully. She is tolerating minced solids and nectar thickened liquid. She is maintained on 3 L of oxygen by nasal cannula. Physical Examination - Vital Signs Temperature: 98.5 F Blood Pressure: 181/79 Pulse: 92 Respirations: 18 Pulse Ox (%): 91 Assessment And Plan - Plan Physical Exam General: Alert, Oriented x2, Cooperative, Other (Forgetful) HEENT: Atraumatic, Normocephalic, PERRLA Neck: 2+ carotid pulse no bruit, JVD not distended Respiratory: Diminished, Other (Nonproductive cough) Cardiovascular: No edema, Systolic murmur Capillary refill: <2 Seconds Gastrointestinal: Normal bowel sounds, Soft and benign Musculoskeletal: Contractures Integumentary: No rashes, No tenderness/swelling Neurological: Normal speech, Normal strength at 5/5 x4 extr Diagnosis Acute hypoxic respiratory failure secondary to pneumonia Aspiration pneumonia Hyponatremia Hypokalemia Sepsis secondary to pneumonia sepsis, unspecified organism Seizure disorder Essential hypertension Hyperlipidemia Hypothyroidism Diabetes mellitus type 2 Generalized anxiety disorder Chronic pain Assessment plan Acute hypoxic respiratory failure secondary to aspiration pneumonia Continue IV Unasyn, doxycycline. Patient with good oral intake. Discontinue IV fluid. O2 titrate to keep saturations greater than 90% Patient seen by speech therapy. On minced diet and nectar thickened liquids recommended. Sepsis secondary to pneumonia sepsis, unspecified organism Infectious disease is following. Blood cultures: No growth Continue IV antibiotics. Follow cultures. Hyponatremia Hypokalemia Hyponatremia and hypokalemia resolved. Monitor and correct electrolytes as needed. Seizure disorder Essential hypertension Hyperlipidemia Hypothyroidism Continue home meds Diabetes mellitus type 2 Accu-Cheks ACHS, sliding scale insulin Bipolar disorder Generalized anxiety disorder Insomnia Chronic pain Continue home medications. DVT prophylaxis: Lovenox Full code
[2022-09-26 17:03] LABS: Blood Gas Oxyhemoglobin 92.8 % (94-97); Blood O2 Saturation 94.8 % (92-98.5)
--- NOTE | 2022-09-26 18:07 | RAD REPORT ---
EXAM DESCRIPTION: RAD - Chest Single View - 09/26/2022 6:01 pm CLINICAL HISTORY: desaturation Chest pain. COMPARISON: Chest Single View dated 09/24/2022; Chest Single View dated 11/26/2020; Chest Single View dated 09/23/2019 FINDINGS: Portable technique limits examination quality. Moderate bilateral pulmonary opacities are present, greater on left, probably representing pulmonary. The heart is mildly enlarged. No displaced fractures. IMPRESSION: Moderate bilateral pulmonary opacities, greater on the left, likely representing pulmona ry edema.
[2022-09-26] MEDS ORDERED: HYDRALAZINE HCL 20 MG/ML VIAL IV PRN (18:24)
[2022-09-26] MEDS ORDERED: FUROSEMIDE 40 MG/4 ML VIAL IV ONE (18:28)
[2022-09-27] MEDS: AMPICILLIN/SULBACT 3 GM in NA CHLORIDE 0.9% 100 ML IVPB SCH ×2 (00:34→05:56)
[2022-09-27] MEDS: CODEINE 30MG/APAP 300MG TAB PO SCH ×3 (01:33→15:52)
[2022-09-27] MEDS: LEVALBUTEROL 0.63 MG/3 ML NEB NEB SCH ×4 (02:05→19:35)
[2022-09-27 03:23] LABS: Absolute Lymphocytes (CBC) 1.1 K/uL (0.7-4.9); Hematocrit 35.7 % (36.0-45.0); Lymphocytes % 6.2 % (15.3-44.8); MCV 79.5 fL (80-100); MPV 6.9 fL (7.6-11.3); Platelets 308 thou/uL (152-406); RBC Red Blood Cell Count 4.49 M/uL (3.86-4.86)
[2022-09-27 03:32] LABS: Magnesium 1.6 mg/dL (1.6-2.4); Phosphorus 3.4 mg/dL (2.5-4.9); Potassium 3.6 mEq/L (3.5-5.1)
[2022-09-27] MEDS: LEVOTHYROXINE SOD 0.05 MG TABLET PO SCH (05:56)
[2022-09-27] MEDS ORDERED: POTASSIUM CL SA 10 MEQ TAB PO ONE (09:00)
[2022-09-27] MEDS ORDERED: MAGNESIUM SULFATE 1 gm IVPB 1 GM/100 ML BAG IV ONE (09:00)
[2022-09-27] MEDS ORDERED: FUROSEMIDE 40 MG/4 ML VIAL IV SCH (09:00)
[2022-09-27] MEDS: levETIRAcetam 500 MG TAB PO SCH ×2 (09:34→21:41)
[2022-09-27] MEDS: DIVALPROEX NA 125 MG CAP PO SCH ×2 (09:35→21:35)
[2022-09-27] MEDS: hydroCHLOROthiazide 12.5 MG CAP PO SCH (09:35)
[2022-09-27] MEDS: ATORVASTATIN 40 MG TAB PO SCH (09:36)
[2022-09-27] MEDS: DULOXETINE 30 MG CAP PO SCH (09:36)
[2022-09-27] MEDS: VITAMIN D 1000 UNIT TAB PO SCH (09:36)
[2022-09-27] MEDS: SENOSIDES 8.6 MG TAB PO SCH ×3 (09:37→21:42)
[2022-09-27] MEDS: METOPROLOL TAR 25 MG TAB PO SCH (09:39)
[2022-09-27] MEDS: DILTIAZEM HCL 120 MG SR CAP PO SCH (09:39)
[2022-09-27] MEDS: NYSTATIN 100MU/GM CREAM 15GM TOP SCH ×2 (09:40→21:35)
[2022-09-27] MEDS: BUSPIRONE HCL 15 MG TABLET PO SCH ×3 (09:40→21:35)
[2022-09-27] MEDS: lisinopriL 10 MG TAB PO SCH (09:40)
[2022-09-27] MEDS: DOXYCYCLINE 100 MG in NA CHLORIDE 0.9% 100 ML IVPB SCH (09:41)
[2022-09-27] MEDS: ASPIRIN EC 81 MG TAB PO SCH (09:41)
[2022-09-27] MEDS: POTASSIUM CL SA 10 MEQ TAB PO SCH (09:43)
[2022-09-27] MEDS: METRONIDAZOLE 500mg IVPB 500 MG/100 ML BAG IV SCH ×2 (12:09→19:12)
[2022-09-27] MEDS: CEFEPIME 2 GM in NA CHLORIDE 0.9% 100 ML IV SCH ×2 (12:09→21:32)
--- NOTE | 2022-09-27 13:39 | P.PN ---
Subjective Date of Service: 09/27/22 Chief Complaint: hypoxia Patient is now requiring 8 L of oxygen by nasal cannula. He denies shortness of breath. Chest x-ray yesterday reports bilateral pulmonary opacities. She is awake and interacting meaningfully. She is tolerating minced solids and nectar thickened liquid. No reported aspiration event. Physical Examination - Vital Signs Temperature: 96.9 F Blood Pressure: 154/97 Pulse: 88 Respirations: 20 Pulse Ox (%): 92 Assessment And Plan - Plan Physical Exam General: Alert, Oriented x2, Cooperative, Other (Forgetful) HEENT: Atraumatic, Normocephalic, PERRLA Neck: 2+ carotid pulse no bruit, JVD not distended Respiratory: Diminished, Other (Nonproductive cough) Cardiovascular: No edema, Systolic murmur Capillary refill: <2 Seconds Gastrointestinal: Normal bowel sounds, Soft and benign Musculoskeletal: Contractures Integumentary: No rashes, No tenderness/swelling Neurological: Normal speech, Normal strength at 5/5 x4 extr Diagnosis Acute hypoxic respiratory failure secondary to pneumonia Aspiration pneumonia Hyponatremia Hypokalemia Sepsis secondary to pneumonia sepsis, unspecified organism Seizure disorder Essential hypertension Hyperlipidemia Hypothyroidism Diabetes mellitus type 2 Generalized anxiety disorder Chronic pain Assessment plan Acute hypoxic respiratory failure secondary to aspiration pneumonia Acute respiratory failure is worse. Leukocytosis is worse. Antibiotics changed to IV cefepime and Flagyl. IV fluid discontinued. No significant response to IV Lasix. Discontinue Lasix. Wean oxygen as tolerated Obtain CT chest for more detailed evaluation. Speech therapy to follow. On minced diet and nectar thickened liquids recommended. Sepsis secondary to pneumonia sepsis, unspecified organism Infectious disease is following. Blood cultures: No growth. IV antibiotics Hyponatremia Hypokalemia Hyponatremia and hypokalemia resolved. Monitor and correct electrolytes as needed. Seizure disorder Essential hypertension Hyperlipidemia Hypothyroidism Continue home meds Diabetes mellitus type 2 Accu-Cheks ACHS, sliding scale insulin Bipolar disorder Generalized anxiety disorder Insomnia Chronic pain Continue home medications. DVT prophylaxis: Lovenox Full code
--- NOTE | 2022-09-27 16:26 | RAD REPORT ---
EXAM DESCRIPTION: CT - Chest For Pe Angio - 09/27/2022 4:15 pm CLINICAL HISTORY: Worsening hypoxia COMPARISON: Chest Single View dated 09/26/2022; Barium Swallow Modified dated 09/25/2022; Chest Single View dated 09/24/2022 TECHNIQUE: Dynamically enhanced axial 3 mm thick images of the chest were obtained during administra tion of <100> mL Isovue 370 IV contrast. Coronal and oblique reconstruction images were generated and reviewed. Exam utilizes a protocol for optimal evaluation of pulmonary arterial tree. Maximum intensity projections 3D imaging was utilized All CT scans are performed using dose optimization technique as appropriate and may include automated exposure control or mA/KV adjustment according to patient size. FINDINGS: Chest Wall: No suspicious thyroid nodules or pathologic lymphadenopathy. Lungs: Predominantly dependent areas of consolidation noted bilaterally. Pleura: Small bilateral pleural effusions. Mediastinum/inez: 19 mm right paratracheal lymph node that is pathologically enlarged. Of the mediast inal lymph nodes are mildly enlarged. Pulmonary arteries/Aorta: No filling defect identified. No aortic aneurysm. Heart: No significant pericardial effusion. Normal heart size. Coronary artery calcifications. Mitral annular and aortic valve calcifications. Upper abdomen: No acute abnormality. Bones: No acute abnormality. IMPRESSION: Negative for pulmonary embolism. Next item sign small bilateral effusions with predomina ntly dependent areas of consolidation suspicious for pneumonia including secondary to aspiration. The effusions could be related to edema. Pathologically enlarged mediastinal lymphadenopathy. It may be reactive however three-month follow-up chest CT is recommended to reassess.
[2022-09-28] MEDS: CODEINE 30MG/APAP 300MG TAB PO SCH ×3 (00:31→17:00)
[2022-09-28] MEDS: LEVALBUTEROL 0.63 MG/3 ML NEB NEB SCH ×4 (01:05→18:55)
[2022-09-28] MEDS: METRONIDAZOLE 500mg IVPB 500 MG/100 ML BAG IV SCH ×2 (03:00→11:25)
[2022-09-28] MEDS ORDERED: NA CHLORIDE 0.9% 100 ML ONE (03:37)
[2022-09-28 03:52] LABS: C.diff Antigen/Toxin Ag neg : Tox neg (NEG : NEG)
[2022-09-28] MEDS: CEFEPIME 2 GM in NA CHLORIDE 0.9% 100 ML IV SCH ×2 (04:00→11:24)
[2022-09-28 04:04] LABS: Absolute Lymphocytes (CBC) 1.5 K/uL (0.7-4.9); Hematocrit 37.6 % (36.0-45.0); MCV 78.8 fL (80-100); MPV 6.9 fL (7.6-11.3); Platelets 271 thou/uL (152-406); RBC Red Blood Cell Count 4.78 M/uL (3.86-4.86)
[2022-09-28 04:16] LABS: Phosphorus 3.8 mg/dL (2.5-4.9); Potassium 3.3 mEq/L (3.5-5.1)
[2022-09-28 05:01] LABS: Blood Morphology Comment NOTED (NOT SEEN); Hypochromasia 1+; Platelet Estimate ADEQ
[2022-09-28] MEDS: LEVOTHYROXINE SOD 0.05 MG TABLET PO SCH (06:00)
[2022-09-28] MEDS: POTASSIUM CL SA 10 MEQ TAB PO SCH (08:59)
[2022-09-28] MEDS: ASPIRIN EC 81 MG TAB PO SCH (08:59)
[2022-09-28] MEDS: VITAMIN D 1000 UNIT TAB PO SCH (08:59)
[2022-09-28] MEDS: levETIRAcetam 500 MG TAB PO SCH ×2 (08:59→23:34)
[2022-09-28] MEDS: SENOSIDES 8.6 MG TAB PO SCH ×3 (08:59→23:33)
[2022-09-28] MEDS: ATORVASTATIN 40 MG TAB PO SCH (09:00)
[2022-09-28] MEDS: NYSTATIN 100MU/GM CREAM 15GM TOP SCH ×2 (09:00→23:37)
[2022-09-28] MEDS: DULOXETINE 30 MG CAP PO SCH (09:00)
[2022-09-28] MEDS: METOPROLOL TAR 25 MG TAB PO SCH (09:00)
[2022-09-28] MEDS: BUSPIRONE HCL 15 MG TABLET PO SCH ×3 (09:00→23:34)
[2022-09-28] MEDS ORDERED: POTASSIUM CL SA 10 MEQ TAB PO ONE (09:00)
[2022-09-28] MEDS: DILTIAZEM HCL 120 MG SR CAP PO SCH (09:00)
[2022-09-28] MEDS: DIVALPROEX NA 125 MG CAP PO SCH ×2 (09:01→23:34)
[2022-09-28] MEDS: lisinopriL 10 MG TAB PO SCH (09:03)
[2022-09-28] MEDS: hydroCHLOROthiazide 12.5 MG CAP PO SCH (09:04)
--- NOTE | 2022-09-28 09:50 | P.PN ---
Date of Service: 09/28/22 Chief Complaint: hypoxia Subjective: Patient seen and examined at bedside. She reports not feeling well overall. + cough. +shortness of breath. +generalized weakness. +decreased appetite. Physical Examination Temp Pulse Resp BP Pulse Ox 96.8 F 79 16 119/48 L 93 09/28/22 04:00 09/28/22 09:04 09/28/22 09:00 09/28/22 09:04 09/28/22 09:00 General: Oriented x2, NAD. HEENT: Atraumatic, Normocephalic Neck: Supple Respiratory: Diminished. Bibasilar crackles. On 6L nasal cannula. Cardiovascular: Trace BLE edema. Gastrointestinal: Normal bowel sounds, Soft and benign. Obese. Urinary: PureWick Musculoskeletal: No clubbing Integumentary: No significant lesion. Onychomycosis Neurological: Normal speech. Laboratory Data - Reviewed Microbiology Data - Pending Imagings Data: - XR Chest 09/24: "IMPRESSION: Ill-defined airspace disease in the right lung could reflect pneumonia or, less likely, asymmetric edema." Medications List: Reviewed Assessment and Plan Problem List Sepsis Pneumonia Acute Hypoxic Respiratory Failure secondary to Pneumonia Diabetes Mellitus II Severe PCM Hypertension Hyperlipidemia Hypothyroidism Seizure Disorder Bipolar Disorder Sepsis secondary to Pneumonia Acute Hypoxic Respiratory Failure secondary to Pneumonia - XR Chest 09/24: "IMPRESSION: Ill-defined airspace disease in the right lung could reflect pneumonia or, less likely, asymmetric edema." - Hx aspiration pneumonitis - XR Chest 09/26: "Moderate bilateral pulmonary opacities, greater on the left, likely representing pulmonary edema" - CT Chest 09/27: "Negative for pulmonary embolism. Next item sign small bilateral effusions with predominantly dependent areas of consolidation suspicious for pneumonia including secondary to aspiration. The effusions could be related to edema." - Previously on Unasyn and Doxycycline (09/25-09/27) - Currently on Cefepime and Flagyl (09/27-) Blood cultures 09/24: No growth to date Leukocytosis (WBC 21.3) Afebrile Recommendations - Pneumonia: Unasyn and Doxycycline switched to Cefepime and Flagyl on 09/27 - Continue antibiotic therapy for at least 7 days. Will continue to monitor and adjust antibiotics as appropriate. If no improvement in respiratory status, consider switch to Merrem and Vancomycin. - Obtain sputum culture if possible. - Monitor WBC and fever trends - Seizure precautions. Aspiration precautions - Supplemental nutrition Case discussed with Megan Johnson
--- NOTE | 2022-09-28 13:45 | P.PN ---
Subjective Date of Service: 09/28/22 Chief Complaint: hypoxia Patient is now requiring 6 L of oxygen by nasal cannula. He denies shortness of breath. She is awake and interacting meaningfully. She is tolerating minced solids and nectar thickened liquid. No reported aspiration event reported. Physical Examination - Vital Signs Temperature: 97.6 F Blood Pressure: 119/48 Pulse: 79 Respirations: 16 Pulse Ox (%): 93 Assessment And Plan - Plan Physical Exam General: Alert, Oriented x2, NAD Neck: JVD not distended Respiratory: Diminished, mild bibasilar crackles Cardiovascular: No edema, raines systolic murmur Gastrointestinal: Normal bowel sounds, Soft and benign Musculoskeletal: Contractures Integumentary: No rashes, No tenderness/swelling Neurological: Normal speech, Normal strength at 5/5 x4 extr Diagnosis Acute hypoxic respiratory failure secondary to pneumonia Aspiration pneumonia Hyponatremia Hypokalemia Sepsis secondary to pneumonia sepsis, unspecified organism Seizure disorder Essential hypertension Hyperlipidemia Hypothyroidism Diabetes mellitus type 2 Generalized anxiety disorder Chronic pain Assessment plan Acute hypoxic respiratory failure secondary to aspiration pneumonia Acute respiratory failure is worse. Leukocytosis is worsening and chest images show worsening infiltrate We will change antibiotics to IV meropenem and vancomycin. Infectious diseases following. IV fluid discontinued. No significant response to IV Lasix. Wean oxygen as tolerated Speech therapy reassessed and recommending to continue minced diet and nectar thickened liquids. Upright when eating. Sepsis secondary to pneumonia sepsis, unspecified organism Infectious disease is following. Blood cultures: No growth. IV antibiotics Hyponatremia Hypokalemia Hyponatremia and hypokalemia resolved. Monitor and correct electrolytes as needed. Seizure disorder Essential hypertension Hyperlipidemia Hypothyroidism Continue home meds Diabetes mellitus type 2 Accu-Cheks ACHS, sliding scale insulin Bipolar disorder Generalized anxiety disorder Insomnia Chronic pain Continue home medications. DVT prophylaxis: Lovenox Full code
[2022-09-28] MEDS: Meropenem 1,000 MG in NA CHLORIDE 0.9% 100 ML IV SCH (23:33)
[2022-09-29] MEDS: Meropenem 1,000 MG in NA CHLORIDE 0.9% 100 ML IV SCH ×3 (00:22→17:51)
[2022-09-29] MEDS: CODEINE 30MG/APAP 300MG TAB PO SCH ×3 (00:22→17:51)
[2022-09-29] MEDS: LEVALBUTEROL 0.63 MG/3 ML NEB NEB SCH ×4 (01:05→20:15)
[2022-09-29 04:12] LABS: Absolute Lymphocytes (CBC) 1.3 K/uL (0.7-4.9); Hematocrit 33.3 % (36.0-45.0); Lymphocytes % 6.4 % (15.3-44.8); MCV 78.4 fL (80-100); MPV 6.8 fL (7.6-11.3); Platelets 271 thou/uL (152-406); RBC Red Blood Cell Count 4.25 M/uL (3.86-4.86)
[2022-09-29 04:22] LABS: Potassium 3.8 mEq/L (3.5-5.1)
[2022-09-29] MEDS: LEVOTHYROXINE SOD 0.05 MG TABLET PO SCH (06:06)
--- NOTE | 2022-09-29 07:21 | P.PN ---
Date of Service: 09/29/22 Subjective: feels same as yesterday, breathing ~unchanged feels shes been coughing more lately after eating/drinking no acute events overnight afebrile ROS: 10 point ROS as noted above, otherwise negative Physical Exam: GEN: Alert, oriented x1-2 (knew in hospital, but stated in [place]), NAD HEENT: Normal conjunctiva, sclera anicteric CV: Regular rate and rhythm, no edema, Systolic murmur Pulm: Nonlabored respirations on 6L NC, diminished at bases b/l, +crackles/rales ABD: Soft, nontender, nondistended Neuro: Normal speech, normal affect vitals reviewed Problem List: Acute hypoxic respiratory failure secondary to aspiration pneumonia Sepsis secondary to pneumonia, unspecified organism Incidental CTA finding - Enlarged mediastinal lymphadenopathy Hyponatremia Hypokalemia NIDDM2 Seizure disorder Essential hypertension Hyperlipidemia Hypothyroidism Bipolar disorder Generalized anxiety disorder Insomnia Chronic pain Acute hypoxic respiratory failure secondary to aspiration pneumonia Sepsis secondary to pneumonia, unspecified organism CXR (09/24): Ill-defined airspace disease in the right lung could reflect pneumonia or, less likely, asymmetric edema CXR (09/26): Moderate bilateral pulmonary opacities, greater on the left, likely representing pulmonary edema CTA chest (09/27): negative for PE. Moderate bilateral pulmonary opacities, greater on the left, likely representing pulmonary edema Blood cultures 09/24: NGTD ID consulted Previously on Unasyn and Doxycycline (09/25-09/27) -> Cefepime and Flagyl (09/27-09/28) changed to Meropenem (09/28-) due to no improvement Wean oxygen as tolerated Pulmonology consulted 09/29 added lasix 09/29 echo ordered Speech therapy consult recommend to continue minced diet and nectar thickened liquids. Upright when eating. Incidental CTA finding - Enlarged mediastinal lymphadenopathy Pathologically enlarged mediastinal lymphadenopathy. f/u CT chest in 3 months is recommended to reassess Hyponatremia Hypokalemia Resolved Monitor and correct electrolytes as needed. NIDDM2 Accu-Cheks ACHS, sliding scale insulin Seizure disorder Essential hypertension Hyperlipidemia Hypothyroidism Bipolar disorder Generalized anxiety disorder Insomnia Chronic pain Continue home medications. VTE: Lovenox Code: Full Dispo: Detention ~ 2 days Pending further improvement, wean oxygen
--- NOTE | 2022-09-29 08:09 | P.CNS ---
Date of Consult: 09/29/22 Reason for Consult: Lateral pneumonia Chief Complaint: hypoxia History of Present Illness: Patient is 82 years of age poor historian and alf resident apparently has not been feeling well for the past 2 months. Patient is paraplegic bedbound unable to walk [place] any fever chills patient was found to be in hypoxic respiratory failure has never smoked with an elevated white count bilateral pulmonary infiltrates Allergies atenolol Allergy (Verified 09/25/22 04:36) Hives Home Medications: Aspirin [Aspirin EC] 81 mg PO DAILY 09/25/22 Atorvastatin Calcium 40 mg PO DAILY 09/25/22 Buspirone HCl 15 mg PO TID 09/25/22 Cholecalciferol (Vitamin D3) [Vitamin D3] 1,000 unit PO DAILY 09/25/22 Codeine/APAP [Tylenol W/Codeine #3 tab] 1 tab PO Q8HR 09/25/22 Diltiazem HCl [Cardizem LA] 240 mg PO DAILY 09/25/22 Divalproex Sodium [Depakote Sprinkle] 2 cap PO BID 09/25/22 Duloxetine HCl 60 mg PO DAILY 09/25/22 Guaifenesin [Cough Syrup] 10 ml PO Q4HR PRN 09/25/22 Levalbuterol [Xopenex*] 3 ml IH Q6HR 09/25/22 Levetiracetam [Keppra] 1,000 mg PO BID 09/25/22 Levothyroxine Sodium [Levoxyl] 50 mcg PO 0600 09/25/22 Lisinopril/Hydrochlorothiazide [Lisinopril-Hctz 10-12.5 mg Tab] 1 tab PO DAILY 09/25/22 Mag Hydroxide 8% [Milk Of Magnesia*] 1 dose PO DAILYPRN PRN 09/25/22 Metformin HCl [Metformin HCl ER] 500 mg PO BID 09/25/22 Metoprolol Tartrate 12.5 mg PO DAILY 09/25/22 Nitroglycerin 0.4 mg SL PRN 09/25/22 Nystatin Cream [Mycostatin 100MU/Gm Cream*] 1 dose TOP Q12HR 09/25/22 Potassium Chloride 20 meq PO DAILY 09/25/22 Sennosides 2 tab PO TID 09/25/22 levoFLOXacin [Levofloxacin] 1 tab PO DAILY 09/25/22 - Past Medical/Surgical History -: Hypertension -: Hypothyroidism -: Seizure disorder -: Chronic pain -: HLD -: NIDDM -: Anxiety disorder -: right breast mastectomy - Social History Smoking Status: Unknown if ever smoked Alcohol use: No CD- Drugs: No Caffeine use: No Place of Residence: [facility] Review of Systems 10-point ROS is otherwise unremarkable General: Weakness Respiratory: Shortness of Breath Physical Examination Temp Pulse Resp BP Pulse Ox 97.2 F 87 16 160/68 H 96 09/29/22 04:00 09/29/22 04:00 09/29/22 04:00 09/29/22 04:00 09/29/22 04:00 General: Alert, Oriented x1 Neck: Supple Respiratory: Crackles/rales (Bilateral crackles) Cardiovascular: Edema Gastrointestinal: Normal bowel sounds, Soft and benign Neurological: Other (Patient is paraplegic) - Problems (1) Pneumonia Current Visit: Yes Status: Acute Plan: Patient is 82 years of age bedbound paraplegic apparently from a fall. With the not feeling well for the past 2 months she has bilateral pulmonary infiltrates elevated white count normal chemistries and mild microcytic anemia blood cultures are negative chest x-ray CT scan all reviewed patient is on meropenem White count is declining hemodynamically stable oxygenation satisfactory patient is on Lasix hydrochlorothiazide add daily low-dose Lasix 2D echocardiogram Qualifiers: Pneumonia type: due to unspecified organism Laterality: bilateral
[2022-09-29] MEDS ORDERED: POTASSIUM 25 MEQ EFFERV TAB PO ONE (09:00)
[2022-09-29] MEDS: BUSPIRONE HCL 15 MG TABLET PO SCH ×3 (09:15→20:54)
[2022-09-29] MEDS: DIVALPROEX NA 125 MG CAP PO SCH ×2 (09:16→20:54)
[2022-09-29] MEDS: ENOXAPARIN 40 MG/0.4 ML SQ SCH (09:16)
[2022-09-29] MEDS: FUROSEMIDE 20 MG/ 2ML VIAL IV SCH (09:16)
[2022-09-29] MEDS: lisinopriL 10 MG TAB PO SCH (09:17)
[2022-09-29] MEDS: SENOSIDES 8.6 MG TAB PO SCH ×3 (09:17→20:54)
[2022-09-29] MEDS: hydroCHLOROthiazide 12.5 MG CAP PO SCH (09:17)
[2022-09-29] MEDS: METOPROLOL TAR 25 MG TAB PO SCH (09:18)
[2022-09-29] MEDS: POTASSIUM CL SA 10 MEQ TAB PO SCH (09:18)
[2022-09-29] MEDS: levETIRAcetam 500 MG TAB PO SCH ×2 (09:18→20:54)
[2022-09-29] MEDS: DULOXETINE 30 MG CAP PO SCH (09:18)
[2022-09-29] MEDS: DILTIAZEM HCL 120 MG SR CAP PO SCH (09:19)
[2022-09-29] MEDS: NYSTATIN 100MU/GM CREAM 15GM TOP SCH ×2 (09:19→20:54)
[2022-09-29] MEDS: ASPIRIN EC 81 MG TAB PO SCH (09:19)
[2022-09-29] MEDS: ATORVASTATIN 40 MG TAB PO SCH (09:19)
[2022-09-29] MEDS: VITAMIN D 1000 UNIT TAB PO SCH (09:19)
[2022-09-29 09:33] LABS: Thyroid Stimulating Hormone 6.52 uIU/mL (0.358-3.740)
--- NOTE | 2022-09-29 10:05 | P.PN ---
Date of Service: 09/29/22 Chief Complaint: hypoxia Subjective: Patient in bed, remains on 6L NC. In no apparent distress. +shortness of breath + cough No acute events reported overnight. Physical Examination Temp Pulse Resp BP Pulse Ox 96.9 F 90 18 150/66 H 94 09/29/22 08:00 09/29/22 08:00 09/29/22 08:00 09/29/22 08:00 09/29/22 08:00 General: Oriented x2, NAD. HEENT: Atraumatic, Normocephalic Neck: Supple Respiratory: Diminished. Bibasilar crackles. On 6L nasal cannula. Cardiovascular: Trace BLE edema. Gastrointestinal: Normal bowel sounds, Soft and benign. Obese. Urinary: PureWick Musculoskeletal: No clubbing Integumentary: No significant lesion. Onychomycosis Neurological: Normal speech. Studies Laboratory Data - Reviewed Microbiology Data - Pending Imagings Data: - XR Chest 09/24: "IMPRESSION: Ill-defined airspace disease in the right lung could reflect pneumonia or, less likely, asymmetric edema." Medications List: Reviewed Assessment and Plan Problem List Sepsis Pneumonia Acute Hypoxic Respiratory Failure secondary to Pneumonia Diabetes Mellitus II Severe PCM Hypertension Hyperlipidemia Hypothyroidism Seizure Disorder Bipolar Disorder Sepsis secondary to Pneumonia Acute Hypoxic Respiratory Failure secondary to Pneumonia - XR Chest 09/24: "IMPRESSION: Ill-defined airspace disease in the right lung could reflect pneumonia or, less likely, asymmetric edema." - Hx aspiration pneumonitis - XR Chest 09/26: "Moderate bilateral pulmonary opacities, greater on the left, likely representing pulmonary edema" - CT Chest 09/27: "Negative for pulmonary embolism. Next item sign small bilateral effusions with predominantly dependent areas of consolidation suspicious for pneumonia including secondary to aspiration. The effusions could be related to edema." - Previously on Unasyn and Doxycycline (09/25-09/27) -> Cefepime and Flagyl (09/27- 09/28) - Currently on Meropenem (started 09/28) - Pulmonology on case Blood cultures 09/24: No growth to date Leukocytosis slightly improving (WBC 21.3 -> 19.5 - on 09/29)) Afebrile Recommendations - Pneumonia: Cefepime and Flagyl switched to Meropenem 09/28 - Continue antibiotic therapy for at least 7 days. Started on IV antibio tics on 09/25. - Pulmonology on case - Obtain sputum culture if possible. - Monitor WBC and fever trends - Seizure precautions. Aspiration precautions - Supplemental nutrition as needed. Case discussed with Megan Johnson
[2022-09-29 20:43] LABS: Specific Gravity 1.022 (1.005-1.030); Urine Bacteria None Seen /HPF (<20); Urine Bilirubin NEGATIVE (Negative); Urine Blood Negative (Negative); Urine Clarity Turbid (Clear); Urine Color Yellow (Yellow); Urine Glucose NEGATIVE (Negative); Urine Protein NEGATIVE (Negative); Urine RBC 21-50 /HPF (None Seen); Urine Urobilinogen Normal (Normal); Urine pH 6.5 (5.0-7.0)
[2022-09-30] MEDS: CODEINE 30MG/APAP 300MG TAB PO SCH ×3 (00:19→17:12)
[2022-09-30] MEDS: Meropenem 1,000 MG in NA CHLORIDE 0.9% 100 ML IV SCH ×3 (00:20→17:12)
[2022-09-30] MEDS: LEVALBUTEROL 0.63 MG/3 ML NEB NEB SCH ×4 (02:00→19:45)
[2022-09-30] MEDS: LEVOTHYROXINE SOD 0.05 MG TABLET PO SCH (05:54)
[2022-09-30 07:04] LABS: Absolute Lymphocytes (CBC) 1.7 K/uL (0.7-4.9); Hematocrit 34.7 % (36.0-45.0); Lymphocytes % 9.1 % (15.3-44.8); MCV 78.7 fL (80-100); MPV 6.8 fL (7.6-11.3); Platelets 294 thou/uL (152-406); RBC Red Blood Cell Count 4.41 M/uL (3.86-4.86)
[2022-09-30 07:16] LABS: Magnesium 1.7 mg/dL (1.6-2.4); Potassium 4.1 mEq/L (3.5-5.1)
--- NOTE | 2022-09-30 07:40 | P.PN ---
Date of Service: 09/30/22 Subjective: feeling a little better today Breathing slowly improving no new / worsening problems afebrile ROS: 10 point ROS as noted above, otherwise negative Physical Exam: GEN: Alert, oriented x2, NAD HEENT: Normal conjunctiva, sclera anicteric CV: Regular rate and rhythm, no edema, Systolic murmur Pulm: Nonlabored respirations on 6L NC, diminished at bases b/l, +cough ABD: Soft, nontender, nondistended Integumentary: Sacral Pressure ulcer stage II Neuro: Normal speech, normal affect vitals reviewed Problem List: Acute hypoxic respiratory failure secondary to aspiration pneumonia Sepsis secondary to pneumonia, unspecified organism Incidental CTA finding - Enlarged mediastinal lymphadenopathy Hyponatremia Hypokalemia NIDDM2 Seizure disorder Essential hypertension Hyperlipidemia Hypothyroidism Bipolar disorder Generalized anxiety disorder Insomnia Chronic pain Stage II sacral pressure ulcer Acute hypoxic respiratory failure secondary to aspiration pneumonia Sepsis secondary to pneumonia, unspecified organism CXR (09/24): Ill-defined airspace disease in the right lung could reflect pneumonia or, less likely, asymmetric edema CXR (09/26): Moderate bilateral pulmonary opacities, greater on the left, likely representing pulmonary edema CTA chest (09/27): negative for PE. Moderate bilateral pulmonary opacities, greater on the left, likely representing pulmonary edema Blood cultures 09/24: No growth ID consulted Previously on Unasyn and Doxycycline (09/25-09/27) -> Cefepime and Flagyl (09/27-09/28) changed to Meropenem (09/28-) due to no improvement recommend 7 days treatment, on day 5 afebrile, +leukocytosis improving Wean oxygen as tolerated Pulmonology consulted cont lasix echo ordered Speech therapy consult recommend to continue minced diet and nectar thickened liquids. Upright when eating. Incidental CTA finding - Enlarged mediastinal lymphadenopathy Pathologically enlarged mediastinal lymphadenopathy. f/u CT chest in 3 months is recommended to reassess Hyponatremia Hypokalemia Resolved Monitor and correct electrolytes as needed. NIDDM2 Accu-Cheks ACHS, sliding scale insulin Seizure disorder Essential hypertension Hyperlipidemia Hypothyroidism Bipolar disorder Generalized anxiety disorder Insomnia Chronic pain Continue home medications. VTE: Lovenox Code: Full Dispo: [facility]pc ~ 2 days Pending further improvement, wean oxygen
[2022-09-30] MEDS ORDERED: Meropenem 1000 MG/VIAL IV ONE (08:23)
[2022-09-30] MEDS: DIVALPROEX NA 125 MG CAP PO SCH ×2 (09:00→21:19)
[2022-09-30] MEDS: BUSPIRONE HCL 15 MG TABLET PO SCH ×3 (09:00→21:19)
[2022-09-30] MEDS: ASPIRIN EC 81 MG TAB PO SCH (09:10)
[2022-09-30] MEDS: ATORVASTATIN 40 MG TAB PO SCH (09:10)
[2022-09-30] MEDS: DULOXETINE 30 MG CAP PO SCH (09:10)
[2022-09-30] MEDS: POTASSIUM CL SA 10 MEQ TAB PO SCH (09:10)
[2022-09-30] MEDS: DILTIAZEM HCL 120 MG SR CAP PO SCH (09:11)
[2022-09-30] MEDS: VITAMIN D 1000 UNIT TAB PO SCH (09:11)
[2022-09-30] MEDS: METOPROLOL TAR 25 MG TAB PO SCH (09:11)
[2022-09-30] MEDS: SENOSIDES 8.6 MG TAB PO SCH ×3 (09:11→21:19)
[2022-09-30] MEDS: hydroCHLOROthiazide 12.5 MG CAP PO SCH (09:11)
[2022-09-30] MEDS: levETIRAcetam 500 MG TAB PO SCH ×2 (09:11→21:19)
[2022-09-30] MEDS: FUROSEMIDE 20 MG/ 2ML VIAL IV SCH (09:12)
[2022-09-30] MEDS: lisinopriL 10 MG TAB PO SCH (09:12)
[2022-09-30] MEDS: NYSTATIN 100MU/GM CREAM 15GM TOP SCH ×2 (09:13→21:19)
[2022-09-30] MEDS: ENOXAPARIN 40 MG/0.4 ML SQ SCH (09:13)
[2022-09-30] MEDS ORDERED: NA CHLORIDE 0.9% 100 ML ONE (09:35)
--- NOTE | 2022-09-30 14:27 | ECHO ---
HEIGHT: 5 ft 6 in WEIGHT: 260 lb 0 oz DATE OF STUDY: 09/29/[address]: Guanaco Bautista MD 2-DIMENSIONAL: YES M.MODE: YES DOPPLER: YES COLOR FLOW: YES TDS: YES PORTABLE: YES DEFINITY: BUBBLE STUDY: DIAGNOSIS: RESPIRATORY FAILURE CARDIAC HISTORY: CATHERIZATION: NO SURGERY: NO PROSTHETIC VALVE: NO PACEMAKER: NO MEASUREMENTS (cm) DIASTOLIC (NORMALS) SYSTOLIC (NORMALS) IVSd (0.6-1.2) LA Diam (1.9-4.0) LVEF % LVIDd (3.5-5.7) LVIDs (2.0-3.5) %FS % LVPWd (0.6-1.2) Ao Diam (2.0-3.7) 2 DIMENSIONAL ASSESSMENT: RIGHT ATRIUM: LEFT ATRIUM: RIGHT VENTRICLE: LEFT VENTRICLE: TRICUSPID VALVE: MITRAL VALVE: PULMONIC VALVE: AORTIC VALVE: PERICARDIAL EFFUSION: AORTIC ROOT: LEFT VENTRICULAR WALL MOTION: DOPPLER/COLOR FLOW: COMMENTS: 1. POOR QUALITY STUFY AFFECTING THE ABILITY TO READ THE STUDY 2. LEFT VENTRICULAR EJECTION FRACTION OVERALL APPEARS NORMAL. RECOMMEND CONTRAST ECHOCARDIOGRAM. TECHNOLOGIST: ADRIAN PRATER
--- NOTE | 2022-09-30 15:26 | P.PN ---
Date of Service: 09/30/22 Chief Complaint: hypoxia Subjective: Patient seen and examined at bedside. Remains on 6L nasal cannula, nonlabored respirations. +shortness of breath. + cough No acute events reported overnight. Physical Examination Temp Pulse Resp BP Pulse Ox 97.3 F 71 17 109/51 L 94 09/30/22 12:00 09/30/22 12:00 09/30/22 12:00 09/30/22 12:00 09/30/22 12:00 General: Oriented x2, NAD. HEENT: Atraumatic, Normocephalic Neck: Supple Respiratory: Diminished. Bibasilar crackles. On 6L nasal cannula. Cardiovascular: Trace BLE edema. Gastrointestinal: Normal bowel sounds, Soft and benign. Obese. Urinary: PureWick Musculoskeletal: No clubbing Integumentary: pressure ulcer sacrum stage II. Onychomycosis. Neurological: Normal speech. Studies Laboratory Data - Reviewed Microbiology Data - Pending Imagings Data: - XR Chest 09/24: "IMPRESSION: Ill-defined airspace disease in the right lung could reflect pneumonia or, less likely, asymmetric edema." Medications List: Reviewed Assessment and Plan Problem List Sepsis Pneumonia Acute Hypoxic Respiratory Failure secondary to Pneumonia Diabetes Mellitus II Severe PCM Hypertension Hyperlipidemia Hypothyroidism Seizure Disorder Bipolar Disorder Pressure Injury of Sacrum, stage II Sepsis secondary to Pneumonia Acute Hypoxic Respiratory Failure secondary to Pneumonia - XR Chest 09/24: "IMPRESSION: Ill-defined airspace disease in the right lung could reflect pneumonia or, less likely, asymmetric edema." - Hx aspiration pneumonitis - XR Chest 09/26: "Moderate bilateral pulmonary opacities, greater on the left, likely representing pulmonary edema" - CT Chest 09/27: "Negative for pulmonary embolism. Next item sign small bilateral effusions with predominantly dependent areas of consolidation suspicious for pneumonia including secondary to aspiration. The effusions could be related to edema." - Previously on Unasyn and Doxycycline (09/25-09/27) - Currently on Meropenem (started 09/28) - Pulmonology on case Blood cultures 09/24: No growth to date Leukocytosis slightly improving (WBC 18.4) Afebrile Recommendations - Pneumonia: Continue Meropenem (09/28-) - Continue antibiotic therapy for at least 7 days. Currently on day 5 of IV antibiotics. - Pulmonology on case. - Pressure offloading measures. Turn pt Q2H. Heel protectors in place. - Monitor WBC and fever trends - Seizure precautions. Aspiration precautions. Head of bed >30 degrees. - Supplemental nutrition Case discussed with Dr. Henriquez N
[2022-10-01] MEDS: LEVALBUTEROL 0.63 MG/3 ML NEB NEB SCH ×4 (01:10→20:15)
[2022-10-01] MEDS: CODEINE 30MG/APAP 300MG TAB PO SCH ×3 (01:25→16:59)
[2022-10-01] MEDS: Meropenem 1,000 MG in NA CHLORIDE 0.9% 100 ML IV SCH ×3 (01:25→16:58)
[2022-10-01 06:17] LABS: Absolute Lymphocytes (CBC) 1.5 K/uL (0.7-4.9); Hematocrit 39.2 % (36.0-45.0); Lymphocytes % 8.9 % (15.3-44.8); MCV 78.5 fL (80-100); MPV 7.3 fL (7.6-11.3); Platelets 252 thou/uL (152-406); RBC Red Blood Cell Count 4.99 M/uL (3.86-4.86)
[2022-10-01] MEDS: LEVOTHYROXINE SOD 0.05 MG TABLET PO SCH (06:33)
[2022-10-01 07:13] LABS: Blood Morphology Comment NOTED (NOT SEEN); Platelet Estimate ADEQ; White Blood Cell Scan OK (OK)
[2022-10-01 07:14] LABS: Anisocytosis SLIGHT
[2022-10-01] MEDS ORDERED: MAGNESIUM SULFATE 1 gm IVPB 1 GM/100 ML BAG IV ONE (07:29)
--- NOTE | 2022-10-01 07:48 | P.PN ---
Date of Service: 10/01/22 Subjective: Breathing more comfortably today, down to 5L NC from 6 no acute events overnight afebrile ROS: 10 point ROS as noted above, otherwise negative Physical Exam: GEN: Alert, oriented x2, NAD HEENT: Normal conjunctiva, sclera anicteric CV: Regular rate and rhythm, no edema, Systolic murmur Pulm: Nonlabored respirations on 5L NC, diminished at bases b/l, +cough ABD: Soft, nontender, nondistended Integumentary: Sacral Pressure ulcer stage II Neuro: Normal speech, normal affect vitals reviewed Problem List: Acute hypoxic respiratory failure secondary to aspiration pneumonia Sepsis secondary to pneumonia, unspecified organism Incidental CTA finding - Enlarged mediastinal lymphadenopathy Hyponatremia Hypokalemia NIDDM2 Seizure disorder Essential hypertension Hyperlipidemia Hypothyroidism Bipolar disorder Generalized anxiety disorder Insomnia Chronic pain Stage II sacral pressure ulcer Acute hypoxic respiratory failure secondary to aspiration pneumonia Sepsis secondary to pneumonia, unspecified organism CXR (09/24): Ill-defined airspace disease in the right lung could reflect pneumonia or, less likely, asymmetric edema CXR (09/26): Moderate bilateral pulmonary opacities, greater on the left, likely representing pulmonary edema CTA chest (09/27): negative for PE. Moderate bilateral pulmonary opacities, greater on the left, likely representing pulmonary edema Blood cultures 09/24: No growth ID consulted Previously on Unasyn and Doxycycline (09/25-09/27) -> Cefepime and Flagyl (09/27-09/28) changed to Meropenem (09/28- ~8/) due to no improvement recommend 7 days treatment, on day 6 afebrile, +leukocytosis improving Wean oxygen as tolerated Pulmonology consulted cont lasix echo ordered Speech therapy consult recommend to continue minced diet and nectar thickened liquids. Upright when eating. Incidental CTA finding - Enlarged mediastinal lymphadenopathy Pathologically enlarged mediastinal lymphadenopathy. f/u CT chest in 3 months is recommended to reassess Hyponatremia Hypokalemia Resolved Monitor and correct electrolytes as needed. NIDDM2 Accu-Cheks ACHS, sliding scale insulin Stage II sacral pressure ulcer Turn pt Q2H Seizure disorder Essential hypertension Hyperlipidemia Hypothyroidism Bipolar disorder Generalized anxiety disorder Insomnia Chronic pain Continue home medications. VTE: Lovenox Code: Full Dispo: [facility] Living ~ 2 days Pending further improvement, wean oxygen; complete merrem 7 days
[2022-10-01] MEDS: DULOXETINE 30 MG CAP PO SCH (09:41)
[2022-10-01] MEDS: VITAMIN D 1000 UNIT TAB PO SCH (09:41)
[2022-10-01] MEDS: SENOSIDES 8.6 MG TAB PO SCH ×3 (09:42→21:46)
[2022-10-01] MEDS: ASPIRIN EC 81 MG TAB PO SCH (09:42)
[2022-10-01] MEDS: levETIRAcetam 500 MG TAB PO SCH ×2 (09:42→21:46)
[2022-10-01] MEDS: DILTIAZEM HCL 120 MG SR CAP PO SCH (09:42)
[2022-10-01] MEDS: lisinopriL 10 MG TAB PO SCH (09:42)
[2022-10-01] MEDS: ATORVASTATIN 40 MG TAB PO SCH (09:43)
[2022-10-01] MEDS: hydroCHLOROthiazide 12.5 MG CAP PO SCH (09:43)
[2022-10-01] MEDS: METOPROLOL TAR 25 MG TAB PO SCH (09:43)
[2022-10-01] MEDS: BUSPIRONE HCL 15 MG TABLET PO SCH ×3 (09:44→21:45)
[2022-10-01] MEDS: DIVALPROEX NA 125 MG CAP PO SCH ×2 (09:44→21:46)
[2022-10-01] MEDS: FUROSEMIDE 20 MG/ 2ML VIAL IV SCH (09:45)
[2022-10-01] MEDS: NYSTATIN 100MU/GM CREAM 15GM TOP SCH ×2 (09:45→21:46)
[2022-10-01] MEDS: ENOXAPARIN 40 MG/0.4 ML SQ SCH (09:45)
[2022-10-01] MEDS: POTASSIUM CL SA 10 MEQ TAB PO SCH (09:47)
--- NOTE | 2022-10-01 09:53 | RAD REPORT ---
EXAM DESCRIPTION: Kelly Single View10/01/2022 9:40 am CLINICAL HISTORY: Hypoxia COMPARISON: September 27, 2022 FINDINGS: Partial resolution in bilateral pulmonary opacities. Heart is borderline enlarged Small pleural effusions IMPRESSION: Partial resolution bilateral pulmonary opacities
--- NOTE | 2022-10-01 09:58 | P.PN ---
Date of Service: 10/01/22 Chief Complaint: hypoxia Subjective: Patient seen and examined at bedside. +cough reports slight improvement in SOB. No acute events reported overnight Physical Examination Temp Pulse Resp BP Pulse Ox 97.6 F 85 17 132/58 L 95 10/01/22 04:00 10/01/22 04:00 10/01/22 04:00 10/01/22 04:00 10/01/22 04:00 General: Oriented x2, NAD. HEENT: Atraumatic, Normocephalic Neck: Supple Respiratory: Diminished. Bibasilar crackles. On 4 L nasal cannula. Cardiovascular: Trace BLE edema. Gastrointestinal: Normal bowel sounds, Soft and benign. Obese. Urinary: PureWick Musculoskeletal: No clubbing Integumentary: pressure ulcer sacrum stage II. Onychomycosis. Neurological: Normal speech. Studies Laboratory Data - Reviewed Microbiology Data - Pending Imagings Data: - XR Chest 09/24: "IMPRESSION: Ill-defined airspace disease in the right lung could reflect pneumonia or, less likely, asymmetric edema." Medications List: Reviewed Assessment and Plan Problem List Sepsis Pneumonia Acute Hypoxic Respiratory Failure secondary to Pneumonia Diabetes Mellitus II Severe PCM Hypertension Hyperlipidemia Hypothyroidism Seizure Disorder Bipolar Disorder Pressure Injury of Sacrum, stage II Sepsis secondary to Pneumonia Acute Hypoxic Respiratory Failure secondary to Pneumonia - XR Chest 09/24: "IMPRESSION: Ill-defined airspace disease in the right lung could reflect pneumonia or, less likely, asymmetric edema." - Hx aspiration pneumonitis - XR Chest 09/26: "Moderate bilateral pulmonary opacities, greater on the left, likely representing pulmonary edema" - CT Chest 09/27: "Negative for pulmonary embolism. Next item sign small bilateral effusions with predominantly dependent areas of consolidation suspicious for pneumonia including secondary to aspiration. The effusions could be related to edema." - Previously on Unasyn and Doxycycline (09/25-09/27) - Currently on Meropenem (started 09/28) - Pulmonology on case - XR Chest 10/01: "Partial resolution bilateral pulmonary opacities" Blood cultures 09/24: No growth to date Leukocytosis improving (WBC 18.4 -> 16.5) Afebrile Recommendations - Pneumonia: XR chest obtained today, slightly improving. - On meropenem (09/28) - Continue antibiotic therapy for 7 days. Currently on day 6 - Pulmonology on case - continue nebulizer treatments - Wean supplemental O2 as tolerated - Pressure offloading measures. Turn pt Q2H. Heel protectors in place. - Monitor WBC and fever trends - Seizure precautions. Aspiration precautions. Head of bed >30 degrees. - Supplemental nutrition Case discussed with Dr. Henriquez, N
[2022-10-02] MEDS: CODEINE 30MG/APAP 300MG TAB PO SCH ×3 (01:16→17:19)
[2022-10-02] MEDS: Meropenem 1,000 MG in NA CHLORIDE 0.9% 100 ML IV SCH ×3 (01:16→17:19)
[2022-10-02] MEDS: LEVALBUTEROL 0.63 MG/3 ML NEB NEB SCH ×4 (01:45→20:20)
[2022-10-02 05:08] LABS: Absolute Lymphocytes (CBC) 1.8 K/uL (0.7-4.9); Hematocrit 36.8 % (36.0-45.0); Lymphocytes % 11.7 % (15.3-44.8); MCV 77.8 fL (80-100); MPV 6.9 fL (7.6-11.3); Platelets 300 thou/uL (152-406); RBC Red Blood Cell Count 4.73 M/uL (3.86-4.86)
[2022-10-02] MEDS: LEVOTHYROXINE SOD 0.05 MG TABLET PO SCH (05:53)
[2022-10-02] MEDS: SENOSIDES 8.6 MG TAB PO SCH ×3 (09:00→20:43)
--- NOTE | 2022-10-02 09:06 | P.PN ---
Date of Service: 10/02/22 Chief Complaint: hypoxia Subjective: Improving. Continues to reports improvement in cough and breathing status. No chest pain or abdominal pain. No nausea, vomiting or diarrhea. No acute events reported overnight. Physical Examination Temp Pulse Resp BP Pulse Ox 97.3 F 82 20 141/65 H 94 10/02/22 04:00 10/02/22 04:00 10/02/22 04:00 10/02/22 04:00 10/02/22 04:00 General: Oriented x2, NAD. HEENT: Atraumatic, Normocephalic Neck: Supple Respiratory: Diminished. Bibasilar crackles. On 4 L nasal cannula. Cardiovascular: Trace BLE edema. Gastrointestinal: Normal bowel sounds, Soft and benign. Obese. Urinary: PureWick Musculoskeletal: No clubbing Integumentary: pressure ulcer sacrum stage II. Onychomycosis. Neurological: Normal speech. Studies Laboratory Data - Reviewed Microbiology Data - Pending Imagings Data: - XR Chest 09/24: "IMPRESSION: Ill-defined airspace disease in the right lung could reflect pneumonia or, less likely, asymmetric edema." Medications List: Reviewed Assessment and Plan Problem List Sepsis Pneumonia Acute Hypoxic Respiratory Failure secondary to Pneumonia Diabetes Mellitus II Severe PCM Hypertension Hyperlipidemia Hypothyroidism Seizure Disorder Bipolar Disorder Pressure Injury of Sacrum, stage II Sepsis secondary to Pneumonia Acute Hypoxic Respiratory Failure secondary to Pneumonia - XR Chest 09/24: "IMPRESSION: Ill-defined airspace disease in the right lung could reflect pneumonia or, less likely, asymmetric edema." - Hx aspiration pneumonitis - XR Chest 09/26: "Moderate bilateral pulmonary opacities, greater on the left, likely representing pulmonary edema" - CT Chest 09/27: "Negative for pulmonary embolism. Next item sign small bilateral effusions with predominantly dependent areas of consolidation suspicious for pneumonia including secondary to aspiration. The effusions could be related to edema." - Previously on Unasyn and Doxycycline (09/25-09/27) - Currently on Meropenem (started 09/28) - Pulmonology on case - XR Chest 10/01: "Partial resolution bilateral pulmonary opacities" Blood cultures 09/24: No growth to date Leukocytosis improving. Afebrile Recommendations - Pneumonia: Currently on day 7 of 7 antibiotic therapy. Due to white count slowly improving, extension of antibiotic duration is advised. See pulmonology note for further recommendations. - On meropenem (09/28) - continue nebulizer treatments - Wean supplemental O2 as tolerated - Pressure offloading measures. Turn pt Q2H. Heel protectors in place. - Monitor WBC and fever trends - Seizure precautions. Aspiration precautions. Head of bed >30 degrees. - Supplemental nutrition Case discussed with Dr. Henriquez, N
[2022-10-02] MEDS: levETIRAcetam 500 MG TAB PO SCH ×2 (09:13→20:44)
[2022-10-02] MEDS: lisinopriL 10 MG TAB PO SCH (09:13)
[2022-10-02] MEDS: hydroCHLOROthiazide 12.5 MG CAP PO SCH (09:13)
[2022-10-02] MEDS: ATORVASTATIN 40 MG TAB PO SCH (09:13)
[2022-10-02] MEDS: DILTIAZEM HCL 120 MG SR CAP PO SCH (09:13)
[2022-10-02] MEDS: METOPROLOL TAR 25 MG TAB PO SCH (09:13)
[2022-10-02] MEDS: ASPIRIN EC 81 MG TAB PO SCH (09:13)
[2022-10-02] MEDS: DULOXETINE 30 MG CAP PO SCH (09:14)
[2022-10-02] MEDS: POTASSIUM CL SA 10 MEQ TAB PO SCH (09:14)
[2022-10-02] MEDS: VITAMIN D 1000 UNIT TAB PO SCH (09:14)
[2022-10-02] MEDS: DIVALPROEX NA 125 MG CAP PO SCH ×2 (09:15→20:44)
[2022-10-02] MEDS: FUROSEMIDE 20 MG/ 2ML VIAL IV SCH (09:15)
[2022-10-02] MEDS: ENOXAPARIN 40 MG/0.4 ML SQ SCH (09:15)
[2022-10-02] MEDS: BUSPIRONE HCL 15 MG TABLET PO SCH ×3 (09:15→20:44)
[2022-10-02] MEDS: NYSTATIN 100MU/GM CREAM 15GM TOP SCH ×2 (09:16→20:44)
--- NOTE | 2022-10-02 11:17 | P.DS ---
Admission Date: 09/24/22 Discharge Date: 10/02/22 Disposition: ROUTINE DISCHARGE Discharge Condition: FAIR Reason for Admission: hypoxia - Problems (1) Pneumonia Current Visit: Yes Status: Acute Qualifiers: Pneumonia type: due to unspecified organism Laterality: bilateral Brief History of Present Illness: Patient is 82 years of age poor historian and half-way resident apparently has not been feeling well for the past 2 months. Patient is paraplegic bedbound unable to walk [place] any fever chills patient was found to be in hypoxic respiratory failure has never smoked with an elevated white count bilateral pulmonary infiltrates Hospital Course: Patient is 83 years of age admitted with respiratory failure bilateral pneumonia and is paraplegic she made a slow recovery was initially started on a fluoroquinolone did not improve was later changed over to meropenem for elevated white count at the time of discharge her white count had declined to 15,000 she has a microcytic anemia she was doing well alert oriented responsive cooperative a little weak patient's vital signs are stable she is little hypoxic lamination alert oriented chest diminished air entry cardiovascular system heart sounds normal abdomen soft to transfer the patient back to the half-way order some doxycycline patient's cultures were negative ventricular function appears to be normal has no change in her home medications Vital Signs/Physical Exam: Temp Pulse Resp BP Pulse Ox 97.6 F 86 18 131/62 93 10/02/22 08:00 10/02/22 08:00 10/02/22 08:00 10/02/22 08:00 10/02/22 08:00 Laboratory Data at Discharge: WBC 15.10 thou/uL (4.3-10.9) H 10/02/22 04:40 Hgb 11.9 g/dL (12.0-15.0) L 10/02/22 04:40 Hct 36.8 % (36.0-45.0) 10/02/22 04:40 Plt Count 300 thou/uL (152-406) 10/02/22 04:40 PT 13.4 SECONDS (9.2-12.8) H 09/24/22 21:35 INR 1.14 09/24/22 21:35 APTT 26.5 SECONDS (21.7-34.4) 09/24/22 21:35 Sodium 135 mEq/L (136-145) L 10/02/22 04:40 Potassium 4.0 mEq/L (3.5-5.1) 10/02/22 04:40 BUN 9 mg/dL (7-18) 10/02/22 04:40 Creatinine 0.41 mg/dL (0.55-1.02) L 10/02/22 04:40 Glucose 100 mg/dL (74-106) 10/02/22 04:40 Phosphorus 3.8 mg/dL (2.5-4.9) 09/28/22 03:18 Magnesium 2.0 mg/dL (1.6-2.4) 10/02/22 04:40 Total Bilirubin 0.3 mg/dL (0.2-1.0) 09/24/22 21:35 AST 45 U/L (15-37) H 09/24/22 21:35 ALT 23 U/L (13-56) 09/24/22 21:35 Alkaline Phosphatase 76 U/L (45-117) 09/24/22 21:35 Home Medications: Aspirin [Aspirin EC] 81 mg PO DAILY 09/25/22 Atorvastatin Calcium 40 mg PO DAILY 09/25/22 Buspirone HCl 15 mg PO TID 09/25/22 Cholecalciferol (Vitamin D3) [Vitamin D3] 1,000 unit PO DAILY 09/25/22 Codeine/APAP [Tylenol #3*] 1 tab PO Q8HR 09/25/22 Diltiazem HCl [Cardizem LA] 240 mg PO DAILY 09/25/22 Divalproex Sodium [Depakote Sprinkle] 2 cap PO BID 09/25/22 Duloxetine HCl 60 mg PO DAILY 09/25/22 Levalbuterol [Xopenex*] 3 ml IH Q6HR 09/25/22 Levetiracetam [Keppra] 1,000 mg PO BID 09/25/22 Levothyroxine Sodium [Levoxyl] 50 mcg PO 0600 09/25/22 Lisinopril/Hydrochlorothiazide [Lisinopril-Hctz 10-12.5 mg Tab] 1 tab PO DAILY 09/25/22 Mag Hydroxide 8% [Milk Of Magnesia*] 1 dose PO DAILYPRN PRN 09/25/22 Metformin HCl [Metformin HCl ER] 500 mg PO BID 09/25/22 Metoprolol Tartrate 12.5 mg PO DAILY 09/25/22 Nitroglycerin 0.4 mg SL PRN 09/25/22 Nystatin Cream [Mycostatin 100MU/Gm Cream*] 1 dose TOP Q12HR 09/25/22 Potassium Chloride 20 meq PO DAILY 09/25/22 Sennosides 2 tab PO TID 09/25/22 Doxycycline Monohydrate 100 mg PO BID 10 Days #20 tab 10/02/22 New Medications: Doxycycline Monohydrate 100 mg PO BID 10 Days #20 tab
[2022-10-02 14:11] LABS: SARS-CoV-2 Antigen Rapid Res Negative (Negative)
[2022-10-03] MEDS: LEVALBUTEROL 0.63 MG/3 ML NEB NEB SCH ×3 (00:40→14:00)
[2022-10-03] MEDS: CODEINE 30MG/APAP 300MG TAB PO SCH ×2 (00:45→09:12)
[2022-10-03] MEDS: Meropenem 1,000 MG in NA CHLORIDE 0.9% 100 ML IV SCH ×2 (00:46→09:10)
[2022-10-03 03:09] LABS: Phosphorus 3.5 mg/dL (2.5-4.9); Potassium 4.2 mEq/L (3.5-5.1)
[2022-10-03] MEDS: LEVOTHYROXINE SOD 0.05 MG TABLET PO SCH (06:04)
[2022-10-03] MEDS: DIVALPROEX NA 125 MG CAP PO SCH (09:10)
[2022-10-03] MEDS: FUROSEMIDE 20 MG/ 2ML VIAL IV SCH (09:11)
[2022-10-03] MEDS: hydroCHLOROthiazide 12.5 MG CAP PO SCH (09:12)
[2022-10-03] MEDS: DULOXETINE 30 MG CAP PO SCH (09:12)
[2022-10-03] MEDS: DILTIAZEM HCL 120 MG SR CAP PO SCH (09:12)
[2022-10-03] MEDS: lisinopriL 10 MG TAB PO SCH (09:12)
[2022-10-03] MEDS: SENOSIDES 8.6 MG TAB PO SCH ×2 (09:12→13:40)
[2022-10-03] MEDS: levETIRAcetam 500 MG TAB PO SCH (09:12)
[2022-10-03] MEDS: POTASSIUM CL SA 10 MEQ TAB PO SCH (09:12)
[2022-10-03] MEDS: ATORVASTATIN 40 MG TAB PO SCH (09:13)
[2022-10-03] MEDS: ENOXAPARIN 40 MG/0.4 ML SQ SCH (09:13)
[2022-10-03] MEDS: ASPIRIN EC 81 MG TAB PO SCH (09:13)
[2022-10-03] MEDS: BUSPIRONE HCL 15 MG TABLET PO SCH ×2 (09:13→13:40)
[2022-10-03] MEDS: METOPROLOL TAR 25 MG TAB PO SCH (09:13)
[2022-10-03] MEDS: NYSTATIN 100MU/GM CREAM 15GM TOP SCH (09:14)
[2022-10-03 09:51] VITALS: BP 117/92; TEMP 98.5
[2022-10-03 12:22] VITALS: O2SAT 92
== END 2022-10-03 14:30 | disposition home or self-care (01) | DRG 871 ==
LOC: ER 21:05 → ERHOLD 22:34 → 4TH 09-25 01:06
PROVIDERS: ADMIT Internal Medicine; ATTEND Internal Medicine Sleep Medicine
DX: A41.9 Sepsis, unspecified organism (principal); E43 Unspecified severe protein-calorie malnutrition; G93.41 Metabolic encephalopathy; J96.01 Acute respiratory failure with hypoxia; J69.0 Pneumonitis due to inhalation of food and vomit; E87.1 Hypo-osmolality and hyponatremia; N17.9 Acute kidney failure, unspecified; Z68.41 Body mass index [BMI] 40.0-44.9, adult; G82.20 Paraplegia, unspecified; R65.20 Severe sepsis without septic shock; E03.9 Hypothyroidism, unspecified; K21.9 Gastro-esophageal reflux disease without esophagitis; E78.5 Hyperlipidemia, unspecified; G89.29 Other chronic pain; E87.6 Hypokalemia; E66.9 Obesity, unspecified; F41.1 Generalized anxiety disorder; G47.00 Insomnia, unspecified; L89.152 Pressure ulcer of sacral region, stage 2; D50.9 Iron deficiency anemia, unspecified; G40.909 Epilepsy, unspecified, not intractable, without status epilepticus; K59.00 Constipation, unspecified; F31.9 Bipolar disorder, unspecified; R59.1 Generalized enlarged lymph nodes; Z88.8 Allergy status to other drugs, medicaments and biological substances; Z79.84 Long term (current) use of oral hypoglycemic drugs; Z90.11 Acquired absence of right breast and nipple; Z74.01 Bed confinement status; Z79.82 Long term (current) use of aspirin; Z79.890 Hormone replacement therapy; Z20.822 Contact with and (suspected) exposure to COVID-19
CPT/HCPCS: 36415; 71045; 71275; 74230; 80048; 80053; 81001; 82805; 82947; 83605; 83735; 84100; 84132; 84439; 84443; 84484; 85025; 85610; 85730; 87040; 87324; 87811; 92526; 92610; 92611; 93005; 93306; 94640; 94760; 96365; 96375; 99285; J0295; J0690; J0692; J1650; J1940; J2185; J2405; J3475; J3480; J7030; J7040; J7050; J7614; Q9967